=== PATIENT | female | born 1960 | race Caucasian/White ===

== ENCOUNTER 2020-02-04 07:20 | Emergency (ER) | payer BC ==
[2020-02-04 07:39] VITALS: TEMP 98.3
[2020-02-04] MEDS ORDERED: KETOROLAC 15 MG/ML 1 ML VIAL IVP STA (07:52)
[2020-02-04] MEDS ORDERED: DIAZEPAM 5 MG/ML 2 ML INJ IVP STA (07:52)
[2020-02-04] MEDS ORDERED: SODIUM CHLORIDE 0.9% 500 ML 500 ML IV ONE (07:56)
--- NOTE | 2020-02-04 08:00 | ED ---
General Adult HPI - General Chief complaint: Dizziness Stated complaint: Dizzy/neck pain/nausea/high HR Time Seen by Provider: 02/04/20 07:51 Source: patient, RN notes reviewed Mode of arrival: ambulatory Limitations: no limitations - History of Present Illness Initial comments: 59-year-old female presenting for evaluation of neck pain and stiffness, he adache, nausea vomiting. Patient states that over the past several days she's had a squeezing headache at the base of her head and upper neck. She describes this as a vice-like sensation. She reports it has gradually worsened over the past 5 days. This morning the pain was more severe causing nausea and dizziness. Patient is otherwise healthy with no chronic medical conditions. No daily medications. She denies measured fever but states this morning she woke and was feeling warm and sweaty. She denies chest pain. Denies dyspnea. Denies cough. Denies abdominal pain. - Related Data Home Medications Medication Instructions Recorded Confirmed No Known Home Medications 02/04/20 02/04/20 Allergies Allergy/AdvReac Type Severity Reaction Status Date / Time No Known Allergies Allergy Verified 02/04/20 08:53 Review of Systems ROS Statement: Those systems with pertinent positive or pertinent negative responses have been documented in the HPI. ROS Other: All systems not noted in ROS Statement are negative. Past Medical History Past Medical History: No Reported History History of Any Multi-Drug Resistant Organisms: None Reported Past Surgical History: Back Surgery, Hysterectomy Past Psychological History: No Psychological Hx Reported Smoking Status: Current every day smoker Past Alcohol Use History: None Reported Past Drug Use History: None Reported General Exam Limitations: no limitations General appearance: alert, in no apparent distress Head exam: Present: atraumatic, normocephalic Eye exam: Present: normal appearance, PERRL ENT exam: Present: normal exam Neck exam: Present: normal inspection, tenderness (Muscle spasm, cervical region.) Respiratory exam: Present: normal lung sounds bilaterally, respiratory distress Cardiovascular Exam: Present: regular rate, normal rhythm GI/Abdominal exam: Present: soft. Absent: distended, tenderness, guarding Extremities exam: Present: normal inspection, normal capillary refill, pedal edema. Absent: calf tenderness Neurological exam: Present: alert, oriented X3, CN II-XII intact, other (No ataxia normal strength in the upper extremities. 5 out of 5.). Absent: motor sensory deficit Psychiatric exam: Present: normal affect, normal mood Skin exam: Present: warm, dry, intact. Absent: cyanosis, diaphoretic Course Vital Signs 02/04/20 02/04/20 02/04/20 07:36 08:30 09:23 Temperature 98.3 F Pulse Rate 70 65 58 L Respiratory 18 16 18 Rate Blood Pressure 161/85 150/88 126/81 O2 Sat by Pulse 99 99 99 Oximetry - Reevaluation(s) Reevaluation #1: 02/04/20 09:24 Patient feeling much better symptoms resolved. EKG Findings - EKG Comments: EKG Findings:: EKG normal sinus rhythm rate 71, AZ interval 172, QRS duration 80, QTC 425, no ST segment elevation T-wave inversion in the lead 3 Medical Decision Making - Medical Decision Making 59 yo female presenting with an occipital headache, for the past 5 days. This was gradual in onset. Patient felt that she had just slept on it wrong and had a associated neck stiffness as well. Patient is afebrile, well-appearing. She has no ataxia, no focal findings. Initially hypertensive however she normalizes without treatment of hypertension and believe this is secondary to pain. Head CT performed, negative for intracranial hemorrhage or mass effect. Cervical spine negative for fracture subluxation, no acute findings. She has a normal CBC, normal CMP. EKG sinus rhythm without any ST segment elevation, negative troponin. I did reevaluate the patient she is resting comfortably. States her symptoms are significantly improved. - Lab Data Result diagrams: 02/04/20 08:10 02/04/20 08:10 Lab Results 02/04/20 02/04/20 02/04/20 Range/Units 08:10 08:10 08:10 WBC 8.2 (3.8-10.6) k/uL RBC 5.06 (3.80-5.40) m/uL Hgb 15.3 (11.4-16.0) gm/dL Hct 45.9 (34.0-46.0) % MCV 90.8 (80.0-100.0) fL MCH 30.3 (25.0-35.0) pg MCHC 33.4 (31.0-37.0) g/dL RDW 13.4 (11.5-15.5) % Plt Count 237 (150-450) k/uL MPV 6.5 Neutrophils % 74 % Lymphocytes % 20 % Monocytes % 4 % Eosinophils % 1 % Basophils % 0 % Neutrophils # 6.1 (1.3-7.7) k/uL Lymphocytes # 1.6 (1.0-4.8) k/uL Monocytes # 0.3 (0-1.0) k/uL Eosinophils # 0.1 (0-0.7) k/uL Basophils # 0.0 (0-0.2) k/uL PT 9.4 (9.0-12.0) sec INR 0.9 (<1.2) APTT 24.2 (22.0-30.0) sec Sodium (137-145) mmol/L Potassium (3.5-5.1) mmol/L Chloride (98-107) mmol/L Carbon Dioxide (22-30) mmol/L Anion Gap mmol/L BUN (7-17) mg/dL Creatinine (0.52-1.04) mg/dL Est GFR (CKD-EPI)AfAm (>60 ml/min/1.73 sqM) Est GFR (CKD-EPI)NonAf (>60 ml/min/1.73 sqM) Glucose (74-99) mg/dL Calcium (8.4-10.2) mg/dL Magnesium (1.6-2.3) mg/dL Total Bilirubin (0.2-1.3) mg/dL AST (14-36) U/L ALT (4-34) U/L Alkaline Phosphatase (38-126) U/L Troponin I (0.000-0.034) ng/mL Total Protein (6.3-8.2) g/dL Albumin (3.5-5.0) g/dL Urine Color Yellow Urine Appearance Clear (Clear) Urine pH 5.0 (5.0-8.0) Ur Specific [place] 1.010 (1.001-1.035) Urine Protein Negative (Negative) Urine Glucose (UA) Negative (Negative) Urine Ketones Negative (Negative) Urine Blood Negative (Negative) Urine Nitrite Negative (Negative) Urine Bilirubin Negative (Negative) Urine Urobilinogen <2.0 (<2.0) mg/dL Ur Leukocyte Esterase Large H (Negative) Urine WBC 2 (0-5) /hpf Ur Squamous Epith Cells 4 (0-4) /hpf Urine Bacteria Rare H (None) /hpf Urine Mucus Occasional H (None) /hpf 02/04/20 02/04/20 Range/Units 08:10 08:10 WBC (3.8-10.6) k/uL RBC (3.80-5.40) m/uL Hgb (11.4-16.0) gm/dL Hct (34.0-46.0) % MCV (80.0-100.0) fL MCH (25.0-35.0) pg MCHC (31.0-37.0) g/dL RDW (11.5-15.5) % Plt Count (150-450) k/uL MPV Neutrophils % % Lymphocytes % % Monocytes % % Eosinophils % % Basophils % % Neutrophils # (1.3-7.7) k/uL Lymphocytes # (1.0-4.8) k/uL Monocytes # (0-1.0) k/uL Eosinophils # (0-0.7) k/uL Basophils # (0-0.2) k/uL PT (9.0-12.0) sec INR (<1.2) APTT (22.0-30.0) sec Sodium 141 (137-145) mmol/L Potassium 4.0 (3.5-5.1) mmol/L Chloride 110 H (98-107) mmol/L Carbon Dioxide 26 (22-30) mmol/L Anion Gap 5 mmol/L BUN 8 (7-17) mg/dL Creatinine 0.67 (0.52-1.04) mg/dL Est GFR (CKD-EPI)AfAm >90 (>60 ml/min/1.73 sqM) Est GFR (CKD-EPI)NonAf >90 (>60 ml/min/1.73 sqM) Glucose 112 H (74-99) mg/dL Calcium 9.5 (8.4-10.2) mg/dL Magnesium 2.2 (1.6-2.3) mg/dL Total Bilirubin 0.8 (0.2-1.3) mg/dL AST 23 (14-36) U/L ALT 24 (4-34) U/L Alkaline Phosphatase 103 (38-126) U/L Troponin I <0.012 (0.000-0.034) ng/mL Total Protein 7.1 (6.3-8.2) g/dL Albumin 4.3 (3.5-5.0) g/dL Urine Color Urine Appearance (Clear) Urine pH (5.0-8.0) Ur Specific [place] (1.001-1.035) Urine Protein (Negative) Urine Glucose (UA) (Negative) Urine Ketones (Negative) Urine Blood (Negative) Urine Nitrite (Negative) Urine Bilirubin (Negative) Urine Urobilinogen (<2.0) mg/dL Ur Leukocyte Esterase (Negative) Urine WBC (0-5) /hpf Ur Squamous Epith Cells (0-4) /hpf Urine Bacteria (None) /hpf Urine Mucus (None) /hpf Disposition Clinical Impression: Headache Disposition: HOME SELF-CARE Condition: Good Instructions (If sedation given, give patient instructions): Acute Headache (ED) Additional Instructions: Please return to emergency department with any worsening pain, numbness or weakness of the arms or legs, or Any new or worsening symptoms. Is patient prescribed a controlled substance at d/c from ED?: No Referrals: Ratna Bacon MD [Primary Care Provider] - 1-2 days Time of Disposition: 09:27
[2020-02-04 08:21] LABS: Basophils % (A) 0 %; Eosinophils # (A) 0.1 k/uL (0-0.7); Eosinophils % (A) 1 %; HCT 45.9 % (34.0-46.0); HGB 15.3 gm/dL (11.4-16.0); Lymphocytes # (A) 1.6 k/uL (1.0-4.8); Lymphocytes % (A) 20 %; MCH 30.3 pg (25.0-35.0); MCHC 33.4 g/dL (31.0-37.0); MCV 90.8 fL (80.0-100.0); Mean Platelet Volume 6.5; Monocytes # (A) 0.3 k/uL (0-1.0); Monocytes % (A) 4 %; Neutrophils # (A) 6.1 k/uL (1.3-7.7); Neutrophils % (A) 74 %; Platelet Count 237 k/uL (150-450); RBC 5.06 m/uL (3.80-5.40); RDW 13.4 % (11.5-15.5); WBC 8.2 k/uL (3.8-10.6)
[2020-02-04 08:25] LABS: Appearance,Urine Clear (Clear); Bacteria,Urine Rare /hpf; Bilirubin,Urine Negative (Negative); Blood,Urine Negative (Negative); Color,Urine Yellow; Glucose,Urine (UA) Negative (Negative); Ketones,Urine Negative (Negative); Leukocyte Esterase,Urine Large (Negative); Mucus,Urine Occasional /hpf; Nitrite,Urine Negative (Negative); Protein,Urine Negative (Negative); Squamous Epithelial Cell,Urine 4 /hpf (0-4); Urobilinogen,Urine <2.0 mg/dL (<2.0); WBC,Urine 2 /hpf (0-5)
[2020-02-04 08:32] LABS: ALT 24 U/L (4-34); AST 23 U/L (14-36); African American GFR (CKD) >90 (>60 ml/min/1.73 sqM); Albumin 4.3 g/dL (3.5-5.0); Alkaline Phosphatase 103 U/L (38-126); Anion Gap 5 mmol/L; Blood Urea Nitrogen 8 mg/dL (7-17); Calcium 9.5 mg/dL (8.4-10.2); Carbon Dioxide 26 mmol/L (22-30); Chloride 110 mmol/L (98-107); Glucose 112 mg/dL (74-99); Magnesium 2.2 mg/dL (1.6-2.3); Non-African American GFR(CKD) >90 (>60 ml/min/1.73 sqM); Sodium 141 mmol/L (137-145); Total Bilirubin 0.8 mg/dL (0.2-1.3); Total Protein 7.1 g/dL (6.3-8.2)
[2020-02-04 08:34] LABS: INR 0.9 (<1.2); Partial Thromboplastin Time 24.2 sec (22.0-30.0); Prothrombin Time 9.4 sec (9.0-12.0)
--- NOTE | 2020-02-04 08:52 | CT ---
EXAMINATION TYPE: CT brain prashanth dc DATE OF EXAM: 02/04/2020 COMPARISON: None HISTORY: headache, dizziness, neck pain CT DLP: 1379.[address] of the brain was performed. The ventricles, basal cisterns and sulci overlying the cerebral convexities demonstrate mild enlargem ent. There is no evidence for intracranial hemorrhage or sulcal effacement. There is decreased attenuatio n about the periventricular white matter and deep white matter of both cerebral hemispheres, compatib le with chronic small vessel ischemia. No mass effects are seen. If symptoms persist consider MRI. Osseous calvarium is intact. IMPRESSION: 1. Age related atrophic and chronic small vessel ischemic change without acute intracranial process seen at this time. CT Cervical Spine: Unenhanced CT of the cervical spine was performed with bone and soft tissue window settings submitted . Coronal and sagittal reconstruction is obtained. There is normal alignment and prevertebral soft tissues. No evidence for acute cervical fracture . Scattered degenerative disc disease and spondylosis. Biapical scarring. IMPRESSION: 1. No evidence for acute fracture or subluxation of the cervical spine.
[2020-02-04 09:24] VITALS: BP 126/81; PULSE 58; RESP 18
== END 2020-02-04 09:37 | disposition home or self-care (01) ==
LOC: EC 07:20
DX: R51.9 Headache, unspecified (principal); R11.2 Nausea with vomiting, unspecified; M54.2 Cervicalgia; R42 Dizziness and giddiness; R11.0 Nausea; F17.200 Nicotine dependence, unspecified, uncomplicated
CPT/HCPCS: 36415; 93005; 80053; 83735; 84484; 85025; 85610; 85730; 81001; 72125; 70450; 99284; 96374; 96375; 96361; J3360; J1885

== ENCOUNTER → 2020-04-22 | Outpatient (CLI) | payer BC ==
--- NOTE | 2020-04-22 12:38 | US ---
EXAMINATION TYPE: US abdomen complete DATE OF EXAM: 04/22/2020 COMPARISON: NONE CLINICAL HISTORY: 60-year-old female R10.11 Right upper quadrant pain. RUQ pain. Patient states havi ng known gallstones. TECHNIQUE: Multiple sonographic images of the abdomen are obtained. FINDINGS: EXAM MEASUREMENTS: Liver Length: 15.0 cm Gallbladder Wall: 3.8 mm. CBD: 0.5 cm Spleen: 11.8 cm Right Kidney: 9.9 x 5.1 x 4.9 cm Left Kidney: 10.7 x 4.8 x 5.8 cm Pancreas: Shadowing from bowel gas obscures the pancreatic tail. Otherwise, most of the pancreas is visualized and shows no gross abnormality. Liver: Slightly coarsened appearance likely technical. No focal lesion. Gallbladder: Multiple mobile echogenic foci, largest measuring 2.2 cm. No hydropic change. However, there is mild wall thickening measured at 3.8 mm. Evidence for sonographic Levine's sign: neg CBD: wnl Spleen: limited visualization due to overlying bowel gas Kidneys: No hydronephrosis. Upper IVC: wnl Abd Aorta: Mid portion obscured by overlying bowel IMPRESSION: 1. Multiple gallstones measuring up to 2.2 cm. There is no hydropic change, surrounding fluid, or son ographic Levine sign. Given the mild wall thickening, consider chronic cholecystitis. 2. No biliary ductal dilatation.
== END ==
LOC: RADUSWWP 10:48
PROVIDERS: ATTEND Internal Medicine
DX: K80.10 Calculus of gallbladder with chronic cholecystitis without obstruction (principal)
CPT/HCPCS: 76700

== ENCOUNTER 2020-05-07 01:40 | Inpatient (IN) | payer BC ==
[2020-05-07] MEDS ORDERED: ACETAMINOPHEN TAB 325 MG TAB PO STA (01:54)
[2020-05-07] MEDS ORDERED: DEXAMETHASONE SOD PHOSPHATE 10 MG/ML 1 ML VIAL IV STA (01:55)
[2020-05-07] MEDS ORDERED: SODIUM CHLORIDE 0.9% 1,000 ML IV ONE (01:56)
--- NOTE | 2020-05-07 01:59 | ED ---
SOB HPI - General Chief Complaint: Shortness of Breath Stated Complaint: SHAHNAZ,Covid+ Time Seen by Provider: 05/07/20 01:50 Source: patient, EMS Mode of arrival: EMS Limitations: no limitations - History of Present Illness Initial Comments: 60-year-old female patient presents to the emergency department via EMS tonight for evaluation of increased shortness of breath. Patient states she was diagnosed with COVID-19 7 days ago started having symptoms about 10 days ago. States it she has been having fevers and chills. States over the last 3 days her shortness of breath became worse. States she is coughing. Reports chest tightness and pain with inspiration. States she has had a couple episodes of diarrhea today. Denies any nausea or vomiting. States that she has altered taste and hasn't been eating very well. Admits to smoking cigarettes. Denies any diagnosed lung conditions. Denies any other medical problems. States she's been using [id number] medications for symptom relief. Patient denies any recent rash, abdominal pain, numbness, tingling, dizziness, weakness, hematuria, dysuria, urinary urgency, urinary frequency, headache, visual changes, or any other complaints. - Related Data Home Medications Medication Instructions Recorded Confirmed No Known Home Medications 02/04/20 02/04/20 Allergies Allergy/AdvReac Type Severity Reaction Status Date / Time No Known Allergies Allergy Verified 05/07/20 02:36 Review of Systems ROS Statement: Those systems with pertinent positive or pertinent negative responses have been documented in the HPI. ROS Other: All systems not noted in ROS Statement are negative. Past Medical History Past Medical History: No Reported History History of Any Multi-Drug Resistant Organisms: None Reported Past Surgical History: Back Surgery, Hysterectomy Past Psychological History: No Psychological Hx Reported Smoking Status: Current every day smoker Past Alcohol Use History: None Reported Past Drug Use History: None Reported General Exam Limitations: no limitations General appearance: alert, in no apparent distress, other (This is a well- developed, well-nourished adult female patient in respiratory distress. Vital signs upon presentation are temperature 99.2F, pulse 112, respirations 30, bloo d pressure 141/89, pulse ox 84% on 15 L via nonrebreather.) Eye exam: Present: normal appearance, PERRL, EOMI. Absent: scleral icterus, conjunctival injection, periorbital swelling ENT exam: Present: normal exam, normal oropharynx, mucous membranes moist Respiratory exam: Present: normal lung sounds bilaterally, respiratory distress, other (Tachypnea). Absent: wheezes, rales, rhonchi, stridor Cardiovascular Exam: Present: regular rate, normal rhythm, normal heart sounds. Absent: systolic murmur, diastolic murmur, rubs, gallop, clicks GI/Abdominal exam: Present: soft, normal bowel sounds. Absent: distended, tenderness, guarding, rebound, rigid Neurological exam: Present: alert, oriented X3, CN II-XII intact Psychiatric exam: Present: normal affect, normal mood Skin exam: Present: warm, dry, intact, normal color. Absent: rash Course Vital Signs 05/07/20 05/07/20 05/07/20 01:44 01:53 02:37 Temperature 99.2 F Pulse Rate 112 H 102 H Respiratory 22 20 Rate Blood Pressure 141/89 135/79 O2 Sat by Pulse 84 L 88 L 88 L Oximetry Medical Decision Making - Medical Decision Making 60-year-old female patient presents to the emergency department today for evaluation of shortness of breath after being diagnosed with COVID-19. Patient started having symptoms approximately 10 days ago. Physical examination did reveal tachypnea, crackles in the bilateral posterior lung plummer. She was satting in the 60s upon arrival to the ED. She was placed on Non-rebreather at 15L, O2 improved to 85-88%. She was given dexamethasone and monitored, O2 did not improve so she was started on Airvo. Labs were reviewed and showed elevated d-dimer, LDH, CRP. Sodium 129. Chest x-ray revealed bilateral patchy infiltrates area did CT chest is pending. Patient will be admitted. Pulmonology will be consulted. Dr. Rubin is accepting. - Lab Data Result diagrams: 05/07/20 02:08 05/07/20 02:08 Lab Results 05/07/20 05/07/20 05/07/20 Range/Units 02:08 02:08 02:08 WBC 4.6 (3.8-10.6) k/uL RBC 4.66 (3.80-5.40) m/uL Hgb 14.2 (11.4-16.0) gm/dL Hct 39.5 (34.0-46.0) % MCV 84.8 (80.0-100.0) fL MCH 30.4 (25.0-35.0) pg MCHC 35.8 (31.0-37.0) g/dL RDW 12.7 (11.5-15.5) % Plt Count 270 (150-450) k/uL MPV 7.1 Neutrophils % 82 % Lymphocytes % 10 % Monocytes % 6 % Eosinophils % 1 % Basophils % 1 % Neutrophils # 3.8 (1.3-7.7) k/uL Lymphocytes # 0.5 L (1.0-4.8) k/uL Monocytes # 0.3 (0-1.0) k/uL Eosinophils # 0.0 (0-0.7) k/uL Basophils # 0.0 (0-0.2) k/uL PT 9.8 (9.0-12.0) sec INR 0.9 (<1.2) APTT 18.2 L (22.0-30.0) sec D-Dimer 3.79 H (<0.60) mg/L FEU Sodium 129 L (137-145) mmol/L Potassium 3.7 (3.5-5.1) mmol/L Chloride 94 L (98-107) mmol/L Carbon Dioxide 27 (22-30) mmol/L Anion Gap 8 mmol/L BUN 12 (7-17) mg/dL Creatinine 0.50 L (0.52-1.04) mg/dL Est GFR (CKD-EPI)AfAm >90 (>60 ml/min/1.73 sqM) Est GFR (CKD-EPI)NonAf >90 (>60 ml/min/1.73 sqM) Glucose 128 H (74-99) mg/dL Plasma Lactic Acid Bladimir (0.7-2.0) mmol/L Calcium 8.4 (8.4-10.2) mg/dL Magnesium 2.3 (1.6-2.3) mg/dL Total Bilirubin 0.9 (0.2-1.3) mg/dL AST 44 H (14-36) U/L ALT 19 (4-34) U/L Alkaline Phosphatase 86 (38-126) U/L Lactate Dehydrogenase 1942 H (313-618) U/L C-Reactive Protein 78.3 H (<10.0) mg/L Total Protein 5.9 L (6.3-8.2) g/dL Albumin 3.3 L (3.5-5.0) g/dL 05/07/20 Range/Units 02:08 WBC (3.8-10.6) k/uL RBC (3.80-5.40) m/uL Hgb (11.4-16.0) gm/dL Hct (34.0-46.0) % MCV (80.0-100.0) fL MCH (25.0-35.0) pg MCHC (31.0-37.0) g/dL RDW (11.5-15.5) % Plt Count (150-450) k/uL MPV Neutrophils % % Lymphocytes % % Monocytes % % Eosinophils % % Basophils % % Neutrophils # (1.3-7.7) k/uL Lymphocytes # (1.0-4.8) k/uL Monocytes # (0-1.0) k/uL Eosinophils # (0-0.7) k/uL Basophils # (0-0.2) k/uL PT (9.0-12.0) sec INR (<1.2) APTT (22.0-30.0) sec D-Dimer (<0.60) mg/L FEU Sodium (137-145) mmol/L Potassium (3.5-5.1) mmol/L Chloride (98-107) mmol/L Carbon Dioxide (22-30) mmol/L Anion Gap mmol/L BUN (7-17) mg/dL Creatinine (0.52-1.04) mg/dL Est GFR (CKD-EPI)AfAm (>60 ml/min/1.73 sqM) Est GFR (CKD-EPI)NonAf (>60 ml/min/1.73 sqM) Glucose (74-99) mg/dL Plasma Lactic Acid Bladimir 2.0 (0.7-2.0) mmol/L Calcium (8.4-10.2) mg/dL Magnesium (1.6-2.3) mg/dL Total Bilirubin (0.2-1.3) mg/dL AST (14-36) U/L ALT (4-34) U/L Alkaline Phosphatase (38-126) U/L Lactate Dehydrogenase (313-618) U/L C-Reactive Protein (<10.0) mg/L Total Protein (6.3-8.2) g/dL Albumin (3.5-5.0) g/dL - EKG Data -: EKG Interpreted by Me EKG Comments: EKG obtained at shows sinus tachycardia with ventricular rate of 110, MA interval 156, QRS duration 82, QT 336, QTc 454. Shows some ST depression and lead 2, V2, V3 is some elevation noted in aVR. - Radiology Data Radiology results: image reviewed Disposition Clinical Impression: COVID-19, Viral pneumonia, Hypoxia Disposition: ADMITTED IP TO THIS [facility] Condition: Serious Referrals: Ratna Bacon MD [Primary Care Provider] - 1-2 days Decision to Admit Reason: Admit from EC Decision Date: 05/07/20 Decision Time: 03:21
[2020-05-07 02:37] LABS: Basophils % (A) 1 %; Eosinophils % (A) 1 %; HCT 39.5 % (34.0-46.0); HGB 14.2 gm/dL (11.4-16.0); Lymphocytes # (A) 0.5 k/uL (1.0-4.8); Lymphocytes % (A) 10 %; MCH 30.4 pg (25.0-35.0); MCHC 35.8 g/dL (31.0-37.0); MCV 84.8 fL (80.0-100.0); Mean Platelet Volume 7.1; Monocytes # (A) 0.3 k/uL (0-1.0); Monocytes % (A) 6 %; Neutrophils # (A) 3.8 k/uL (1.3-7.7); Neutrophils % (A) 82 %; Platelet Count 270 k/uL (150-450); RBC 4.66 m/uL (3.80-5.40); RDW 12.7 % (11.5-15.5); WBC 4.6 k/uL (3.8-10.6)
[2020-05-07 02:39] LABS: ALT 19 U/L (4-34); AST 44 U/L (14-36); African American GFR (CKD) >90 (>60 ml/min/1.73 sqM); Albumin 3.3 g/dL (3.5-5.0); Alkaline Phosphatase 86 U/L (38-126); Anion Gap 8 mmol/L; Blood Urea Nitrogen 12 mg/dL (7-17); C Reactive Protein 78.3 mg/L (<10.0); Calcium 8.4 mg/dL (8.4-10.2); Carbon Dioxide 27 mmol/L (22-30); Chloride 94 mmol/L (98-107); Glucose 128 mg/dL (74-99); LDH 1942 U/L (313-618); Magnesium 2.3 mg/dL (1.6-2.3); Non-African American GFR(CKD) >90 (>60 ml/min/1.73 sqM); Potassium 3.7 mmol/L (3.5-5.1); Sodium 129 mmol/L (137-145); Total Bilirubin 0.9 mg/dL (0.2-1.3); Total Protein 5.9 g/dL (6.3-8.2)
[2020-05-07 02:49] LABS: INR 0.9 (<1.2); Prothrombin Time 9.8 sec (9.0-12.0)
[2020-05-07 02:52] LABS: Partial Thromboplastin Time 18.2 sec (22.0-30.0)
[2020-05-07] MEDS ORDERED: NALOXONE 0.4 MG/ML 1 ML VIAL IV PRN (03:18)
[2020-05-07] MEDS ORDERED: ONDANSETRON 4 MG/2 ML VIAL IVP PRN (03:18)
--- NOTE | 2020-05-07 03:58 | CT ---
EXAM: CT Angiography Chest With Intravenous Contrast CLINICAL HISTORY: ITS.REASON CT Reason: COVID; Elevated D-dimer TECHNIQUE: Axial computed tomographic angiography images of the chest with intravenous contrast. CTDI is 13.87 mGy and DLP is 419.4 mGy-cm. This CT exam was performed using one or more of the following dose reduction techniques: automated exposure control, adjustment of the mA and/or kV according to patient size, and/or use of iterative reconstruction technique. MIP reconstructed images were created and reviewed. COMPARISON: Chest x-ray from May 07, 2020 FINDINGS: Pulmonary arteries: The pulmonary arterial tree is well opacified with contrast. No pulmonary emboli are identified. Aorta: The thoracic aorta is nondilated. There is no aneurysm or dissection. Lungs: Lungs demonstrate moderate to severe scattered groundglass opacities throughout both lungs with interspaced wedge-shaped areas of consolidation or atelectasis. Consider Covid 19 pneumonia. Pleural space: Unremarkable. No significant effusion. No pneumothorax. Heart: Unremarkable. No cardiomegaly. No significant pericardial effusion. No evidence of RV dysfunction. Mediastinum: 3.7 cm hiatal hernia. Thyroid: Incidental note is made of a 12 mm left thyroid nodule and a 1 cm right thyroid nodule. Bones/joints: Metallic artifact from Argu[place] linda stabilizing prior scoliosis surgery throughout the thoracic spine. No acute fracture. No dislocation. Soft tissues: Unremarkable. Lymph nodes: Unremarkable. No enlarged lymph nodes. Gallbladder and bile ducts: Limited images of the upper abdomen demonstrate partial visualization of a 1.4 cm calcified gallstone within the gallbladder. IMPRESSION: Lungs demonstrate moderate to severe scattered groundglass opacities throughout both lungs with interspaced wedge-shaped areas of consolidation or atelectasis. Consider Covid 19 pneumonia. No evidence of pulmonary embolism or acute aortic abnormality.
--- NOTE | 2020-05-07 07:55 | XR ---
EXAMINATION TYPE: XR chest 1V portable DATE OF EXAM: 05/07/2020 COMPARISON: None INDICATION: Suspected atypical pneumonia TECHNIQUE: Single frontal view of the chest is obtained. FINDINGS: The heart size is normal. The pulmonary vasculature is normal. There is diffuse opacities to the bilateral lung plummer. Findings can be compatible with atypical pne umonia. Follow-up is recommended IMPRESSION: 1. Diffuse bilateral infiltrates which can be compatible with atypical pneumonia
[2020-05-07] MEDS: ASCORBIC ACID 500 MG TAB PO SCH (10:14)
[2020-05-07] MEDS: ZINC SULFATE 220 MG CAP PO SCH (10:14)
[2020-05-07] MEDS: DEXAMETHASONE SOD PHOSPHATE 10 MG/ML 1 ML VIAL IV SCH (10:16)
--- NOTE | 2020-05-07 10:19 | P.CNPUL ---
History of Present Illness Consult date: 05/07/20 Reason for consult: dyspnea, hypoxemia, pneumonia, abnormal CXR/CT Chief complaint: Cough, acute hypoxic respiratory failure, dyspnea COVID 19 History of present illness: 60-year-old white female patient of Dr. Bacon with no significant medical history other than history of uterine and cervical cancer status post total hysterectomy 10 years ago, kyphoscoliosis with history of back surgery, and borderline hypertension for which the patient takes no medications, who presented to the emergency department 05-07-2020 by EMS for evaluation of worsening shortness of breath. Patient states that onset of symptoms was 2 we eks ago and started with runny nose and a sore throat, gradually her symptoms have progressed, and patient started having fevers, worsening shortness of breath and cough. She tested positive for COVID 19 a week ago on 04/29/2020 on an outpatient basis however she did not seek any medical treatment up until now. She reports some decreased oral intake, nausea, but no abdominal pain or diarrhea. Admits to smoking cigarettes, however reports no chronic lung condition. Patient denies receiving any vaccination for COVID 19. CTA chest showed no evidence of pulmonary embolism, but demonstrated moderate to severe scattered groundglass opacities, showed a positive COVID 19 PCR test, d-dimer was elevated at 3.79, and significant elevated inflammatory markers with LDH thousand 942, and CRP of 78.3. Patient is a requiring high flow oxygen per Airvo at 50 L and FiO2 of 75%, her pulse ox is 88-92%, she is having low grade fevers, but hemodynamically stable. Added on Decadron, prophylactic dose of Lovenox, and we were asked to see the patient in consultation. Review of Systems All systems: negative Constitutional: Reports fatigue, Reports malaise, Reports weakness, Denies chills, Denies fever Eyes: denies blurred vision, denies pain Ears, nose, mouth and throat: Denies headache, Denies sore throat Cardiovascular: Denies chest pain, Denies shortness of breath Respiratory: Reports cough, Reports dyspnea Gastrointestinal: Reports loss of appetite, Reports nausea, Denies abdominal pain, Denies diarrhea, Denies vomiting Genitourinary: Denies dysuria, Denies hematuria Musculoskeletal: Denies myalgias Integumentary: Denies pruritus, Denies rash Neurological: Denies numbness, Denies weakness Psychiatric: Denies anxiety, Denies depression Endocrine: Denies fatigue, Denies weight change Past Medical History Past Medical History: No Reported History History of Any Multi-Drug Resistant Organisms: None Reported Past Surgical History: Back Surgery, Hysterectomy Past Psychological History: No Psychological Hx Reported Smoking Status: Current every day smoker Past Alcohol Use History: None Reported Past Drug Use History: None Reported Medications and Allergies Home Medications Medication Instructions Recorded Confirmed Type No Known Home Medications 02/04/20 05/07/20 History Allergies Allergy/AdvReac Type Severity Reaction Status Date / Time No Known Allergies Allergy Verified 05/07/20 06:28 Physical Exam Vitals: Vital Signs Temp Pulse Resp BP Pulse Ox 05/07/20 09:16 96 18 138/80 88 L 05/07/20 07:41 92 L 05/07/20 06:59 98.9 F 88 18 121/80 89 L 05/07/20 04:49 99.3 F 88 20 131/76 92 L 05/07/20 03:52 100.5 F H 92 20 141/82 91 L 05/07/20 03:00 90 L 05/07/20 02:37 102 H 20 135/79 88 L 05/07/20 01:53 88 L 05/07/20 01:44 99.2 F 112 H 22 141/89 84 L Intake and Output 05/06/20 05/07/20 05/07/20 22:59 06:59 14:59 Other: Weight 94.801 kg GENERAL EXAM: Alert, pleasant, 70-year-old white female, currently on high flow oxygen per Airvo at 50 L and FiO2 of 75% with a pulse ox of 88-92% comfortable in no apparent distress. HEAD: Normocephalic/atraumatic. EYES: Normal reaction of pupils, equal size. Conjunctiva pink, sclera white. NOSE: Clear with pink turbinates. THROAT: No erythema or exudates. NECK: No masses, no JVD, no thyroid enlargement, no adenopathy. CHEST: No chest wall deformity. Symmetrical expansion. LUNGS: Equal air entry with diffuse coarse crackles throughout lung plummer CVS: Regular rate and rhythm, normal S1 and S2, no gallops, no murmurs, no rubs ABDOMEN: Soft, nontender. No hepatosplenomegaly, normal bowel sounds, no guarding or rigidity. EXTREMITIES: No clubbing, no edema, no cyanosis, 2+ pulses and upper and lower extremities. MUSCULOSKELETAL: Muscle strength and tone normal. SPINE: No scoliosis or deformity SKIN: No rashes CENTRAL NERVOUS SYSTEM: Alert and oriented -3. No focal deficits, tone is normal in all 4 extremities. PSYCHIATRIC: Alert and oriented -3. Appropriate affect. Intact judgment and insight. Results - Laboratory Findings CBC and BMP: 05/07/20 02:08 05/07/20 02:08 PT/INR, D-dimer PT 9.8 sec (9.0-12.0) 05/07/20 02:08 INR 0.9 (<1.2) 05/07/20 02:08 D-Dimer 3.79 mg/L FEU (<0.60) H 05/07/20 02:08 Abnormal lab findings: Abnormal Labs 05/07/20 05/07/20 05/07/20 02:08 02:08 02:08 Lymphocytes # 0.5 L APTT 18.2 L D-Dimer 3.79 H Sodium 129 L Chloride 94 L Creatinine 0.50 L Glucose 128 H AST 44 H Lactate Dehydrogenase 1942 H C-Reactive Protein 78.3 H Total Protein 5.9 L Albumin 3.3 L Coronavirus (PCR) 05/07/20 03:55 Lymphocytes # APTT D-Dimer Sodium Chloride Creatinine Glucose AST Lactate Dehydrogenase C-Reactive Protein Total Protein Albumin Coronavirus (PCR) Detected A - Diagnostic Findings Chest x-ray: report reviewed, image reviewed CT scan - chest: report reviewed, image reviewed Additional studies: EKG reviewed Assessment and Plan Plan: Assessment: #1. Acute hypoxic respiratory failure related to COVID 19 pneumonia, she tested positive in an outpatient basis on 04/29/2020, and onset of symptoms was 2 weeks prior to presentation. Currently requiring high flow oxygen every at 50 L and FiO2 of 75% per Airvo #2. Recent inflammatory markers, increased d-dimer related to the above #3. Nausea, poor appetite, poor oral intake, cough, fever, shortness of breath related to acute COVID 19 pneumonia #4. Borderline hypertension history takes no medications for #5. Smoker #6. Hx of uterine and cervical cancer status post hysterectomy 10 years ago #7. History of kyphoscoliosis with history of back surgery 30 years ago #8. Hyponatremia likely hypovolemic Plan: Continue Lovenox at 50 mg twice daily, continue Decadron, we'll send level, daily inflammatory markers and d-dimer, follow-up chest x-ray in the morning, patient is requiring high flow oxygen currently at 50 L/m, on presentation she was already in severe hypoxic respiratory failure, we will see if again qualify the patient for Tocilizumab 400 mg IV piggyback 2 doses. IV fluids 0.9 normal saline at 50 ML per hour I performed a history & physical examination of the patient and discussed their management with my nurse practitioner, Gina Marsh. I reviewed the nurse practitioner's note and agree with the documented findings and plan of care. Lung sounds are positive for diffuse crackles The findings and the impression was discussed with the patient. I attest to the documentation by the nurse practitioner. Time with Patient: Greater than 30
[2020-05-07] MEDS ORDERED: TOCILIZUMAB 400 MG in SODIUM CHLORIDE 0.9% 80 ML IV ONE ×2 (11:00→23:00)
[2020-05-07 12:25] LABS: Ferritin 833.9 ng/mL (10.0-291.0)
[2020-05-07] MEDS: CHOLECALCIFEROL 25 MCG (1000 IU) TABLET PO SCH (13:40)
[2020-05-07] MEDS: ENOXAPARIN 60 MG/0.6 ML SYRINGE SQ SCH ×2 (13:40→22:53)
--- NOTE | 2020-05-07 17:50 | P.HPIM ---
History of Present Illness H&P Date: 05/07/20 Chief Complaint: Shortness of breath Patient is a 60-year-old female with a known history of cervical cancer status post hysterectomy, currently everyday smoker presents to ER with the complaints of worsening shortness of breath. Patient says that her symptoms started about 2 weeks ago and was tested for cold positive on 04/29/2020 as an outpatient. Patient has been having fever and chills on and off. She has been using [id number] medications. Patient was not any antibiotics or steroids at home. She came to ER due to worsening shortness of breath and generalized weakness and decreased oral intake and nausea for the past 3 days. No complaints of diarrhea and abdominal pain. Does have chest tightness with deep breathing. Denied any dysuria or hematuria. No headache or dizziness or lightheadedness. On admission patient was tachycardic and hypoxic with pulse ox 84% and requiring her person noncontributory. CTA chest showed demonstrative moderate to severe skater groundglass opacities throughout both lungs with interspace and wedge-shaped areas of consolidation or atelectasis. Consider Coumadin 19 pneumonia. No evidence of pulmonary embolism or acute aortic abnormality. EKG showed sinus tachycardia Chest x-ray showed diffuse bilateral infiltrates which can be compatible with atypical pneumonia. Laboratory data showed WBC 4.6, hemoglobin 14.2 and platelets 270, d-dimer 3.79 Sodium 129 potassium 3.7 chloride 94 BUN 12 and creatinine 0.50 LDH 1942, CRP 78.3, pro-calcitonin 0.2 Code 19 PCR detected. Review of Systems Constitutional: Patient does have fever and chills at home. Generalized weakn ess and malaise. Abdomen: Patient denied nausea vomiting and diarrhea and abdominal pain. Cardiovascular: Patient denies any chest pain or short of breath no palpitations. Chest tightness Respiratory: Cough without sputum production. Patient does have shortness of breath Neurologic: Patient denied any numbness or tingling headache. Musculoskeletal: Patient denies any complaints of joint swelling or deformity. Skin: Negative Psychiatric: Negative Endocrine: No heat or cold intolerance. No recent weight gain. Genitourinary: No dysuria or hematuria. All other 14 point ROS negative except the above Past Medical History Past Medical History: No Reported History History of Any Multi-Drug Resistant Organisms: None Reported Past Surgical History: Back Surgery, Hysterectomy Past Psychological History: No Psychological Hx Reported Smoking Status: Current every day smoker Past Alcohol Use History: None Reported Past Drug Use History: None Reported - Past Family History Father Family Medical History: Diabetes Mellitus, Hypertension, Renal Disease Additional Family Medical History / Comment(s): Father is . Mother Family Medical History: AFIB, Diabetes Mellitus, Hypertension Medications and Allergies Home Medications Medication Instructions Recorded Confirmed Type No Known Home Medications 02/04/20 05/07/20 History Allergies Allergy/AdvReac Type Severity Reaction Status Date / Time No Known Allergies Allergy Verified 05/07/20 06:28 Physical Exam Vitals: Vital Signs Temp Pulse Resp BP Pulse Ox 05/07/20 09:16 96 18 138/80 88 L 05/07/20 07:41 92 L 05/07/20 06:59 98.9 F 88 18 121/80 89 L 05/07/20 04:49 99.3 F 88 20 131/76 92 L 05/07/20 03:52 100.5 F H 92 20 141/82 91 L 05/07/20 03:00 90 L 05/07/20 02:37 102 H 20 135/79 88 L 05/07/20 01:53 88 L 05/07/20 01:44 99.2 F 112 H 22 141/89 84 L Intake and Output 05/06/20 05/07/20 05/07/20 22:59 06:59 14:59 Other: Weight 94.801 kg PHYSICAL EXAMINATION: Patient is lying in the bed comfortably, no acute distress, awake alert and oriented.. HEENT: Normocephalic. Neck is supple. Pupils reactive. Nostrils clear. Oral cavity is moist. Ears reveal no drainage. Neck reveals no JVD, carotid bruits, or thyromegaly. CHEST EXAMINATION: Trachea is central. Symmetrical expansion. Bilateral coarse breath sounds. No wheezing or rhonchi.. CARDIAC: Normal S1, S2 with no gallops. No murmurs ABDOMEN: Soft. Bowel sounds normal. No organomegaly. No abdominal bruits. Extremities: reveal no edema. No clubbing or cyanosis Neurologically awake, alert, oriented x3 with well-coordinated movements. No focal deficits noted Skin: No rash or skin lesions. Psychiatric: Coperative. Nonsuicidal Musculoskeletal: No joint swelling or deformity. Normal range of motion. Results CBC & Chem 7: 05/07/20 02:08 05/07/20 02:08 Labs: Abnormal Lab Results - Last 24 Hours (Table) 05/07/20 05/07/20 05/07/20 Range/Units 02:08 02:08 02:08 Lymphocytes # 0.5 L (1.0-4.8) k/uL APTT 18.2 L (22.0-30.0) sec D-Dimer 3.79 H (<0.60) mg/L FEU Sodium 129 L (137-145) mmol/L Chloride 94 L (98-107) mmol/L Creatinine 0.50 L (0.52-1.04) mg/dL Glucose 128 H (74-99) mg/dL AST 44 H (14-36) U/L Lactate Dehydrogenase 1942 H (313-618) U/L C-Reactive Protein 78.3 H (<10.0) mg/L Total Protein 5.9 L (6.3-8.2) g/dL Albumin 3.3 L (3.5-5.0) g/dL Coronavirus (PCR) (Not Detectd) 05/07/20 Range/Units 03:55 Lymphocytes # (1.0-4.8) k/uL APTT (22.0-30.0) sec D-Dimer (<0.60) mg/L FEU Sodium (137-145) mmol/L Chloride (98-107) mmol/L Creatinine (0.52-1.04) mg/dL Glucose (74-99) mg/dL AST (14-36) U/L Lactate Dehydrogenase (313-618) U/L C-Reactive Protein (<10.0) mg/L Total Protein (6.3-8.2) g/dL Albumin (3.5-5.0) g/dL Coronavirus (PCR) Detected A (Not Detectd) Thrombosis Risk Factor Assmnt - DVT/VTE Prophylaxis DVT/VTE Prophylaxis: Pharmacologic Prophylaxis ordered Assessment and Plan Assessment: Acute hypoxic respiratory failure secondary to Covid 19 pneumonia. Patient tested positive on 04/29/2020. Currently requiring 50 L of FiO2 75% via Airvo Increased inflammatory markers secondary to viral pneumonia Hypovolemic hyponatremia Elevated d-dimer level without evidence of pulmonary embolism on CTA Borderline hypertension currently not on any medications at home. Ongoing nicotine addiction History of uterine and cervical cancer status post hysterectomy 10 years ago Kyphoscoliosis history and back surgery DVT prophylaxis patient is on Lovenox. Plan: Patient was given Tocilizumab 400 mg IV piggyback 2 doses. Patient will be continued on oxygen supplementation and titrate down FiO2. Continue with dexamethasone 6 mg daily and multivitamins, vitamin D and follow up closely. Monitor electrolytes and inflammatory markers. Continue with Lovenox 45 mg twice a day due to elevated d-dimer level. Pulmonary is on board. Further recommendations based on the clinical course. Prognosis is guarded. Smoking cessation has been counseled. Time with Patient: Greater than 30
[2020-05-07] MEDS: FAMOTIDINE 20 MG TAB PO SCH (22:53)
[2020-05-08] MEDS: FAMOTIDINE 20 MG TAB PO SCH ×2 (08:47→21:12)
[2020-05-08] MEDS: ZINC SULFATE 220 MG CAP PO SCH (08:52)
[2020-05-08] MEDS: DEXAMETHASONE SOD PHOSPHATE 10 MG/ML 1 ML VIAL IV SCH (08:52)
[2020-05-08] MEDS: CHOLECALCIFEROL 25 MCG (1000 IU) TABLET PO SCH (08:52)
[2020-05-08] MEDS: ASCORBIC ACID 500 MG TAB PO SCH (08:52)
[2020-05-08] MEDS: ENOXAPARIN 60 MG/0.6 ML SYRINGE SQ SCH ×2 (12:38→21:12)
--- NOTE | 2020-05-08 13:05 | P.PN ---
Subjective Progress Note Date: 05/08/20 60-year-old white female patient of Dr. Bacon with no significant medical histo ry other than history of uterine and cervical cancer status post total hysterectomy 10 years ago, kyphoscoliosis with history of back surgery, and borderline hypertension for which the patient takes no medications, who presented to the emergency department 05-07-2020 by EMS for evaluation of worsening shortness of breath. Patient states that onset of symptoms was 2 weeks ago and started with runny nose and a sore throat, gradually her symptoms have progressed, and patient started having fevers, worsening shortness of breath and cough. She tested positive for COVID 19 a week ago on 04/29/2020 on an outpatient basis however she did not seek any medical treatment up until now. She reports some decreased oral intake, nausea, but no abdominal pain or diarrhea. Admits to smoking cigarettes, however reports no chronic lung condition. Patient denies receiving any vaccination for COVID 19. CTA chest showed no evidence of pulmonary embolism, but demonstrated moderate to severe scattered groundglass opacities, showed a positive COVID 19 PCR test, d-dimer was elevated at 3.79, and significant elevated inflammatory markers with LDH thousand 942, and CRP of 78.3. Patient is a requiring high flow oxygen per Airvo at 50 L and FiO2 of 75%, her pulse ox is 88-92%, she is having low grade f dillon, but hemodynamically stable. Added on Decadron, prophylactic dose of Lovenox, and we were asked to see the patient in consultation. On today's evaluation, the patient is being seen for follow-up regarding her Covid associated pneumonia. The patient presented with significant hypoxemic respiratory failure with bilateral pulmonary infiltrates and consolidations perihilar and extending to the peripheries. The patient remains on high flow oxygen and she is currently on 6 L with an FiO2 of 90%. No new labs from today. Her d-dimer from yesterday was 3.7. LDH level was also elevated at 942 with a CRP of 78.3. She remains on Decadron 6 mg IV every 24 hours. Objective - Vital Signs Vital signs: Vital Signs Temp 97.3 F L 05/08/20 08:00 Pulse 73 05/08/20 12:00 Resp 18 05/08/20 12:00 BP 133/72 05/08/20 12:00 Pulse Ox 89 L 05/08/20 12:00 Intake & Output 05/07/20 05/08/20 05/08/20 18:59 06:59 18:59 Intake Total 340 Balance 340 Weight 94.801 kg 96.2 kg Intake: Intake, IV Titration 100 Amount Tocilizumab 400 mg In 100 Sodium Chloride 0.9% 80 ml @ 100 mls/hr IV ONCE ONE Rx#:[id number] Oral 240 Other: # Voids 3 1 - Exam GENERAL EXAM: Alert, pleasant, 70-year-old white female, currently on high flow oxygen per Airvo at 50 L and FiO2 of 75% with a pulse ox of 88-92% comfortable in no apparent distress. HEAD: Normocephalic/atraumatic. EYES: Normal reaction of pupils, equal size. Conjunctiva pink, sclera white. NOSE: Clear with pink turbinates. THROAT: No erythema or exudates. NECK: No masses, no JVD, no thyroid enlargement, no adenopathy. CHEST: No chest wall deformity. Symmetrical expansion. LUNGS: Equal air entry with diffuse coarse crackles throughout lung plummer CVS: Regular rate and rhythm, normal S1 and S2, no gallops, no murmurs, no rubs ABDOMEN: Soft, nontender. No hepatosplenomegaly, normal bowel sounds, no guarding or rigidity. EXTREMITIES: No clubbing, no edema, no cyanosis, 2+ pulses and upper and lower extremities. MUSCULOSKELETAL: Muscle strength and tone normal. SPINE: No scoliosis or deformity SKIN: No rashes CENTRAL NERVOUS SYSTEM: Alert and oriented -3. No focal deficits, tone is normal in all 4 extremities. PSYCHIATRIC: Alert and oriented -3. Appropriate affect. Intact judgment and insight. - Labs CBC & Chem 7: 05/07/20 02:08 05/07/20 02:08 Labs: Microbiology - Last 24 Hours (Table) 05/07/20 02:33 Blood Culture - Preliminary Blood No Growth after 24 hours 05/07/20 02:33 Blood Culture - Preliminary Blood No Growth after 24 hours Assessment and Plan Plan: #1. Acute hypoxic respiratory failure related to COVID 19 pneumonia, she tested positive in an outpatient basis on 04/29/2020, and onset of symptoms was 2 weeks prior to presentation. Currently requiring high flow oxygen every at 60 L and FiO2 of 90% per Airvo #2. Recent inflammatory markers, increased d-dimer related to the above #3. Nausea, poor appetite, poor oral intake, cough, fever, shortness of breath related to acute COVID 19 pneumonia #4. Borderline hypertension history takes no medications for #5. Smoker #6. Hx of uterine and cervical cancer status post hysterectomy 10 years ago #7. History of kyphoscoliosis with history of back surgery 30 years ago #8. Hyponatremia likely hypovolemic Plan: Continue steroids and I will treat this patient with IV Solu Medrol 60 mg every 6 hours and stop the Decadron for now The patient received also Tocilizumab 400 mg IV piggyback 2 doses. Continue Lovenox 50 mg subcutaneous every 12 hours Repeat chest x-ray in the morning Repeat inflammatory markers Condition is quite guarded and the patient is a high risk of developing respiratory failure requiring intubation mechanical ventilation. We'll continue to follow very closely.
[2020-05-08] MEDS: methylPREDNISolone SOD SUCCI 125 MG/2 ML VIAL IV SCH (17:22)
[2020-05-08 17:38] LABS: Glucose,Whole Blood 128 mg/dL (75-99)
[2020-05-08 20:39] LABS: Glucose,Whole Blood 192 mg/dL (75-99)
[2020-05-08] MEDS: INSULIN ASPART (NovoLOG) 100 UNIT/ML VIAL SQ SCH (21:12)
[2020-05-09] MEDS: methylPREDNISolone SOD SUCCI 125 MG/2 ML VIAL IV SCH ×5 (00:04→23:41)
[2020-05-09 06:27] LABS: Glucose,Whole Blood 151 mg/dL (75-99)
[2020-05-09] MEDS: INSULIN ASPART (NovoLOG) 100 UNIT/ML VIAL SQ SCH ×4 (06:33→21:33)
[2020-05-09 07:44] LABS: Basophils % (A) 0 %; Eosinophils % (A) 0 %; HCT 39.5 % (34.0-46.0); HGB 12.9 gm/dL (11.4-16.0); Lymphocytes # (A) 0.4 k/uL (1.0-4.8); Lymphocytes % (A) 7 %; MCH 28.7 pg (25.0-35.0); MCHC 32.8 g/dL (31.0-37.0); MCV 87.5 fL (80.0-100.0); Mean Platelet Volume 6.6; Monocytes # (A) 0.2 k/uL (0-1.0); Monocytes % (A) 4 %; Neutrophils # (A) 4.7 k/uL (1.3-7.7); Neutrophils % (A) 88 %; Platelet Count 304 k/uL (150-450); RBC 4.51 m/uL (3.80-5.40); RDW 13.6 % (11.5-15.5); WBC 5.3 k/uL (3.8-10.6)
--- NOTE | 2020-05-09 07:49 | XR ---
EXAMINATION TYPE: XR chest 1V portable DATE OF EXAM: 05/09/2020 COMPARISON: 05/07/2020 HISTORY: Shortness of breath TECHNIQUE: Single frontal view of the chest is obtained. FINDINGS Diffuse interstitial opacity with scattered partially consolidative/airspace opacity which has modera tely decreased in the interval. The heart size is normal. There is a stabilization linda thoracic spine. The osseous structures are oth erwise intact. IMPRESSION: Mild reduction in the partially consolidative/airspace in both lungs. A few scattered airspace opacit ies persist and there is moderate diffuse interstitial prominence.
[2020-05-09 07:52] LABS: African American GFR (CKD) >90 (>60 ml/min/1.73 sqM); Anion Gap 3 mmol/L; Blood Urea Nitrogen 14 mg/dL (7-17); C Reactive Protein 24.2 mg/L (<10.0); Calcium 8.8 mg/dL (8.4-10.2); Carbon Dioxide 31 mmol/L (22-30); Chloride 102 mmol/L (98-107); Glucose 145 mg/dL (74-99); LDH 1620 U/L (313-618); Non-African American GFR(CKD) >90 (>60 ml/min/1.73 sqM); Potassium 3.7 mmol/L (3.5-5.1); Sodium 136 mmol/L (137-145)
[2020-05-09] MEDS: ZINC SULFATE 220 MG CAP PO SCH (08:27)
[2020-05-09] MEDS: CHOLECALCIFEROL 25 MCG (1000 IU) TABLET PO SCH (08:27)
[2020-05-09] MEDS: ENOXAPARIN 60 MG/0.6 ML SYRINGE SQ SCH ×2 (08:27→21:32)
[2020-05-09] MEDS: FAMOTIDINE 20 MG TAB PO SCH ×2 (08:27→21:32)
[2020-05-09] MEDS: ASCORBIC ACID 500 MG TAB PO SCH (08:27)
[2020-05-09 11:54] LABS: Glucose,Whole Blood 163 mg/dL (75-99)
--- NOTE | 2020-05-09 13:48 | P.PN ---
Subjective Progress Note Date: 05/09/20 60-year-old white female patient of Dr. Bacon with no significant medical histo ry other than history of uterine and cervical cancer status post total hysterectomy 10 years ago, kyphoscoliosis with history of back surgery, and borderline hypertension for which the patient takes no medications, who presented to the emergency department 05-07-2020 by EMS for evaluation of worsening shortness of breath. Patient states that onset of symptoms was 2 weeks ago and started with runny nose and a sore throat, gradually her symptoms have progressed, and patient started having fevers, worsening shortness of breath and cough. She tested positive for COVID 19 a week ago on 04/29/2020 on an outpatient basis however she did not seek any medical treatment up until now. She reports some decreased oral intake, nausea, but no abdominal pain or diarrhea. Admits to smoking cigarettes, however reports no chronic lung condition. Patient denies receiving any vaccination for COVID 19. CTA chest showed no evidence of pulmonary embolism, but demonstrated moderate to severe scattered groundglass opacities, showed a positive COVID 19 PCR test, d-dimer was elevated at 3.79, and significant elevated inflammatory markers with LDH thousand 942, and CRP of 78.3. Patient is a requiring high flow oxygen per Airvo at 50 L and FiO2 of 75%, her pulse ox is 88-92%, she is having low grade f dillon, but hemodynamically stable. Added on Decadron, prophylactic dose of Lovenox, and we were asked to see the patient in consultation. On today's evaluation, the patient is being seen for follow-up regarding her Covid associated pneumonia. The patient presented with significant hypoxemic respiratory failure with bilateral pulmonary infiltrates and consolidations perihilar and extending to the peripheries. The patient remains on high flow oxygen and she is currently on 6 L with an FiO2 of 90%. No new labs from today. Her d-dimer from yesterday was 3.7. LDH level was also elevated at 942 with a CRP of 78.3. She remains on Solu-Medrol 60 mg IV every 24 hours. On today's evaluation of 05/09/2020 the patient remains on 60 L of oxygen with an FiO2 of 90%. There is essentially the same setting of high flow oxygen that the patient was on since yesterday. No much of an improvement at this point in time. She remains on treatment and she is taking Solu-Medrol 60 mg IV push every 6 hours. Note that the patient has diffuse bilateral pulmonary infiltrates and this was confirmed on a chest x-ray and a computed tomography scan of the chest. Inflammatory markers including the LDH down to 1620 and the CRP is down to 24. Her renal function is stable with a creatinine of 0.4. Her d-dimer is at 19. In terms of anticoagulation, the patient is currently on 45 mg subcu every 12 hours. Her chest x-ray from today is showing stable bilateral pulmonary infiltrates. The is essentially stable and unchanged compared to yesterday. She is still requiring high flow oxygen and her current pulse ox is around 92%. I like her to sleep in different body positions. Prone positioning is obviously advised. Objective - Vital Signs Vital signs: Vital Signs Temp 98.4 F 05/09/20 11:50 Pulse 76 05/09/20 11:50 Resp 20 05/09/20 11:50 BP 139/74 05/09/20 11:50 Pulse Ox 91 L 05/09/20 11:50 Intake & Output 05/08/20 05/09/20 05/09/20 18:59 06:59 18:59 Intake Total 540 700 Output Total 380 Balance 540 -380 700 Weight 96.6 kg Intake: IV 400 0.9% NS at 50mL/hr 400 Oral 540 300 Output: Urine 380 Other: Voiding Method Bedside Commode # Voids 2 - Exam GENERAL EXAM: Alert, pleasant, 70-year-old white female, currently on high flow oxygen per Airvo at 60 L and FiO2 of 90% with a pulse ox of 88-92% comfortable in no apparent distress. HEAD: Normocephalic/atraumatic. EYES: Normal reaction of pupils, equal size. Conjunctiva pink, sclera white. NOSE: Clear with pink turbinates. THROAT: No erythema or exudates. NECK: No masses, no JVD, no thyroid enlargement, no adenopathy. CHEST: No chest wall deformity. Symmetrical expansion. LUNGS: Equal air entry with diffuse coarse crackles throughout lung plummer CVS: Regular rate and rhythm, normal S1 and S2, no gallops, no murmurs, no rubs ABDOMEN: Soft, nontender. No hepatosplenomegaly, normal bowel sounds, no guarding or rigidity. EXTREMITIES: No clubbing, no edema, no cyanosis, 2+ pulses and upper and lower extremities. MUSCULOSKELETAL: Muscle strength and tone normal. SPINE: No scoliosis or deformity SKIN: No rashes CENTRAL NERVOUS SYSTEM: Alert and oriented -3. No focal deficits, tone is normal in all 4 extremities. PSYCHIATRIC: Alert and oriented -3. Appropriate affect. Intact judgment and insight. - Labs CBC & Chem 7: 05/09/20 07:29 05/09/20 07:29 Labs: Abnormal Lab Results - Last 24 Hours (Table) 05/08/20 05/08/20 05/09/20 Range/Units 17:36 20:37 06:25 Lymphocytes # (1.0-4.8) k/uL D-Dimer (<0.60) mg/L FEU Sodium (137-145) mmol/L Carbon Dioxide (22-30) mmol/L Creatinine (0.52-1.04) mg/dL Glucose (74-99) mg/dL POC Glucose (mg/dL) 128 H 192 H 151 H (75-99) mg/dL Lactate Dehydrogenase (313-618) U/L C-Reactive Protein (<10.0) mg/L 05/09/20 05/09/20 05/09/20 Range/Units 07:29 07:29 07:29 Lymphocytes # 0.4 L (1.0-4.8) k/uL D-Dimer 19.19 H (<0.60) mg/L FEU Sodium 136 L (137-145) mmol/L Carbon Dioxide 31 H (22-30) mmol/L Creatinine 0.48 L (0.52-1.04) mg/dL Glucose 145 H (74-99) mg/dL POC Glucose (mg/dL) (75-99) mg/dL Lactate Dehydrogenase 1620 H (313-618) U/L C-Reactive Protein 24.2 H (<10.0) mg/L 05/09/20 Range/Units 11:53 Lymphocytes # (1.0-4.8) k/uL D-Dimer (<0.60) mg/L FEU Sodium (137-145) mmol/L Carbon Dioxide (22-30) mmol/L Creatinine (0.52-1.04) mg/dL Glucose (74-99) mg/dL POC Glucose (mg/dL) 163 H (75-99) mg/dL Lactate Dehydrogenase (313-618) U/L C-Reactive Protein (<10.0) mg/L Microbiology - Last 24 Hours (Table) 05/07/20 02:33 Blood Culture - Preliminary Blood No Growth after 48 hours 05/07/20 02:33 Blood Culture - Preliminary Blood No Growth after 48 hours Assessment and Plan Plan: #1. Acute hypoxic respiratory failure related to COVID 19 pneumonia, she tested positive in an outpatient basis on 04/29/2020, and onset of symptoms was 2 weeks prior to presentation. Currently requiring high flow oxygen every at 60 L and FiO2 of 90% per Airvo #2. Recent inflammatory markers, increased d-dimer related to the above #3. Nausea, poor appetite, poor oral intake, cough, fever, shortness of breath related to acute COVID 19 pneumonia #4. Borderline hypertension history takes no medications for #5. Smoker #6. Hx of uterine and cervical cancer status post hysterectomy 10 years ago #7. History of kyphoscoliosis with history of back surgery 30 years ago #8. Hyponatremia likely hypovolemic, improved her sodium level has normalized. Plan: IV Solu Medrol 60 mg every 6 hours and stop the Decadron for now The patient received also Tocilizumab 400 mg IV piggyback 2 doses. Continue Lovenox 50 mg subcutaneous every 12 hours Repeat chest x-ray was noted and the findings are stable Repeat inflammatory markers, showed a drop in the LDH Prone positioning is recommended. Condition is quite guarded and the patient is a high risk of developing respiratory failure
[2020-05-09 16:32] LABS: Glucose,Whole Blood 187 mg/dL (75-99)
[2020-05-09 20:49] LABS: Glucose,Whole Blood 164 mg/dL (75-99)
--- NOTE | 2020-05-09 22:56 | P.PN ---
Subjective Progress Note Date: 05/09/20 Principal diagnosis: Acute hypoxic respiratory failure secondary to Covid pneumonia Patient is a 60-year-old female with a known history of cervical cancer status post hysterectomy, currently everyday smoker presents to ER with the complaints of worsening shortness of breath. Patient says that her symptoms started about 2 weeks ago and was tested for cold positive on 04/29/2020 as an outpatient. Patient has been having fever and chills on and off. She has been using over- the-counter medications. Patient was not any antibiotics or steroids at home. She came to ER due to worsening shortness of breath and generalized weakness and decreased oral intake and nausea for the past 3 days. No complaints of diarrhea and abdominal pain. Does have chest tightness with deep breathing. Denied any dysuria or hematuria. No headache or dizziness or lightheadedness. On admission patient was tachycardic and hypoxic with pulse ox 84% and requiring her person noncontributory. CTA chest showed demonstrative moderate to severe skater groundglass opacities throughout both lungs with interspace and wedge-shaped areas of consolidation or atelectasis. Consider Coumadin 19 pneumonia. No evidence of pulmonary embolism or acute aortic abnormality. EKG showed sinus tachycardia Chest x-ray showed diffuse bilateral infiltrates which can be compatible with atypical pneumonia. Laboratory data showed WBC 4.6, hemoglobin 14.2 and platelets 270, d-dimer 3.79 Sodium 129 potassium 3.7 chloride 94 BUN 12 and creatinine 0.50 LDH 1942, CRP 78.3, pro-calcitonin 0.2 Code 19 PCR detected. 05/08/2020 Patient is currently awake alert and oriented x3. Still having significant shortness of breath and hypoxia. Currently on high flow oxygen at 6 L with FiO2 of 90%. Patient is being continued on methylprednisolone and Lovenox twice daily. Continued on multivitamins. Pulmonary is on board. Patient has been afebrile. No nausea vomiting or diarrhea. No dysuria or hematuria. No chest pain. 05/09/2020 Patient is currently on high flow oxygen airvo 60 L with 90% FiO2. Appears to be in no distress. Awake alert and oriented. No fever no chills. No nausea vomiting or abdominal pain or diarrhea. Patient will be continued on Solu- Medrol and Lovenox twice daily. Laboratory data showed serum D-dimer level is 19.1 Sodium 136 potassium 3.7 bicarb is 31 BUN 14 and creatinine 0.48 blood sugar is 148 and CRP 24.2 and LDH 1620 Current medications reviewed. Objective - Vital Signs Vital signs: Vital Signs Temp 98.4 F 05/09/20 16:00 Pulse 77 05/09/20 16:00 Resp 18 05/09/20 16:00 BP 120/58 05/09/20 16:00 Pulse Ox 92 L 05/09/20 16:50 Intake & Output 05/08/20 05/09/20 05/09/20 18:59 06:59 18:59 Intake Total 540 700 Output Total 380 Balance 540 -380 700 Weight 96.6 kg Intake: IV 400 0.9% NS at 50mL/hr 400 Oral 540 300 Output: Urine 380 Other: Voiding Method Bedside Commode # Voids 2 - Exam PHYSICAL EXAMINATION: Patient is lying in the bed comfortably, no acute distress, awake alert and oriented.. HEENT: Normocephalic. Neck is supple. Pupils reactive. Nostrils clear. Oral cavity is moist. Ears reveal no drainage. Neck reveals no JVD, carotid bruits, or thyromegaly. CHEST EXAMINATION: Trachea is central. Symmetrical expansion. Bilateral coarse breath sounds. No wheezing or rhonchi.. CARDIAC: Normal S1, S2 with no gallops. No murmurs ABDOMEN: Soft. Bowel sounds normal. No organomegaly. No abdominal bruits. Extremities: reveal no edema. No clubbing or cyanosis Neurologically awake, alert, oriented x3 with well-coordinated movements. No focal deficits noted Skin: No rash or skin lesions. Psychiatric: Coperative. Nonsuicidal Musculoskeletal: No joint swelling or deformity. Normal range of motion. - Labs CBC & Chem 7: 05/09/20 07:29 05/09/20 07:29 Labs: Abnormal Lab Results - Last 24 Hours (Table) 05/08/20 05/09/20 05/09/20 Range/Units 20:37 06:25 07:29 Lymphocytes # (1.0-4.8) k/uL D-Dimer 19.19 H (<0.60) mg/L FEU Sodium (137-145) mmol/L Carbon Dioxide (22-30) mmol/L Creatinine (0.52-1.04) mg/dL Glucose (74-99) mg/dL POC Glucose (mg/dL) 192 H 151 H (75-99) mg/dL Lactate Dehydrogenase (313-618) U/L C-Reactive Protein (<10.0) mg/L 05/09/20 05/09/20 05/09/20 Range/Units 07:29 07:29 11:53 Lymphocytes # 0.4 L (1.0-4.8) k/uL D-Dimer (<0.60) mg/L FEU Sodium 136 L (137-145) mmol/L Carbon Dioxide 31 H (22-30) mmol/L Creatinine 0.48 L (0.52-1.04) mg/dL Glucose 145 H (74-99) mg/dL POC Glucose (mg/dL) 163 H (75-99) mg/dL Lactate Dehydrogenase 1620 H (313-618) U/L C-Reactive Protein 24.2 H (<10.0) mg/L 05/09/20 Range/Units 16:31 Lymphocytes # (1.0-4.8) k/uL D-Dimer (<0.60) mg/L FEU Sodium (137-145) mmol/L Carbon Dioxide (22-30) mmol/L Creatinine (0.52-1.04) mg/dL Glucose (74-99) mg/dL POC Glucose (mg/dL) 187 H (75-99) mg/dL Lactate Dehydrogenase (313-618) U/L C-Reactive Protein (<10.0) mg/L Microbiology - Last 24 Hours (Table) 05/07/20 02:33 Blood Culture - Preliminary Blood No Growth after 48 hours 05/07/20 02:33 Blood Culture - Preliminary Blood No Growth after 48 hours Assessment and Plan Assessment: Acute hypoxic respiratory failure secondary to Covid 19 pneumonia. Patient tested positive on 04/29/2020. Currently requiring 60 L of FiO2 75% via Airvo Increased inflammatory markers secondary to viral pneumonia Hypovolemic hyponatremia Elevated d-dimer level without evidence of pulmonary embolism on CTA Borderline hypertension currently not on any medications at home. Ongoing nicotine addiction History of uterine and cervical cancer status post hysterectomy 10 years ago Kyphoscoliosis history and back surgery DVT prophylaxis patient is on Lovenox. Plan: Patient was given Tocilizumab 400 mg IV piggyback 2 doses. Patient will be continued on oxygen supplementation and titrate down FiO2. Continue with dexamethasone 6 mg daily and multivitamins, vitamin D and follow up closely. Monitor electrolytes and inflammatory markers. Continue with Lovenox 45 mg twice a day due to elevated d-dimer level. Pulmonary is on board. Further recommendations based on the clinical course. Prognosis is guarded. Smoking cessation has been counseled. Time with Patient: Greater than 30
--- NOTE | 2020-05-09 22:56 | P.PN ---
Subjective Progress Note Date: 05/08/20 Principal diagnosis: Acute hypoxic respiratory failure secondary to Covid pneumonia Patient is a 60-year-old female with a known history of cervical cancer status post hysterectomy, currently everyday smoker presents to ER with the complaints of worsening shortness of breath. Patient says that her symptoms started about 2 weeks ago and was tested for cold positive on 04/29/2020 as an outpatient. Patient has been having fever and chills on and off. She has been using over- the-counter medications. Patient was not any antibiotics or steroids at home. She came to ER due to worsening shortness of breath and generalized weakness and decreased oral intake and nausea for the past 3 days. No complaints of diarrhea and abdominal pain. Does have chest tightness with deep breathing. Denied any dysuria or hematuria. No headache or dizziness or lightheadedness. On admission patient was tachycardic and hypoxic with pulse ox 84% and requiring her person noncontributory. CTA chest showed demonstrative moderate to severe skater groundglass opacities throughout both lungs with interspace and wedge-shaped areas of consolidation or atelectasis. Consider Coumadin 19 pneumonia. No evidence of pulmonary embolism or acute aortic abnormality. EKG showed sinus tachycardia Chest x-ray showed diffuse bilateral infiltrates which can be compatible with atypical pneumonia. Laboratory data showed WBC 4.6, hemoglobin 14.2 and platelets 270, d-dimer 3.79 Sodium 129 potassium 3.7 chloride 94 BUN 12 and creatinine 0.50 LDH 1942, CRP 78.3, pro-calcitonin 0.2 Code 19 PCR detected. 05/08/2020 Patient is currently awake alert and oriented x3. Still having significant shortness of breath and hypoxia. Currently on high flow oxygen at 60 L with FiO2 of 90%. Patient is being continued on methylprednisolone and Lovenox twice daily. Continued on multivitamins. Pulmonary is on board. Patient has been afebrile. No nausea vomiting or diarrhea. No dysuria or hematuria. No chest pain. Current medications reviewed. Objective - Vital Signs Vital signs: Vital Signs Temp 97.3 F L 05/08/20 08:00 Pulse 82 05/08/20 16:00 Resp 24 05/08/20 16:00 BP 150/74 05/08/20 16:00 Pulse Ox 92 L 05/08/20 16:00 Intake & Output 05/08/20 05/08/2021 06:59 18:59 06:59 Intake Total 340 540 Balance 340 540 Weight 96.2 kg Intake: Intake, IV Titration 100 Amount Tocilizumab 400 mg In 100 Sodium Chloride 0.9% 80 ml @ 100 mls/hr IV ONCE ONE Rx#:[id number] Oral 240 540 Other: # Voids 3 2 - Exam PHYSICAL EXAMINATION: Patient is lying in the bed comfortably, no acute distress, awake alert and oriented.. HEENT: Normocephalic. Neck is supple. Pupils reactive. Nostrils clear. Oral cavity is moist. Ears reveal no drainage. Neck reveals no JVD, carotid bruits, or thyromegaly. CHEST EXAMINATION: Trachea is central. Symmetrical expansion. Bilateral coarse breath sounds. No wheezing or rhonchi.. CARDIAC: Normal S1, S2 with no gallops. No murmurs ABDOMEN: Soft. Bowel sounds normal. No organomegaly. No abdominal bruits. Extremities: reveal no edema. No clubbing or cyanosis Neurologically awake, alert, oriented x3 with well-coordinated movements. No focal deficits noted Skin: No rash or skin lesions. Psychiatric: Coperative. Nonsuicidal Musculoskeletal: No joint swelling or deformity. Normal range of motion. - Labs CBC & Chem 7: 05/09/20 07:29 05/09/20 07:29 Labs: Abnormal Lab Results - Last 24 Hours (Table) 05/08/20 05/08/20 Range/Units 17:36 20:37 POC Glucose (mg/dL) 128 H 192 H (75-99) mg/dL Microbiology - Last 24 Hours (Table) 05/07/20 02:33 Blood Culture - Preliminary Blood No Growth after 24 hours 05/07/20 02:33 Blood Culture - Preliminary Blood No Growth after 24 hours Assessment and Plan Assessment: Acute hypoxic respiratory failure secondary to Covid 19 pneumonia. Patient test ed positive on 04/29/2020. Currently requiring 60 L of FiO2 75% via Airvo Increased inflammatory markers secondary to viral pneumonia Hypovolemic hyponatremia Elevated d-dimer level without evidence of pulmonary embolism on CTA Borderline hypertension currently not on any medications at home. Ongoing nicotine addiction History of uterine and cervical cancer status post hysterectomy 10 years ago Kyphoscoliosis history and back surgery DVT prophylaxis patient is on Lovenox. Plan: Patient was given Tocilizumab 400 mg IV piggyback 2 doses. Patient will be continued on oxygen supplementation and titrate down FiO2. Continue with dexamethasone 6 mg daily and multivitamins, vitamin D and follow up closely. Monitor electrolytes and inflammatory markers. Continue with Lovenox 45 mg twice a day due to elevated d-dimer level. Pulmonary is on board. Further recommendations based on the clinical course. Prognosis is guarded. Smoking cessation has been counseled. Time with Patient: Greater than 30
[2020-05-10 06:17] LABS: Glucose,Whole Blood 164 mg/dL (75-99)
[2020-05-10] MEDS: methylPREDNISolone SOD SUCCI 125 MG/2 ML VIAL IV SCH ×4 (06:37→23:34)
[2020-05-10] MEDS: INSULIN ASPART (NovoLOG) 100 UNIT/ML VIAL SQ SCH ×4 (06:37→21:52)
[2020-05-10] MEDS: FAMOTIDINE 20 MG TAB PO SCH ×2 (08:04→21:52)
[2020-05-10] MEDS: ENOXAPARIN 60 MG/0.6 ML SYRINGE SQ SCH ×2 (08:04→21:52)
[2020-05-10] MEDS: ZINC SULFATE 220 MG CAP PO SCH (08:04)
[2020-05-10] MEDS: ASCORBIC ACID 500 MG TAB PO SCH (08:04)
[2020-05-10] MEDS: CHOLECALCIFEROL 25 MCG (1000 IU) TABLET PO SCH (08:04)
[2020-05-10 09:21] LABS: Potassium 4.1 mmol/L (3.5-5.1)
[2020-05-10 09:24] LABS: African American GFR (CKD) >90 (>60 ml/min/1.73 sqM); Anion Gap 1 mmol/L; Blood Urea Nitrogen 17 mg/dL (7-17); C Reactive Protein 9.6 mg/L (<10.0); Calcium 8.4 mg/dL (8.4-10.2); Carbon Dioxide 30 mmol/L (22-30); Chloride 107 mmol/L (98-107); Glucose 133 mg/dL (74-99); LDH 1711 U/L (313-618); Non-African American GFR(CKD) >90 (>60 ml/min/1.73 sqM); Sodium 138 mmol/L (137-145)
--- NOTE | 2020-05-10 11:01 | P.PN ---
Subjective Progress Note Date: 05/10/20 60-year-old white female patient of Dr. Bacon with no significant medical histo ry other than history of uterine and cervical cancer status post total hysterectomy 10 years ago, kyphoscoliosis with history of back surgery, and borderline hypertension for which the patient takes no medications, who presented to the emergency department 05-07-2020 by EMS for evaluation of worsening shortness of breath. Patient states that onset of symptoms was 2 weeks ago and started with runny nose and a sore throat, gradually her symptoms have progressed, and patient started having fevers, worsening shortness of breath and cough. She tested positive for COVID 19 a week ago on 04/29/2020 on an outpatient basis however she did not seek any medical treatment up until now. She reports some decreased oral intake, nausea, but no abdominal pain or diarrhea. Admits to smoking cigarettes, however reports no chronic lung condition. Patient denies receiving any vaccination for COVID 19. CTA chest showed no evidence of pulmonary embolism, but demonstrated moderate to severe scattered groundglass opacities, showed a positive COVID 19 PCR test, d-dimer was elevated at 3.79, and significant elevated inflammatory markers with LDH thousand 942, and CRP of 78.3. Patient is a requiring high flow oxygen per Airvo at 50 L and FiO2 of 75%, her pulse ox is 88-92%, she is having low grade f dillon, but hemodynamically stable. Added on Decadron, prophylactic dose of Lovenox, and we were asked to see the patient in consultation. On today's evaluation, the patient is being seen for follow-up regarding her Covid associated pneumonia. The patient presented with significant hypoxemic respiratory failure with bilateral pulmonary infiltrates and consolidations perihilar and extending to the peripheries. The patient remains on high flow oxygen and she is currently on 6 L with an FiO2 of 90%. No new labs from today. Her d-dimer from yesterday was 3.7. LDH level was also elevated at 942 with a CRP of 78.3. She remains on Solu-Medrol 60 mg IV every 24 hours. On today's evaluation of 05/09/2020 the patient remains on 60 L of oxygen with an FiO2 of 90%. There is essentially the same setting of high flow oxygen that the patient was on since yesterday. No much of an improvement at this point in time. She remains on treatment and she is taking Solu-Medrol 60 mg IV push every 6 hours. Note that the patient has diffuse bilateral pulmonary infiltrates and this was confirmed on a chest x-ray and a computed tomography scan of the chest. Inflammatory markers including the LDH down to 1620 and the CRP is down to 24. Her renal function is stable with a creatinine of 0.4. Her d-dimer is at 19. In terms of anticoagulation, the patient is currently on 45 mg subcu every 12 hours. Her chest x-ray from today is showing stable bilateral pulmonary infiltrates. The is essentially stable and unchanged compared to yesterday. She is still requiring high flow oxygen and her current pulse ox is around 92%. I like her to sleep in different body positions. Prone positioning is obviously advised. On 05/10/2020, the patient is being seen in follow-up regarding her COVID 19 re lated pneumonia. The patient is still on high flow oxygen and the patient is on 60 L with an FiO2 of 90%. She is having difficulties with her breathing. She would desaturate very easily with minimal amount of activity. Her inflammatory markers remain quite elevated including the LDH of 1711 and her CRP is down to 9.6. Her d-dimer today is still elevated at 15.1 although it's slightly downtrending. In terms of therapy, the patient remains on IV Solu Medrol 60 mg every 6 hours. The patient is also on Lovenox 45 mg subcutaneous every 12 hours. The patient is on high flexion 90 L and her FiO2 was slightly weaned down to 85%. Note that the patient desaturated this morning and she was down in the 70s. We had to prone or and with prone positioning, her oxidation is improved and her current pulse ox up to the 90-91%. No chest x-ray from today. Inflammatory markers were noted. She is tolerating some diet and she is not fully meeting her caloric requirements Objective - Vital Signs Vital signs: Vital Signs Temp 97.7 F 05/10/20 08:00 Pulse 73 05/10/20 08:00 Resp 20 05/10/20 08:10 BP 134/66 05/10/20 08:00 Pulse Ox 90 L 05/10/20 09:46 Intake & Output 05/09/20 05/10/20 05/10/20 18:59 06:59 18:59 Intake Total 940 Balance 940 Weight 94 kg Intake: IV 400 0.9% NS at 50mL/hr 400 Oral 540 Other: Voiding Method Bedside Commode Bedside Commode # Voids 1 - Exam GENERAL EXAM: Alert, pleasant, 70-year-old white female, currently on high flow oxygen per Airvo at 60 L and FiO2 of 90% with a pulse ox of 88-92% comfortable in no apparent distress. HEAD: Normocephalic/atraumatic. EYES: Normal reaction of pupils, equal size. Conjunctiva pink, sclera white. NOSE: Clear with pink turbinates. THROAT: No erythema or exudates. NECK: No masses, no JVD, no thyroid enlargement, no adenopathy. CHEST: No chest wall deformity. Symmetrical expansion. LUNGS: Equal air entry with diffuse coarse crackles throughout lung plummer CVS: Regular rate and rhythm, normal S1 and S2, no gallops, no murmurs, no rubs ABDOMEN: Soft, nontender. No hepatosplenomegaly, normal bowel sounds, no guarding or rigidity. EXTREMITIES: No clubbing, no edema, no cyanosis, 2+ pulses and upper and lower extremities. MUSCULOSKELETAL: Muscle strength and tone normal. SPINE: No scoliosis or deformity SKIN: No rashes CENTRAL NERVOUS SYSTEM: Alert and oriented -3. No focal deficits, tone is normal in all 4 extremities. PSYCHIATRIC: Alert and oriented -3. Appropriate affect. Intact judgment and insight. - Labs CBC & Chem 7: 05/09/20 07:29 05/10/20 08:52 Labs: Abnormal Lab Results - Last 24 Hours (Table) 05/09/20 05/09/20 05/09/20 Range/Units 11:53 16:31 20:47 D-Dimer (<0.60) mg/L FEU Creatinine (0.52-1.04) mg/dL Glucose (74-99) mg/dL POC Glucose (mg/dL) 163 H 187 H 164 H (75-99) mg/dL Lactate Dehydrogenase (313-618) U/L 05/10/20 05/10/20 05/10/20 Range/Units 06:16 08:52 08:52 D-Dimer 15.18 H (<0.60) mg/L FEU Creatinine 0.49 L (0.52-1.04) mg/dL Glucose 133 H (74-99) mg/dL POC Glucose (mg/dL) 164 H (75-99) mg/dL Lactate Dehydrogenase 1711 H (313-618) U/L Microbiology - Last 24 Hours (Table) 05/07/20 02:33 Blood Culture - Preliminary Blood No Growth after 72 hours 05/07/20 02:33 Blood Culture - Preliminary Blood No Growth after 72 hours Assessment and Plan Plan: #1. Acute hypoxic respiratory failure related to COVID 19 pneumonia, she tested positive in an outpatient basis on 04/29/2020, and onset of symptoms was 2 weeks prior to presentation. Currently requiring high flow oxygen every at 60 L and FiO2 of 85% per Airvo the condition essentially unchanged since yesterday. No significant improvement. Oxygen flow is still high at 60 L with an FiO2 of 85%. #2. Recent inflammatory markers, increased d-dimer related to the above #3. Nausea, poor appetite, poor oral intake, cough, fever, shortness of breath related to acute COVID 19 pneumonia #4. Borderline hypertension history takes no medications for #5. Smoker #6. Hx of uterine and cervical cancer status post hysterectomy 10 years ago #7. History of kyphoscoliosis with history of back surgery 30 years ago #8. Hyponatremia likely hypovolemic, improved her sodium level has normalized. Plan: IV Solu Medrol 60 mg every 6 hours The patient received also Tocilizumab 400 mg IV piggyback 2 doses. Continue Lovenox 50 mg subcutaneous every 12 hours Repeat chest x-ray was noted and the findings are stable Repeat inflammatory markers, showed a drop in the LDH Prone positioning is recommended. Continue with prone was a certified detention deputy improve oxygenation. The patient does much better while prolonged period was transferred to the intensive care unit if there is any worsening. Repeat chest x-ray in a.m. Condition is quite guarded and the patient is a high risk of developing respiratory failure
[2020-05-10 11:32] LABS: Glucose,Whole Blood 148 mg/dL (75-99)
[2020-05-10 16:31] LABS: Glucose,Whole Blood 159 mg/dL (75-99)
[2020-05-10 20:15] LABS: Glucose,Whole Blood 197 mg/dL (75-99)
--- NOTE | 2020-05-11 00:53 | P.PN ---
Subjective Progress Note Date: 05/10/20 Principal diagnosis: Acute hypoxic respiratory failure secondary to Covid pneumonia Patient is a 60-year-old female with a known history of cervical cancer status post hysterectomy, currently everyday smoker presents to ER with the complaints of worsening shortness of breath. Patient says that her symptoms started about 2 weeks ago and was tested for cold positive on 04/29/2020 as an outpatient. Patient has been having fever and chills on and off. She has been using over- the-counter medications. Patient was not any antibiotics or steroids at home. She came to ER due to worsening shortness of breath and generalized weakness and decreased oral intake and nausea for the past 3 days. No complaints of diarrhea and abdominal pain. Does have chest tightness with deep breathing. Denied any dysuria or hematuria. No headache or dizziness or lightheadedness. On admission patient was tachycardic and hypoxic with pulse ox 84% and requiring her person noncontributory. CTA chest showed demonstrative moderate to severe skater groundglass opacities throughout both lungs with interspace and wedge-shaped areas of consolidation or atelectasis. Consider Coumadin 19 pneumonia. No evidence of pulmonary embolism or acute aortic abnormality. EKG showed sinus tachycardia Chest x-ray showed diffuse bilateral infiltrates which can be compatible with atypical pneumonia. Laboratory data showed WBC 4.6, hemoglobin 14.2 and platelets 270, d-dimer 3.79 Sodium 129 potassium 3.7 chloride 94 BUN 12 and creatinine 0.50 LDH 1942, CRP 78.3, pro-calcitonin 0.2 Code 19 PCR detected. 05/08/2020 Patient is currently awake alert and oriented x3. Still having significant shortness of breath and hypoxia. Currently on high flow oxygen at 6 L with FiO2 of 90%. Patient is being continued on methylprednisolone and Lovenox twice daily. Continued on multivitamins. Pulmonary is on board. Patient has been afebrile. No nausea vomiting or diarrhea. No dysuria or hematuria. No chest pain. 05/09/2020 Patient is currently on high flow oxygen airvo 60 L with 90% FiO2. Appears to be in no distress. Awake alert and oriented. No fever no chills. No nausea vomiting or abdominal pain or diarrhea. Patient will be continued on Solu- Medrol and Lovenox twice daily. Laboratory data showed serum D-dimer level is 19.1 Sodium 136 potassium 3.7 bicarb is 31 BUN 14 and creatinine 0.48 blood sugar is 148 and CRP 24.2 and LDH 1620 05/10/2020 Patient is lying in the bed awake and alert. Still requiring high flow oxygen at 60 L FiO2 90%. She having exertional dyspnea and chest tightness. Patient is being continued on IV Solu-Medrol, Lovenox twice daily and multivitamins. Laboratory work showed D-dimer 15.1, LDH 171 on and CRP 9.6 patient has been afebrile. Current medications reviewed. Objective - Vital Signs Vital signs: Vital Signs Temp 98.4 F 05/10/20 11:10 Pulse 52 L 05/10/20 11:10 Resp 18 05/10/20 11:10 BP 136/66 05/10/20 11:10 Pulse Ox 90 L 05/10/20 12:14 Intake & Output 05/09/20 05/10/20 05/10/20 18:59 06:59 18:59 Intake Total 940 200 Balance 940 200 Weight 94 kg Intake: IV 400 0.9% NS at 50mL/hr 400 Oral 540 200 Other: Voiding Method Bedside Commode Bedside Commode # Voids 1 - Exam PHYSICAL EXAMINATION: Patient is lying in the bed comfortably, no acute distress, awake alert and oriented.. HEENT: Normocephalic. Neck is supple. Pupils reactive. Nostrils clear. Oral cavity is moist. Ears reveal no drainage. Neck reveals no JVD, carotid bruits, or thyromegaly. CHEST EXAMINATION: Trachea is central. Symmetrical expansion. Bilateral coarse breath sounds. No wheezing or rhonchi.. CARDIAC: Normal S1, S2 with no gallops. No murmurs ABDOMEN: Soft. Bowel sounds normal. No organomegaly. No abdominal bruits. Extremities: reveal no edema. No clubbing or cyanosis Neurologically awake, alert, oriented x3 with well-coordinated movements. No focal deficits noted Skin: No rash or skin lesions. Psychiatric: Coperative. Nonsuicidal Musculoskeletal: No joint swelling or deformity. Normal range of motion. - Labs CBC & Chem 7: 05/09/20 07:29 05/10/20 08:52 Labs: Abnormal Lab Results - Last 24 Hours (Table) 05/09/20 05/09/20 05/10/20 Range/Units 16:31 20:47 06:16 D-Dimer (<0.60) mg/L FEU Creatinine (0.52-1.04) mg/dL Glucose (74-99) mg/dL POC Glucose (mg/dL) 187 H 164 H 164 H (75-99) mg/dL Lactate Dehydrogenase (313-618) U/L 05/10/20 05/10/20 05/10/20 Range/Units 08:52 08:52 11:30 D-Dimer 15.18 H (<0.60) mg/L FEU Creatinine 0.49 L (0.52-1.04) mg/dL Glucose 133 H (74-99) mg/dL POC Glucose (mg/dL) 148 H (75-99) mg/dL Lactate Dehydrogenase 1711 H (313-618) U/L Microbiology - Last 24 Hours (Table) 05/07/20 02:33 Blood Culture - Preliminary Blood No Growth after 72 hours 05/07/20 02:33 Blood Culture - Preliminary Blood No Growth after 72 hours Assessment and Plan Assessment: Acute hypoxic respiratory failure secondary to Covid 19 pneumonia. Patient tested positive on 04/29/2020. Currently requiring 60 L of FiO2 85% via Airvo Increased inflammatory markers secondary to viral pneumonia Hypovolemic hyponatremia Elevated d-dimer level without evidence of pulmonary embolism on CTA Borderline hypertension currently not on any medications at home. Ongoing nicotine addiction History of uterine and cervical cancer status post hysterectomy 10 years ago Kyphoscoliosis history and back surgery DVT prophylaxis patient is on Lovenox. Plan: Patient was given Tocilizumab 400 mg IV piggyback 2 doses. Patient will be continued on oxygen supplementation and titrate down FiO2. Continue with dexamethasone 6 mg daily and multivitamins, vitamin D and follow up closely. Monitor electrolytes and inflammatory markers. Continue with Lovenox 45 mg twice a day due to elevated d-dimer level. Pulmonary is on board. Further recommendations based on the clinical course. Prognosis is guarded. Smoking cessation has been counseled. Time with Patient: Greater than 30
[2020-05-11] MEDS: methylPREDNISolone SOD SUCCI 125 MG/2 ML VIAL IV SCH ×3 (05:28→17:26)
[2020-05-11 06:18] LABS: Glucose,Whole Blood 137 mg/dL (75-99)
[2020-05-11] MEDS: INSULIN ASPART (NovoLOG) 100 UNIT/ML VIAL SQ SCH ×4 (06:43→20:29)
[2020-05-11 07:40] LABS: Basophils % (A) 0 %; Eosinophils % (A) 1 %; HCT 39.5 % (34.0-46.0); HGB 13.3 gm/dL (11.4-16.0); Lymphocytes # (A) 0.3 k/uL (1.0-4.8); Lymphocytes % (A) 5 %; MCH 29.2 pg (25.0-35.0); MCHC 33.8 g/dL (31.0-37.0); MCV 86.6 fL (80.0-100.0); Mean Platelet Volume 6.8; Monocytes # (A) 0.2 k/uL (0-1.0); Monocytes % (A) 3 %; Neutrophils % (A) 91 %; Platelet Count 222 k/uL (150-450); RBC 4.56 m/uL (3.80-5.40); RDW 13.5 % (11.5-15.5); WBC 6.6 k/uL (3.8-10.6)
[2020-05-11 07:52] LABS: African American GFR (CKD) >90 (>60 ml/min/1.73 sqM); Anion Gap 3 mmol/L; Blood Urea Nitrogen 18 mg/dL (7-17); C Reactive Protein <5.0 mg/L (<10.0); Calcium 8.6 mg/dL (8.4-10.2); Carbon Dioxide 28 mmol/L (22-30); Chloride 108 mmol/L (98-107); Glucose 146 mg/dL (74-99); LDH 2017 U/L (313-618); Non-African American GFR(CKD) >90 (>60 ml/min/1.73 sqM); Potassium 4.1 mmol/L (3.5-5.1); Sodium 139 mmol/L (137-145)
--- NOTE | 2020-05-11 08:25 | XR ---
EXAMINATION TYPE: XR chest 1V portable DATE OF EXAM: 05/11/2020 HISTORY: Shortness of breath. COMPARISON: 05/09/2020 TECHNIQUE: Single view of the chest is submitted. FINDINGS: Demonstrated are scattered senescent parenchymal change. Scattered airspace infiltrates persist throughout the upper and lower lung zones. The findings are co mpatible with Covid 19 pneumonia. Mild progression suggested. The heart is stable. Hilar and mediastinal structures are within normal limits. Degenerative changes are seen of the dorsal spine. IMPRESSION: 1. Scattered airspace infiltrates persist throughout the upper and lower lung zones. The findings ar e compatible with Covid 19 pneumonia. Mild progression suggested.
[2020-05-11] MEDS: ENOXAPARIN 60 MG/0.6 ML SYRINGE SQ SCH ×2 (09:50→20:29)
[2020-05-11] MEDS: FAMOTIDINE 20 MG TAB PO SCH ×2 (09:50→20:29)
[2020-05-11] MEDS: ASCORBIC ACID 500 MG TAB PO SCH (09:51)
[2020-05-11] MEDS: CHOLECALCIFEROL 25 MCG (1000 IU) TABLET PO SCH (09:51)
[2020-05-11] MEDS: ZINC SULFATE 220 MG CAP PO SCH (09:51)
[2020-05-11 12:18] LABS: Glucose,Whole Blood 152 mg/dL (75-99)
--- NOTE | 2020-05-11 13:51 | P.PN ---
Subjective Progress Note Date: 05/11/20 Acute hypoxic respiratory failure secondary to Covid pneumonia Patient is a 60-year-old female with a known history of cervical cancer status post hysterectomy, currently everyday smoker presents to ER with the complaints of worsening shortness of breath. Patient says that her symptoms started about 2 weeks ago and was tested for cold positive on 04/29/2020 as an outpatient. Patient has been having fever and chills on and off. She has been using [id number] medications. Patient was not any antibiotics or steroids at home. She came to ER due to worsening shortness of breath and generalized weakness and decreased oral intake and nausea for the past 3 days. No complaints of diarrhea and abdominal pain. Does have chest tightness with deep breathing. Denied any dysuria or hematuria. No headache or dizziness or lightheadedness. On admission patient was tachycardic and hypoxic with pulse ox 84% and requiring her person noncontributory. CTA chest showed demonstrative moderate to severe skater groundglass opacities throughout both lungs with interspace and wedge-shaped areas of consolidation or atelectasis. Consider Coumadin 19 pneumonia. No evidence of pulmonary embolism or acute aortic abnormality. EKG showed sinus tachycardia Chest x-ray showed diffuse bilateral infiltrates which can be compatible with atypical pneumonia. Laboratory data showed WBC 4.6, hemoglobin 14.2 and platelets 270, d-dimer 3.79 Sodium 129 potassium 3.7 chloride 94 BUN 12 and creatinine 0.50 LDH 1942, CRP 78.3, pro-calcitonin 0.2 Covid 19 PCR detected. 05/08/2020 Patient is currently awake alert and oriented x3. Still having significant shortness of breath and hypoxia. Currently on high flow oxygen at 6 L with FiO2 of 90%. Patient is being continued on methylprednisolone and Lovenox twice d aily. Continued on multivitamins. Pulmonary is on board. Patient has been afebrile. No nausea vomiting or diarrhea. No dysuria or hematuria. No chest pain. 05/09/2020 Patient is currently on high flow oxygen airvo 60 L with 90% FiO2. Appears to be in no distress. Awake alert and oriented. No fever no chills. No nausea vomiting or abdominal pain or diarrhea. Patient will be continued on Solu- Medrol and Lovenox twice daily. Laboratory data showed serum D-dimer level is 19.1 Sodium 136 potassium 3.7 bicarb is 31 BUN 14 and creatinine 0.48 blood sugar is 148 and CRP 24.2 and LDH 1620 05/10/2020 Patient is lying in the bed awake and alert. Still requiring high flow oxygen at 60 L FiO2 90%. She having exertional dyspnea and chest tightness. Patient is being continued on IV Solu-Medrol, Lovenox twice daily and multivitamins. Laboratory work showed D-dimer 15.1, LDH 171 on and CRP 9.6 patient has been afebrile. 05/11/2020 Patient is seen and evaluated in follow-up this morning currently remains on high flow Airvo and continues to be extremely dyspneic with minimal exertion. Respiratory currently weaning very slowly as tolerated. Chest x-ray today shows scattered airspace infiltrates persist to the upper and lower lung zones with mild progression suggested. Pulmonary following closely. Patient is maintained on Lovenox, dexamethasone, vitamin and zinc supplements and will continue at this time. D-dimer continues to be elevated and is currently on Lovenox subcu twice daily. Review of systems: Constitutional: No reports of fatigue, fever, or chills Cardiovascular: No reports of chest pain or palpitations Respiratory: Reports shortness of breath and cough, severe dyspnea with minimal exertion GI: No reports of nausea, vomiting, or diarrhea : No reports of dysuria or retention Neurovascular: Reports generalized weakness All medications have been reviewed Active Medications Acetaminophen (Acetaminophen Tab 325 Mg Tab) 650 mg PO Q6HR PRN PRN Reason: Mild Pain or Fever > 100.5 Ascorbic Acid (Ascorbic Acid 500 Mg Tab) 500 mg PO DAILY [facility] Last Admin: 05/11/20 09:51 Dose: 500 mg Documented by: Cholecalciferol (Cholecalciferol 25 Mcg (1000 Iu) Tablet) 25 mcg PO DAILY [facility] Last Admin: 05/11/20 09:51 Dose: 25 mcg Documented by: Enoxaparin Sodium (Enoxaparin 60 Mg/0.6 Ml Syringe) 45 mg SQ BID [facility] Last Admin: 05/11/20 09:50 Dose: 45 mg Documented by: Famotidine (Famotidine 20 Mg Tab) 20 mg PO BID [facility] Last Admin: 05/11/20 09:50 Dose: 20 mg Documented by: Insulin Aspart (Insulin Aspart (Novolog) 100 Unit/Ml Vial) 0 unit SQ [facility]; Protocol Last Admin: 05/11/20 06:43 Dose: 1 unit Documented by: Methylprednisolone Sodium Succinate (Methylprednisolone Sod Succi 125 Mg/2 Ml Vial) 60 mg IV Q6HR [facility] Last Admin: 05/11/20 05:28 Dose: 60 mg Documented by: Naloxone HCl (Naloxone 0.4 Mg/Ml 1 Ml Vial) 0.2 mg IV Q2M PRN PRN Reason: Opioid Reversal Ondansetron HCl (Ondansetron 4 Mg/2 Ml Vial) 4 mg IVP Q8HR PRN PRN Reason: Nausea And Vomiting Zinc Sulfate (Zinc Sulfate 220 Mg Cap) 220 mg PO DAILY [facility] Last Admin: 05/11/20 09:51 Dose: 220 mg Documented by: Objective - Vital Signs Vital signs: Vital Signs Temp 98.2 F 05/11/20 04:00 Pulse 77 05/11/20 08:00 Resp 19 05/11/20 08:00 BP 133/67 05/11/20 08:00 Pulse Ox 92 L 05/11/20 08:00 Intake & Output 05/10/20 05/11/20 05/11/20 18:59 06:59 18:59 Intake Total 840 Balance 840 Weight 95 kg Intake: IV 400 0.9% NS at 50mL/hr 400 Oral 440 Other: Voiding Method Bedside Commode Bedside Commode Bedside Commode # Voids 1 - Exam Patient is lying in the bed comfortably, awake alert and oriented.. Temp is 98.2F, pulse is 74, respirations are 19, blood pressure is 133/67, oxygen saturation is 92% on Airvo with a flow rate of 60 and FiO2 of 85% currently working on weaning as tolerated HEENT: Normocephalic. Neck is supple. Pupils reactive. Nostrils clear. Oral cavity is moist. Ears reveal no drainage. Neck reveals no JVD, carotid bruits, or thyromegaly. CHEST EXAMINATION: Diminished breath sounds bilaterally with bilateral coarse rhonchi noted CARDIAC: S1, S2 are muffled ABDOMEN: Soft. Bowel sounds normal. No organomegaly. No abdominal bruits. Extremities: reveal no edema. No clubbing or cyanosis Neurologically awake, alert, oriented x3 with well-coordinated movements. No focal deficits noted Skin: No rash or skin lesions. Psychiatric: Cooperative. Non-suicidal Musculoskeletal: No joint swelling or deformity. Normal range of motion. - Labs CBC & Chem 7: 03/29/21 07:19 05/11/20 07:19 Labs: Abnormal Lab Results - Last 24 Hours (Table) 05/10/20 05/10/20 05/11/20 Range/Units 16:30 20:13 06:15 Lymphocytes # (1.0-4.8) k/uL D-Dimer (<0.60) mg/L FEU Chloride (98-107) mmol/L BUN (7-17) mg/dL Creatinine (0.52-1.04) mg/dL Glucose (74-99) mg/dL POC Glucose (mg/dL) 159 H 197 H 137 H (75-99) mg/dL Lactate Dehydrogenase (313-618) U/L 05/11/20 05/11/20 05/11/20 Range/Units 06:58 07:19 07:19 Lymphocytes # 0.3 L (1.0-4.8) k/uL D-Dimer 16.55 H (<0.60) mg/L FEU Chloride 108 H (98-107) mmol/L BUN 18 H (7-17) mg/dL Creatinine 0.50 L (0.52-1.04) mg/dL Glucose 146 H (74-99) mg/dL POC Glucose (mg/dL) (75-99) mg/dL Lactate Dehydrogenase 2017 H (313-618) U/L Microbiology - Last 24 Hours (Table) 05/07/20 02:33 Blood Culture - Preliminary Blood No Growth after 96 hours 05/07/20 02:33 Blood Culture - Preliminary Blood No Growth after 96 hours Assessment and Plan Assessment: Acute hypoxic respiratory failure secondary to Covid 19 pneumonia. Patient tested positive on 04/29/2020. Increased inflammatory markers secondary to viral pneumonia Hypovolemic hyponatremia Elevated d-dimer level without evidence of pulmonary embolism on CTA Borderline hypertension currently not on any medications at home. Ongoing nicotine dependence History of uterine and cervical cancer status post hysterectomy 10 years ago Kyphoscoliosis history and back surgery DVT prophylaxis patient is on Lovenox. Recommendations and discussion: Recommend continue with current medications and current management. Patient is maintained on Airvo and currently attempting weaning as tolerated. Patient continues to be extremely dyspneic with minimal exertion and per nursing staff desats quickly into the low 70s and 80s. Is status post 2 doses of Tocilizumab. Patient is maintained on dexamethasone along with vitamin and zinc supplements and will continue at this time. Patient is also continued on Lovenox twice daily and will continue. Pulmonary following closely. Lactate dehydrogenase elevated and CRP is within normal limits. D-dimer continues to be elevated and is currently 16.55. Prognosis remains guarded.
[2020-05-11 17:11] LABS: Glucose,Whole Blood 177 mg/dL (75-99)
--- NOTE | 2020-05-11 17:40 | P.PN ---
Subjective Progress Note Date: 05/11/20 Principal diagnosis: Acute hypoxic respiratory failure 60-year-old white female patient of Dr. Bacon with no significant medical history other than history of uterine and cervical cancer status post total hysterectomy 10 years ago, kyphoscoliosis with history of back surgery, and borderline hypertension for which the patient takes no medications, who presented to the emergency department 05-07-2020 by EMS for evaluation of worsening shortness of breath. Patient states that onset of symptoms was 2 weeks ago and started with runny nose and a sore throat, gradually her symptoms have progressed, and patient started having fevers, worsening shortness of breath and cough. She tested positive for COVID 19 a week ago on 04/29/2020 on an outpatient basis however she did not seek any medical treatment up until now. She reports some decreased oral intake, nausea, but no abdominal pain or diarrhea. Admits to smoking cigarettes, however reports no chronic lung condition. Patient denies receiving any vaccination for COVID 19. CTA chest showed no evidence of pulmonary embolism, but demonstrated moderate to severe scattered groundglass opacities, showed a positive COVID 19 PCR test, d-dimer was elevated at 3.79, and significant elevated inflammatory markers with LDH thousand 942, and CRP of 78.3. Patient is a requiring high flow oxygen per Airvo at 50 L and FiO2 of 75%, her pulse ox is 88-92%, she is having low grade fevers, but hemodynamically stable. Added on Decadron, prophylactic dose of Lovenox, and we were asked to see the patient in consultation. On today's evaluation, the patient is being seen for follow-up regarding her Covid associated pneumonia. The patient presented with significant hypoxemic respiratory failure with bilateral pulmonary infiltrates and consolidations perihilar and extending to the peripheries. The patient remains on high flow oxygen and she is currently on 6 L with an FiO2 of 90%. No new labs from today. Her d-dimer from yesterday was 3.7. LDH level was also elevated at 942 with a CRP of 78.3. She remains on Solu-Medrol 60 mg IV every 24 hours. On today's evaluation of 05/09/2020 the patient remains on 60 L of oxygen with an FiO2 of 90%. There is essentially the same setting of high flow oxygen that the patient was on since yesterday. No much of an improvement at this point in time. She remains on treatment and she is taking Solu-Medrol 60 mg IV push every 6 hours. Note that the patient has diffuse bilateral pulmonary infiltrates and this was confirmed on a chest x-ray and a computed tomography sc an of the chest. Inflammatory markers including the LDH down to 1620 and the CRP is down to 24. Her renal function is stable with a creatinine of 0.4. Her d- dimer is at 19. In terms of anticoagulation, the patient is currently on 45 mg subcu every 12 hours. Her chest x-ray from today is showing stable bilateral pulmonary infiltrates. The is essentially stable and unchanged compared to yesterday. She is still requiring high flow oxygen and her current pulse ox is around 92%. I like her to sleep in different body positions. Prone positioning is obviously advised. On 05/10/2020, the patient is being seen in follow-up regarding her COVID 19 related pneumonia. The patient is still on high flow oxygen and the patient is on 60 L with an FiO2 of 90%. She is having difficulties with her breathing. She would desaturate very easily with minimal amount of activity. Her inflammatory markers remain quite elevated including the LDH of 1711 and her CRP is down to 9.6. Her d-dimer today is still elevated at 15.1 although it's slightly downtrending. In terms of therapy, the patient remains on IV Solu Medrol 60 mg every 6 hours. The patient is also on Lovenox 45 mg subcutaneous every 12 hours. The patient is on high flexion 90 L and her FiO2 was slightly weaned down to 85%. Note that the patient desaturated this morning and she was down in the 70s. We had to prone or and with prone positioning, her oxidation is improved and her current pulse ox up to the 90-91%. No chest x-ray from today. Inflammatory markers were noted. She is tolerating some diet and she is not fully meeting her caloric requirements Patient was reevaluated today on 05/11/2020, we are seeing the patient for her acute presentation of covid 19 pneumonia.patient remains on high FiO2, she is on 60 L flow v and 70% FiO2 viaia airvo, surprisingly the patient seems to be in no distress, and she seems to be comfortable. She tells me that she is feeling better today compared to how she felt upon admission.CBC today is relatively normal electrolytes are normal renal profile is normal LDH is 2017. C-reactive protein is less than 5.chest x-ray continues to show bilateral airspace infiltrates throughout both lungs compatible with Covid 19 pneumonia. Objective - Vital Signs Vital signs: Vital Signs Temp 98.2 F 05/11/20 04:00 Pulse 77 05/11/20 14:00 Resp 19 05/11/20 14:00 BP 131/59 05/11/20 12:00 Pulse Ox 93 L 05/11/20 12:00 Intake & Output 05/10/20 05/11/20 05/11/20 18:59 06:59 18:59 Intake Total 840 480 Balance 840 480 Weight 95 kg Intake: IV 400 0.9% NS at 50mL/hr 400 Oral 440 480 Other: Voiding Method Bedside Commode Bedside Commode Bedside Commode # Voids 1 2 # Bowel Movements 1 - Exam Patient is lying in the bed comfortably, no acute distress, awake alert and oriented.. on high flow oxygen she is on 70% FiO2 and 60 L flow. O2 saturations 92%. HEENT: Normocephalic. Neck is supple. Pupils reactive. Nostrils clear. Oral cavity is moist. Ears reveal no drainage. Neck reveals no JVD, carotid bruits, or thyromegaly. CHEST EXAMINATION: Trachea is central. Symmetrical expansion.bibasilar crackles noted. CARDIAC: Normal S1, S2 with no gallops. No murmurs ABDOMEN: Soft. Bowel sounds normal. No organomegaly. No abdominal bruits. Extremities: reveal no edema. No clubbing or cyanosis Neurologically awake, alert, oriented x3 with well-coordinated movements. No focal deficits noted Skin: No rash or skin lesions. Psychiatric: Coperative. Nonsuicidal Musculoskeletal: No joint swelling or deformity. Normal range of motion. - Labs CBC & Chem 7: 05/11/20 07:19 05/11/20 07:19 Labs: Abnormal Lab Results - Last 24 Hours (Table) 05/10/20 05/11/20 05/11/20 Range/Units 20:13 06:15 06:58 Lymphocytes # (1.0-4.8) k/uL D-Dimer 16.55 H (<0.60) mg/L FEU Chloride (98-107) mmol/L BUN (7-17) mg/dL Creatinine (0.52-1.04) mg/dL Glucose (74-99) mg/dL POC Glucose (mg/dL) 197 H 137 H (75-99) mg/dL Lactate Dehydrogenase (313-618) U/L 05/11/20 05/11/20 05/11/20 Range/Units 07:19 07:19 12:15 Lymphocytes # 0.3 L (1.0-4.8) k/uL D-Dimer (<0.60) mg/L FEU Chloride 108 H (98-107) mmol/L BUN 18 H (7-17) mg/dL Creatinine 0.50 L (0.52-1.04) mg/dL Glucose 146 H (74-99) mg/dL POC Glucose (mg/dL) 152 H (75-99) mg/dL Lactate Dehydrogenase 2017 H (313-618) U/L 05/11/20 Range/Units 17:08 Lymphocytes # (1.0-4.8) k/uL D-Dimer (<0.60) mg/L FEU Chloride (98-107) mmol/L BUN (7-17) mg/dL Creatinine (0.52-1.04) mg/dL Glucose (74-99) mg/dL POC Glucose (mg/dL) 177 H (75-99) mg/dL Lactate Dehydrogenase (313-618) U/L Microbiology - Last 24 Hours (Table) 05/07/20 02:33 Blood Culture - Preliminary Blood No Growth after 96 hours 05/07/20 02:33 Blood Culture - Preliminary Blood No Growth after 96 hours Assessment and Plan Assessment: Acute hypoxic respiratory failure secondary to Covid 19 pneumonia. requiring high FiO2 and high flow Increased inflammatory markers secondary to above. Hypovolemic hyponatremia benign essential hypertension. Elevated d-dimer level without evidence of pulmonary embolism on CTA Borderline hypertension currently not on any medications at home. Ongoing nicotine addiction History of uterine and cervical cancer status post hysterectomy 10 years ago recommendation: continue Solu-Medrol. Continue present supportive care measures Continue high FiO2 and titrate accordingly. Continue Lovenox 50 mg subcu every 12 hours consider proning position received actemra 2 doses we'll continue to follow. Prognosis remains extremely guarded. Time with Patient: Less than 30
[2020-05-11 20:19] LABS: Glucose,Whole Blood 163 mg/dL (75-99)
[2020-05-12] MEDS: methylPREDNISolone SOD SUCCI 125 MG/2 ML VIAL IV SCH ×4 (00:01→17:52)
[2020-05-12 06:21] LABS: Glucose,Whole Blood 141 mg/dL (75-99)
[2020-05-12] MEDS: INSULIN ASPART (NovoLOG) 100 UNIT/ML VIAL SQ SCH ×4 (06:36→20:51)
[2020-05-12 08:03] LABS: Basophils % (A) 0 %; Eosinophils % (A) 0 %; HCT 38.2 % (34.0-46.0); HGB 13.3 gm/dL (11.4-16.0); Lymphocytes # (A) 0.3 k/uL (1.0-4.8); Lymphocytes % (A) 4 %; MCH 30.1 pg (25.0-35.0); MCHC 34.8 g/dL (31.0-37.0); MCV 86.5 fL (80.0-100.0); Mean Platelet Volume 7.2; Monocytes # (A) 0.3 k/uL (0-1.0); Monocytes % (A) 4 %; Neutrophils # (A) 6.7 k/uL (1.3-7.7); Neutrophils % (A) 91 %; Platelet Count 193 k/uL (150-450); RBC 4.42 m/uL (3.80-5.40); RDW 13.2 % (11.5-15.5); WBC 7.4 k/uL (3.8-10.6)
[2020-05-12 08:13] LABS: African American GFR (CKD) >90 (>60 ml/min/1.73 sqM); Anion Gap 2 mmol/L; Blood Urea Nitrogen 19 mg/dL (7-17); Calcium 8.5 mg/dL (8.4-10.2); Carbon Dioxide 29 mmol/L (22-30); Chloride 109 mmol/L (98-107); Glucose 138 mg/dL (74-99); LDH 1955 U/L (313-618); Non-African American GFR(CKD) >90 (>60 ml/min/1.73 sqM); Potassium 4.6 mmol/L (3.5-5.1); Sodium 140 mmol/L (137-145)
[2020-05-12] MEDS: FAMOTIDINE 20 MG TAB PO SCH ×2 (08:43→20:51)
[2020-05-12] MEDS: ASCORBIC ACID 500 MG TAB PO SCH (08:43)
[2020-05-12] MEDS: CHOLECALCIFEROL 25 MCG (1000 IU) TABLET PO SCH (08:43)
[2020-05-12] MEDS: ZINC SULFATE 220 MG CAP PO SCH (08:43)
[2020-05-12] MEDS: ENOXAPARIN 60 MG/0.6 ML SYRINGE SQ SCH ×2 (08:43→20:51)
[2020-05-12 12:14] LABS: Glucose,Whole Blood 118 mg/dL (75-99)
--- NOTE | 2020-05-12 16:21 | PN ---
PROGRESS NOTE DATE OF SERVICE: 05/12/2020 This 60-year-old woman who was admitted with acute hypoxic respiratory failure secondary to bilateral COVID pneumonia remains on high-flow oxygen. Most recent chest x-ray was reviewed. The patient is on multiple medications. The D-dimer is still elevated to 15.09. The patient did have a CT angio which was showing ground-glass appearance and no evidence of any pulmonary embolism at that time. The patient is currently on Lovenox 45 mg subcutaneously b.i.d. Past medical history reviewed. REVIEW OF SYSTEMS: CARDIOVASCULAR SYSTEM: No angina, palpitations. RESPIRATORY SYSTEM: As mentioned earlier. GI: As mentioned earlier. : No dysuria or retention. NERVOUS SYSTEM: No numbness, weakness. CURRENT MEDICATIONS: Reviewed. They include Tylenol, vitamin C, vitamin D3, Lovenox, Pepcid, Solu-Medrol. Doses are reviewed. PHYSICAL EXAMINATION: Patient is alert, oriented x3. Pulse is 61, blood pressure 130/73, respiration 20, temperature normal, pulse ox 91% on 85% AIRVO. HEENT: Conjunctivae normal. NECK: No jugular venous distention. CARDIOVASCULAR SYSTEM: S1, S2 muffled. RESPIRATORY SYSTEM: Breath sounds diminished at the bases. Bilateral scattered rhonchi and crackles. ABDOMEN: Soft, non-tender. NERVOUS SYSTEM: No focal deficit. LABS: CBC within normal limits. D-dimer is noted. LDH is 1955. ASSESSMENT: 1. Acute COVID-19 infection with acute bilateral COVID-19 pneumonia with acute hypoxic respiratory failure, on high-flow oxygen. 2. Increased inflammatory markers secondary to viral pneumonia. 3. Elevated D-dimer without any evidence of pulmonary embolism. 4. Hypovolemic hyponatremia. 5. Borderline hypertension. 6. Ongoing nicotine dependence. 7. History of uterine cervical cancer. 8. Kyphoscoliosis. 9. Deep vein thrombosis prophylaxis. RECOMMENDATIONS AND DISCUSSION: I recommend to continue current medications, continue with the monitoring, symptomatic treatment. I would also recommend ultrasound of the legs. Continue the rest of the medications. Supplement vitamins. Guarded prognosis because of multiple complex medical issues. Further recommendations to follow. Continue the steroids. Monitor blood sugars closely. Closely follow with pulmonary physicians. Home medications were also noted. MMODL / IJN: [id number] /
[2020-05-12 16:46] LABS: Glucose,Whole Blood 172 mg/dL (75-99)
--- NOTE | 2020-05-12 18:57 | P.PN ---
Subjective Progress Note Date: 05/12/20 Principal diagnosis: Acute hypoxic respiratory failure 60-year-old white female patient of Dr. Bacon with no significant medical history other than history of uterine and cervical cancer status post total hysterectomy 10 years ago, kyphoscoliosis with history of back surgery, and borderline hypertension for which the patient takes no medications, who presented to the emergency department 05-07-2020 by EMS for evaluation of worsening shortness of breath. Patient states that onset of symptoms was 2 weeks ago and started with runny nose and a sore throat, gradually her symptoms have progressed, and patient started having fevers, worsening shortness of breath and cough. She tested positive for COVID 19 a week ago on 04/29/2020 on an outpatient basis however she did not seek any medical treatment up until now. She reports some decreased oral intake, nausea, but no abdominal pain or diarrhea. Admits to smoking cigarettes, however reports no chronic lung condition. Patient denies receiving any vaccination for COVID 19. CTA chest showed no evidence of pulmonary embolism, but demonstrated moderate to severe scattered groundglass opacities, showed a positive COVID 19 PCR test, d-dimer was elevated at 3.79, and significant elevated inflammatory markers with LDH thousand 942, and CRP of 78.3. Patient is a requiring high flow oxygen per Airvo at 50 L and FiO2 of 75%, her pulse ox is 88-92%, she is having low grade fevers, but hemodynamically stable. Added on Decadron, prophylactic dose of Lovenox, and we were asked to see the patient in consultation. On today's evaluation, the patient is being seen for follow-up regarding her Covid associated pneumonia. The patient presented with significant hypoxemic respiratory failure with bilateral pulmonary infiltrates and consolidations perihilar and extending to the peripheries. The patient remains on high flow oxygen and she is currently on 6 L with an FiO2 of 90%. No new labs from today. Her d-dimer from yesterday was 3.7. LDH level was also elevated at 942 with a CRP of 78.3. She remains on Solu-Medrol 60 mg IV every 24 hours. On today's evaluation of 05/09/2020 the patient remains on 60 L of oxygen with an FiO2 of 90%. There is essentially the same setting of high flow oxygen that the patient was on since yesterday. No much of an improvement at this point in time. She remains on treatment and she is taking Solu-Medrol 60 mg IV push every 6 hours. Note that the patient has diffuse bilateral pulmonary infiltrates and this was confirmed on a chest x-ray and a computed tomography sc an of the chest. Inflammatory markers including the LDH down to 1620 and the CRP is down to 24. Her renal function is stable with a creatinine of 0.4. Her d- dimer is at 19. In terms of anticoagulation, the patient is currently on 45 mg subcu every 12 hours. Her chest x-ray from today is showing stable bilateral pulmonary infiltrates. The is essentially stable and unchanged compared to yesterday. She is still requiring high flow oxygen and her current pulse ox is around 92%. I like her to sleep in different body positions. Prone positioning is obviously advised. On 05/10/2020, the patient is being seen in follow-up regarding her COVID 19 related pneumonia. The patient is still on high flow oxygen and the patient is on 60 L with an FiO2 of 90%. She is having difficulties with her breathing. She would desaturate very easily with minimal amount of activity. Her inflammatory markers remain quite elevated including the LDH of 1711 and her CRP is down to 9.6. Her d-dimer today is still elevated at 15.1 although it's slightly downtrending. In terms of therapy, the patient remains on IV Solu Medrol 60 mg every 6 hours. The patient is also on Lovenox 45 mg subcutaneous every 12 hours. The patient is on high flexion 90 L and her FiO2 was slightly weaned down to 85%. Note that the patient desaturated this morning and she was down in the 70s. We had to prone or and with prone positioning, her oxidation is improved and her current pulse ox up to the 90-91%. No chest x-ray from today. Inflammatory markers were noted. She is tolerating some diet and she is not fully meeting her caloric requirements Patient was reevaluated today on 05/11/2020, we are seeing the patient for her acute presentation of covid 19 pneumonia.patient remains on high FiO2, she is on 60 L flow v and 70% FiO2 viaia airvo, surprisingly the patient seems to be in no distress, and she seems to be comfortable. She tells me that she is feeling better today compared to how she felt upon admission.CBC today is relatively normal electrolytes are normal renal profile is normal LDH is 2017. C-reactive protein is less than 5.chest x-ray continues to show bilateral airspace infiltrates throughout both lungs compatible with Covid 19 pneumonia. Patient was reevaluated today on 05/12/2020, remains on high flow oxygen with high FiO2 of 70%, and 60 L/m flow. Patient seems to be very comfortable, she tells me that she is feeling better compared to how she felt on admission. WBC count is 7.4 hemoglobin is 13.3 electrolytes are normal. Basic metabolic profile is normal LDH is trending down and bit to 1955 and C-reactive protein is 5. Objective - Vital Signs Vital signs: Vital Signs Temp 98.2 F 05/12/20 12:00 Pulse 78 05/12/20 16:00 Resp 22 05/12/20 16:00 BP 132/86 05/12/20 16:00 Pulse Ox 90 L 05/12/20 16:41 Intake & Output 05/11/20 05/12/20 05/12/20 18:59 06:59 18:59 Intake Total 480 778 400 Balance 480 778 400 Weight 95.5 kg Intake: IV 400 0.9% NS at 50mL/hr 400 Oral 480 778 Other: Voiding Method Bedside Commode Bedside Commode # Voids 2 1 1 # Bowel Movements 1 - Exam Patient is lying in the bed comfortably, no acute distress, awake alert and oriented.. on high flow oxygen she is on 70% FiO2 and 60 L flow. HEENT: Normocephalic. Neck is supple. Pupils reactive. Nostrils clear. Oral cavity is moist. Ears reveal no drainage. Neck reveals no JVD, carotid bruits, or thyromegaly. CHEST EXAMINATION: Fine crackles at the bases, symmetrical chest expansion. CARDIAC: Normal S1, S2 with no gallops. No murmurs ABDOMEN: Soft. Bowel sounds normal. No organomegaly. No abdominal bruits. Extremities: reveal no edema. No clubbing or cyanosis Neurologically awake, alert, oriented x3 with well-coordinated movements. No focal deficits noted Skin: No rash or skin lesions. Psychiatric: Normal mood, affect, normal mental status examination. Musculoskeletal: No joint swelling or deformity. Normal range of motion. - Labs CBC & Chem 7: 05/12/20 07:19 05/12/20 07:19 Labs: Abnormal Lab Results - Last 24 Hours (Table) 05/11/20 05/12/20 05/12/20 Range/Units 20:17 06:20 07:19 Lymphocytes # 0.3 L (1.0-4.8) k/uL D-Dimer (<0.60) mg/L FEU Chloride (98-107) mmol/L BUN (7-17) mg/dL Glucose (74-99) mg/dL POC Glucose (mg/dL) 163 H 141 H (75-99) mg/dL Lactate Dehydrogenase (313-618) U/L 05/12/20 05/12/20 05/12/20 Range/Units 07:19 07:19 12:12 Lymphocytes # (1.0-4.8) k/uL D-Dimer 15.09 H (<0.60) mg/L FEU Chloride 109 H (98-107) mmol/L BUN 19 H (7-17) mg/dL Glucose 138 H (74-99) mg/dL POC Glucose (mg/dL) 118 H (75-99) mg/dL Lactate Dehydrogenase 1955 H (313-618) U/L 05/12/20 Range/Units 16:44 Lymphocytes # (1.0-4.8) k/uL D-Dimer (<0.60) mg/L FEU Chloride (98-107) mmol/L BUN (7-17) mg/dL Glucose (74-99) mg/dL POC Glucose (mg/dL) 172 H (75-99) mg/dL Lactate Dehydrogenase (313-618) U/L Microbiology - Last 24 Hours (Table) 05/07/20 02:33 Blood Culture - Preliminary Blood No Growth after 120 hours 05/07/20 02:33 Blood Culture - Preliminary Blood No Growth after 120 hours Assessment and Plan Assessment: Acute hypoxic respiratory failure secondary to Covid 19 pneumonia. requiring high FiO2 and high flow Increased inflammatory markers secondary to above. Hypovolemic hyponatremia benign essential hypertension. Elevated d-dimer level without evidence of pulmonary embolism on CTA Borderline hypertension currently not on any medications at home. Ongoing nicotine addiction History of uterine and cervical cancer status post hysterectomy 10 years ago recommendation: continue Solu-Medrol. Continue present supportive care measures Continue high FiO2 and titrate accordingly. Continue Lovenox 50 mg subcu every 12 hours received actemra 2 doses we'll continue to follow. Prognosis remains extremely guarded. Time with Patient: Less than 30
[2020-05-12 20:21] LABS: Glucose,Whole Blood 147 mg/dL (75-99)
[2020-05-13 06:11] LABS: Glucose,Whole Blood 145 mg/dL (75-99)
[2020-05-13] MEDS: methylPREDNISolone SOD SUCCI 125 MG/2 ML VIAL IV SCH ×5 (06:39→22:57)
[2020-05-13] MEDS: INSULIN ASPART (NovoLOG) 100 UNIT/ML VIAL SQ SCH ×4 (06:40→20:19)
[2020-05-13] MEDS: CHOLECALCIFEROL 25 MCG (1000 IU) TABLET PO SCH (08:39)
[2020-05-13] MEDS: PANTOPRAZOLE 40 MG/10 ML VIAL IVP SCH (08:39)
[2020-05-13] MEDS: FAMOTIDINE 20 MG TAB PO SCH ×2 (08:39→20:19)
[2020-05-13] MEDS: MULTIVITAMINS, THERA 1 EACH TAB PO SCH (08:40)
[2020-05-13] MEDS: ASCORBIC ACID 500 MG TAB PO SCH (08:40)
[2020-05-13] MEDS: ZINC SULFATE 220 MG CAP PO SCH (08:40)
[2020-05-13] MEDS: THIAMINE 100 MG TAB PO SCH (08:40)
[2020-05-13] MEDS: ENOXAPARIN 60 MG/0.6 ML SYRINGE SQ SCH ×2 (08:40→22:42)
[2020-05-13] MEDS: FOLIC ACID 1 MG TAB PO SCH (08:40)
[2020-05-13 12:11] LABS: Glucose,Whole Blood 192 mg/dL (75-99)
--- NOTE | 2020-05-13 15:32 | P.PN ---
Subjective Progress Note Date: 05/13/20 This is a 60-year-old female who was recently admitted with acute hypoxic respiratory failure secondary to bilateral Covid 19 pneumonia and is being closely monitored. She continues to be on high flow oxygen with continued attempts at weaning. Patient states she is feeling slightly better with improved aeration today. D-dimer continues to be elevated although slowly trending down. Patient is maintained on vitamin and zinc supplements along with Lovenox twice daily and IV steroids and will continue. Pulmonary following closely. Will repeat a.m. labs and continue to monitor closely. Review of systems: Constitutional: No reports of fatigue, fever, or chills Cardiovascular: No reports of chest pain or palpitations Respiratory: Reports shortness of breath and cough, severe dyspnea with minimal exertion GI: No reports of nausea, vomiting, or diarrhea : No reports of dysuria or retention Neurovascular: Reports generalized weakness All medications have been reviewed Active Medications Acetaminophen (Acetaminophen Tab 325 Mg Tab) 650 mg PO Q6HR PRN PRN Reason: Mild Pain or Fever > 100.5 Hydrocodone Bitart/Acetaminophen (Hydrocodone/Apap 5-325mg 1 Each Tab) 1 each PO Q6HR PRN PRN Reason: Pain Ascorbic Acid (Ascorbic Acid 500 Mg Tab) 500 mg PO DAILY [facility] Last Admin: 05/13/20 08:40 Dose: 500 mg Documented by: Cholecalciferol (Cholecalciferol 25 Mcg (1000 Iu) Tablet) 25 mcg PO DAILY [facility] Last Admin: 05/13/20 08:39 Dose: 25 mcg Documented by: Enoxaparin Sodium (Enoxaparin 60 Mg/0.6 Ml Syringe) 45 mg SQ BID [facility] Last Admin: 05/13/20 08:40 Dose: 45 mg Documented by: Famotidine (Famotidine 20 Mg Tab) 20 mg PO BID [facility] Last Admin: 05/13/20 08:39 Dose: 20 mg Documented by: Folic Acid (Folic Acid 1 Mg Tab) 1 mg PO DAILY@1200 [facility] Last Admin: 05/13/20 08:40 Dose: 1 mg Documented by: Insulin Aspart (Insulin Aspart (Novolog) 100 Unit/Ml Vial) 0 unit SQ [facility]; Protocol Last Admin: 05/13/20 12:34 Dose: 2 unit Documented by: Methylprednisolone Sodium Succinate (Methylprednisolone Sod Succi 125 Mg/2 Ml Vial) 60 mg IV Q6HR [facility] Last Admin: 05/13/20 12:24 Dose: 60 mg Documented by: Multivitamins (Multivitamins, Thera 1 Each Tab) 1 each PO DAILY@1200 [facility] Last Admin: 05/13/20 08:40 Dose: 1 each Documented by: Naloxone HCl (Naloxone 0.4 Mg/Ml 1 Ml Vial) 0.2 mg IV Q2M PRN PRN Reason: Opioid Reversal Ondansetron HCl (Ondansetron 4 Mg/2 Ml Vial) 4 mg IVP Q8HR PRN PRN Reason: Nausea And Vomiting Pantoprazole Sodium (Pantoprazole 40 Mg/10 Ml Vial) 40 mg IVP DAILY [facility] Last Admin: 05/13/20 08:39 Dose: 40 mg Documented by: Thiamine HCl (Thiamine 100 Mg Tab) 100 mg PO DAILY@1200 [facility] Last Admin: 05/13/20 08:40 Dose: 100 mg Documented by: Zinc Sulfate (Zinc Sulfate 220 Mg Cap) 220 mg PO DAILY [facility] Last Admin: 05/13/20 08:40 Dose: 220 mg Documented by: Objective - Vital Signs Vital signs: Vital Signs Temp 98.6 F 05/13/20 08:00 Pulse 64 05/13/20 08:00 Resp 20 05/13/20 08:00 BP 136/86 05/13/20 08:00 Pulse Ox 89 L 05/13/20 08:00 Intake & Output 05/12/20 05/13/20 05/13/20 18:59 06:59 18:59 Intake Total 400 Output Total 300 Balance 400 -300 Weight 96.2 kg 96.2 kg Intake: IV 400 0.9% NS at 50mL/hr 400 Output: Urine 300 Other: Voiding Method Bedpan # Voids 1 2 - Exam Patient is sitting up in bed, awake alert and oriented and 3.. Temp is 98.6F, pulse is 64, respirations are 20, blood pressure is 136/86, oxygen saturation is 89% on Airvo with a flow rate of 60 and FiO2 of 70% currently working on weaning as tolerated HEENT: Normocephalic. Neck is supple. Pupils reactive. Nostrils clear. Oral cavity is moist. Ears reveal no drainage. Neck reveals no JVD, carotid bruits, or thyromegaly. CHEST EXAMINATION: Diminished breath sounds bilaterally with bilateral coarse rhonchi noted CARDIAC: S1, S2 are muffled ABDOMEN: Soft. Bowel sounds normal. No organomegaly. No abdominal bruits. Extremities: reveal no edema. No clubbing or cyanosis Neurologically awake, alert, oriented x3 with well-coordinated movements. No focal deficits noted Skin: No rash or skin lesions. Psychiatric: Cooperative. Non-suicidal Musculoskeletal: No joint swelling or deformity. Normal range of motion. - Labs CBC & Chem 7: 05/12/20 07:19 05/12/20 07:19 Labs: Abnormal Lab Results - Last 24 Hours (Table) 05/12/20 05/12/20 05/13/20 Range/Units 16:44 20:20 06:10 POC Glucose (mg/dL) 172 H 147 H 145 H (75-99) mg/dL 05/13/20 Range/Units 12:10 POC Glucose (mg/dL) 192 H (75-99) mg/dL Microbiology - Last 24 Hours (Table) 05/07/20 02:33 Blood Culture - Final Blood No Growth after 144 hours 05/07/20 02:33 Blood Culture - Final Blood No Growth after 144 hours Assessment and Plan Assessment: Acute Covid 19 infection with acute bilateral Covid 19 pneumonia with acute hypoxic respiratory failure on high flow oxygen Increased inflammatory markers secondary to viral pneumonia Hypovolemic hyponatremia Elevated d-dimer level without evidence of pulmonary embolism on CTA Borderline hypertension Ongoing nicotine dependence History of uterine and cervical cancer status post hysterectomy 10 years ago Kyphoscoliosis history and back surgery DVT prophylaxis patient is on Lovenox. full code Recommendations and discussion: Recommend to continue with current medications and current management. Patient is maintained on Airvo and currently attempting weaning as tolerated. Patient continues to be extremely dyspneic with minimal exertion and per nursing staff desats quickly into the low 70s and 80s. Patient Is status post 2 doses of Tocilizumab. Patient is maintained on dexamethasone along with vitamin and zinc supplements and will continue at this time. Patient is also continued on Lovenox twice daily and will continue. Pulmonary following closely. Will repeat a.m. labs. Prognosis remains guarded.
[2020-05-13 16:59] LABS: Glucose,Whole Blood 155 mg/dL (75-99)
--- NOTE | 2020-05-13 19:31 | P.PN ---
Subjective Progress Note Date: 05/13/20 Principal diagnosis: Acute hypoxic respiratory failure 60-year-old white female patient of Dr. Bacon with no significant medical history other than history of uterine and cervical cancer status post total hysterectomy 10 years ago, kyphoscoliosis with history of back surgery, and borderline hypertension for which the patient takes no medications, who presented to the emergency department 05-07-2020 by EMS for evaluation of worsening shortness of breath. Patient states that onset of symptoms was 2 weeks ago and started with runny nose and a sore throat, gradually her symptoms have progressed, and patient started having fevers, worsening shortness of breath and cough. She tested positive for COVID 19 a week ago on 04/29/2020 on an outpatient basis however she did not seek any medical treatment up until now. She reports some decreased oral intake, nausea, but no abdominal pain or diarrhea. Admits to smoking cigarettes, however reports no chronic lung condition. Patient denies receiving any vaccination for COVID 19. CTA chest showed no evidence of pulmonary embolism, but demonstrated moderate to severe scattered groundglass opacities, showed a positive COVID 19 PCR test, d-dimer was elevated at 3.79, and significant elevated inflammatory markers with LDH thousand 942, and CRP of 78.3. Patient is a requiring high flow oxygen per Airvo at 50 L and FiO2 of 75%, her pulse ox is 88-92%, she is having low grade fevers, but hemodynamically stable. Added on Decadron, prophylactic dose of Lovenox, and we were asked to see the patient in consultation. On today's evaluation, the patient is being seen for follow-up regarding her Covid associated pneumonia. The patient presented with significant hypoxemic respiratory failure with bilateral pulmonary infiltrates and consolidations perihilar and extending to the peripheries. The patient remains on high flow oxygen and she is currently on 6 L with an FiO2 of 90%. No new labs from today. Her d-dimer from yesterday was 3.7. LDH level was also elevated at 942 with a CRP of 78.3. She remains on Solu-Medrol 60 mg IV every 24 hours. On today's evaluation of 05/09/2020 the patient remains on 60 L of oxygen with an FiO2 of 90%. There is essentially the same setting of high flow oxygen that the patient was on since yesterday. No much of an improvement at this point in time. She remains on treatment and she is taking Solu-Medrol 60 mg IV push every 6 hours. Note that the patient has diffuse bilateral pulmonary infiltrates and this was confirmed on a chest x-ray and a computed tomography sc an of the chest. Inflammatory markers including the LDH down to 1620 and the CRP is down to 24. Her renal function is stable with a creatinine of 0.4. Her d- dimer is at 19. In terms of anticoagulation, the patient is currently on 45 mg subcu every 12 hours. Her chest x-ray from today is showing stable bilateral pulmonary infiltrates. The is essentially stable and unchanged compared to yesterday. She is still requiring high flow oxygen and her current pulse ox is around 92%. I like her to sleep in different body positions. Prone positioning is obviously advised. On 05/10/2020, the patient is being seen in follow-up regarding her COVID 19 related pneumonia. The patient is still on high flow oxygen and the patient is on 60 L with an FiO2 of 90%. She is having difficulties with her breathing. She would desaturate very easily with minimal amount of activity. Her inflammatory markers remain quite elevated including the LDH of 1711 and her CRP is down to 9.6. Her d-dimer today is still elevated at 15.1 although it's slightly downtrending. In terms of therapy, the patient remains on IV Solu Medrol 60 mg every 6 hours. The patient is also on Lovenox 45 mg subcutaneous every 12 hours. The patient is on high flexion 90 L and her FiO2 was slightly weaned down to 85%. Note that the patient desaturated this morning and she was down in the 70s. We had to prone or and with prone positioning, her oxidation is improved and her current pulse ox up to the 90-91%. No chest x-ray from today. Inflammatory markers were noted. She is tolerating some diet and she is not fully meeting her caloric requirements Patient was reevaluated today on 05/11/2020, we are seeing the patient for her acute presentation of covid 19 pneumonia.patient remains on high FiO2, she is on 60 L flow v and 70% FiO2 viaia airvo, surprisingly the patient seems to be in no distress, and she seems to be comfortable. She tells me that she is feeling better today compared to how she felt upon admission.CBC today is relatively normal electrolytes are normal renal profile is normal LDH is 2017. C-reactive protein is less than 5.chest x-ray continues to show bilateral airspace infiltrates throughout both lungs compatible with Covid 19 pneumonia. Patient was reevaluated today on 05/12/2020, remains on high flow oxygen with high FiO2 of 70%, and 60 L/m flow. Patient seems to be very comfortable, she tells me that she is feeling better compared to how she felt on admission. WBC count is 7.4 hemoglobin is 13.3 electrolytes are normal. Basic metabolic profile is normal LDH is trending down and bit to 1955 and C-reactive protein is 5. Reevaluated today on 05/13/2020, patient remains on high flow oxygen, she is on 85% FiO2 and 60 L/m flow with O2 saturation of 90% at best. Surprisingly the patient continues to do well, she is very comfortable, in no distress. WBC count is 7.4 hemoglobin is normal electrolytes are normal renal profile is normal inflammatory markers are trending down however her last LDH was 1954 remains relatively high. Objective - Vital Signs Vital signs: Vital Signs Temp 98.6 F 05/13/20 08:00 Pulse 68 05/13/20 16:00 Resp 22 05/13/20 16:00 BP 150/68 05/13/20 16:00 Pulse Ox 90 L 05/13/20 16:00 Intake & Output 05/13/20 05/13/20 05/14/20 06:59 18:59 06:59 Output Total 300 Balance -300 Weight 96.2 kg 96.2 kg Output: Urine 300 Other: Voiding Method Bedpan # Voids 2 2 # Bowel Movements 1 - Exam Patient is lying in the bed comfortably, no acute distress, awake alert and oriented.. on high flow oxygen she is on 85% FiO2 and 60 L flow. HEENT: Normocephalic. Neck is supple. Pupils reactive. Nostrils clear. Oral cavity is moist. Ears reveal no drainage. Neck reveals no JVD, carotid bruits, or thyromegaly. CHEST EXAMINATION: Fine crackles at the bases, symmetrical chest expansion. CARDIAC: Normal S1, S2 with no gallops. No murmurs ABDOMEN: Soft. Bowel sounds normal. No organomegaly. No abdominal bruits. Extremities: reveal no edema. No clubbing or cyanosis Neurologically awake, alert, oriented x3 with well-coordinated movements. No focal deficits noted Skin: No rash or skin lesions. Psychiatric: Normal mood, affect, normal mental status examination. Musculoskeletal: No joint swelling or deformity. Normal range of motion. - Labs CBC & Chem 7: 05/12/20 07:19 05/12/20 07:19 Labs: Abnormal Lab Results - Last 24 Hours (Table) 05/12/20 05/13/20 05/13/20 Range/Units 20:20 06:10 12:10 POC Glucose (mg/dL) 147 H 145 H 192 H (75-99) mg/dL 05/13/20 Range/Units 16:57 POC Glucose (mg/dL) 155 H (75-99) mg/dL Microbiology - Last 24 Hours (Table) 05/07/20 02:33 Blood Culture - Final Blood No Growth after 144 hours 05/07/20 02:33 Blood Culture - Final Blood No Growth after 144 hours Assessment and Plan Assessment: Acute hypoxic respiratory failure secondary to Covid 19 pneumonia. requiring high FiO2 and high flow Increased inflammatory markers secondary to above. Hypovolemic hyponatremia benign essential hypertension. Elevated d-dimer level without evidence of pulmonary embolism on CTA Borderline hypertension currently not on any medications at home. Ongoing nicotine addiction History of uterine and cervical cancer status post hysterectomy 10 years ago recommendation: continue Solu-Medrol. Continue present supportive care measures Continue high FiO2 and titrate accordingly. Continue Lovenox 50 mg subcu every 12 hours received actemra 2 doses we'll continue to follow. Prognosis remains extremely guarded. Time with Patient: Less than 30
[2020-05-13 20:16] LABS: Glucose,Whole Blood 255 mg/dL (75-99)
[2020-05-14] MEDS: INSULIN ASPART (NovoLOG) 100 UNIT/ML VIAL SQ SCH ×4 (06:10→20:35)
[2020-05-14 06:11] LABS: Glucose,Whole Blood 103 mg/dL (75-99)
[2020-05-14] MEDS: methylPREDNISolone SOD SUCCI 125 MG/2 ML VIAL IV SCH ×4 (06:20→22:37)
--- NOTE | 2020-05-14 08:08 | XR ---
EXAMINATION TYPE: XR chest 1V portable DATE OF EXAM: 05/14/2020 HISTORY: Shortness of breath. COMPARISON: 05/02/2020 TECHNIQUE: Single view of the chest is submitted. FINDINGS: Demonstrated are scattered senescent parenchymal change. Patchy infiltrates persist throughout both lung plummer. The heart is stable. Hilar and mediastinal structures are within normal limits. Degenerative changes are seen of the dorsal spine. IMPRESSION: 1. Patchy infiltrates persist throughout both lung plummer.
[2020-05-14] MEDS: FAMOTIDINE 20 MG TAB PO SCH ×2 (10:56→20:34)
[2020-05-14] MEDS: CHOLECALCIFEROL 25 MCG (1000 IU) TABLET PO SCH (10:56)
[2020-05-14] MEDS: ZINC SULFATE 220 MG CAP PO SCH (10:56)
[2020-05-14] MEDS: THIAMINE 100 MG TAB PO SCH ×2 (10:56→10:57)
[2020-05-14] MEDS: FOLIC ACID 1 MG TAB PO SCH (10:56)
[2020-05-14] MEDS: ENOXAPARIN 60 MG/0.6 ML SYRINGE SQ SCH ×2 (10:57→20:35)
[2020-05-14] MEDS: ASCORBIC ACID 500 MG TAB PO SCH (10:57)
[2020-05-14] MEDS: MULTIVITAMINS, THERA 1 EACH TAB PO SCH (10:58)
[2020-05-14] MEDS: PANTOPRAZOLE 40 MG/10 ML VIAL IVP SCH (11:02)
[2020-05-14 11:41] LABS: Basophils % (A) 0 %; Eosinophils % (A) 0 %; HCT 42.9 % (34.0-46.0); HGB 14.7 gm/dL (11.4-16.0); Lymphocytes # (A) 0.7 k/uL (1.0-4.8); Lymphocytes % (A) 7 %; MCH 29.9 pg (25.0-35.0); MCHC 34.2 g/dL (31.0-37.0); MCV 87.4 fL (80.0-100.0); Mean Platelet Volume 7.9; Monocytes # (A) 0.4 k/uL (0-1.0); Monocytes % (A) 4 %; Neutrophils # (A) 9.5 k/uL (1.3-7.7); Neutrophils % (A) 88 %; Platelet Count 101 k/uL (150-450); RBC 4.91 m/uL (3.80-5.40); RDW 13.5 % (11.5-15.5); WBC 10.8 k/uL (3.8-10.6)
[2020-05-14 11:56] LABS: African American GFR (CKD) >90 (>60 ml/min/1.73 sqM); Anion Gap 5 mmol/L; Blood Urea Nitrogen 19 mg/dL (7-17); Calcium 8.7 mg/dL (8.4-10.2); Carbon Dioxide 27 mmol/L (22-30); Chloride 106 mmol/L (98-107); Glucose 81 mg/dL (74-99); Non-African American GFR(CKD) >90 (>60 ml/min/1.73 sqM); Sodium 138 mmol/L (137-145)
[2020-05-14 12:04] LABS: Glucose,Whole Blood 104 mg/dL (75-99)
[2020-05-14 13:05] LABS: LDH 2102 U/L (313-618)
--- NOTE | 2020-05-14 16:23 | P.PN ---
Subjective Progress Note Date: 05/14/20 This is a 60-year-old female who was recently admitted with acute hypoxic respiratory failure secondary to bilateral Covid 19 pneumonia and is being closely monitored. She continues to be on high flow oxygen with continued attempts at weaning. Patient states she is feeling slightly better with improved aeration today. D-dimer continues to be elevated although slowly trending down. Patient is maintained on vitamin and zinc supplements along with Lovenox twice daily and IV steroids and will continue. Pulmonary following closely. Will repeat a.m. labs and continue to monitor closely. 05/14/2020 Patient is seen and evaluated in follow-up this morning continues to be maintained on Airvo with a flow rate of 60 and an FiO2 of 90% and feels a little more dyspneic and short of breath today. D-dimer is 30.84 today, white blood count is 10.8, hemoglobin is stable at 14.7, sodium is 138, potassium is 4.0, creatinine is 0.55. Lactate dehydrogenase also elevated at 2102. Repeat chest x-ray today is continued patchy infiltrates persistent through both lung plummer. Pulmonary is following closely. A is maintained on Lovenox twice daily along with vitamin C and E supplements IV steroids and zinc and will continue. Review of systems: Constitutional: Reports fatigue, no reports of fever, or chills Cardiovascular: No reports of chest pain or palpitations Respiratory: Reports shortness of breath and cough, severe dyspnea with minimal exertion GI: No reports of nausea, vomiting, or diarrhea : No reports of dysuria or retention Neurovascular: Reports generalized weakness All medications have been reviewed Active Medications Acetaminophen (Acetaminophen Tab 325 Mg Tab) 650 mg PO Q6HR PRN PRN Reason: Mild Pain or Fever > 100.5 Hydrocodone Bitart/Acetaminophen (Hydrocodone/Apap 5-325mg 1 Each Tab) 1 each PO Q6HR PRN PRN Reason: Pain Ascorbic Acid (Ascorbic Acid 500 Mg Tab) 500 mg PO DAILY [facility] Last Admin: 05/14/20 10:57 Dose: 500 mg Documented by: Cholecalciferol (Cholecalciferol 25 Mcg (1000 Iu) Tablet) 25 mcg PO DAILY [facility] Last Admin: 05/14/20 10:56 Dose: 25 mcg Documented by: Enoxaparin Sodium (Enoxaparin 60 Mg/0.6 Ml Syringe) 45 mg SQ BID [facility] Last Admin: 05/14/20 10:57 Dose: 45 mg Documented by: Famotidine (Famotidine 20 Mg Tab) 20 mg PO BID [facility] Last Admin: 05/14/20 10:56 Dose: 20 mg Documented by: Folic Acid (Folic Acid 1 Mg Tab) 1 mg PO DAILY@1200 [facility] Last Admin: 05/14/20 10:56 Dose: 1 mg Documented by: Insulin Aspart (Insulin Aspart (Novolog) 100 Unit/Ml Vial) 0 unit SQ [facility]; Protocol Last Admin: 05/14/20 15:10 Dose: Not Given Documented by: Methylprednisolone Sodium Succinate (Methylprednisolone Sod Succi 125 Mg/2 Ml Vial) 60 mg IV Q6HR [facility] Last Admin: 05/14/20 10:57 Dose: 60 mg Documented by: Multivitamins (Multivitamins, Thera 1 Each Tab) 1 each PO DAILY@1200 [facility] Last Admin: 05/14/20 10:58 Dose: 1 each Documented by: Naloxone HCl (Naloxone 0.4 Mg/Ml 1 Ml Vial) 0.2 mg IV Q2M PRN PRN Reason: Opioid Reversal Ondansetron HCl (Ondansetron 4 Mg/2 Ml Vial) 4 mg IVP Q8HR PRN PRN Reason: Nausea And Vomiting Pantoprazole Sodium (Pantoprazole 40 Mg/10 Ml Vial) 40 mg IVP DAILY [facility] Last Admin: 05/14/20 11:02 Dose: 40 mg Documented by: Thiamine HCl (Thiamine 100 Mg Tab) 100 mg PO DAILY@1200 [facility] Last Admin: 05/14/20 10:57 Dose: 100 mg Documented by: Zinc Sulfate (Zinc Sulfate 220 Mg Cap) 220 mg PO DAILY [facility] Last Admin: 05/14/20 10:56 Dose: 220 mg Documented by: Objective - Vital Signs Vital signs: Vital Signs Temp 98.4 F 05/14/20 03:16 Pulse 66 05/14/20 03:16 Resp 21 05/14/20 03:16 BP 148/90 05/14/20 03:16 Pulse Ox 82 L 05/14/20 07:04 Intake & Output 05/13/20 05/14/20 05/14/20 18:59 06:59 18:59 Output Total 600 Balance -600 Weight 96.2 kg 94 kg Output: Urine 600 Other: Voiding Method Bedpan # Voids 2 # Bowel Movements 1 - Exam Patient is sitting up in bed, awake alert and oriented and 3.. Temp is 98.4F, pulse is 78, respirations are 28, blood pressure is 155/85, oxygen saturation is 86% on Airvo with a flow rate of 60 and FiO2 of 90% currently working on weaning as tolerated HEENT: Normocephalic. Neck is supple. Pupils reactive. Nostrils clear. Oral cavity is moist. Ears reveal no drainage. Neck reveals no JVD, carotid bruits, or thyromegaly. CHEST EXAMINATION: Diminished breath sounds bilaterally with bilateral coarse rhonchi noted CARDIAC: S1, S2 are muffled ABDOMEN: Soft. Bowel sounds normal. No organomegaly. No abdominal bruits. Extremities: reveal no edema. No clubbing or cyanosis Neurologically awake, alert, oriented x3 with well-coordinated movements. No focal deficits noted Skin: No rash or skin lesions. Psychiatric: Cooperative. Non-suicidal Musculoskeletal: No joint swelling or deformity. Normal range of motion. - Labs CBC & Chem 7: 05/14/20 09:37 05/14/20 09:37 Labs: Abnormal Lab Results - Last 24 Hours (Table) 05/13/20 05/13/20 05/13/20 Range/Units 12:10 16:57 20:14 POC Glucose (mg/dL) 192 H 155 H 255 H (75-99) mg/dL 05/14/20 Range/Units 06:10 POC Glucose (mg/dL) 103 H (75-99) mg/dL Assessment and Plan Assessment: Acute Covid 19 infection with acute bilateral Covid 19 pneumonia with acute hypoxic respiratory failure on high flow oxygen Increased inflammatory markers secondary to viral pneumonia Hypovolemic hyponatremia Elevated d-dimer level without evidence of pulmonary embolism on CTA Borderline hypertension Ongoing nicotine dependence History of uterine and cervical cancer status post hysterectomy 10 years ago Kyphoscoliosis history and back surgery DVT prophylaxis patient is on Lovenox. full code Recommendations and discussion: Recommend to continue with current medications and current management. Patient is maintained on Airvo and currently attempting weaning as tolerated. Patient continues to be extremely dyspneic with minimal exertion and per nursing staff desats quickly into the low 70s and 80s. Patient appears to be more dyspneic today and fatigued. Patient Is status post 2 doses of Tocilizumab. Patient is maintained on iv Solu-Medrol along with vitamin and zinc supplements and will continue at this time. Patient is also continued on Lovenox twice daily and will continue. Pulmonary following closely. Will repeat a.m. labs. Prognosis remains guarded.
[2020-05-14] MEDS ORDERED: RX INFO: IV CONTRAST WAS GIVEN 1 EACH MISC MISCELLANE PRN (16:53)
--- NOTE | 2020-05-14 16:53 | P.PN ---
Subjective Progress Note Date: 05/14/20 Principal diagnosis: Acute hypoxic respiratory failure 60-year-old white female patient of Dr. Bacon with no significant medical history other than history of uterine and cervical cancer status post total hysterectomy 10 years ago, kyphoscoliosis with history of back surgery, and borderline hypertension for which the patient takes no medications, who presented to the emergency department 05-07-2020 by EMS for evaluation of worsening shortness of breath. Patient states that onset of symptoms was 2 weeks ago and started with runny nose and a sore throat, gradually her symptoms have progressed, and patient started having fevers, worsening shortness of breath and cough. She tested positive for COVID 19 a week ago on 04/29/2020 on an outpatient basis however she did not seek any medical treatment up until now. She reports some decreased oral intake, nausea, but no abdominal pain or diarrhea. Admits to smoking cigarettes, however reports no chronic lung condition. Patient denies receiving any vaccination for COVID 19. CTA chest showed no evidence of pulmonary embolism, but demonstrated moderate to severe scattered groundglass opacities, showed a positive COVID 19 PCR test, d-dimer was elevated at 3.79, and significant elevated inflammatory markers with LDH thousand 942, and CRP of 78.3. Patient is a requiring high flow oxygen per Airvo at 50 L and FiO2 of 75%, her pulse ox is 88-92%, she is having low grade fevers, but hemodynamically stable. Added on Decadron, prophylactic dose of Lovenox, and we were asked to see the patient in consultation. On today's evaluation, the patient is being seen for follow-up regarding her Covid associated pneumonia. The patient presented with significant hypoxemic respiratory failure with bilateral pulmonary infiltrates and consolidations perihilar and extending to the peripheries. The patient remains on high flow oxygen and she is currently on 6 L with an FiO2 of 90%. No new labs from today. Her d-dimer from yesterday was 3.7. LDH level was also elevated at 942 with a CRP of 78.3. She remains on Solu-Medrol 60 mg IV every 24 hours. On today's evaluation of 05/09/2020 the patient remains on 60 L of oxygen with an FiO2 of 90%. There is essentially the same setting of high flow oxygen that the patient was on since yesterday. No much of an improvement at this point in time. She remains on treatment and she is taking Solu-Medrol 60 mg IV push every 6 hours. Note that the patient has diffuse bilateral pulmonary infiltrates and this was confirmed on a chest x-ray and a computed tomography sc an of the chest. Inflammatory markers including the LDH down to 1620 and the CRP is down to 24. Her renal function is stable with a creatinine of 0.4. Her d- dimer is at 19. In terms of anticoagulation, the patient is currently on 45 mg subcu every 12 hours. Her chest x-ray from today is showing stable bilateral pulmonary infiltrates. The is essentially stable and unchanged compared to yesterday. She is still requiring high flow oxygen and her current pulse ox is around 92%. I like her to sleep in different body positions. Prone positioning is obviously advised. On 05/10/2020, the patient is being seen in follow-up regarding her COVID 19 related pneumonia. The patient is still on high flow oxygen and the patient is on 60 L with an FiO2 of 90%. She is having difficulties with her breathing. She would desaturate very easily with minimal amount of activity. Her inflammatory markers remain quite elevated including the LDH of 1711 and her CRP is down to 9.6. Her d-dimer today is still elevated at 15.1 although it's slightly downtrending. In terms of therapy, the patient remains on IV Solu Medrol 60 mg every 6 hours. The patient is also on Lovenox 45 mg subcutaneous every 12 hours. The patient is on high flexion 90 L and her FiO2 was slightly weaned down to 85%. Note that the patient desaturated this morning and she was down in the 70s. We had to prone or and with prone positioning, her oxidation is improved and her current pulse ox up to the 90-91%. No chest x-ray from today. Inflammatory markers were noted. She is tolerating some diet and she is not fully meeting her caloric requirements Patient was reevaluated today on 05/11/2020, we are seeing the patient for her acute presentation of covid 19 pneumonia.patient remains on high FiO2, she is on 60 L flow v and 70% FiO2 viaia airvo, surprisingly the patient seems to be in no distress, and she seems to be comfortable. She tells me that she is feeling better today compared to how she felt upon admission.CBC today is relatively normal electrolytes are normal renal profile is normal LDH is 2017. C-reactive protein is less than 5.chest x-ray continues to show bilateral airspace infiltrates throughout both lungs compatible with Covid 19 pneumonia. Patient was reevaluated today on 05/12/2020, remains on high flow oxygen with high FiO2 of 70%, and 60 L/m flow. Patient seems to be very comfortable, she tells me that she is feeling better compared to how she felt on admission. WBC count is 7.4 hemoglobin is 13.3 electrolytes are normal. Basic metabolic profile is normal LDH is trending down and bit to 1955 and C-reactive protein is 5. Reevaluated today on 05/13/2020, patient remains on high flow oxygen, she is on 85% FiO2 and 60 L/m flow with O2 saturation of 90% at best. Surprisingly the patient continues to do well, she is very comfortable, in no distress. WBC count is 7.4 hemoglobin is normal electrolytes are normal renal profile is normal inflammatory markers are trending down however her last LDH was 1954 remains relatively high. Patient was reevaluated today on 05/14/2020, remains on high flow oxygen she is presently on 90% FiO2 and 60 L high flow. Recommended probing the patient, and she is trying to go into prone position, patient remains extremely marginal at best. ABC is relatively normal lites are normal renal profile is normal d-dimer is elevated at 30.84. This is the highest d-dimer I have seen since her admission. Patient is maintained on Lovenox at 45 mg subcu twice a day. I would likely recommend a CT angiogram of this patient as she may be a great set up for acute pulmonary embolism considering her elevated d-dimer and considering her Covid 19 infection and seems to be very slow to respond. Objective - Vital Signs Vital signs: Vital Signs Temp 98.4 F 05/14/20 03:16 Pulse 78 05/14/20 14:00 Resp 28 H 05/14/20 14:00 BP 155/85 05/14/20 08:00 Pulse Ox 80 L 05/14/20 12:13 Intake & Output 05/13/20 05/14/20 05/14/20 18:59 06:59 18:59 Intake Total 118 Output Total 600 625 Balance -600 -507 Weight 96.2 kg 94 kg Intake: Oral 118 Output: Urine 600 625 Other: Voiding Method Bedpan # Voids 2 # Bowel Movements 1 - Exam Patient is lying in the bed comfortably, no acute distress, awake alert and oriented.. Remains on high flow oxygen. HEENT: Normocephalic. Neck is supple. Pupils reactive. Nostrils clear. Oral cavity is moist. Ears reveal no drainage. Neck reveals no JVD, carotid bruits, or thyromegaly. CHEST EXAMINATION: Fine crackles at the bases, symmetrical chest expansion. CARDIAC: Normal S1, S2 with no gallops. No murmurs ABDOMEN: Soft. Bowel sounds normal. No organomegaly. No abdominal bruits. Extremities: reveal no edema. No clubbing or cyanosis Neurologically awake, alert, oriented x3 with well-coordinated movements. No focal deficits noted Skin: No rash or skin lesions. Psychiatric: Normal mood, affect, normal mental status examination. Musculoskeletal: No joint swelling or deformity. Normal range of motion. - Labs CBC & Chem 7: 05/14/20 09:37 05/14/20 09:37 Labs: Abnormal Lab Results - Last 24 Hours (Table) 05/13/20 05/13/20 05/14/20 Range/Units 16:57 20:14 06:10 WBC (3.8-10.6) k/uL Plt Count (150-450) k/uL Neutrophils # (1.3-7.7) k/uL Lymphocytes # (1.0-4.8) k/uL D-Dimer (<0.60) mg/L FEU BUN (7-17) mg/dL POC Glucose (mg/dL) 155 H 255 H 103 H (75-99) mg/dL Lactate Dehydrogenase (313-618) U/L 05/14/20 05/14/20 05/14/20 Range/Units 09:37 09:37 09:37 WBC 10.8 H (3.8-10.6) k/uL Plt Count 101 L (150-450) k/uL Neutrophils # 9.5 H (1.3-7.7) k/uL Lymphocytes # 0.7 L (1.0-4.8) k/uL D-Dimer 30.84 H (<0.60) mg/L FEU BUN 19 H (7-17) mg/dL POC Glucose (mg/dL) (75-99) mg/dL Lactate Dehydrogenase 2102 H (313-618) U/L 05/14/20 Range/Units 11:51 WBC (3.8-10.6) k/uL Plt Count (150-450) k/uL Neutrophils # (1.3-7.7) k/uL Lymphocytes # (1.0-4.8) k/uL D-Dimer (<0.60) mg/L FEU BUN (7-17) mg/dL POC Glucose (mg/dL) 104 H (75-99) mg/dL Lactate Dehydrogenase (313-618) U/L Assessment and Plan Assessment: Acute hypoxic respiratory failure secondary to Covid 19 pneumonia. requiring high FiO2 and high flow Increased inflammatory markers secondary to above. Hypovolemic hyponatremia benign essential hypertension. Elevated d-dimer level without evidence of pulmonary embolism on CTA Borderline hypertension currently not on any medications at home. Ongoing nicotine addiction History of uterine and cervical cancer status post hysterectomy 10 years ago recommendation: continue Solu-Medrol. Continue present supportive care measures Continue high FiO2 and titrate accordingly. Continue Lovenox 45mg subcu every 12 hours received actemra 2 doses We will arrange for CT angiogram of the chest today. We will continue to follow. Prognosis is fairly guarded at this point. Time with Patient: Less than 30
[2020-05-14 17:12] LABS: Glucose,Whole Blood 71 mg/dL (75-99)
[2020-05-14 20:50] LABS: Glucose,Whole Blood 85 mg/dL (75-99)
--- NOTE | 2020-05-14 20:55 | US ---
EXAMINATION TYPE: US venous doppler duplex LE DATE OF EXAM: 05/14/2020 8:24 PM COMPARISON: NONE CLINICAL HISTORY: possible DVT. R/O DVT. Swelling. SIDE PERFORMED: Bilateral TECHNIQUE: The lower extremity deep venous system is examined utilizing real time linear array sonog marlin with graded compression, doppler sonography and color-flow sonography. VESSELS IMAGED: Common Femoral Vein Deep Femoral Vein Greater Saphenous Vein * Femoral Vein Popliteal Vein Small Saphenous Vein * Proximal Calf Veins (* superficial vessels) Right Leg: There appear to be internal echoes within a duplicate popliteal vein and within prox calf vein. These vessel segments do not appear to compress or show color flow. Left Leg: There appear to be internal echoes within the calf veins in the lower calf. It was diffic ult to show color flow in the prox calf veins which did compress. I then scanned lower by the ankle and these vessels did not appear to compress or show color flow. IMPRESSION: Findings consistent with bilateral lower extremity DVT.
[2020-05-14] MEDS ORDERED: HEPARIN SODIUM 1,000 UN/ML (10ML VL) IV PRN (21:11)
[2020-05-14] MEDS: HEPARIN SOD,PORK IN 0.45% NACL 25,000 UNIT in 0.45% NACL 1 250ML.BAG IV SCH (21:27)
[2020-05-14 21:52] LABS: Basophils % (A) 0 %; Eosinophils # (A) 0.1 k/uL (0-0.7); Eosinophils % (A) 1 %; HCT 42.9 % (34.0-46.0); HGB 14.5 gm/dL (11.4-16.0); Lymphocytes # (A) 0.7 k/uL (1.0-4.8); Lymphocytes % (A) 6 %; MCH 29.4 pg (25.0-35.0); MCHC 33.8 g/dL (31.0-37.0); Mean Platelet Volume 7.6; Monocytes # (A) 0.4 k/uL (0-1.0); Monocytes % (A) 3 %; Neutrophils # (A) 9.9 k/uL (1.3-7.7); Neutrophils % (A) 89 %; RBC 4.94 m/uL (3.80-5.40); RDW 13.9 % (11.5-15.5); WBC 11.1 k/uL (3.8-10.6)
[2020-05-14 21:55] LABS: Platelet Count 85 k/uL (150-450)
[2020-05-14 22:05] LABS: INR 1.2 (<1.2); Partial Thromboplastin Time 22.2 sec (22.0-30.0); Prothrombin Time 12.8 sec (9.0-12.0)
[2020-05-15 04:19] LABS: Basophils % (A) 0 %; Eosinophils # (A) 0.1 k/uL (0-0.7); Eosinophils % (A) 1 %; HCT 43.4 % (34.0-46.0); HGB 14.7 gm/dL (11.4-16.0); Lymphocytes # (A) 0.3 k/uL (1.0-4.8); Lymphocytes % (A) 2 %; MCH 29.1 pg (25.0-35.0); MCHC 33.8 g/dL (31.0-37.0); MCV 86.2 fL (80.0-100.0); Mean Platelet Volume 7.1; Monocytes # (A) 0.1 k/uL (0-1.0); Monocytes % (A) 1 %; Neutrophils # (A) 12.6 k/uL (1.3-7.7); Neutrophils % (A) 96 %; RBC 5.03 m/uL (3.80-5.40); RDW 13.8 % (11.5-15.5); WBC 13.2 k/uL (3.8-10.6)
[2020-05-15 04:21] LABS: Platelet Count 89 k/uL (150-450)
[2020-05-15] MEDS: methylPREDNISolone SOD SUCCI 125 MG/2 ML VIAL IV SCH ×4 (05:45→23:33)
[2020-05-15] MEDS: INSULIN ASPART (NovoLOG) 100 UNIT/ML VIAL SQ SCH ×4 (06:32→20:48)
[2020-05-15 06:34] LABS: Glucose,Whole Blood 147 mg/dL (75-99)
[2020-05-15] MEDS: PANTOPRAZOLE 40 MG/10 ML VIAL IVP SCH (08:47)
[2020-05-15] MEDS: MULTIVITAMINS, THERA 1 EACH TAB PO SCH (08:48)
[2020-05-15] MEDS: FOLIC ACID 1 MG TAB PO SCH (08:48)
[2020-05-15] MEDS: ZINC SULFATE 220 MG CAP PO SCH (08:48)
[2020-05-15] MEDS: ASCORBIC ACID 500 MG TAB PO SCH (08:48)
[2020-05-15] MEDS: THIAMINE 100 MG TAB PO SCH (08:48)
[2020-05-15] MEDS: FAMOTIDINE 20 MG TAB PO SCH ×2 (08:48→20:47)
[2020-05-15] MEDS: CHOLECALCIFEROL 25 MCG (1000 IU) TABLET PO SCH (08:48)
[2020-05-15] MEDS: SODIUM CHLORIDE 0.9% 1,000 ML IV SCH (09:32)
[2020-05-15 09:41] LABS: African American GFR (CKD) >90 (>60 ml/min/1.73 sqM); Anion Gap 2 mmol/L; Blood Urea Nitrogen 15 mg/dL (7-17); Carbon Dioxide 27 mmol/L (22-30); Chloride 105 mmol/L (98-107); Glucose 161 mg/dL (74-99); Non-African American GFR(CKD) >90 (>60 ml/min/1.73 sqM); Potassium 4.4 mmol/L (3.5-5.1); Sodium 134 mmol/L (137-145)
[2020-05-15 12:27] LABS: Glucose,Whole Blood 138 mg/dL (75-99)
[2020-05-15] MEDS: HEPARIN SOD,PORK IN 0.45% NACL 25,000 UNIT in 0.45% NACL 1 250ML.BAG IV SCH (13:05)
--- NOTE | 2020-05-15 14:30 | P.PN ---
Subjective Progress Note Date: 05/15/20 This is a 60-year-old female who was recently admitted with acute hypoxic respiratory failure secondary to bilateral Covid 19 pneumonia and is being closely monitored. She continues to be on high flow oxygen with continued attempts at weaning. Patient states she is feeling slightly better with improved aeration today. D-dimer continues to be elevated although slowly trending down. Patient is maintained on vitamin and zinc supplements along with Lovenox twice daily and IV steroids and will continue. Pulmonary following closely. Will repeat a.m. labs and continue to monitor closely. 05/14/2020 Patient is seen and evaluated in follow-up this morning continues to be maintained on Airvo with a flow rate of 60 and an FiO2 of 90% and feels a little more dyspneic and short of breath today. D-dimer is 30.84 today, white blood count is 10.8, hemoglobin is stable at 14.7, sodium is 138, potassium is 4.0, creatinine is 0.55. Lactate dehydrogenase also elevated at 2102. Repeat chest x-ray today is continued patchy infiltrates persistent through both lung plummer. Pulmonary is following closely. A is maintained on Lovenox twice daily along with vitamin C and E supplements IV steroids and zinc and will continue. 05/15/2020 Patient is seen this morning in follow-up and continues to be closely monitored. Patient is extremely dyspneic with minimal exertion, uncomfortable, and fatigued. Patient remains on high flow Airvo with a flow rate of 60 and an FiO2 of 92% and is 94% although saturations dropped into the low 80s with minimal movement. Patient is currently resting sitting up on her right side and oxygen saturations have gone up into the 90s. Patient is afebrile. Patient was placed on heparin drip as patient underwent venous Doppler study showing bilateral DVTs and lower extremities. White blood count is 13.2 today, hemoglobin is 14.7, sodium is 134, potassium is 4.4, creatinine is 0.49. Pulmonary is following closely as well and will continue to monitor closely. Prognosis is guarded. Review of systems: Constitutional: Reports fatigue, no reports of fever, or chills Cardiovascular: No reports of chest pain or palpitations Respiratory: Reports shortness of breath and cough, severe dyspnea with minimal exertion GI: No reports of nausea, vomiting, or diarrhea : No reports of dysuria or retention Neurovascular: Reports generalized weakness All medications have been reviewed Active Medications Acetaminophen (Acetaminophen Tab 325 Mg Tab) 650 mg PO Q6HR PRN PRN Reason: Mild Pain or Fever > 100.5 Hydrocodone Bitart/Acetaminophen (Hydrocodone/Apap 5-325mg 1 Each Tab) 1 each PO Q6HR PRN PRN Reason: Pain Ascorbic Acid (Ascorbic Acid 500 Mg Tab) 500 mg PO DAILY [facility] Last Admin: 05/15/20 08:48 Dose: 500 mg Documented by: Cholecalciferol (Cholecalciferol 25 Mcg (1000 Iu) Tablet) 25 mcg PO DAILY [facility] Last Admin: 05/15/20 08:48 Dose: 25 mcg Documented by: Famotidine (Famotidine 20 Mg Tab) 20 mg PO BID [facility] Last Admin: 05/15/20 08:48 Dose: 20 mg Documented by: Folic Acid (Folic Acid 1 Mg Tab) 1 mg PO DAILY@1200 [facility] Last Admin: 05/15/20 08:48 Dose: 1 mg Documented by: Heparin Sodium (Porcine) (Heparin Sodium 1,000 Un/Ml (10ml Vl)) 0 unit IV PER PROTOCOL PRN; Protocol PRN Reason: Low PTT Heparin Sodium/Sodium Chloride (25,000 unit/ Sodium Chloride) 250 mls @ 16.92 mls/hr IV .[id number] [facility]; Protocol Last Admin: 05/15/20 13:05 Dose: 13.87 units/kg/hr, 13.038 mls/hr Documented by: Sodium Chloride (Saline 0.9%) 1,000 mls @ 50 mls/hr IV .Q20H [facility] Last Admin: 05/15/20 09:32 Dose: Not Given Documented by: Insulin Aspart (Insulin Aspart (Novolog) 100 Unit/Ml Vial) 0 unit SQ [facility]; Protocol Last Admin: 05/15/20 12:59 Dose: Not Given Documented by: Methylprednisolone Sodium Succinate (Methylprednisolone Sod Succi 125 Mg/2 Ml Vial) 60 mg IV Q6HR [facility] Last Admin: 05/15/20 13:05 Dose: 60 mg Documented by: Miscellaneous Information (Rx Info: Iv Contrast Was Given 1 Each Misc) 1 each M ISCELLANE DAILY PRN PRN Reason: Per Protocol Stop: 05/16/20 16:53 Multivitamins (Multivitamins, Thera 1 Each Tab) 1 each PO DAILY@1200 [facility] Last Admin: 05/15/20 08:48 Dose: 1 each Documented by: Naloxone HCl (Naloxone 0.4 Mg/Ml 1 Ml Vial) 0.2 mg IV Q2M PRN PRN Reason: Opioid Reversal Ondansetron HCl (Ondansetron 4 Mg/2 Ml Vial) 4 mg IVP Q8HR PRN PRN Reason: Nausea And Vomiting Pantoprazole Sodium (Pantoprazole 40 Mg/10 Ml Vial) 40 mg IVP DAILY [facility] Last Admin: 05/15/20 08:47 Dose: 40 mg Documented by: Thiamine HCl (Thiamine 100 Mg Tab) 100 mg PO DAILY@1200 [facility] Last Admin: 05/15/20 08:48 Dose: 100 mg Documented by: Zinc Sulfate (Zinc Sulfate 220 Mg Cap) 220 mg PO DAILY [facility] Last Admin: 05/15/20 08:48 Dose: 220 mg Documented by: Objective - Vital Signs Vital signs: Vital Signs Temp 97.9 F 05/15/20 03:39 Pulse 58 L 05/15/20 03:39 Resp 28 H 05/15/20 03:39 BP 150/78 05/15/20 03:39 Pulse Ox 87 L 05/15/20 07:29 Intake & Output 05/14/20 05/15/20 05/15/20 18:59 06:59 18:59 Intake Total 118 140.154 Output Total 1025 1300 Balance -907 -1159.846 Weight 92 kg Intake: Intake, IV Titration 140.154 Amount Heparin Sod,Pork in 0.45% 140.154 NaCl 25,000 unit In 0.45 % NaCl 1 250ml.bag @ 18 UNITS/KG/HR 16.92 mls/hr IV .[id number] [facility] Rx#: [id number] Oral 118 Output: Urine 1025 1300 Other: Voiding Method Indwelling Catheter # Voids 2 # Bowel Movements 1 - Exam Patient is sitting up in bed, awake alert and oriented and 3.. Temp is 98.4F, pulse is 60, respirations are 24, blood pressure is 116/65, oxygen saturation is 94% on Airvo with a flow rate of 60 and FiO2 of 90% HEENT: Normocephalic. Neck is supple. Pupils reactive. Nostrils clear. Oral cavity is moist. Ears reveal no drainage. Neck reveals no JVD, carotid bruits, or thyromegaly. CHEST EXAMINATION: Diminished breath sounds bilaterally with bilateral coarse rhonchi noted CARDIAC: S1, S2 are muffled ABDOMEN: Soft. Bowel sounds normal. No organomegaly. No abdominal bruits. Extremities: reveal no edema. No clubbing or cyanosis Neurologically asleep although arousable, alert, oriented x3 with well- coordinated movements. No focal deficits noted Skin: No rash or skin lesions. Psychiatric: Cooperative. Non-suicidal Musculoskeletal: No joint swelling or deformity. Normal range of motion. Diffusely weak - Labs CBC & Chem 7: 05/15/20 03:45 05/15/20 06:42 Labs: Abnormal Lab Results - Last 24 Hours (Table) 05/14/20 05/14/20 05/14/20 Range/Units 09:37 09:37 09:37 WBC 10.8 H (3.8-10.6) k/uL Plt Count 101 L (150-450) k/uL Neutrophils # 9.5 H (1.3-7.7) k/uL Lymphocytes # 0.7 L (1.0-4.8) k/uL PT (9.0-12.0) sec INR (<1.2) APTT (22.0-30.0) sec D-Dimer 30.84 H (<0.60) mg/L FEU BUN 19 H (7-17) mg/dL POC Glucose (mg/dL) (75-99) mg/dL Lactate Dehydrogenase 2102 H (313-618) U/L 05/14/20 05/14/20 05/14/20 Range/Units 11:51 17:00 21:30 WBC 11.1 H (3.8-10.6) k/uL Plt Count 85 L (150-450) k/uL Neutrophils # 9.9 H (1.3-7.7) k/uL Lymphocytes # 0.7 L (1.0-4.8) k/uL PT (9.0-12.0) sec INR (<1.2) APTT (22.0-30.0) sec D-Dimer (<0.60) mg/L FEU BUN (7-17) mg/dL POC Glucose (mg/dL) 104 H 71 L (75-99) mg/dL Lactate Dehydrogenase (313-618) U/L 05/14/20 05/15/20 05/15/20 Range/Units 21:30 03:45 03:45 WBC 13.2 H (3.8-10.6) k/uL Plt Count 89 L (150-450) k/uL Neutrophils # 12.6 H (1.3-7.7) k/uL Lymphocytes # 0.3 L (1.0-4.8) k/uL PT 12.8 H (9.0-12.0) sec INR 1.2 H (<1.2) APTT 68.9 H (22.0-30.0) sec D-Dimer (<0.60) mg/L FEU BUN (7-17) mg/dL POC Glucose (mg/dL) (75-99) mg/dL Lactate Dehydrogenase (313-618) U/L 05/15/20 Range/Units 06:29 WBC (3.8-10.6) k/uL Plt Count (150-450) k/uL Neutrophils # (1.3-7.7) k/uL Lymphocytes # (1.0-4.8) k/uL PT (9.0-12.0) sec INR (<1.2) APTT (22.0-30.0) sec D-Dimer (<0.60) mg/L FEU BUN (7-17) mg/dL POC Glucose (mg/dL) 147 H (75-99) mg/dL Lactate Dehydrogenase (313-618) U/L Assessment and Plan Assessment: Acute Covid 19 infection with acute bilateral Covid 19 pneumonia with acute h ypoxic respiratory failure on high flow oxygen Bilateral lower extremity DVT Increased inflammatory markers secondary to viral pneumonia Hypovolemic hyponatremia Elevated d-dimer level without evidence of pulmonary embolism on CTA Borderline hypertension Ongoing nicotine dependence History of uterine and cervical cancer status post hysterectomy 10 years ago Kyphoscoliosis history and back surgery DVT prophylaxis full code Recommendations and discussion: Recommend to continue with current medications and current management. Patient has been placed on a heparin drip as she underwent venous Doppler showing bilateral lower extremity DVT. Attempting to perform a CAT scan although patient's respiratory status may not allow for it at this time. Patient is maintained on Airvo with no attempts at weaning his patient is severely dyspneic. Patient continues to be extremely dyspneic with minimal exertion and per nursing staff desats quickly into the low 70s and 80s. Patient is much more dyspneic today and fatigued. Patient Is status post 2 doses of Tocilizumab. Patient is maintained on iv Solu-Medrol along with vitamin and zinc supplements and will continue at this time. Pulmonary following closely. Will repeat a.m. labs. Due to multiple complex medical issues, Prognosis remains guarded.
[2020-05-15 16:58] LABS: Glucose,Whole Blood 139 mg/dL (75-99)
--- NOTE | 2020-05-15 17:48 | P.PN ---
Subjective Progress Note Date: 05/15/20 Principal diagnosis: Acute hypoxic respiratory failure 60-year-old white female patient of Dr. Bacon with no significant medical history other than history of uterine and cervical cancer status post total hysterectomy 10 years ago, kyphoscoliosis with history of back surgery, and borderline hypertension for which the patient takes no medications, who presented to the emergency department 05-07-2020 by EMS for evaluation of worsening shortness of breath. Patient states that onset of symptoms was 2 weeks ago and started with runny nose and a sore throat, gradually her symptoms have progressed, and patient started having fevers, worsening shortness of breath and cough. She tested positive for COVID 19 a week ago on 04/29/2020 on an outpatient basis however she did not seek any medical treatment up until now. She reports some decreased oral intake, nausea, but no abdominal pain or diarrhea. Admits to smoking cigarettes, however reports no chronic lung condition. Patient denies receiving any vaccination for COVID 19. CTA chest showed no evidence of pulmonary embolism, but demonstrated moderate to severe scattered groundglass opacities, showed a positive COVID 19 PCR test, d-dimer was elevated at 3.79, and significant elevated inflammatory markers with LDH thousand 942, and CRP of 78.3. Patient is a requiring high flow oxygen per Airvo at 50 L and FiO2 of 75%, her pulse ox is 88-92%, she is having low grade fevers, but hemodynamically stable. Added on Decadron, prophylactic dose of Lovenox, and we were asked to see the patient in consultation. On today's evaluation, the patient is being seen for follow-up regarding her Covid associated pneumonia. The patient presented with significant hypoxemic respiratory failure with bilateral pulmonary infiltrates and consolidations perihilar and extending to the peripheries. The patient remains on high flow oxygen and she is currently on 6 L with an FiO2 of 90%. No new labs from today. Her d-dimer from yesterday was 3.7. LDH level was also elevated at 942 with a CRP of 78.3. She remains on Solu-Medrol 60 mg IV every 24 hours. On today's evaluation of 05/09/2020 the patient remains on 60 L of oxygen with an FiO2 of 90%. There is essentially the same setting of high flow oxygen that the patient was on since yesterday. No much of an improvement at this point in time. She remains on treatment and she is taking Solu-Medrol 60 mg IV push every 6 hours. Note that the patient has diffuse bilateral pulmonary infiltrates and this was confirmed on a chest x-ray and a computed tomography sc an of the chest. Inflammatory markers including the LDH down to 1620 and the CRP is down to 24. Her renal function is stable with a creatinine of 0.4. Her d- dimer is at 19. In terms of anticoagulation, the patient is currently on 45 mg subcu every 12 hours. Her chest x-ray from today is showing stable bilateral pulmonary infiltrates. The is essentially stable and unchanged compared to yesterday. She is still requiring high flow oxygen and her current pulse ox is around 92%. I like her to sleep in different body positions. Prone positioning is obviously advised. On 05/10/2020, the patient is being seen in follow-up regarding her COVID 19 related pneumonia. The patient is still on high flow oxygen and the patient is on 60 L with an FiO2 of 90%. She is having difficulties with her breathing. She would desaturate very easily with minimal amount of activity. Her inflammatory markers remain quite elevated including the LDH of 1711 and her CRP is down to 9.6. Her d-dimer today is still elevated at 15.1 although it's slightly downtrending. In terms of therapy, the patient remains on IV Solu Medrol 60 mg every 6 hours. The patient is also on Lovenox 45 mg subcutaneous every 12 hours. The patient is on high flexion 90 L and her FiO2 was slightly weaned down to 85%. Note that the patient desaturated this morning and she was down in the 70s. We had to prone or and with prone positioning, her oxidation is improved and her current pulse ox up to the 90-91%. No chest x-ray from today. Inflammatory markers were noted. She is tolerating some diet and she is not fully meeting her caloric requirements Patient was reevaluated today on 05/11/2020, we are seeing the patient for her acute presentation of covid 19 pneumonia.patient remains on high FiO2, she is on 60 L flow v and 70% FiO2 viaia airvo, surprisingly the patient seems to be in no distress, and she seems to be comfortable. She tells me that she is feeling better today compared to how she felt upon admission.CBC today is relatively normal electrolytes are normal renal profile is normal LDH is 2017. C-reactive protein is less than 5.chest x-ray continues to show bilateral airspace infiltrates throughout both lungs compatible with Covid 19 pneumonia. Patient was reevaluated today on 05/12/2020, remains on high flow oxygen with high FiO2 of 70%, and 60 L/m flow. Patient seems to be very comfortable, she tells me that she is feeling better compared to how she felt on admission. WBC count is 7.4 hemoglobin is 13.3 electrolytes are normal. Basic metabolic profile is normal LDH is trending down and bit to 1955 and C-reactive protein is 5. Reevaluated today on 05/13/2020, patient remains on high flow oxygen, she is on 85% FiO2 and 60 L/m flow with O2 saturation of 90% at best. Surprisingly the patient continues to do well, she is very comfortable, in no distress. WBC count is 7.4 hemoglobin is normal electrolytes are normal renal profile is normal inflammatory markers are trending down however her last LDH was 1954 remains relatively high. Patient was reevaluated today on 05/14/2020, remains on high flow oxygen she is presently on 90% FiO2 and 60 L high flow. Recommended probing the patient, and she is trying to go into prone position, patient remains extremely marginal at best. ABC is relatively normal lites are normal renal profile is normal d-dimer is elevated at 30.84. This is the highest d-dimer I have seen since her admission. Patient is maintained on Lovenox at 45 mg subcu twice a day. I would likely recommend a CT angiogram of this patient as she may be a great set up for acute pulmonary embolism considering her elevated d-dimer and considering her Covid 19 infection and seems to be very slow to respond. Reevaluated today on 05/15/2020, patient is feeling much better today. Breathing a lot easier. And her saturations are improving. Yesterday when I saw the patient and I was concerned about her elevated d-dimer, she could not go down for a CT angiogram of the chest, hence I recommended bilateral venous Doppler, and a Doppler was positive for bilateral deep vein thrombosis. Hence I recommended that the patient goes on heparin and discontinued her subcu Lovenox. I am certain that the patient had acute pulmonary embolism along with DVT based on her symptoms yesterday although she does have underlying Covid 19 pneumonia. Today the patient is resting more comfortably, she is on Airvo, with flow rate of 60 and FiO2 of 90%, her O2 saturation is in the low 90s. Less shortness of breath according to the patient, and she clearly tells me that today is much better today for her than yesterday. CBC is relatively normal hemoglobin is 14.7. Platelets are a bit low hence I will discontinue heparin tomorrow and start the patient on Xarelto. Her PTT is 74.5. Electrodes lites are normal renal profile is normal. Down the line and may even consider a CT angiogram of the chest to document thromboembolic disease/pulmonary embolism. Objective - Vital Signs Vital signs: Vital Signs Temp 98.4 F 05/15/20 08:00 Pulse 79 05/15/20 16:00 Resp 20 05/15/20 16:00 BP 146/77 05/15/20 16:00 Pulse Ox 90 L 05/15/20 16:00 Intake & Output 05/14/20 05/15/20 05/15/20 18:59 06:59 18:59 Intake Total 118 140.154 547.910 Output Total 1025 1300 1600 Balance -907 -1159.846 -1052.090 Weight 92 kg Intake: Intake, IV Titration 140.154 107.910 Amount Heparin Sod,Pork in 0.45% 140.154 107.910 NaCl 25,000 unit In 0.45 % NaCl 1 250ml.bag @ 18 UNITS/KG/HR 16.92 mls/hr IV .[id number] [facility] Rx#: [id number] Oral 118 440 Output: Urine 1025 1300 1600 Other: Voiding Method Indwelling Catheter Indwelling Catheter # Voids 2 # Bowel Movements 1 - Exam Patient is lying in the bed comfortably, no acute distress, awake alert and oriented.. Remains on high flow oxygen. HEENT: Normocephalic. Neck is supple. Pupils reactive. Nostrils clear. Oral cavity is moist. Ears reveal no drainage. Neck reveals no JVD, carotid bruits, or thyromegaly. CHEST EXAMINATION: Fine crackles at the bases, symmetrical chest expansion. CARDIAC: Normal S1, S2 with no gallops. No murmurs ABDOMEN: Soft. Bowel sounds normal. No organomegaly. No abdominal bruits. Extremities: reveal no edema. No clubbing or cyanosis Neurologically awake, alert, oriented x3 with well-coordinated movements. No focal deficits noted Skin: No rash or skin lesions. Psychiatric: Normal mood, affect, normal mental status examination. Musculoskeletal: No joint swelling or deformity. Normal range of motion. - Labs CBC & Chem 7: 05/15/20 03:45 05/15/20 06:42 Labs: Abnormal Lab Results - Last 24 Hours (Table) 05/14/20 05/14/20 05/15/20 Range/Units 21:30 21:30 03:45 WBC 11.1 H 13.2 H (3.8-10.6) k/uL Plt Count 85 L 89 L (150-450) k/uL Neutrophils # 9.9 H 12.6 H (1.3-7.7) k/uL Lymphocytes # 0.7 L 0.3 L (1.0-4.8) k/uL PT 12.8 H (9.0-12.0) sec INR 1.2 H (<1.2) APTT (22.0-30.0) sec Sodium (137-145) mmol/L Creatinine (0.52-1.04) mg/dL Glucose (74-99) mg/dL POC Glucose (mg/dL) (75-99) mg/dL Calcium (8.4-10.2) mg/dL 05/15/20 05/15/20 05/15/20 Range/Units 03:45 06:29 06:42 WBC (3.8-10.6) k/uL Plt Count (150-450) k/uL Neutrophils # (1.3-7.7) k/uL Lymphocytes # (1.0-4.8) k/uL PT (9.0-12.0) sec INR (<1.2) APTT 68.9 H (22.0-30.0) sec Sodium 134 L (137-145) mmol/L Creatinine 0.49 L (0.52-1.04) mg/dL Glucose 161 H (74-99) mg/dL POC Glucose (mg/dL) 147 H (75-99) mg/dL Calcium 8.0 L (8.4-10.2) mg/dL 05/15/20 05/15/20 05/15/20 Range/Units 11:10 12:25 16:55 WBC (3.8-10.6) k/uL Plt Count (150-450) k/uL Neutrophils # (1.3-7.7) k/uL Lymphocytes # (1.0-4.8) k/uL PT (9.0-12.0) sec INR (<1.2) APTT 74.5 H (22.0-30.0) sec Sodium (137-145) mmol/L Creatinine (0.52-1.04) mg/dL Glucose (74-99) mg/dL POC Glucose (mg/dL) 138 H 139 H (75-99) mg/dL Calcium (8.4-10.2) mg/dL Assessment and Plan Assessment: Acute hypoxic respiratory failure secondary to Covid 19 pneumonia. requiring high FiO2 and high flow Increased inflammatory markers secondary to above. Hypovolemic hyponatremia benign essential hypertension. Bilateral deep vein thromboses and strongly suspect that the patient has acute pulmonary embolism. Borderline hypertension currently not on any medications at home. Ongoing nicotine addiction History of uterine and cervical cancer status post hysterectomy 10 years ago recommendation: Continue heparin for now and transition to Xarelto tomorrow. continue Solu-Medrol. Continue present supportive care measures Continue high FiO2 and titrate accordingly. received actemra 2 doses We will arrange for CT angiogram if the patient does not demonstrate significant improvement. Time with Patient: Less than 30
[2020-05-15 20:20] LABS: Glucose,Whole Blood 171 mg/dL (75-99)
[2020-05-16] MEDS: HEPARIN SOD,PORK IN 0.45% NACL 25,000 UNIT in 0.45% NACL 1 250ML.BAG IV SCH (04:52)
[2020-05-16 06:10] LABS: Glucose,Whole Blood 175 mg/dL (75-99)
[2020-05-16] MEDS: RIVAROXABAN 15 MG TAB PO SCH ×2 (06:32→17:48)
[2020-05-16] MEDS: methylPREDNISolone SOD SUCCI 125 MG/2 ML VIAL IV SCH ×4 (06:32→22:50)
[2020-05-16] MEDS: SODIUM CHLORIDE 0.9% 1,000 ML IV SCH ×2 (06:33→22:50)
[2020-05-16] MEDS: INSULIN ASPART (NovoLOG) 100 UNIT/ML VIAL SQ SCH ×4 (06:33→20:35)
[2020-05-16] MEDS: FOLIC ACID 1 MG TAB PO SCH (10:03)
[2020-05-16] MEDS: FAMOTIDINE 20 MG TAB PO SCH ×2 (10:03→20:34)
[2020-05-16] MEDS: THIAMINE 100 MG TAB PO SCH (10:03)
[2020-05-16] MEDS: CHOLECALCIFEROL 25 MCG (1000 IU) TABLET PO SCH (10:03)
[2020-05-16] MEDS: ASCORBIC ACID 500 MG TAB PO SCH (10:03)
[2020-05-16] MEDS: PANTOPRAZOLE 40 MG/10 ML VIAL IVP SCH (10:03)
[2020-05-16] MEDS: MULTIVITAMINS, THERA 1 EACH TAB PO SCH (10:03)
[2020-05-16] MEDS: ZINC SULFATE 220 MG CAP PO SCH (10:03)
[2020-05-16 12:04] LABS: Glucose,Whole Blood 218 mg/dL (75-99)
--- NOTE | 2020-05-16 15:50 | PN ---
PROGRESS NOTE DATE OF SERVICE: 05/16/2020 INTERVAL HISTORY: This is a 60-year-old woman who was admitted with acute COVID-19 pneumonia with hypoxia, is being closely monitored at this time. The patient also had elevated D- dimer and venous Doppler was done yesterday which showed bilateral lower extremity DVT. D-dimer was elevated to 30.84. The patient was started on Xarelto at this time. PAST MEDICAL HISTORY: Reviewed. REVIEW OF SYSTEMS: CARDIOVASCULAR: No angina or palpitations. RESPIRATORY: As mentioned earlier. GI: As mentioned earlier. : No dysuria. NERVOUS SYSTEM: No numbness or weakness. CURRENT MEDICATIONS: Reviewed and include Tylenol, Charmco, vitamin C, vitamin D3, Pepcid, folic acid, NovoLog, Solu-Medrol. PHYSICAL EXAM: GENERAL: Patient is alert and oriented times three. VITAL SIGNS: Pulse 91, blood pressure 142/77, respirations 20, temperature 98.4, pulse ox 98% on high flow nasal cannula. HEENT: Conjunctivae normal. NECK: No jugular venous distention. No carotid bruits. No lymph node enlargement. RESPIRATORY: Breath sounds diminished at the bases. Bilateral scattered rhonchi and crackles. HEART: S1 and S2, muffled. ABDOMEN: Soft, no tenderness. No masses palpable. EXTREMITIES: No edema, no swelling. NERVOUS: No focal deficits. LABS: WBC 16.2, D-dimer is 30.8. ASSESSMENT: 1. Acute COVID-19 infection with acute bilateral COVID-19 pneumonia with acute hypoxic respiratory failure. 2. Bilateral lower extremity DVT with a high D-dimer, on Xarelto. 3. Increased inflammatory markers of COVID-19. 4. Hypovolemic hyponatremia. 5. Elevated D-dimer without any evidence of pulmonary embolism on the CTA. 6. Borderline hypertension. 7. Ongoing nicotine dependence. 8. History of uterine and cervical cancer status post hysterectomy 10 years ago. 9. Kyphoscoliosis history with back surgery. 10.History of DVT prophylaxis. 11.FULL CODE. RECOMMENDATIONS AND DISCUSSION: Recommend to continue current medication, continue symptomatic treatment. Otherwise, guarded prognosis. Further recommendations to follow. Continue with anticoagulation. MMODL / IJN: [id number] /
--- NOTE | 2020-05-16 16:29 | P.PN ---
Subjective Progress Note Date: 05/16/20 Principal diagnosis: Acute hypoxic respiratory failure 60-year-old white female patient of Dr. Bacon with no significant medical history other than history of uterine and cervical cancer status post total hysterectomy 10 years ago, kyphoscoliosis with history of back surgery, and borderline hypertension for which the patient takes no medications, who presented to the emergency department 05-07-2020 by EMS for evaluation of worsening shortness of breath. Patient states that onset of symptoms was 2 weeks ago and started with runny nose and a sore throat, gradually her symptoms have progressed, and patient started having fevers, worsening shortness of breath and cough. She tested positive for COVID 19 a week ago on 04/29/2020 on an outpatient basis however she did not seek any medical treatment up until now. She reports some decreased oral intake, nausea, but no abdominal pain or diarrhea. Admits to smoking cigarettes, however reports no chronic lung condition. Patient denies receiving any vaccination for COVID 19. CTA chest showed no evidence of pulmonary embolism, but demonstrated moderate to severe scattered groundglass opacities, showed a positive COVID 19 PCR test, d-dimer was elevated at 3.79, and significant elevated inflammatory markers with LDH thousand 942, and CRP of 78.3. Patient is a requiring high flow oxygen per Airvo at 50 L and FiO2 of 75%, her pulse ox is 88-92%, she is having low grade fevers, but hemodynamically stable. Added on Decadron, prophylactic dose of Lovenox, and we were asked to see the patient in consultation. On today's evaluation, the patient is being seen for follow-up regarding her Covid associated pneumonia. The patient presented with significant hypoxemic respiratory failure with bilateral pulmonary infiltrates and consolidations perihilar and extending to the peripheries. The patient remains on high flow oxygen and she is currently on 6 L with an FiO2 of 90%. No new labs from today. Her d-dimer from yesterday was 3.7. LDH level was also elevated at 942 with a CRP of 78.3. She remains on Solu-Medrol 60 mg IV every 24 hours. On today's evaluation of 05/09/2020 the patient remains on 60 L of oxygen with an FiO2 of 90%. There is essentially the same setting of high flow oxygen that the patient was on since yesterday. No much of an improvement at this point in time. She remains on treatment and she is taking Solu-Medrol 60 mg IV push every 6 hours. Note that the patient has diffuse bilateral pulmonary infiltrates and this was confirmed on a chest x-ray and a computed tomography sc an of the chest. Inflammatory markers including the LDH down to 1620 and the CRP is down to 24. Her renal function is stable with a creatinine of 0.4. Her d- dimer is at 19. In terms of anticoagulation, the patient is currently on 45 mg subcu every 12 hours. Her chest x-ray from today is showing stable bilateral pulmonary infiltrates. The is essentially stable and unchanged compared to yesterday. She is still requiring high flow oxygen and her current pulse ox is around 92%. I like her to sleep in different body positions. Prone positioning is obviously advised. On 05/10/2020, the patient is being seen in follow-up regarding her COVID 19 related pneumonia. The patient is still on high flow oxygen and the patient is on 60 L with an FiO2 of 90%. She is having difficulties with her breathing. She would desaturate very easily with minimal amount of activity. Her inflammatory markers remain quite elevated including the LDH of 1711 and her CRP is down to 9.6. Her d-dimer today is still elevated at 15.1 although it's slightly downtrending. In terms of therapy, the patient remains on IV Solu Medrol 60 mg every 6 hours. The patient is also on Lovenox 45 mg subcutaneous every 12 hours. The patient is on high flexion 90 L and her FiO2 was slightly weaned down to 85%. Note that the patient desaturated this morning and she was down in the 70s. We had to prone or and with prone positioning, her oxidation is improved and her current pulse ox up to the 90-91%. No chest x-ray from today. Inflammatory markers were noted. She is tolerating some diet and she is not fully meeting her caloric requirements Patient was reevaluated today on 05/11/2020, we are seeing the patient for her acute presentation of covid 19 pneumonia.patient remains on high FiO2, she is on 60 L flow v and 70% FiO2 viaia airvo, surprisingly the patient seems to be in no distress, and she seems to be comfortable. She tells me that she is feeling better today compared to how she felt upon admission.CBC today is relatively normal electrolytes are normal renal profile is normal LDH is 2017. C-reactive protein is less than 5.chest x-ray continues to show bilateral airspace infiltrates throughout both lungs compatible with Covid 19 pneumonia. Patient was reevaluated today on 05/12/2020, remains on high flow oxygen with high FiO2 of 70%, and 60 L/m flow. Patient seems to be very comfortable, she tells me that she is feeling better compared to how she felt on admission. WBC count is 7.4 hemoglobin is 13.3 electrolytes are normal. Basic metabolic profile is normal LDH is trending down and bit to 1955 and C-reactive protein is 5. Reevaluated today on 05/13/2020, patient remains on high flow oxygen, she is on 85% FiO2 and 60 L/m flow with O2 saturation of 90% at best. Surprisingly the patient continues to do well, she is very comfortable, in no distress. WBC count is 7.4 hemoglobin is normal electrolytes are normal renal profile is normal inflammatory markers are trending down however her last LDH was 1954 remains relatively high. Patient was reevaluated today on 05/14/2020, remains on high flow oxygen she is presently on 90% FiO2 and 60 L high flow. Recommended probing the patient, and she is trying to go into prone position, patient remains extremely marginal at best. ABC is relatively normal lites are normal renal profile is normal d-dimer is elevated at 30.84. This is the highest d-dimer I have seen since her admission. Patient is maintained on Lovenox at 45 mg subcu twice a day. I would likely recommend a CT angiogram of this patient as she may be a great set up for acute pulmonary embolism considering her elevated d-dimer and considering her Covid 19 infection and seems to be very slow to respond. Reevaluated today on 05/15/2020, patient is feeling much better today. Breathing a lot easier. And her saturations are improving. Yesterday when I saw the patient and I was concerned about her elevated d-dimer, she could not go down for a CT angiogram of the chest, hence I recommended bilateral venous Doppler, and a Doppler was positive for bilateral deep vein thrombosis. Hence I recommended that the patient goes on heparin and discontinued her subcu Lovenox. I am certain that the patient had acute pulmonary embolism along with DVT based on her symptoms yesterday although she does have underlying Covid 19 pneumonia. Today the patient is resting more comfortably, she is on Airvo, with flow rate of 60 and FiO2 of 90%, her O2 saturation is in the low 90s. Less shortness of breath according to the patient, and she clearly tells me that today is much better today for her than yesterday. CBC is relatively normal hemoglobin is 14.7. Platelets are a bit low hence I will discontinue heparin tomorrow and start the patient on Xarelto. Her PTT is 74.5. Electrolites are normal renal profile is normal. Down the line and may even consider a CT angiogram of the chest to document thromboembolic disease/pulmonary embolism. Reevaluated today on 05/16/2020, patient remains about the same. Still requiring significantly high FiO2. Patient is on a nonrebreather mask and airvo, O2 saturation is 88-90% she is on 90% FiO2 and 60 L high flow. Plus a nonrebreather mask. Surprisingly the patient tells me that she is doing okay not as symptomatic as expected considering that her O2 saturation is marginal. Yesterday, the patient was transitioned to Xarelto and she is taking the Xarelto as directed. CBC today is relatively normal hemoglobin is 14.7 platelet are 89,000. Electrolytes are normal renal profile is normal Objective - Vital Signs Vital signs: Vital Signs Temp 98.4 F 05/16/20 08:00 Pulse 73 05/16/20 12:00 Resp 22 05/16/20 12:00 BP 171/87 05/16/20 12:00 Pulse Ox 88 L 05/16/20 12:00 Intake & Output 05/15/20 05/16/20 05/16/20 18:59 06:59 18:59 Intake Total 547.910 240 480 Output Total 2500 1000 Balance -1952.090 -760 480 Weight 89.5 kg Intake: Intake, IV Titration 107.910 Amount Heparin Sod,Pork in 0.45% 107.910 NaCl 25,000 unit In 0.45 % NaCl 1 250ml.bag @ 18 UNITS/KG/HR 16.92 mls/hr IV .[id number] [facility] Rx#: [id number] Oral 440 240 480 Output: Urine 2500 1000 Other: Voiding Method Indwelling Catheter Indwelling Catheter Indwelling Catheter # Voids 1 - Exam Patient is lying in the bed comfortably, no acute distress, awake alert and oriented.. Remains on nonrebreather mask and airvo with marginal O2 saturation. HEENT: Normocephalic. Neck is supple. Pupils reactive. Nostrils clear. Oral cavity is moist. Ears reveal no drainage. Neck reveals no JVD, carotid bruits, or thyromegaly. CHEST EXAMINATION: Fine crackles at the bases, symmetrical chest expansion. CARDIAC: Normal S1, S2 with no gallops. No murmurs ABDOMEN: Soft. Bowel sounds normal. No organomegaly. No abdominal bruits. Extremities: reveal no edema. No clubbing or cyanosis Neurologically awake, alert, oriented x3 with well-coordinated movements. No focal deficits noted Skin: No rash or skin lesions. Psychiatric: Normal mood, affect, normal mental status examination. Musculoskeletal: No joint swelling or deformity. Normal range of motion. - Labs CBC & Chem 7: 05/15/20 03:45 05/15/20 06:42 Labs: Abnormal Lab Results - Last 24 Hours (Table) 05/15/20 05/15/20 05/15/20 Range/Units 16:55 18:22 20:18 APTT 56.7 H (22.0-30.0) sec POC Glucose (mg/dL) 139 H 171 H (75-99) mg/dL 05/16/20 05/16/20 Range/Units 06:10 12:02 APTT (22.0-30.0) sec POC Glucose (mg/dL) 175 H 218 H (75-99) mg/dL Assessment and Plan Assessment: Acute hypoxic respiratory failure secondary to Covid 19 pneumonia. requiring high FiO2 and high flow Hypovolemic hyponatremia, resolved. benign essential hypertension. Bilateral deep vein thromboses and strongly suspect that the patient has acute pulmonary embolism. Borderline hypertension currently not on any medications at home. Ongoing nicotine addiction History of uterine and cervical cancer status post hysterectomy 10 years ago recommendation: Continue xaelto continue Solu-Medrol. Continue present supportive care measures Continue high FiO2 and titrate accordingly. received actemra 2 doses We'll continue to follow, prognosis remains guarded Time with Patient: Less than 30
[2020-05-16 17:14] LABS: Glucose,Whole Blood 121 mg/dL (75-99)
[2020-05-16 20:13] LABS: Glucose,Whole Blood 154 mg/dL (75-99)
[2020-05-17 05:58] LABS: Glucose,Whole Blood 156 mg/dL (75-99)
[2020-05-17] MEDS: INSULIN ASPART (NovoLOG) 100 UNIT/ML VIAL SQ SCH ×4 (06:38→21:44)
[2020-05-17] MEDS: methylPREDNISolone SOD SUCCI 125 MG/2 ML VIAL IV SCH ×3 (06:38→17:39)
[2020-05-17] MEDS: RIVAROXABAN 15 MG TAB PO SCH ×2 (06:39→17:39)
[2020-05-17] MEDS: CHOLECALCIFEROL 25 MCG (1000 IU) TABLET PO SCH (08:55)
[2020-05-17] MEDS: PANTOPRAZOLE 40 MG/10 ML VIAL IVP SCH (08:55)
[2020-05-17] MEDS: ASCORBIC ACID 500 MG TAB PO SCH (08:55)
[2020-05-17] MEDS: FAMOTIDINE 20 MG TAB PO SCH ×2 (08:55→21:44)
[2020-05-17] MEDS: ZINC SULFATE 220 MG CAP PO SCH (08:56)
[2020-05-17 12:31] LABS: Glucose,Whole Blood 133 mg/dL (75-99)
[2020-05-17] MEDS: FOLIC ACID 1 MG TAB PO SCH (12:39)
[2020-05-17] MEDS: MULTIVITAMINS, THERA 1 EACH TAB PO SCH (12:41)
--- NOTE | 2020-05-17 14:35 | XR ---
EXAMINATION TYPE: XR chest 1V portable DATE OF EXAM: 05/17/2020 COMPARISON: NONE HISTORY: Pneumonia. Short of breath. TECHNIQUE: Single view FINDINGS: There is pulmonary interstitial and airspace edema. Heart size is top normal. There is spin al rods stabilizing the thoracic dextroscoliosis. There are chest leads. There is no definite pleural effusion. IMPRESSION: There is pulmonary edema that is the same or slightly improved compared to last exam.
--- NOTE | 2020-05-17 16:54 | P.PN ---
Subjective Progress Note Date: 05/17/20 Principal diagnosis: Acute hypoxic respiratory failure secondary to acute cocaine 19 pneumonia/pneumonitis 60-year-old white female patient of Dr. Bacon with no significant medical history other than history of uterine and cervical cancer status post total hysterectomy 10 years ago, kyphoscoliosis with history of back surgery, and borderline hypertension for which the patient takes no medications, who presented to the emergency department 05-07-2020 by EMS for evaluation of worsening shortness of breath. Patient states that onset of symptoms was 2 weeks ago and started with runny nose and a sore throat, gradually her symptoms have progressed, and patient started having fevers, worsening shortness of breath and cough. She tested positive for COVID 19 a week ago on 04/29/2020 on an outpatient basis however she did not seek any medical treatment up until now. She reports some decreased oral intake, nausea, but no abdominal pain or diarrhea. Admits to smoking cigarettes, however reports no chronic lung condition. Patient denies receiving any vaccination for COVID 19. CTA chest showed no evidence of pulmonary embolism, but demonstrated moderate to severe scattered groundglass opacities, showed a positive COVID 19 PCR test, d-dimer was elevated at 3.79, and significant elevated inflammatory markers with LDH thousand 942, and CRP of 78.3. Patient is a requiring high flow oxygen per Airvo at 50 L and FiO2 of 75%, her pulse ox is 88-92%, she is having low grade fevers, but hemodynamically stable. Added on Decadron, prophylactic dose of Lovenox, and we were asked to see the patient in consultation. On today's evaluation, the patient is being seen for follow-up regarding her Covid associated pneumonia. The patient presented with significant hypoxemic respiratory failure with bilateral pulmonary infiltrates and consolidations perihilar and extending to the peripheries. The patient remains on high flow oxygen and she is currently on 6 L with an FiO2 of 90%. No new labs from today. Her d-dimer from yesterday was 3.7. LDH level was also elevated at 942 with a CRP of 78.3. She remains on Solu-Medrol 60 mg IV every 24 hours. On today's evaluation of 05/09/2020 the patient remains on 60 L of oxygen with an FiO2 of 90%. There is essentially the same setting of high flow oxygen that the patient was on since yesterday. No much of an improvement at this point in time. She remains on treatment and she is taking Solu-Medrol 60 mg IV push every 6 hours. Note that the patient has diffuse bilateral pulmonary infiltrates and this was confirmed on a chest x-ray and a computed tomography scan of the chest. Inflammatory markers including the LDH down to 1620 and the CRP is down to 24. Her renal function is stable with a creatinine of 0.4. Her d-dimer is at 19. In terms of anticoagulation, the patient is currently on 45 mg subcu every 12 hours. Her chest x-ray from today is showing stable bilateral pulmonary infiltrates. The is essentially stable and unchanged compared to yesterday. She is still requiring high flow oxygen and her current pulse ox is around 92%. I like her to sleep in different body positions. Prone positioning is obviously advised. On 05/10/2020, the patient is being seen in follow-up regarding her COVID 19 related pneumonia. The patient is still on high flow oxygen and the patient is on 60 L with an FiO2 of 90%. She is having difficulties with her breathing. She would desaturate very easily with minimal amount of activity. Her inflammatory markers remain quite elevated including the LDH of 1711 and her CRP is down to 9.6. Her d-dimer today is still elevated at 15.1 although it's slightly downtrending. In terms of therapy, the patient remains on IV Solu Medrol 60 mg every 6 hours. The patient is also on Lovenox 45 mg subcutaneous every 12 hours. The patient is on high flexion 90 L and her FiO2 was slightly weaned down to 85%. Note that the patient desaturated this morning and she was down in the 70s. We had to prone or and with prone positioning, her oxidation is improved and her current pulse ox up to the 90-91%. No chest x-ray from today. Inflammatory markers were noted. She is tolerating some diet and she is not fully meeting her caloric requirements Patient was reevaluated today on 05/11/2020, we are seeing the patient for her acute presentation of covid 19 pneumonia.patient remains on high FiO2, she is on 60 L flow v and 70% FiO2 viaia airvo, surprisingly the patient seems to be in no distress, and she seems to be comfortable. She tells me that she is feeling better today compared to how she felt upon admission.CBC today is relatively normal electrolytes are normal renal profile is normal LDH is 2017. C-reactive protein is less than 5.chest x-ray continues to show bilateral airspace infiltrates throughout both lungs compatible with Covid 19 pneumonia. Patient was reevaluated today on 05/12/2020, remains on high flow oxygen with high FiO2 of 70%, and 60 L/m flow. Patient seems to be very comfortable, she tells me that she is feeling better compared to how she felt on admission. WBC count is 7.4 hemoglobin is 13.3 electrolytes are normal. Basic metabolic profile is normal LDH is trending down and bit to 1955 and C-reactive protein is 5. Reevaluated today on 05/13/2020, patient remains on high flow oxygen, she is on 85% FiO2 and 60 L/m flow with O2 saturation of 90% at best. Surprisingly the patient continues to do well, she is very comfortable, in no distress. WBC count is 7.4 hemoglobin is normal electrolytes are normal renal profile is normal inflammatory markers are trending down however her last LDH was 1954 remains relatively high. Patient was reevaluated today on 05/14/2020, remains on high flow oxygen she is presently on 90% FiO2 and 60 L high flow. Recommended probing the patient, and she is trying to go into prone position, patient remains extremely marginal at best. ABC is relatively normal lites are normal renal profile is normal d-dimer is elevated at 30.84. This is the highest d-dimer I have seen since her a dmission. Patient is maintained on Lovenox at 45 mg subcu twice a day. I would likely recommend a CT angiogram of this patient as she may be a great set up for acute pulmonary embolism considering her elevated d-dimer and considering her Covid 19 infection and seems to be very slow to respond. Reevaluated today on 05/15/2020, patient is feeling much better today. Breathing a lot easier. And her saturations are improving. Yesterday when I saw the patient and I was concerned about her elevated d-dimer, she could not go down for a CT angiogram of the chest, hence I recommended bilateral venous Doppler, and a Doppler was positive for bilateral deep vein thrombosis. Hence I recommended that the patient goes on heparin and discontinued her subcu Lovenox. I am certain that the patient had acute pulmonary embolism along with DVT based on her symptoms yesterday although she does have underlying Covid 19 pneumonia. Today the patient is resting more comfortably, she is on Airvo, with flow rate of 60 and FiO2 of 90%, her O2 saturation is in the low 90s. Less shortness of breath according to the patient, and she clearly tells me that today is much better today for her than yesterday. CBC is relatively normal hemoglobin is 14.7. Platelets are a bit low hence I will discontinue heparin tomorrow and start the patient on Xarelto. Her PTT is 74.5. Electrolites are normal renal profile is normal. Down the line and may even consider a CT angiogram of the chest to document thromboembolic disease/pulmonary embolism. Reevaluated today on 05/16/2020, patient remains about the same. Still requiring significantly high FiO2. Patient is on a nonrebreather mask and airvo, O2 saturation is 88-90% she is on 90% FiO2 and 60 L high flow. Plus a nonrebreather mask. Surprisingly the patient tells me that she is doing okay not as symptomatic as expected considering that her O2 saturation is marginal. Yesterday, the patient was transitioned to Xarelto and she is taking the Xarelto as directed. CBC today is relatively normal hemoglobin is 14.7 platelet are 89,000. Electrolytes are normal renal profile is normal The patient is seen today 04/16/2020 in follow-up on the regular selective care unit. She is doing better today compared to yesterday. Less cough and congestion. Still requiring careful high flow oxygen at 60 L and 90% FiO2 to maintain O2 saturations in the low 90s. She is feeling a bit stronger. Chest x-ray continues to show interstitial airspace disease and mild edema slightly improved compared to previous. Blood glucose 133. She remains on IV Solu-Medrol, vitamin supplements. Anticoagulated with Xarelto. Objective - Vital Signs Vital signs: Vital Signs Temp 98.6 F 05/17/20 12:00 Pulse 68 05/17/20 14:00 Resp 20 05/17/20 14:00 BP 147/86 05/17/20 12:00 Pulse Ox 93 L 05/17/20 12:00 Intake & Output 05/16/20 05/17/20 05/17/20 18:59 06:59 18:59 Intake Total 480 240 400 Output Total 1600 1300 Balance 480 -1360 -900 Weight 91 kg Intake: IV 400 0.9% NS at 50mL/hr 400 Oral 480 240 Output: Urine 1600 1300 Other: Voiding Method Indwelling Catheter Indwelling Catheter Indwelling Catheter # Voids 0 - Exam GENERAL EXAM: Alert, very pleasant 60-year-old female patient, on AirVo high flow oxygen at 60 L and 90% FiO2, comfortable in no apparent distress. HEAD: Normocephalic. EYES: Normal reaction of pupils, equal size. NOSE: Clear with pink turbinates. THROAT: No erythema or exudates. NECK: No masses, no JVD. CHEST: No chest wall deformity. LUNGS: Equal air entry with crackles in the bilateral posterior bases CVS: S1 and S2 normal with no audible murmur, regular rhythm. ABDOMEN: No hepatosplenomegaly, normal bowel sounds, no guarding or rigidity. SPINE: No scoliosis or deformity SKIN: No rashes CENTRAL NERVOUS SYSTEM: No focal deficits, tone is normal in all 4 extremities. EXTREMITIES: There is no peripheral edema. No clubbing, no cyanosis. Peripheral pulses are intact. - Labs CBC & Chem 7: 05/15/20 03:45 05/15/20 06:42 Labs: Abnormal Lab Results - Last 24 Hours (Table) 05/16/20 05/16/20 05/17/20 Range/Units 16:59 20:12 05:57 POC Glucose (mg/dL) 121 H 154 H 156 H (75-99) mg/dL 05/17/20 Range/Units 12:04 POC Glucose (mg/dL) 133 H (75-99) mg/dL Assessment and Plan Assessment: 1 Acute hypoxic respiratory failure secondary to Covid 19 pneumonia. requiring high FiO2 and high flow. Received Tocilizumab. 2 Hypovolemic hyponatremia, resolved. 3 Benign essential hypertension. 4 Bilateral deep vein thromboses and strongly suspect that the patient has acute pulmonary embolism. 5 Borderline hypertension currently not on any medications at home. 6 Ongoing nicotine addiction 7 History of uterine and cervical cancer status post hysterectomy 10 years ago Plan: The patient was seen and evaluated by Dr. Reed Chest x-ray reviewed She has been slow to progress and remains on high flow oxygen Improving today compared to yesterday however Continue with the current treatment plan Anticoagulated with Xarelto Titrate down the FiO2 as tolerated We will continue to follow I, the cosigning physician, performed a history & physical examination of the patient. Lungs sounds with crackles in the bilateral posterior bases. Maintaining O2 saturations in the 90s on 60 L and 90% FiO2 per AirVo high flow oxygen. I discussed the assessment and plan of care with my nurse practitioner, Rose Burks. I attest to the above note as dictated by her.
--- NOTE | 2020-05-17 16:58 | PN ---
PROGRESS NOTE DATE OF SERVICE: 05/17/2020 INTERVAL HISTORY: This is a 60-year-old woman who was admitted with acute COVID-19 pneumonia, interstitial pneumonia and acute respiratory failure. The patient had shortness of breath. The patient is still on AIRVO. Multiple consultants are following the patient closely at this time. The most recent chest x-ray which was reviewed personally by me showed bilateral pneumonia, interstitial pneumonia, highly suggestive of COVID-19 pneumonia. PAST MEDICAL HISTORY: Reviewed. REVIEW OF SYSTEMS: CARDIOVASCULAR: No angina or palpitations. RESPIRATORY: As mentioned earlier. GI: As mentioned earlier. : No dysuria. NERVOUS SYSTEM: No numbness or weakness. CURRENT MEDICATIONS: Reviewed and include Tylenol, [place], vitamin D3, Pepcid, NovoLog, Solu-Medrol, Narcan, vitamin D3, Xarelto. PHYSICAL EXAM: GENERAL: Patient is alert and oriented times three. VITAL SIGNS: Pulse 68, blood pressure 140/82, respirations 20, temperature 98.6, pulse ox 93% on 60% high flow. HEENT: Conjunctivae normal. NECK: No jugular venous distention. RESPIRATORY: Breath sounds diminished at the bases. A few scattered rhonchi and crackles. HEART: S1 and S2, muffled. ABDOMEN: Soft, no tenderness. No masses palpable. EXTREMITIES: No edema, no swelling. NERVOUS: No focal deficits. LABS: WBC 13.2, platelets 89 and sodium is 134. ASSESSMENT: 1. Acute COVID-19 infection with acute COVID-19 bilateral interstitial pneumonia with acute hypoxic respiratory failure. 2. Bilateral lower extremity deep venous thrombosis high D-dimer, on Xarelto. 3. Increased inflammatory markers of COVID-19. 4. Hypovolemic hyponatremia. 5. Elevated D-dimer without any evidence of acute pulmonary embolism in the CTA. 6. Borderline hypertension. 7. Ongoing nicotine dependence. 8. History of uterine and cervical cancer status post hysterectomy 10 years ago. 9. Kyphoscoliosis history with back surgery. 10.FULL CODE. RECOMMENDATIONS AND DISCUSSION: Recommend to continue current medication, continue symptomatic treatment. Otherwise at this time continue with Xarelto. Continue with rest of medications. Ensure oxygenation. Prognosis guarded because of multiple complex medical issues. Further recommendations to follow. MMODL / IJN: [id number] /
[2020-05-17 17:39] LABS: Glucose,Whole Blood 193 mg/dL (75-99)
[2020-05-17 20:30] LABS: Glucose,Whole Blood 260 mg/dL (75-99)
[2020-05-17] MEDS: SODIUM CHLORIDE 0.9% 1,000 ML IV SCH (21:44)
[2020-05-18] MEDS: methylPREDNISolone SOD SUCCI 125 MG/2 ML VIAL IV SCH ×4 (00:11→17:25)
[2020-05-18 05:53] LABS: Glucose,Whole Blood 169 mg/dL (75-99)
[2020-05-18] MEDS: INSULIN ASPART (NovoLOG) 100 UNIT/ML VIAL SQ SCH ×4 (06:25→21:39)
[2020-05-18] MEDS: RIVAROXABAN 15 MG TAB PO SCH ×2 (06:44→17:25)
[2020-05-18] MEDS: PANTOPRAZOLE 40 MG/10 ML VIAL IVP SCH (08:38)
[2020-05-18] MEDS: ZINC SULFATE 220 MG CAP PO SCH (08:38)
[2020-05-18] MEDS: ASCORBIC ACID 500 MG TAB PO SCH (08:39)
[2020-05-18] MEDS: FAMOTIDINE 20 MG TAB PO SCH ×2 (08:39→21:39)
[2020-05-18] MEDS: CHOLECALCIFEROL 25 MCG (1000 IU) TABLET PO SCH (08:39)
[2020-05-18 09:46] LABS: African American GFR (CKD) >90 (>60 ml/min/1.73 sqM); Anion Gap 1 mmol/L; Blood Urea Nitrogen 20 mg/dL (7-17); Calcium 8.9 mg/dL (8.4-10.2); Carbon Dioxide 32 mmol/L (22-30); Chloride 102 mmol/L (98-107); Glucose 234 mg/dL (74-99); LDH 1855 U/L (313-618); Non-African American GFR(CKD) >90 (>60 ml/min/1.73 sqM); Potassium 4.5 mmol/L (3.5-5.1); Sodium 135 mmol/L (137-145)
[2020-05-18 09:47] LABS: Basophils % (A) 0 %; Eosinophils # (A) 0.1 k/uL (0-0.7); Eosinophils % (A) 0 %; HCT 41.6 % (34.0-46.0); HGB 13.9 gm/dL (11.4-16.0); Lymphocytes # (A) 0.2 k/uL (1.0-4.8); Lymphocytes % (A) 2 %; MCH 29.8 pg (25.0-35.0); MCHC 33.4 g/dL (31.0-37.0); MCV 89.3 fL (80.0-100.0); Mean Platelet Volume 7.9; Monocytes # (A) 0.5 k/uL (0-1.0); Monocytes % (A) 4 %; Neutrophils # (A) 11.7 k/uL (1.3-7.7); Neutrophils % (A) 94 %; RBC 4.67 m/uL (3.80-5.40); RDW 13.8 % (11.5-15.5); WBC 12.5 k/uL (3.8-10.6)
[2020-05-18 10:00] LABS: Platelet Count 80 k/uL (150-450)
[2020-05-18] MEDS: FOLIC ACID 1 MG TAB PO SCH (12:17)
[2020-05-18] MEDS: THIAMINE 100 MG TAB PO SCH (12:17)
[2020-05-18] MEDS: MULTIVITAMINS, THERA 1 EACH TAB PO SCH (12:17)
[2020-05-18 12:26] LABS: Glucose,Whole Blood 188 mg/dL (75-99)
--- NOTE | 2020-05-18 16:08 | P.PN ---
Subjective Progress Note Date: 05/18/20 This is a 60-year-old female who was recently admitted with acute Covid 19 pneumonia with interstitial pneumonia and acute respiratory failure and is being closely monitored. She continues to have shortness of breath and is maintained on Airvo and slowly titrating as tolerated. Multiple consultations following and patient is maintained on Xarelto. Patient to continue on IV steroids along with vitamin and zinc supplements. Review of systems: Constitutional: Reports occasional fatigue, fever, or chills Cardiovascular: No reports of chest pain or palpitations Respiratory: reports continued shortness of breath GI: No reports of nausea, vomiting, or diarrhea : No reports of dysuria or retention Neurovascular: No reports of weakness or numbness All medications have been reviewed Active Medications Acetaminophen (Acetaminophen Tab 325 Mg Tab) 650 mg PO Q6HR PRN PRN Reason: Mild Pain or Fever > 100.5 Hydrocodone Bitart/Acetaminophen (Hydrocodone/Apap 5-325mg 1 Each Tab) 1 each PO Q6HR PRN PRN Reason: Pain Ascorbic Acid (Ascorbic Acid 500 Mg Tab) 500 mg PO DAILY [facility] Last Admin: 05/18/20 08:39 Dose: 500 mg Documented by: Cholecalciferol (Cholecalciferol 25 Mcg (1000 Iu) Tablet) 25 mcg PO DAILY [facility] Last Admin: 05/18/20 08:39 Dose: 25 mcg Documented by: Famotidine (Famotidine 20 Mg Tab) 20 mg PO BID [facility] Last Admin: 05/18/20 08:39 Dose: 20 mg Documented by: Folic Acid (Folic Acid 1 Mg Tab) 1 mg PO DAILY@1200 [facility] Last Admin: 05/18/20 12:17 Dose: 1 mg Documented by: Sodium Chloride (Saline 0.9%) 1,000 mls @ 50 mls/hr IV .Q20H [facility] Last Admin: 05/17/20 21:44 Dose: 50 mls/hr Documented by: Insulin Aspart (Insulin Aspart (Novolog) 100 Unit/Ml Vial) 0 unit SQ [facility]; Protocol Last Admin: 05/18/20 12:17 Dose: 3 unit Documented by: Methylprednisolone Sodium Succinate (Methylprednisolone Sod Succi 125 Mg/2 Ml Vial) 60 mg IV Q6HR [facility] Last Admin: 05/18/20 12:17 Dose: 60 mg Documented by: Multivitamins (Multivitamins, Thera 1 Each Tab) 1 each PO DAILY@1200 [facility] Last Admin: 05/18/20 12:17 Dose: 1 each Documented by: Naloxone HCl (Naloxone 0.4 Mg/Ml 1 Ml Vial) 0.2 mg IV Q2M PRN PRN Reason: Opioid Reversal Ondansetron HCl (Ondansetron 4 Mg/2 Ml Vial) 4 mg IVP Q8HR PRN PRN Reason: Nausea And Vomiting Pantoprazole Sodium (Pantoprazole 40 Mg/10 Ml Vial) 40 mg IVP DAILY [facility] Last Admin: 05/18/20 08:38 Dose: 40 mg Documented by: Rivaroxaban (Rivaroxaban 15 Mg Tab) 15 mg PO BID-W/MEALS [facility] Last Admin: 05/18/20 06:44 Dose: 15 mg Documented by: Thiamine HCl (Thiamine 100 Mg Tab) 100 mg PO DAILY@1200 [facility] Last Admin: 05/18/20 12:17 Dose: 100 mg Documented by: Zinc Sulfate (Zinc Sulfate 220 Mg Cap) 220 mg PO DAILY [facility] Last Admin: 05/18/20 08:38 Dose: 220 mg Documented by: Objective - Vital Signs Vital signs: Vital Signs Temp 98.5 F 05/18/20 04:00 Pulse 75 05/18/20 04:00 Resp 18 05/18/20 04:00 BP 132/64 05/18/20 04:00 Pulse Ox 94 L 05/18/20 04:00 Intake & Output 05/17/20 05/18/20 05/18/20 18:59 06:59 18:59 Intake Total 640 Output Total 1950 800 Balance -1310 -800 Weight 92 kg Intake: IV 400 0.9% NS at 50mL/hr 400 Oral 240 Output: Urine 1950 800 Other: Voiding Method Indwelling Catheter Indwelling Catheter - Exam Patient is sitting up in bed, awake alert and oriented and 3.. Temp is 98.4F, pulse is 82, respirations are 18, blood pressure is 136/72, oxygen saturation is 87% on Airvo with a flow rate of 60 and FiO2 of 80% HEENT: Normocephalic. Neck is supple. Pupils reactive. Nostrils clear. Oral cavity is moist. Ears reveal no drainage. Neck reveals no JVD, carotid bruits, or thyromegaly. CHEST EXAMINATION: Diminished breath sounds bilaterally with bilateral coarse rhonchi noted CARDIAC: S1, S2 are muffled ABDOMEN: Soft. Bowel sounds normal. No organomegaly. No abdominal bruits. Extremities: reveal no edema. No clubbing or cyanosis Neurologically awake, alert, oriented x3 with well-coordinated movements. No focal deficits noted Skin: No rash or skin lesions. Psychiatric: Cooperative. Non-suicidal Musculoskeletal: No joint swelling or deformity. Normal range of motion. Diffusely weak - Labs CBC & Chem 7: 05/18/20 09:16 05/18/20 09:16 Labs: Abnormal Lab Results - Last 24 Hours (Table) 05/17/20 05/17/20 05/17/20 Range/Units 12:04 17:28 20:29 POC Glucose (mg/dL) 133 H 193 H 260 H (75-99) mg/dL 05/18/20 Range/Units 05:51 POC Glucose (mg/dL) 169 H (75-99) mg/dL Assessment and Plan Assessment: Acute Covid 19 infection with acute bilateral Covid 19 interstitial pneumonia with acute hypoxic respiratory failure on high flow oxygen Bilateral lower extremity DVT, high d-dimer, on Xarelto Increased inflammatory markers secondary to viral pneumonia Hypovolemic hyponatremia Elevated d-dimer level without evidence of pulmonary embolism on CTA Borderline hypertension Ongoing nicotine dependence History of uterine and cervical cancer status post hysterectomy 10 years ago Kyphoscoliosis history and back surgery DVT prophylaxis full code Recommendations and discussion: Recommend to continue with current medications and current management. Patient continues on Xarelto. Patient is maintained on Airvo with attempts at weaning as tolerated. Patient continues to be extremely dyspneic with minimal exertion. Patient Is status post 2 doses of Tocilizumab. Patient is maintained on iv Solu-Medrol along with vitamin and zinc supplements and will continue at this time. Pulmonary following closely. D-dimer is down to 8.39 today. Inflammatory markers slowly trending down as well. Will repeat a.m. labs. Due to multiple complex medical issues, Prognosis remains guarded.
[2020-05-18 17:17] LABS: Glucose,Whole Blood 212 mg/dL (75-99)
[2020-05-18] MEDS: SODIUM CHLORIDE 0.9% 1,000 ML IV SCH (17:29)
--- NOTE | 2020-05-18 19:06 | P.PN ---
Subjective Progress Note Date: 05/18/20 Principal diagnosis: COVID 19 pneumonia. Patient was reevaluated today on 05/14/2020, remains on high flow oxygen she is presently on 90% FiO2 and 60 L high flow. Recommended probing the patient, and she is trying to go into prone position, patient remains extremely marginal at b est. ABC is relatively normal lites are normal renal profile is normal d-dimer is elevated at 30.84. This is the highest d-dimer I have seen since her admission. Patient is maintained on Lovenox at 45 mg subcu twice a day. I would likely recommend a CT angiogram of this patient as she may be a great set up for acute pulmonary embolism considering her elevated d-dimer and considering her Covid 19 infection and seems to be very slow to respond. Reevaluated today on 05/15/2020, patient is feeling much better today. Breathing a lot easier. And her saturations are improving. Yesterday when I saw the patient and I was concerned about her elevated d-dimer, she could not go down for a CT angiogram of the chest, hence I recommended bilateral venous Doppler, and a Doppler was positive for bilateral deep vein thrombosis. Hence I recommended that the patient goes on heparin and discontinued her subcu Lovenox. I am certain that the patient had acute pulmonary embolism along with DVT based on her symptoms yesterday although she does have underlying Covid 19 pneumonia. Today the patient is resting more comfortably, she is on Airvo, with flow rate of 60 and FiO2 of 90%, her O2 saturation is in the low 90s. Less shortness of breath according to the patient, and she clearly tells me that today is much better today for her than yesterday. CBC is relatively normal hemoglobin is 14.7. Platelets are a bit low hence I will discontinue heparin tomorrow and start the patient on Xarelto. Her PTT is 74.5. Electrolites are normal renal profile is normal. Down the line and may even consider a CT angiogram of the chest to document thromboembolic disease/pulmonary embolism. Reevaluated today on 05/16/2020, patient remains about the same. Still requiring significantly high FiO2. Patient is on a nonrebreather mask and airvo, O2 saturation is 88-90% she is on 90% FiO2 and 60 L high flow. Plus a nonrebreather mask. Surprisingly the patient tells me that she is doing okay not as symptomatic as expected considering that her O2 saturation is marginal. Yesterday, the patient was transitioned to Xarelto and she is taking the Xarelto as directed. CBC today is relatively normal hemoglobin is 14.7 platelet are 89,000. Electrolytes are normal renal profile is normal The patient is seen today 04/16/2020 in follow-up on the regular selective care unit. She is doing better today compared to yesterday. Less cough and congestion. Still requiring careful high flow oxygen at 60 L and 90% FiO2 to maintain O2 saturations in the low 90s. She is feeling a bit stronger. Chest x-ray continues to show interstitial airspace disease and mild edema slightly improved compared to previous. Blood glucose 133. She remains on IV Solu- Medrol, vitamin supplements. Anticoagulated with Xarelto. Progress note dated 05/18/2020. This is a 60-year-old female admitted with a diagnosis of acute hypoxemic respiratory failure secondary to COVID 19 pneumonia. The patient did receive TOCI. In addition, the patient has benign essential hypertension, deep venous thrombosis and possible pulmonary embolism, hypertension, chronic nicotine addiction, uterine and cervical cancer, status post hysterectomy, and hypovolemic hyponatremia. Currently, the patient is on AIRVO, at 60 L/m with an FiO2 of 80%. White count 12.5, hemoglobin 13.9, hematocrit 41.6, platelet count 80,000. Id. at 8.39. Sodium 135, potassium 4.5, chlorides 102, CO2 32, anion gap is 1, BUN is 20, creatinine 0.56. LDH is 1855. Chest x-ray shows diffuse interstitial and airspace disease. Objective - Vital Signs Vital signs: Vital Signs Temp 97.6 F 05/18/20 16:00 Pulse 80 05/18/20 16:00 Resp 16 05/18/20 16:00 BP 128/68 05/18/20 16:00 Pulse Ox 92 L 05/18/20 16:00 Intake & Output 05/17/20 05/18/20 05/18/20 18:59 06:59 18:59 Intake Total 640 2286 Output Total 9040 754 2291 Balance -1310 -800 1186 Weight 92 kg Intake: IV 400 400 0.9% NS at 50mL/hr 400 400 Intake, IV Titration 400 Amount Sodium Chloride 0.9% 1, 400 000 ml @ 50 mls/hr IV . Q20H [facility] Rx#:[id number] Oral 240 1486 Output: Urine 1716 136 8734 Other: Voiding Method Indwelling Catheter Indwelling Catheter Indwelling Catheter - Exam Mild dyspnea, oriented, currently on AIRVO. Saturations 92%. HEENT examination is grossly unremarkable. Neck supple. Full range of motion. No adenopathy thyromegaly or neck vein distention. Cardiovascular examination reveals regular rhythm rate. S1-S2 normal. No S3 or S4. No discernible murmur noted. Heart rate 80 bpm. Lungs reveal bilateral rhonchi and crackles. Breath sounds equal bilaterally. No wheezes. Breath sounds are diminished throughout. Abdomen soft bowel sounds are heard. No masses or tenderness. Extremities are intact. No cyanosis clubbing or edema. Skin is without rash or lesion. Neurologic examination is brief but nonfocal. - Labs CBC & Chem 7: 05/18/20 09:16 05/18/20 09:16 Labs: Abnormal Lab Results - Last 24 Hours (Table) 05/17/20 05/18/20 05/18/20 Range/Units 20:29 05:51 09:16 WBC 12.5 H (3.8-10.6) k/uL Plt Count 80 L (150-450) k/uL Neutrophils # 11.7 H (1.3-7.7) k/uL Lymphocytes # 0.2 L (1.0-4.8) k/uL D-Dimer (<0.60) mg/L FEU Sodium (137-145) mmol/L Carbon Dioxide (22-30) mmol/L BUN (7-17) mg/dL Glucose (74-99) mg/dL POC Glucose (mg/dL) 260 H 169 H (75-99) mg/dL Lactate Dehydrogenase (313-618) U/L 05/18/20 05/18/20 05/18/20 Range/Units 09:16 09:16 12:14 WBC (3.8-10.6) k/uL Plt Count (150-450) k/uL Neutrophils # (1.3-7.7) k/uL Lymphocytes # (1.0-4.8) k/uL D-Dimer 8.39 H (<0.60) mg/L FEU Sodium 135 L (137-145) mmol/L Carbon Dioxide 32 H (22-30) mmol/L BUN 20 H (7-17) mg/dL Glucose 234 H (74-99) mg/dL POC Glucose (mg/dL) 188 H (75-99) mg/dL Lactate Dehydrogenase 1855 H (313-618) U/L 05/18/20 Range/Units 17:16 WBC (3.8-10.6) k/uL Plt Count (150-450) k/uL Neutrophils # (1.3-7.7) k/uL Lymphocytes # (1.0-4.8) k/uL D-Dimer (<0.60) mg/L FEU Sodium (137-145) mmol/L Carbon Dioxide (22-30) mmol/L BUN (7-17) mg/dL Glucose (74-99) mg/dL POC Glucose (mg/dL) 212 H (75-99) mg/dL Lactate Dehydrogenase (313-618) U/L Assessment and Plan Assessment: Acute hypoxemic respiratory failure, secondary to COVID 19 pneumonitis. Hypovolemic hyponatremia, resolved. Benign essential hypertension. Bilateral deep venous thrombosis, and possible acute pulmonary embolism. Borderline hypertension. Ongoing nicotine addiction. History of uterine and cervical cancer, status post hysterectomy. Plan: Plan dated 05/18/2020. The patient remains on AIRVO. Chest x-ray has been reviewed. The patient has been slow to progress. She's on appropriate medications. She will receiving a factor Xa inhibitor for her DVT/possible PE. We will continue to follow and make recommendations were appropriate. Overall prognosis remains guarded. Labs, x-rays, and medications are all reviewed today. Time with Patient: Less than 30
[2020-05-18 20:26] LABS: Glucose,Whole Blood 185 mg/dL (75-99)
[2020-05-19] MEDS: methylPREDNISolone SOD SUCCI 125 MG/2 ML VIAL IV SCH ×4 (01:13→17:40)
[2020-05-19 06:23] LABS: Glucose,Whole Blood 137 mg/dL (75-99)
[2020-05-19] MEDS: INSULIN ASPART (NovoLOG) 100 UNIT/ML VIAL SQ SCH ×4 (06:53→21:04)
[2020-05-19] MEDS: RIVAROXABAN 15 MG TAB PO SCH ×2 (06:53→17:40)
[2020-05-19] MEDS: PANTOPRAZOLE 40 MG/10 ML VIAL IVP SCH (09:07)
[2020-05-19] MEDS: ZINC SULFATE 220 MG CAP PO SCH (09:08)
[2020-05-19] MEDS: ASCORBIC ACID 500 MG TAB PO SCH (09:08)
[2020-05-19] MEDS: CHOLECALCIFEROL 25 MCG (1000 IU) TABLET PO SCH (09:09)
[2020-05-19] MEDS: FAMOTIDINE 20 MG TAB PO SCH ×2 (09:09→21:04)
[2020-05-19 11:51] LABS: Glucose,Whole Blood 146 mg/dL (75-99)
[2020-05-19] MEDS: THIAMINE 100 MG TAB PO SCH (11:56)
[2020-05-19] MEDS: MULTIVITAMINS, THERA 1 EACH TAB PO SCH (11:56)
[2020-05-19] MEDS: FOLIC ACID 1 MG TAB PO SCH (11:56)
--- NOTE | 2020-05-19 15:39 | P.PN ---
Subjective Progress Note Date: 05/19/20 This is a 60-year-old female who was recently admitted with acute Covid 19 pneumonia with interstitial pneumonia and acute respiratory failure and is being closely monitored. She continues to have shortness of breath and is maintained on Airvo and slowly titrating as tolerated. Multiple consultations following and patient is maintained on Xarelto. Patient to continue on IV steroids along with vitamin and zinc supplements. 05/19/2020 Patient is seen and evaluated in follow-up today continues to be short short of breath with minimal exertion although states she feels she is breathing somewhat better. Patient continues to be maintained on Airvo high flow with a flow rate of 60 and an FiO2 of 80% and weaning as tolerated. Patient is maintaining mid 80s to low 90s. Review of systems: Constitutional: Reports occasional fatigue although feels less fatigued today, fever, or chills Cardiovascular: No reports of chest pain or palpitations Respiratory: reports continued shortness of breath although feels is slightly improved today GI: No reports of nausea, vomiting, or diarrhea : No reports of dysuria or retention Neurovascular: No reports of weakness or numbness All medications have been reviewed Active Medications Acetaminophen (Acetaminophen Tab 325 Mg Tab) 650 mg PO Q6HR PRN PRN Reason: Mild Pain or Fever > 100.5 Hydrocodone Bitart/Acetaminophen (Hydrocodone/Apap 5-325mg 1 Each Tab) 1 each PO Q6HR PRN PRN Reason: Pain Ascorbic Acid (Ascorbic Acid 500 Mg Tab) 500 mg PO DAILY [facility] Last Admin: 05/19/20 09:08 Dose: 500 mg Documented by: Cholecalciferol (Cholecalciferol 25 Mcg (1000 Iu) Tablet) 25 mcg PO DAILY [facility] Last Admin: 05/19/20 09:09 Dose: 25 mcg Documented by: Famotidine (Famotidine 20 Mg Tab) 20 mg PO BID [facility] Last Admin: 05/19/20 09:09 Dose: 20 mg Documented by: Folic Acid (Folic Acid 1 Mg Tab) 1 mg PO DAILY@1200 [facility] Last Admin: 05/19/20 11:56 Dose: 1 mg Documented by: Sodium Chloride (Saline 0.9%) 1,000 mls @ 50 mls/hr IV .Q20H [facility] Last Admin: 05/18/20 17:29 Dose: 50 mls/hr Documented by: Insulin Aspart (Insulin Aspart (Novolog) 100 Unit/Ml Vial) 0 unit SQ [facility]; Protocol Last Admin: 05/19/20 11:56 Dose: 2 unit Documented by: Methylprednisolone Sodium Succinate (Methylprednisolone Sod Succi 125 Mg/2 Ml Vial) 60 mg IV Q6HR [facility] Last Admin: 05/19/20 11:56 Dose: 60 mg Documented by: Multivitamins (Multivitamins, Thera 1 Each Tab) 1 each PO DAILY@1200 [facility] Last Admin: 05/19/20 11:56 Dose: 1 each Documented by: Naloxone HCl (Naloxone 0.4 Mg/Ml 1 Ml Vial) 0.2 mg IV Q2M PRN PRN Reason: Opioid Reversal Ondansetron HCl (Ondansetron 4 Mg/2 Ml Vial) 4 mg IVP Q8HR PRN PRN Reason: Nausea And Vomiting Pantoprazole Sodium (Pantoprazole 40 Mg/10 Ml Vial) 40 mg IVP DAILY [facility] Last Admin: 05/19/20 09:07 Dose: 40 mg Documented by: Rivaroxaban (Rivaroxaban 15 Mg Tab) 15 mg PO BID-W/MEALS [facility] Last Admin: 05/19/20 06:53 Dose: 15 mg Documented by: Thiamine HCl (Thiamine 100 Mg Tab) 100 mg PO DAILY@1200 [facility] Last Admin: 05/19/20 11:56 Dose: 100 mg Documented by: Zinc Sulfate (Zinc Sulfate 220 Mg Cap) 220 mg PO DAILY [facility] Last Admin: 05/19/20 09:08 Dose: 220 mg Documented by: Objective - Vital Signs Vital signs: Vital Signs Temp 98.0 F 05/19/20 04:00 Pulse 58 L 05/19/20 04:00 Resp 17 05/19/20 04:00 BP 142/80 05/19/20 04:00 Pulse Ox 85 L 05/19/20 07:37 Intake & Output 05/18/20 05/19/20 05/19/20 18:59 06:59 18:59 Intake Total 2286 240 118 Output Total 1100 2400 Balance 1186 -2160 118 Weight 92 kg Intake: IV 400 0.9% NS at 50mL/hr 400 Intake, IV Titration 400 Amount Sodium Chloride 0.9% 1, 400 000 ml @ 50 mls/hr IV . Q20H [facility] Rx#:[id number] Oral 1486 240 118 Output: Urine 1100 2400 Other: Voiding Method Indwelling Catheter Indwelling Catheter # Voids 1 - Exam Patient is sitting up in bed, awake alert and oriented and 3.. Temp is 98.0F, pulse is 58, respirations are 17, blood pressure is 142/80, oxygen saturation is 85-93% on Airvo with a flow rate of 60 and FiO2 of 80% HEENT: Normocephalic. Neck is supple. Pupils reactive. Nostrils clear. Oral cavity is moist. Ears reveal no drainage. Neck reveals no JVD, carotid bruits, or thyromegaly. CHEST EXAMINATION: Diminished breath sounds bilaterally with bilateral coarse rhonchi noted CARDIAC: S1, S2 are muffled ABDOMEN: Soft. Bowel sounds normal. No organomegaly. No abdominal bruits. Extremities: reveal no edema. No clubbing or cyanosis Neurologically awake, alert, oriented x3 with well-coordinated movements. No focal deficits noted Skin: No rash or skin lesions. Psychiatric: Cooperative. Non-suicidal Musculoskeletal: No joint swelling or deformity. Normal range of motion. Diffusely weak - Labs CBC & Chem 7: 05/18/20 09:16 05/18/20 09:16 Labs: Abnormal Lab Results - Last 24 Hours (Table) 05/18/20 05/18/20 05/19/20 Range/Units 17:16 20:26 06:22 POC Glucose (mg/dL) 212 H 185 H 137 H (75-99) mg/dL 05/19/20 Range/Units 11:50 POC Glucose (mg/dL) 146 H (75-99) mg/dL Assessment and Plan Assessment: Acute Covid 19 infection with acute bilateral Covid 19 interstitial pneumonia with acute hypoxic respiratory failure on high flow oxygen Bilateral lower extremity DVT, high d-dimer, on Xarelto Increased inflammatory markers secondary to viral pneumonia Hypovolemic hyponatremia Elevated d-dimer level without evidence of pulmonary embolism on CTA Borderline hypertension Ongoing nicotine dependence History of uterine and cervical cancer status post hysterectomy 10 years ago Kyphoscoliosis history and back surgery DVT prophylaxis full code Recommendations and discussion: Recommend to continue with current medications and current management. Patient continues on Xarelto. Patient is maintained on Airvo with attempts at weaning as tolerated. Patient continues to be extremely dyspneic with minimal exertion will feel slightly improved today. Patient is less lethargic but does continue to work to breathe with minimal movement. Patient Is status post 2 doses of Tocilizumab. Patient is maintained on iv Solu-Medrol along with vitamin and zinc supplements and will continue at this time. Pulmonary following closely. Will repeat a.m. labs. Due to multiple complex medical issues, Prognosis remains guarded.
[2020-05-19] MEDS: SODIUM CHLORIDE 0.9% 1,000 ML IV SCH (16:41)
[2020-05-19 16:42] LABS: Glucose,Whole Blood 198 mg/dL (75-99)
--- NOTE | 2020-05-19 18:23 | P.PN ---
Subjective Progress Note Date: 05/19/20 Principal diagnosis: COVID 19 Patient was reevaluated today on 05/14/2020, remains on high flow oxygen she is presently on 90% FiO2 and 60 L high flow. Recommended probing the patient, and she is trying to go into prone position, patient remains extremely marginal at best. ABC is relatively normal lites are normal renal profile is normal d-dimer is elevated at 30.84. This is the highest d-dimer I have seen since her admission. Patient is maintained on Lovenox at 45 mg subcu twice a day. I would likely recommend a CT angiogram of this patient as she may be a great set up for acute pulmonary embolism considering her elevated d-dimer and considering her Covid 19 infection and seems to be very slow to respond. Reevaluated today on 05/15/2020, patient is feeling much better today. Breathing a lot easier. And her saturations are improving. Yesterday when I saw the leisa warren and I was concerned about her elevated d-dimer, she could not go down for a CT angiogram of the chest, hence I recommended bilateral venous Doppler, and a Doppler was positive for bilateral deep vein thrombosis. Hence I recommended that the patient goes on heparin and discontinued her subcu Lovenox. I am certain that the patient had acute pulmonary embolism along with DVT based on her symptoms yesterday although she does have underlying Covid 19 pneumonia. Today the patient is resting more comfortably, she is on Airvo, with flow rate of 60 and FiO2 of 90%, her O2 saturation is in the low 90s. Less shortness of breath according to the patient, and she clearly tells me that today is much better today for her than yesterday. CBC is relatively normal hemoglobin is 14.7. Platelets are a bit low hence I will discontinue heparin tomorrow and start the patient on Xarelto. Her PTT is 74.5. Electrolites are normal renal profile is normal. Down the line and may even consider a CT angiogram of the chest to document thromboembolic disease/pulmonary embolism. Reevaluated today on 05/16/2020, patient remains about the same. Still requiring significantly high FiO2. Patient is on a nonrebreather mask and airvo, O2 saturation is 88-90% she is on 90% FiO2 and 60 L high flow. Plus a nonrebreather mask. Surprisingly the patient tells me that she is doing okay not as symptomatic as expected considering that her O2 saturation is marginal. Yesterday, the patient was transitioned to Xarelto and she is taking the Xarelto as directed. CBC today is relatively normal hemoglobin is 14.7 platelet are 89,000. Electrolytes are normal renal profile is normal The patient is seen today 04/16/2020 in follow-up on the regular selective care unit. She is doing better today compared to yesterday. Less cough and congestion. Still requiring careful high flow oxygen at 60 L and 90% FiO2 to maintain O2 saturations in the low 90s. She is feeling a bit stronger. Chest x-ray continues to show interstitial airspace disease and mild edema slightly improved compared to previous. Blood glucose 133. She remains on IV Solu- Medrol, vitamin supplements. Anticoagulated with Xarelto. Progress note dated 05/18/2020. This is a 60-year-old female admitted with a diagnosis of acute hypoxemic respiratory failure secondary to COVID 19 pneumonia. The patient did receive TOCI. In addition, the patient has benign essential hypertension, deep venous thrombosis and possible pulmonary embolism, hypertension, chronic nicotine addiction, uterine and cervical cancer, status post hysterectomy, and hypovolemic hyponatremia. Currently, the patient is on AIRVO, at 60 L/m with an FiO2 of 80%. White count 12.5, hemoglobin 13.9, hematocrit 41.6, platelet count 80,000. Id. at 8.39. Sodium 135, potassium 4.5, chlorides 102, CO2 32, anion gap is 1, BUN is 20, creatinine 0.56. LDH is 1855. Chest x-ray shows diffuse interstitial and airspace disease. On 05 19 2020 patient seen in follow-up on selective care unit. Remains on Airvo, 60 L and FiO2 of 80%, her pulse ox is 85-93%. She is awake and alert, she states she is breathing somewhat better, still requiring high flow oxygen, and she easily desaturates with minimal exertion, still reports fatigue, but no fever or chills. No chest discomfort. This is stable, no fever or chills, no new chest x-ray, patient is status post Tocilizumab, and she continues on high- dose IV Solu-Medrol 60 mg every 6 hours, remains on oral Xarelto. No nausea vomiting diarrhea. Yesterday's labs revealed improving d-dimer and inflammatory markers. Objective - Vital Signs Vital signs: Vital Signs Temp 98.0 F 05/19/20 04:00 Pulse 58 L 05/19/20 04:00 Resp 17 05/19/20 04:00 BP 142/80 05/19/20 04:00 Pulse Ox 85 L 05/19/20 07:37 Intake & Output 05/18/20 05/19/20 05/19/20 18:59 06:59 18:59 Intake Total 2286 240 236 Output Total 1100 2400 Balance 1186 -2160 236 Weight 92 kg Intake: IV 400 0.9% NS at 50mL/hr 400 Intake, IV Titration 400 Amount Sodium Chloride 0.9% 1, 400 000 ml @ 50 mls/hr IV . Q20H [facility] Rx#:[id number] Oral 1486 240 236 Output: Urine 1100 2400 Other: Voiding Method Indwelling Catheter Indwelling Catheter # Voids 1 - Exam GENERAL EXAM: Alert, very pleasant 60-year-old white female, on Airvo, 60 L and FiO2 of 80%, with pulse ox of 85-93% comfortable in no apparent distress. HEAD: Normocephalic/atraumatic. EYES: Normal reaction of pupils, equal size. Conjunctiva pink, sclera white. NOSE: Clear with pink turbinates. THROAT: No erythema or exudates. NECK: No masses, no JVD, no thyroid enlargement, no adenopathy. CHEST: No chest wall deformity. Symmetrical expansion. LUNGS: Equal air entry with no crackles, wheeze, rhonchi or dullness. CVS: Regular rate and rhythm, normal S1 and S2, no gallops, no murmurs, no rubs ABDOMEN: Soft, nontender. No hepatosplenomegaly, normal bowel sounds, no guar ding or rigidity. EXTREMITIES: No clubbing, no edema, no cyanosis, 2+ pulses and upper and lower extremities. MUSCULOSKELETAL: Muscle strength and tone normal. SPINE: No scoliosis or deformity SKIN: No rashes CENTRAL NERVOUS SYSTEM: Alert and oriented -3. No focal deficits, tone is normal in all 4 extremities. PSYCHIATRIC: Alert and oriented -3. Appropriate affect. Intact judgment and insight. - Labs CBC & Chem 7: 05/18/20 09:16 05/18/20 09:16 Labs: Abnormal Lab Results - Last 24 Hours (Table) 05/18/20 05/19/20 05/19/20 Range/Units 20:26 06:22 11:50 POC Glucose (mg/dL) 185 H 137 H 146 H (75-99) mg/dL 05/19/20 Range/Units 16:37 POC Glucose (mg/dL) 198 H (75-99) mg/dL Assessment and Plan Plan: Assessment: #1. Acute hypoxic respiratory failure related to COVID 19 pneumonia, she tested positive in an outpatient basis on 04/29/2020, and onset of symptoms was 2 weeks prior to presentation. Currently requiring high flow oxygen per Airvo at 60 L and FiO2 of 80% per Airvo #2. Increased inflammatory markers, increased d-dimer related to the above #3. Nausea, poor appetite, poor oral intake, cough, fever, shortness of breath related to acute COVID 19 pneumonia #4. Borderline hypertension history takes no medications for #5. Smoker #6. Hx of uterine and cervical cancer status post hysterectomy 10 years ago #7. History of kyphoscoliosis with history of back surgery 30 years ago #8. Hyponatremia likely hypovolemic Plan: Continue current medical treatment, continue IV Solu-Medrol, continue Xarelto, inflammatory markers are improving, d-dimer is improving, wean FiO2, increase activity as tolerated, continue supportive treatment, will continue to follow, follow-up chest x-ray in the morning. I performed a history & physical examination of the patient and discussed their management with my nurse practitioner, Gina Marsh. I reviewed the nurse practitioner's note and agree with the documented findings and plan of care. Lung sounds are positive for diffuse crackles The findings and the impression was discussed with the patient. I attest to the documentation by the nurse practitioner. Time with Patient: Less than 30
[2020-05-19 20:47] LABS: Glucose,Whole Blood 239 mg/dL (75-99)
[2020-05-20] MEDS: methylPREDNISolone SOD SUCCI 125 MG/2 ML VIAL IV SCH ×4 (01:08→17:26)
[2020-05-20 06:19] LABS: Glucose,Whole Blood 159 mg/dL (75-99)
[2020-05-20] MEDS: RIVAROXABAN 15 MG TAB PO SCH (06:32)
[2020-05-20] MEDS: INSULIN ASPART (NovoLOG) 100 UNIT/ML VIAL SQ SCH ×4 (06:32→22:28)
--- NOTE | 2020-05-20 08:25 | XR ---
EXAMINATION TYPE: XR chest 1V portable DATE OF EXAM: 05/20/2020 COMPARISON: 05/17/2020 INDICATION: Covid TECHNIQUE: Single frontal view of the chest is obtained. FINDINGS: The heart size is normal. The pulmonary vasculature is normal. Patchy infiltrates are present bilaterally. Findings can be compatible with atypical pneumonia. Fixat ion linda is through the thoracic spine IMPRESSION: 1. Stable patchy infiltrates can be compatible with atypical pneumonia
[2020-05-20] MEDS: ASCORBIC ACID 500 MG TAB PO SCH (09:41)
[2020-05-20] MEDS: SODIUM CHLORIDE 0.9% 1,000 ML IV SCH (09:42)
[2020-05-20] MEDS: ZINC SULFATE 220 MG CAP PO SCH (09:42)
[2020-05-20] MEDS: PANTOPRAZOLE 40 MG/10 ML VIAL IVP SCH ×2 (09:42→09:47)
[2020-05-20] MEDS: CHOLECALCIFEROL 25 MCG (1000 IU) TABLET PO SCH (09:42)
[2020-05-20] MEDS: FAMOTIDINE 20 MG TAB PO SCH ×2 (09:42→22:28)
[2020-05-20 12:04] LABS: C Reactive Protein 5.9 mg/L (<10.0)
[2020-05-20 12:17] LABS: Glucose,Whole Blood 194 mg/dL (75-99)
[2020-05-20] MEDS: THIAMINE 100 MG TAB PO SCH (12:25)
[2020-05-20] MEDS: MULTIVITAMINS, THERA 1 EACH TAB PO SCH (12:25)
[2020-05-20] MEDS: FOLIC ACID 1 MG TAB PO SCH (12:25)
--- NOTE | 2020-05-20 14:41 | P.PN ---
Subjective Progress Note Date: 05/20/20 This is a 60-year-old female who was recently admitted with acute Covid 19 pneumonia with interstitial pneumonia and acute respiratory failure and is being closely monitored. She continues to have shortness of breath and is maintained on Airvo and slowly titrating as tolerated. Multiple consultations following and patient is maintained on Xarelto. Patient to continue on IV steroids along with vitamin and zinc supplements. 05/19/2020 Patient is seen and evaluated in follow-up today continues to be short short of breath with minimal exertion although states she feels she is breathing somewhat better. Patient continues to be maintained on Airvo high flow with a flow rate of 60 and an FiO2 of 80% and weaning as tolerated. Patient is maintaining mid 80s to low 90s. 05/20/2020 Patient is seen this morning in follow-up continues to have dyspnea with exertion and is maintained on high flow Airvo with a flow rate of 60 and an FiO2 of 80% maintaining 90-92% oxygenation. Patient states that she continues to be weak and dyspneic although states that she is able to recover faster when exerted. Patient has not been able to get out of the bed much but does sit at the bedside and uses a commode at the bedside as well. Patient is afebrile. Patient is maintained on Xarelto and will continue. Patient denies any lower extremity swelling or discomfort. Chest x-ray today shows stable patchy i nfiltrates present bilaterally. Review of systems: Constitutional: Reports occasional fatigue although feels less fatigued today, fever, or chills Cardiovascular: No reports of chest pain or palpitations Respiratory: reports continued shortness of breath although feels is slightly improved today GI: No reports of nausea, vomiting, or diarrhea : No reports of dysuria or retention Neurovascular: Reports generalized weakness All medications have been reviewed Active Medications Acetaminophen (Acetaminophen Tab 325 Mg Tab) 650 mg PO Q6HR PRN PRN Reason: Mild Pain or Fever > 100.5 Hydrocodone Bitart/Acetaminophen (Hydrocodone/Apap 5-325mg 1 Each Tab) 1 each PO Q6HR PRN PRN Reason: Pain Ascorbic Acid (Ascorbic Acid 500 Mg Tab) 500 mg PO DAILY [facility] Last Admin: 05/20/20 09:41 Dose: 500 mg Documented by: Cholecalciferol (Cholecalciferol 25 Mcg (1000 Iu) Tablet) 25 mcg PO DAILY [facility] Last Admin: 05/20/20 09:42 Dose: 25 mcg Documented by: Famotidine (Famotidine 20 Mg Tab) 20 mg PO BID [facility] Last Admin: 05/20/20 09:42 Dose: 20 mg Documented by: Folic Acid (Folic Acid 1 Mg Tab) 1 mg PO DAILY@1200 [facility] Last Admin: 05/20/20 12:25 Dose: 1 mg Documented by: Sodium Chloride (Saline 0.9%) 1,000 mls @ 50 mls/hr IV .Q20H [facility] Last Admin: 05/20/20 09:42 Dose: 50 mls/hr Documented by: Insulin Aspart (Insulin Aspart (Novolog) 100 Unit/Ml Vial) 0 unit SQ ACHS [facility]; Protocol Last Admin: 05/20/20 12:26 Dose: 5 unit Documented by: Methylprednisolone Sodium Succinate (Methylprednisolone Sod Succi 125 Mg/2 Ml Vial) 60 mg IV Q6HR [facility] Last Admin: 05/20/20 12:25 Dose: 60 mg Documented by: Multivitamins (Multivitamins, Thera 1 Each Tab) 1 each PO DAILY@1200 [facility] Last Admin: 05/20/20 12:25 Dose: 1 each Documented by: Naloxone HCl (Naloxone 0.4 Mg/Ml 1 Ml Vial) 0.2 mg IV Q2M PRN PRN Reason: Opioid Reversal Ondansetron HCl (Ondansetron 4 Mg/2 Ml Vial) 4 mg IVP Q8HR PRN PRN Reason: Nausea And Vomiting Pantoprazole Sodium (Pantoprazole 40 Mg/10 Ml Vial) 40 mg IVP DAILY [facility] Last Admin: 05/20/20 09:47 Dose: Not Given Documented by: Rivaroxaban (Rivaroxaban 15 Mg Tab) 15 mg PO BID-W/MEALS [facility] Last Admin: 05/20/20 06:32 Dose: 15 mg Documented by: Thiamine HCl (Thiamine 100 Mg Tab) 100 mg PO DAILY@1200 [facility] Last Admin: 05/20/20 12:25 Dose: 100 mg Documented by: Zinc Sulfate (Zinc Sulfate 220 Mg Cap) 220 mg PO DAILY [facility] Last Admin: 05/20/20 09:42 Dose: 220 mg Documented by: Objective - Vital Signs Vital signs: Vital Signs Temp 98.0 F 05/20/20 04:00 Pulse 58 L 05/20/20 04:00 Resp 17 05/20/20 04:00 BP 146/78 05/20/20 04:00 Pulse Ox 91 L 05/20/20 04:19 Intake & Output 05/19/20 05/20/20 05/20/20 18:59 06:59 18:59 Intake Total 1676 20 240 Output Total 3000 Balance 1676 -2980 240 Weight 90 kg Intake: IV 20 Invasive Line 3 20 Intake, IV Titration 400 Amount Sodium Chloride 0.9% 1, 400 000 ml @ 50 mls/hr IV . Q20H [facility] Rx#:[id number] Oral 1276 240 Output: Urine 3000 Uretheral ([place]) 800 Other: Voiding Method Indwelling Catheter Indwelling Catheter # Voids 1 # Bowel Movements 1 1 - Exam Patient is sitting up in bed, awake alert and oriented and 3.. Temp is 98.1F, pulse is 93, respirations are 18, blood pressure is 140/75, oxygen saturation is 90-92% on Airvo with a flow rate of 60 and FiO2 of 80% HEENT: Normocephalic. Neck is supple. Pupils reactive. Nostrils clear. Oral cavity is moist. Ears reveal no drainage. Neck reveals no JVD, carotid bruits, or thyromegaly. CHEST EXAMINATION: Diminished breath sounds bilaterally with bilateral coarse rhonchi noted CARDIAC: S1, S2 are muffled ABDOMEN: Soft. Bowel sounds normal. No organomegaly. No abdominal bruits. Extremities: reveal no edema. No clubbing or cyanosis Neurologically awake, alert, oriented x3 with well-coordinated movements. No focal deficits noted Skin: No rash or skin lesions. Psychiatric: Cooperative. Non-suicidal Musculoskeletal: No joint swelling or deformity. Normal range of motion. Diffusely weak - Labs CBC & Chem 7: 05/18/20 09:16 05/18/20 09:16 Labs: Abnormal Lab Results - Last 24 Hours (Table) 05/19/20 05/19/20 05/19/20 Range/Units 11:50 16:37 20:46 POC Glucose (mg/dL) 146 H 198 H 239 H (75-99) mg/dL 05/20/20 Range/Units 06:18 POC Glucose (mg/dL) 159 H (75-99) mg/dL Assessment and Plan Assessment: Acute Covid 19 infection with acute bilateral Covid 19 interstitial pneumonia with acute hypoxic respiratory failure on high flow oxygen Bilateral lower extremity DVT, high d-dimer, on Xarelto Increased inflammatory markers secondary to viral pneumonia Hypovolemic hyponatremia Elevated d-dimer level without evidence of pulmonary embolism on CTA Borderline hypertension Ongoing nicotine dependence History of uterine and cervical cancer status post hysterectomy 10 years ago Kyphoscoliosis history and back surgery DVT prophylaxis full code Recommendations and discussion: Recommend to continue with current medications and current management. Patient continues on Xarelto. Patient is maintained on Airvo with attempts at weaning as tolerated. Patient continues to be extremely dyspneic with minimal exertion and feels her breathing is slightly improved and recovers more rapidly after moving around in the bed and getting up to use the commode. Patient Is status post 2 doses of Tocilizumab. Patient is maintained on iv Solu-Medrol along with vitamin and zinc supplements and will continue at this time. Chest x-ray today shows stable patchy infiltrates present bilaterally. D-dimer today is 6.46. LDH is 1966 and CRP is 5.9. Repeat venous Doppler bilateral lower extremities ordered and pending. Pulmonary following closely. Will repeat a.m. labs. Due to multiple complex medical issues, Prognosis remains guarded.
--- NOTE | 2020-05-20 16:57 | US ---
EXAMINATION TYPE: US venous doppler duplex LE BI DATE OF EXAM: 05/20/2020 3:31 PM COMPARISON: NONE CLINICAL HISTORY: concern for dvt. SIDE PERFORMED: Bilateral TECHNIQUE: The lower extremity deep venous system is examined utilizing real time linear array sonog marlin with graded compression, doppler sonography and color-flow sonography. VESSELS IMAGED: Common Femoral Vein Deep Femoral Vein Greater Saphenous Vein * Femoral Vein Popliteal Vein Small Saphenous Vein * Proximal Calf Veins (* superficial vessels) Right Leg: Right duplicate popliteal vein, proximal calf and peroneal veins appear positive for DVT. Left Leg: Positive for DVT from distal popliteal veins through calf veins. IMPRESSION: 1. Left lower extremity deep venous thrombosis within the popliteal vein extending into the proximal calf veins. 2. Catheter veins appear positive for deep venous thrombosis on the right. A Red level critical message alert has been initiated for Mikhail Dunn MD via the [employer] on 05/20/2020 4:54 PM. This message alert has been sent to Mikhail Dunn MD via the preferences provided by the clinician for the receipt of Radiology Critical Findings. Message ID [id number].
[2020-05-20] MEDS ORDERED: HEPARIN SODIUM 1,000 UN/ML (10ML VL) IV ONE (17:06)
[2020-05-20] MEDS ORDERED: HEPARIN SODIUM 1,000 UN/ML (10ML VL) IV PRN (17:06)
--- NOTE | 2020-05-20 17:13 | P.PN ---
Subjective Progress Note Date: 05/20/20 Principal diagnosis: Acute hypoxic respiratory failure secondary to acute cocaine 19 pneumonia/pneumonitis 60-year-old white female patient of Dr. Bacon with no significant medical history other than history of uterine and cervical cancer status post total hysterectomy 10 years ago, kyphoscoliosis with history of back surgery, and borderline hypertension for which the patient takes no medications, who presented to the emergency department 05-07-2020 by EMS for evaluation of worsening shortness of breath. Patient states that onset of symptoms was 2 weeks ago and started with runny nose and a sore throat, gradually her symptoms have progressed, and patient started having fevers, worsening shortness of breath and cough. She tested positive for COVID 19 a week ago on 04/29/2020 on an outpatient basis however she did not seek any medical treatment up until now. She reports some decreased oral intake, nausea, but no abdominal pain or diarrhea. Admits to smoking cigarettes, however reports no chronic lung condition. Patient denies receiving any vaccination for COVID 19. CTA chest showed no evidence of pulmonary embolism, but demonstrated moderate to severe scattered groundglass opacities, showed a positive COVID 19 PCR test, d-dimer was elevated at 3.79, and significant elevated inflammatory markers with LDH thousand 942, and CRP of 78.3. Patient is a requiring high flow oxygen per Airvo at 50 L and FiO2 of 75%, her pulse ox is 88-92%, she is having low grade fevers, but hemodynamically stable. Added on Decadron, prophylactic dose of Lovenox, and we were asked to see the patient in consultation. On today's evaluation, the patient is being seen for follow-up regarding her Covid associated pneumonia. The patient presented with significant hypoxemic respiratory failure with bilateral pulmonary infiltrates and consolidations perihilar and extending to the peripheries. The patient remains on high flow oxygen and she is currently on 6 L with an FiO2 of 90%. No new labs from today. Her d-dimer from yesterday was 3.7. LDH level was also elevated at 942 with a CRP of 78.3. She remains on Solu-Medrol 60 mg IV every 24 hours. On today's evaluation of 05/09/2020 the patient remains on 60 L of oxygen with an FiO2 of 90%. There is essentially the same setting of high flow oxygen that the patient was on since yesterday. No much of an improvement at this point in time. She remains on treatment and she is taking Solu-Medrol 60 mg IV push every 6 hours. Note that the patient has diffuse bilateral pulmonary infiltrates and this was confirmed on a chest x-ray and a computed tomography scan of the chest. Inflammatory markers including the LDH down to 1620 and the CRP is down to 24. Her renal function is stable with a creatinine of 0.4. Her d-dimer is at 19. In terms of anticoagulation, the patient is currently on 45 mg subcu every 12 hours. Her chest x-ray from today is showing stable bilateral pulmonary infiltrates. The is essentially stable and unchanged compared to yesterday. She is still requiring high flow oxygen and her current pulse ox is around 92%. I like her to sleep in different body positions. Prone positioning is obviously advised. On 05/10/2020, the patient is being seen in follow-up regarding her COVID 19 related pneumonia. The patient is still on high flow oxygen and the patient is on 60 L with an FiO2 of 90%. She is having difficulties with her breathing. She would desaturate very easily with minimal amount of activity. Her inflammatory markers remain quite elevated including the LDH of 1711 and her CRP is down to 9.6. Her d-dimer today is still elevated at 15.1 although it's slightly downtrending. In terms of therapy, the patient remains on IV Solu Medrol 60 mg every 6 hours. The patient is also on Lovenox 45 mg subcutaneous every 12 hours. The patient is on high flexion 90 L and her FiO2 was slightly weaned down to 85%. Note that the patient desaturated this morning and she was down in the 70s. We had to prone or and with prone positioning, her oxidation is improved and her current pulse ox up to the 90-91%. No chest x-ray from today. Inflammatory markers were noted. She is tolerating some diet and she is not fully meeting her caloric requirements Patient was reevaluated today on 05/11/2020, we are seeing the patient for her acute presentation of covid 19 pneumonia.patient remains on high FiO2, she is on 60 L flow v and 70% FiO2 viaia airvo, surprisingly the patient seems to be in no distress, and she seems to be comfortable. She tells me that she is feeling better today compared to how she felt upon admission.CBC today is relatively normal electrolytes are normal renal profile is normal LDH is 2017. C-reactive protein is less than 5.chest x-ray continues to show bilateral airspace infiltrates throughout both lungs compatible with Covid 19 pneumonia. Patient was reevaluated today on 05/12/2020, remains on high flow oxygen with high FiO2 of 70%, and 60 L/m flow. Patient seems to be very comfortable, she tells me that she is feeling better compared to how she felt on admission. WBC count is 7.4 hemoglobin is 13.3 electrolytes are normal. Basic metabolic profile is normal LDH is trending down and bit to 1955 and C-reactive protein is 5. Reevaluated today on 05/13/2020, patient remains on high flow oxygen, she is on 85% FiO2 and 60 L/m flow with O2 saturation of 90% at best. Surprisingly the patient continues to do well, she is very comfortable, in no distress. WBC count is 7.4 hemoglobin is normal electrolytes are normal renal profile is normal inflammatory markers are trending down however her last LDH was 1954 remains relatively high. Patient was reevaluated today on 05/14/2020, remains on high flow oxygen she is presently on 90% FiO2 and 60 L high flow. Recommended probing the patient, and she is trying to go into prone position, patient remains extremely marginal at best. ABC is relatively normal lites are normal renal profile is normal d-dimer is elevated at 30.84. This is the highest d-dimer I have seen since her a dmission. Patient is maintained on Lovenox at 45 mg subcu twice a day. I would likely recommend a CT angiogram of this patient as she may be a great set up for acute pulmonary embolism considering her elevated d-dimer and considering her Covid 19 infection and seems to be very slow to respond. Reevaluated today on 05/15/2020, patient is feeling much better today. Breathing a lot easier. And her saturations are improving. Yesterday when I saw the patient and I was concerned about her elevated d-dimer, she could not go down for a CT angiogram of the chest, hence I recommended bilateral venous Doppler, and a Doppler was positive for bilateral deep vein thrombosis. Hence I recommended that the patient goes on heparin and discontinued her subcu Lovenox. I am certain that the patient had acute pulmonary embolism along with DVT based on her symptoms yesterday although she does have underlying Covid 19 pneumonia. Today the patient is resting more comfortably, she is on Airvo, with flow rate of 60 and FiO2 of 90%, her O2 saturation is in the low 90s. Less shortness of breath according to the patient, and she clearly tells me that today is much better today for her than yesterday. CBC is relatively normal hemoglobin is 14.7. Platelets are a bit low hence I will discontinue heparin tomorrow and start the patient on Xarelto. Her PTT is 74.5. Electrolites are normal renal profile is normal. Down the line and may even consider a CT angiogram of the chest to document thromboembolic disease/pulmonary embolism. Reevaluated today on 05/16/2020, patient remains about the same. Still requiring significantly high FiO2. Patient is on a nonrebreather mask and airvo, O2 saturation is 88-90% she is on 90% FiO2 and 60 L high flow. Plus a nonrebreather mask. Surprisingly the patient tells me that she is doing okay not as symptomatic as expected considering that her O2 saturation is marginal. Yesterday, the patient was transitioned to Xarelto and she is taking the Xarelto as directed. CBC today is relatively normal hemoglobin is 14.7 platelet are 89,000. Electrolytes are normal renal profile is normal The patient is seen today 04/16/2020 in follow-up on the regular selective care unit. She is doing better today compared to yesterday. Less cough and congestion. Still requiring careful high flow oxygen at 60 L and 90% FiO2 to maintain O2 saturations in the low 90s. She is feeling a bit stronger. Chest x-ray continues to show interstitial airspace disease and mild edema slightly improved compared to previous. Blood glucose 133. She remains on IV Solu-Medrol, vitamin supplements. Anticoagulated with Xarelto. Progress note dated 05/18/2020. This is a 60-year-old female admitted with a diagnosis of acute hypoxemic respiratory failure secondary to COVID 19 pneumonia. The patient did receive TOCI. In addition, the patient has benign essential hypertension, deep venous thrombosis and possible pulmonary embolism, hypertension, chronic nicotine addiction, uterine and cervical cancer, status post hysterectomy, and hypovolemic hyponatremia. Currently, the patient is on AIRVO, at 60 L/m with an FiO2 of 80%. White count 12.5, hemoglobin 13.9, hematocrit 41.6, platelet count 80,000. Id. at 8.39. Sodium 135, potassium 4.5, chlorides 102, CO2 32, anion gap is 1, BUN is 20, creatinine 0.56. LDH is 1855. Chest x-ray shows diffuse interstitial and airspace disease. On 05 19 2020 patient seen in follow-up on selective care unit. Remains on Airvo, 60 L and FiO2 of 80%, her pulse ox is 85-93%. She is awake and alert, she states she is breathing somewhat better, still requiring high flow oxygen, and she easily desaturates with minimal exertion, still reports fatigue, but no fever or chills. No chest discomfort. This is stable, no fever or chills, no new chest x-ray, patient is status post Tocilizumab, and she continues on high- dose IV Solu-Medrol 60 mg every 6 hours, remains on oral Xarelto. No nausea vomiting diarrhea. Yesterday's labs revealed improving d-dimer and inflammatory markers. The patient is seen today 05/20/2020 in follow-up on the selective care unit. She is currently resting fairly comfortably in bed. Awake and alert in no acute distress. She had been up in the chair today for quite some time. She is still requiring AirVo high flow oxygen at 60 L and 80% FiO2 to maintain O2 saturations 90-92%. 0.9 normal saline at 50 MLS per hour. She is anticoagulated with Xarelto. Chest x-ray continues to show bilateral infiltrates. D-dimer 6.46. LDH 1966. C-reactive protein 5.9. She remains on IV Solu-Medrol, Xarelto, vitamin supplements. Objective - Vital Signs Vital signs: Vital Signs Temp 98.3 F 05/20/20 16:00 Pulse 69 05/20/20 16:00 Resp 20 05/20/20 16:00 BP 132/74 05/20/20 16:00 Pulse Ox 95 05/20/20 16:00 Intake & Output 05/19/20 05/20/20 05/20/20 18:59 06:59 18:59 Intake Total 1676 20 660 Output Total 3000 1600 Balance 1676 -2980 -940 Weight 90 kg Intake: IV 20 420 0.9% NS at 50mL/hr 400 Invasive Line 3 20 20 Intake, IV Titration 400 Amount Sodium Chloride 0.9% 1, 400 000 ml @ 50 mls/hr IV . Q20H [facility] Rx#:[id number] Oral 1276 240 Output: Urine 3000 1600 Uretheral ([place]) 800 1600 Other: Voiding Method Indwelling Catheter Indwelling Catheter Indwelling Catheter # Voids 1 # Bowel Movements 1 1 - Exam GENERAL EXAM: Alert, very pleasant 60-year-old female patient, on AirVo high flow oxygen at 60 L and 80% FiO2, comfortable in no apparent distress. HEAD: Normocephalic. EYES: Normal reaction of pupils, equal size. NOSE: Clear with pink turbinates. THROAT: No erythema or exudates. NECK: No masses, no JVD. CHEST: No chest wall deformity. LUNGS: Equal air entry with crackles in the bilateral posterior bases CVS: S1 and S2 normal with no audible murmur, regular rhythm. ABDOMEN: No hepatosplenomegaly, normal bowel sounds, no guarding or rigidity. SPINE: No scoliosis or deformity SKIN: No rashes CENTRAL NERVOUS SYSTEM: No focal deficits, tone is normal in all 4 extremities. EXTREMITIES: There is no peripheral edema. No clubbing, no cyanosis. Peripheral pulses are intact. - Labs CBC & Chem 7: 05/18/20 09:16 05/18/20 09:16 Labs: Abnormal Lab Results - Last 24 Hours (Table) 05/19/20 05/20/20 05/20/20 Range/Units 20:46 06:18 11:05 D-Dimer 6.46 H (<0.60) mg/L FEU POC Glucose (mg/dL) 239 H 159 H (75-99) mg/dL Lactate Dehydrogenase (313-618) U/L 05/20/20 05/20/20 Range/Units 11:05 12:11 D-Dimer (<0.60) mg/L FEU POC Glucose (mg/dL) 194 H (75-99) mg/dL Lactate Dehydrogenase 1966 H (313-618) U/L Assessment and Plan Assessment: 1 Acute hypoxic respiratory failure secondary to Covid 19 pneumonia. requiring high FiO2 and high flow. Received Tocilizumab. 2 Hypovolemic hyponatremia, resolved. 3 Benign essential hypertension. 4 Bilateral deep vein thromboses and strongly suspect that the patient has acute pulmonary embolism. 5 Borderline hypertension currently not on any medications at home. 6 Ongoing nicotine addiction 7 History of uterine and cervical cancer status post hysterectomy 10 years ago Plan: The patient was seen and evaluated by Dr. Ivy She has been slow to progress and remains on high flow oxygen Continue with the current treatment plan Anticoagulated with Xarelto Titrate down the FiO2 as tolerated We will continue to follow I, the cosigning physician, performed a history & physical examination of the patient. Lungs sounds with crackles in the bilateral posterior bases. Maintaining O2 saturations in the 90s on 60 L and 80% FiO2 per AirVo high flow oxygen. I discussed the assessment and plan of care with my nurse practitioner, Rose Burks. I attest to the above note as dictated by her.
[2020-05-20 17:15] LABS: Glucose,Whole Blood 134 mg/dL (75-99)
[2020-05-20] MEDS: HEPARIN SOD,PORK IN 0.45% NACL 25,000 UNIT in 0.45% NACL 1 250ML.BAG IV SCH (17:27)
[2020-05-20 17:53] LABS: Basophils % (A) 0 %; Eosinophils # (A) 0.3 k/uL (0-0.7); Eosinophils % (A) 2 %; HCT 41.4 % (34.0-46.0); HGB 14.4 gm/dL (11.4-16.0); Lymphocytes # (A) 0.1 k/uL (1.0-4.8); Lymphocytes % (A) 1 %; MCH 30.8 pg (25.0-35.0); MCHC 34.9 g/dL (31.0-37.0); MCV 88.3 fL (80.0-100.0); Mean Platelet Volume 7.6; Monocytes # (A) 0.5 k/uL (0-1.0); Monocytes % (A) 4 %; Neutrophils % (A) 92 %; RBC 4.69 m/uL (3.80-5.40); WBC 11.9 k/uL (3.8-10.6)
[2020-05-20 17:55] LABS: Platelet Count 82 k/uL (150-450)
[2020-05-20 18:18] LABS: INR 1.2 (<1.2); Prothrombin Time 12.4 sec (9.0-12.0)
[2020-05-20 20:49] LABS: Glucose,Whole Blood 311 mg/dL (75-99)
[2020-05-21] MEDS: methylPREDNISolone SOD SUCCI 125 MG/2 ML VIAL IV SCH ×5 (00:26→23:11)
[2020-05-21 06:01] LABS: Glucose,Whole Blood 132 mg/dL (75-99)
[2020-05-21] MEDS: SODIUM CHLORIDE 0.9% 1,000 ML IV SCH ×2 (06:42→23:11)
[2020-05-21 07:08] LABS: African American GFR (CKD) >90 (>60 ml/min/1.73 sqM); Anion Gap 1 mmol/L; Blood Urea Nitrogen 16 mg/dL (7-17); Calcium 8.8 mg/dL (8.4-10.2); Carbon Dioxide 31 mmol/L (22-30); Chloride 102 mmol/L (98-107); Glucose 134 mg/dL (74-99); Non-African American GFR(CKD) >90 (>60 ml/min/1.73 sqM); Potassium 4.1 mmol/L (3.5-5.1); Sodium 134 mmol/L (137-145)
[2020-05-21] MEDS: INSULIN ASPART (NovoLOG) 100 UNIT/ML VIAL SQ SCH ×4 (07:09→21:08)
[2020-05-21] MEDS: ZINC SULFATE 220 MG CAP PO SCH (09:30)
[2020-05-21] MEDS: FAMOTIDINE 20 MG TAB PO SCH ×2 (09:30→21:08)
[2020-05-21] MEDS: RIVAROXABAN 15 MG TAB PO SCH ×2 (09:30→17:54)
[2020-05-21] MEDS: PANTOPRAZOLE 40 MG/10 ML VIAL IVP SCH (09:30)
[2020-05-21] MEDS: CHOLECALCIFEROL 25 MCG (1000 IU) TABLET PO SCH (09:30)
[2020-05-21] MEDS: ASCORBIC ACID 500 MG TAB PO SCH (09:30)
[2020-05-21] MEDS: HEPARIN SOD,PORK IN 0.45% NACL 25,000 UNIT in 0.45% NACL 1 250ML.BAG IV SCH (11:39)
[2020-05-21 12:00] LABS: Glucose,Whole Blood 198 mg/dL (75-99)
[2020-05-21] MEDS: THIAMINE 100 MG TAB PO SCH (12:41)
[2020-05-21] MEDS: FOLIC ACID 1 MG TAB PO SCH (12:41)
[2020-05-21] MEDS: MULTIVITAMINS, THERA 1 EACH TAB PO SCH (12:41)
--- NOTE | 2020-05-21 12:49 | P.PN ---
Subjective This is a pleasant 60 years old female with no significant past medical history presents with respiratory signs and symptoms secondary to bilateral Covid pneumonia and acute hypoxic respiratory failure found to have bilateral DVT and pulmonary embolism was also suspected, with pulmonary team on the case. He still feeling short of breath with some coughing, patient does not want into to see if actually she wants to bring stuff up. She denies abdominal pain, no abdominal pain or diarrhea. Patient still on some Medrol 60 mg and her heparin drip is as wished to Xarelto today also she is on normal sling at 50 mL per hour, continue with vitamin C, vitamin D and zinc. Patient is status post tocilizumab. Review of systems CONSTITUTIONAL: No fever, no malaise, no fatigue. HEENT: No recent visual problems or hearing problems. Denied any sore throat. CARDIOVASCULAR: No orthopnea, PND, no palpitations, no syncope. PULMONARY: No shortness of breath, no cough, no hemoptysis. GASTROINTESTINAL: No diarrhea, no nausea, no vomiting, no abdominal pain. Normoactive bowel sounds. NEUROLOGICAL: No headaches, no weakness, no numbness. Active Medications Generic Name Dose Route Start Last Admin Trade Name Freq PRN Reason Stop Dose Admin Acetaminophen 650 mg 05/07/20 03:18 Acetaminophen Tab 325 Mg Tab PO Q6HR PRN Mild Pain or Fever > 100.5 Hydrocodone Bitart/Acetaminophen 1 each 05/12/20 14:51 Hydrocodone/Apap 5-325mg 1 Each Tab PO Q6HR PRN Pain Ascorbic Acid 500 mg 05/07/20 09:00 05/21/20 09:30 Ascorbic Acid 500 Mg Tab PO 500 mg DAILY MICAH Administration Cholecalciferol 25 mcg 05/07/20 10:00 05/21/20 09:30 Cholecalciferol 25 Mcg (1000 Iu) Tablet PO 25 mcg DAILY MICAH Administration Famotidine 20 mg 05/07/20 21:00 05/21/20 09:30 Famotidine 20 Mg Tab PO 20 mg BID MICAH Administration Folic Acid 1 mg 05/13/20 12:00 05/21/20 12:41 Folic Acid 1 Mg Tab PO 1 mg DAILY@1200 MICAH Administration Sodium Chloride 1,000 mls @ 50 mls/hr 05/15/20 09:30 05/21/20 06:42 Saline 0.9% IV Not Given .Q20H [facility] Insulin Aspart 0 unit 03/26/21 21:00 05/21/20 12:42 Insulin Aspart (Novolog) 100 Unit/Ml Vial SQ 2 unit ACHS [facility] Administration Protocol Methylprednisolone Sodium Succinate 60 mg 05/08/20 18:00 05/21/20 12:41 Methylprednisolone Sod Succi 125 Mg/2 Ml Vial IV 60 mg Q6HR [facility] Administration Multivitamins 1 each 05/13/20 12:00 05/21/20 12:41 Multivitamins, Thera 1 Each Tab PO 1 each DAILY@1200 [facility] Administration Naloxone HCl 0.2 mg 05/07/20 03:18 Naloxone 0.4 Mg/Ml 1 Ml Vial IV Q2M PRN Opioid Reversal Ondansetron HCl 4 mg 05/07/20 03:18 Ondansetron 4 Mg/2 Ml Vial IVP Q8HR PRN Nausea And Vomiting Pantoprazole Sodium 40 mg 05/22/20 07:30 Pantoprazole 40 Mg Tablet PO AC-BRKFST [facility] Rivaroxaban 15 mg 05/21/20 09:00 05/21/20 09:30 Rivaroxaban 15 Mg Tab PO 15 mg BID-W/MEALS [facility] Administration Thiamine HCl 100 mg 05/13/20 12:00 05/21/20 12:41 Thiamine 100 Mg Tab PO 100 mg DAILY@1200 [facility] Administration Zinc Sulfate 220 mg 05/07/20 09:00 05/21/20 09:30 Zinc Sulfate 220 Mg Cap PO 220 mg DAILY [facility] Administration Objective - Vital Signs Vital signs: Vital Signs Temp 97.7 F 05/21/20 08:00 Pulse 88 05/21/20 08:00 Resp 20 05/21/20 04:00 BP 124/65 05/21/20 08:00 Pulse Ox 89 L 05/21/20 11:21 Intake & Output 05/20/20 05/21/20 05/21/20 18:59 06:59 18:59 Intake Total 660 120.43 125 Output Total 2925 2500 Balance -2265 -2379.57 125 Weight 90.5 kg Intake: IV 420 10 0.9% NS at 50mL/hr 400 Invasive Line 3 20 10 Intake, IV Titration 110.43 Amount Heparin Sod,Pork in 0.45% 110.43 NaCl 25,000 unit In 0.45 % NaCl 1 250ml.bag @ 18 UNITS/KG/HR 16.2 mls/hr IV .[id number] [facility] Rx#: [id number] Oral 240 125 Output: Urine 2925 2500 Uretheral ([place]) 1600 Other: Voiding Method Indwelling Catheter Indwelling Catheter Indwelling Catheter # Bowel Movements 1 - Exam GENERAL: The patient is alert and oriented x3, not in any acute distress. Well developed, well nourished. HEENT: Pupils are round and equally reacting to light. EOMI. No scleral icterus. No conjunctival pallor. Normocephalic, atraumatic. No pharyngeal erythema. No thyromegaly. CARDIOVASCULAR: S1 and S2 present. No murmurs, rubs, or gallops. -PULMONARY: Chest is clear to auscultation, no wheezing . Bilateral crepitation ABDOMEN: Soft, nontender, nondistended, normoactive bowel sounds. No palpable organomegaly. MUSCULOSKELETAL: No joint swelling or deformity. EXTREMITIES: No cyanosis, clubbing, or pedal edema. NEUROLOGICAL: Gross neurological examination did not reveal any focal deficits. SKIN: No rashes. no petechiae. - Labs CBC & Chem 7: 05/20/20 17:35 05/21/20 05:54 Labs: Abnormal Lab Results - Last 24 Hours (Table) 05/20/20 05/20/20 05/20/20 Range/Units 17:10 17:35 17:35 WBC 11.9 H (3.8-10.6) k/uL Plt Count 82 L (150-450) k/uL Neutrophils # 11.0 H (1.3-7.7) k/uL Lymphocytes # 0.1 L (1.0-4.8) k/uL PT 12.4 H (9.0-12.0) sec INR 1.2 H (<1.2) APTT 20.0 L (22.0-30.0) sec Sodium (137-145) mmol/L Carbon Dioxide (22-30) mmol/L Creatinine (0.52-1.04) mg/dL Glucose (74-99) mg/dL POC Glucose (mg/dL) 134 H (75-99) mg/dL 05/20/20 05/20/20 05/21/20 Range/Units 20:48 22:58 05:54 WBC (3.8-10.6) k/uL Plt Count (150-450) k/uL Neutrophils # (1.3-7.7) k/uL Lymphocytes # (1.0-4.8) k/uL PT (9.0-12.0) sec INR (<1.2) APTT 190.0 H* (22.0-30.0) sec Sodium 134 L (137-145) mmol/L Carbon Dioxide 31 H (22-30) mmol/L Creatinine 0.42 L (0.52-1.04) mg/dL Glucose 134 H (74-99) mg/dL POC Glucose (mg/dL) 311 H (75-99) mg/dL 05/21/20 05/21/20 05/21/20 Range/Units 05:54 05:55 11:54 WBC (3.8-10.6) k/uL Plt Count (150-450) k/uL Neutrophils # (1.3-7.7) k/uL Lymphocytes # (1.0-4.8) k/uL PT (9.0-12.0) sec INR (<1.2) APTT 63.1 H (22.0-30.0) sec Sodium (137-145) mmol/L Carbon Dioxide (22-30) mmol/L Creatinine (0.52-1.04) mg/dL Glucose (74-99) mg/dL POC Glucose (mg/dL) 132 H 198 H (75-99) mg/dL Assessment and Plan Assessment: Bilateral: Pneumonia Bilateral DVT and possible pulmonary embolism Acute hypoxic respiratory failure secondary to above Increased inflammatory markers Plan: This is a pleasant 60 years old female presents with cough with pneumonia and DVT. Continue with anticoagulation with horizontal to, continue with steroids and gentle hydration. Continue with vitamin C, vitamin D and zinc. Pulmonary team R following the case closely. Monitor her inflammatory markers Labs and medication were reviewed.. Continue same treatment. Continue with symptomatic treatment. Resume home medication. Monitor lytes and vitals. DVT and GI prophylaxis. Further recommendationsas per clinical course of the patient DVT prophylaxis: Xarelto GI Prophylaxis: Ppi PT/OT: Pending Prognosis is guarded
--- NOTE | 2020-05-21 13:03 | P.PN ---
Subjective Progress Note Date: 05/21/20 Principal diagnosis: Acute hypoxic respiratory failure secondary to acute cocaine 19 pneumonia/pneumonitis 60-year-old white female patient of Dr. Bacon with no significant medical history other than history of uterine and cervical cancer status post total hysterectomy 10 years ago, kyphoscoliosis with history of back surgery, and borderline hypertension for which the patient takes no medications, who presented to the emergency department 05-07-2020 by EMS for evaluation of worsening shortness of breath. Patient states that onset of symptoms was 2 weeks ago and started with runny nose and a sore throat, gradually her symptoms have progressed, and patient started having fevers, worsening shortness of breath and cough. She tested positive for COVID 19 a week ago on 04/29/2020 on an outpatient basis however she did not seek any medical treatment up until now. She reports some decreased oral intake, nausea, but no abdominal pain or diarrhea. Admits to smoking cigarettes, however reports no chronic lung condition. Patient denies receiving any vaccination for COVID 19. CTA chest showed no evidence of pulmonary embolism, but demonstrated moderate to severe scattered groundglass opacities, showed a positive COVID 19 PCR test, d-dimer was elevated at 3.79, and significant elevated inflammatory markers with LDH thousand 942, and CRP of 78.3. Patient is a requiring high flow oxygen per Airvo at 50 L and FiO2 of 75%, her pulse ox is 88-92%, she is having low grade fevers, but hemodynamically stable. Added on Decadron, prophylactic dose of Lovenox, and we were asked to see the patient in consultation. On today's evaluation, the patient is being seen for follow-up regarding her Covid associated pneumonia. The patient presented with significant hypoxemic respiratory failure with bilateral pulmonary infiltrates and consolidations perihilar and extending to the peripheries. The patient remains on high flow oxygen and she is currently on 6 L with an FiO2 of 90%. No new labs from today. Her d-dimer from yesterday was 3.7. LDH level was also elevated at 942 with a CRP of 78.3. She remains on Solu-Medrol 60 mg IV every 24 hours. On today's evaluation of 05/09/2020 the patient remains on 60 L of oxygen with an FiO2 of 90%. There is essentially the same setting of high flow oxygen that the patient was on since yesterday. No much of an improvement at this point in time. She remains on treatment and she is taking Solu-Medrol 60 mg IV push every 6 hours. Note that the patient has diffuse bilateral pulmonary infiltrates and this was confirmed on a chest x-ray and a computed tomography scan of the chest. Inflammatory markers including the LDH down to 1620 and the CRP is down to 24. Her renal function is stable with a creatinine of 0.4. Her d-dimer is at 19. In terms of anticoagulation, the patient is currently on 45 mg subcu every 12 hours. Her chest x-ray from today is showing stable bilateral pulmonary infiltrates. The is essentially stable and unchanged compared to yesterday. She is still requiring high flow oxygen and her current pulse ox is around 92%. I like her to sleep in different body positions. Prone positioning is obviously advised. On 05/10/2020, the patient is being seen in follow-up regarding her COVID 19 related pneumonia. The patient is still on high flow oxygen and the patient is on 60 L with an FiO2 of 90%. She is having difficulties with her breathing. She would desaturate very easily with minimal amount of activity. Her inflammatory markers remain quite elevated including the LDH of 1711 and her CRP is down to 9.6. Her d-dimer today is still elevated at 15.1 although it's slightly downtrending. In terms of therapy, the patient remains on IV Solu Medrol 60 mg every 6 hours. The patient is also on Lovenox 45 mg subcutaneous every 12 hours. The patient is on high flexion 90 L and her FiO2 was slightly weaned down to 85%. Note that the patient desaturated this morning and she was down in the 70s. We had to prone or and with prone positioning, her oxidation is improved and her current pulse ox up to the 90-91%. No chest x-ray from today. Inflammatory markers were noted. She is tolerating some diet and she is not fully meeting her caloric requirements Patient was reevaluated today on 05/11/2020, we are seeing the patient for her acute presentation of covid 19 pneumonia.patient remains on high FiO2, she is on 60 L flow v and 70% FiO2 viaia airvo, surprisingly the patient seems to be in no distress, and she seems to be comfortable. She tells me that she is feeling better today compared to how she felt upon admission.CBC today is relatively normal electrolytes are normal renal profile is normal LDH is 2017. C-reactive protein is less than 5.chest x-ray continues to show bilateral airspace infiltrates throughout both lungs compatible with Covid 19 pneumonia. Patient was reevaluated today on 05/12/2020, remains on high flow oxygen with high FiO2 of 70%, and 60 L/m flow. Patient seems to be very comfortable, she tells me that she is feeling better compared to how she felt on admission. WBC count is 7.4 hemoglobin is 13.3 electrolytes are normal. Basic metabolic profile is normal LDH is trending down and bit to 1955 and C-reactive protein is 5. Reevaluated today on 05/13/2020, patient remains on high flow oxygen, she is on 85% FiO2 and 60 L/m flow with O2 saturation of 90% at best. Surprisingly the patient continues to do well, she is very comfortable, in no distress. WBC count is 7.4 hemoglobin is normal electrolytes are normal renal profile is normal inflammatory markers are trending down however her last LDH was 1954 remains relatively high. Patient was reevaluated today on 05/14/2020, remains on high flow oxygen she is presently on 90% FiO2 and 60 L high flow. Recommended probing the patient, and she is trying to go into prone position, patient remains extremely marginal at best. ABC is relatively normal lites are normal renal profile is normal d-dimer is elevated at 30.84. This is the highest d-dimer I have seen since her a dmission. Patient is maintained on Lovenox at 45 mg subcu twice a day. I would likely recommend a CT angiogram of this patient as she may be a great set up for acute pulmonary embolism considering her elevated d-dimer and considering her Covid 19 infection and seems to be very slow to respond. Reevaluated today on 05/15/2020, patient is feeling much better today. Breathing a lot easier. And her saturations are improving. Yesterday when I saw the patient and I was concerned about her elevated d-dimer, she could not go down for a CT angiogram of the chest, hence I recommended bilateral venous Doppler, and a Doppler was positive for bilateral deep vein thrombosis. Hence I recommended that the patient goes on heparin and discontinued her subcu Lovenox. I am certain that the patient had acute pulmonary embolism along with DVT based on her symptoms yesterday although she does have underlying Covid 19 pneumonia. Today the patient is resting more comfortably, she is on Airvo, with flow rate of 60 and FiO2 of 90%, her O2 saturation is in the low 90s. Less shortness of breath according to the patient, and she clearly tells me that today is much better today for her than yesterday. CBC is relatively normal hemoglobin is 14.7. Platelets are a bit low hence I will discontinue heparin tomorrow and start the patient on Xarelto. Her PTT is 74.5. Electrolites are normal renal profile is normal. Down the line and may even consider a CT angiogram of the chest to document thromboembolic disease/pulmonary embolism. Reevaluated today on 05/16/2020, patient remains about the same. Still requiring significantly high FiO2. Patient is on a nonrebreather mask and airvo, O2 saturation is 88-90% she is on 90% FiO2 and 60 L high flow. Plus a nonrebreather mask. Surprisingly the patient tells me that she is doing okay not as symptomatic as expected considering that her O2 saturation is marginal. Yesterday, the patient was transitioned to Xarelto and she is taking the Xarelto as directed. CBC today is relatively normal hemoglobin is 14.7 platelet are 89,000. Electrolytes are normal renal profile is normal The patient is seen today 04/16/2020 in follow-up on the regular selective care unit. She is doing better today compared to yesterday. Less cough and congestion. Still requiring careful high flow oxygen at 60 L and 90% FiO2 to maintain O2 saturations in the low 90s. She is feeling a bit stronger. Chest x-ray continues to show interstitial airspace disease and mild edema slightly improved compared to previous. Blood glucose 133. She remains on IV Solu-Medrol, vitamin supplements. Anticoagulated with Xarelto. Progress note dated 05/18/2020. This is a 60-year-old female admitted with a diagnosis of acute hypoxemic respiratory failure secondary to COVID 19 pneumonia. The patient did receive TOCI. In addition, the patient has benign essential hypertension, deep venous thrombosis and possible pulmonary embolism, hypertension, chronic nicotine addiction, uterine and cervical cancer, status post hysterectomy, and hypovolemic hyponatremia. Currently, the patient is on AIRVO, at 60 L/m with an FiO2 of 80%. White count 12.5, hemoglobin 13.9, hematocrit 41.6, platelet count 80,000. Id. at 8.39. Sodium 135, potassium 4.5, chlorides 102, CO2 32, anion gap is 1, BUN is 20, creatinine 0.56. LDH is 1855. Chest x-ray shows diffuse interstitial and airspace disease. On 05 19 2020 patient seen in follow-up on selective care unit. Remains on Airvo, 60 L and FiO2 of 80%, her pulse ox is 85-93%. She is awake and alert, she states she is breathing somewhat better, still requiring high flow oxygen, and she easily desaturates with minimal exertion, still reports fatigue, but no fever or chills. No chest discomfort. This is stable, no fever or chills, no new chest x-ray, patient is status post Tocilizumab, and she continues on high- dose IV Solu-Medrol 60 mg every 6 hours, remains on oral Xarelto. No nausea vomiting diarrhea. Yesterday's labs revealed improving d-dimer and inflammatory markers. The patient is seen today 05/20/2020 in follow-up on the selective care unit. She is currently resting fairly comfortably in bed. Awake and alert in no acute distress. She had been up in the chair today for quite some time. She is still requiring AirVo high flow oxygen at 60 L and 80% FiO2 to maintain O2 saturations 90-92%. 0.9 normal saline at 50 MLS per hour. She is anticoagulated with Xarelto. Chest x-ray continues to show bilateral infiltrates. D-dimer 6.46. LDH 1966. C-reactive protein 5.9. She remains on IV Solu-Medrol, Xarelto, vitamin supplements. The patient is seen today 05/21/2020 selective care unit. She is currently sitting up in a chair at the bedside. Awake and alert in no acute distress. She is feeling a bit better today compared to yesterday. Still desaturates and gets quite short of breath with minimal exertion. She was found to have bilateral lower extremity DVTs. She is now on Xarelto. She is continued on AirVo high flow oxygen at 60 L/m and 70% FiO2 to maintain O2 saturations in the high 80s low 90s. Sodium 134. Potassium 4.1. Creatinine 0.42. She remains on IV Solu-Medrol, vitamin supplements. Objective - Vital Signs Vital signs: Vital Signs Temp 97.7 F 05/21/20 08:00 Pulse 88 05/21/20 08:00 Resp 20 05/21/20 04:00 BP 124/65 05/21/20 08:00 Pulse Ox 89 L 05/21/20 11:21 Intake & Output 05/20/20 05/21/20 05/21/20 18:59 06:59 18:59 Intake Total 660 120.43 125 Output Total 2925 2500 Balance -2265 -2379.57 125 Weight 90.5 kg Intake: IV 420 10 0.9% NS at 50mL/hr 400 Invasive Line 3 20 10 Intake, IV Titration 110.43 Amount Heparin Sod,Pork in 0.45% 110.43 NaCl 25,000 unit In 0.45 % NaCl 1 250ml.bag @ 18 UNITS/KG/HR 16.2 mls/hr IV .[id number] [facility] Rx#: [id number] Oral 240 125 Output: Urine 2925 2500 Uretheral ([place]) 1600 Other: Voiding Method Indwelling Catheter Indwelling Catheter Indwelling Catheter # Bowel Movements 1 - Exam GENERAL EXAM: Alert, very pleasant 60-year-old female patient, on AirVo high flow oxygen at 60 L and 70% FiO2, comfortable in no apparent distress. HEAD: Normocephalic. EYES: Normal reaction of pupils, equal size. NOSE: Clear with pink turbinates. THROAT: No erythema or exudates. NECK: No masses, no JVD. CHEST: No chest wall deformity. LUNGS: Equal air entry with crackles in the bilateral posterior bases CVS: S1 and S2 normal with no audible murmur, regular rhythm. ABDOMEN: No hepatosplenomegaly, normal bowel sounds, no guarding or rigidity. SPINE: No scoliosis or deformity SKIN: No rashes CENTRAL NERVOUS SYSTEM: No focal deficits, tone is normal in all 4 extremities. EXTREMITIES: There is no peripheral edema. No clubbing, no cyanosis. Peripheral pulses are intact. - Labs CBC & Chem 7: 05/20/20 17:35 05/21/20 05:54 Labs: Abnormal Lab Results - Last 24 Hours (Table) 05/20/20 05/20/20 05/20/20 Range/Units 17:10 17:35 17:35 WBC 11.9 H (3.8-10.6) k/uL Plt Count 82 L (150-450) k/uL Neutrophils # 11.0 H (1.3-7.7) k/uL Lymphocytes # 0.1 L (1.0-4.8) k/uL PT 12.4 H (9.0-12.0) sec INR 1.2 H (<1.2) APTT 20.0 L (22.0-30.0) sec Sodium (137-145) mmol/L Carbon Dioxide (22-30) mmol/L Creatinine (0.52-1.04) mg/dL Glucose (74-99) mg/dL POC Glucose (mg/dL) 134 H (75-99) mg/dL 05/20/20 05/20/20 05/21/20 Range/Units 20:48 22:58 05:54 WBC (3.8-10.6) k/uL Plt Count (150-450) k/uL Neutrophils # (1.3-7.7) k/uL Lymphocytes # (1.0-4.8) k/uL PT (9.0-12.0) sec INR (<1.2) APTT 190.0 H* (22.0-30.0) sec Sodium 134 L (137-145) mmol/L Carbon Dioxide 31 H (22-30) mmol/L Creatinine 0.42 L (0.52-1.04) mg/dL Glucose 134 H (74-99) mg/dL POC Glucose (mg/dL) 311 H (75-99) mg/dL 05/21/20 05/21/20 05/21/20 Range/Units 05:54 05:55 11:54 WBC (3.8-10.6) k/uL Plt Count (150-450) k/uL Neutrophils # (1.3-7.7) k/uL Lymphocytes # (1.0-4.8) k/uL PT (9.0-12.0) sec INR (<1.2) APTT 63.1 H (22.0-30.0) sec Sodium (137-145) mmol/L Carbon Dioxide (22-30) mmol/L Creatinine (0.52-1.04) mg/dL Glucose (74-99) mg/dL POC Glucose (mg/dL) 132 H 198 H (75-99) mg/dL Assessment and Plan Assessment: 1 Acute hypoxic respiratory failure secondary to Covid 19 pneumonia. requiring AirVo 60 L/m and 70% FiO2. Received Tocilizumab. 2 Bilateral lower extremity DVTs, transitioned from heparin drip to Xarelto 3 Benign essential hypertension. 4 Bilateral deep vein thromboses and strongly suspect that the patient has acute pulmonary embolism. 5 Borderline hypertension currently not on any medications at home. 6 Ongoing nicotine addiction 7 History of uterine and cervical cancer status post hysterectomy 10 years ago Plan: The patient was seen and evaluated by Dr. Ivy Continue with the current treatment plan Anticoagulated with Xarelto Increase her activity as tolerated Titrate down the FiO2 as tolerated We will continue to follow I, the cosigning physician, performed a history & physical examination of the patient. Lungs sounds with crackles in the bilateral posterior bases. Maintain ing O2 saturations in the 90s on 60 L and 70% FiO2 per AirVo high flow oxygen. I discussed the assessment and plan of care with my nurse practitioner, Rose Burks. I attest to the above note as dictated by her.
[2020-05-21 17:02] LABS: Glucose,Whole Blood 208 mg/dL (75-99)
[2020-05-21 21:05] LABS: Glucose,Whole Blood 189 mg/dL (75-99)
[2020-05-22] MEDS: methylPREDNISolone SOD SUCCI 125 MG/2 ML VIAL IV SCH ×3 (06:43→17:17)
[2020-05-22] MEDS: PANTOPRAZOLE 40 MG TABLET PO SCH (06:44)
[2020-05-22] MEDS: INSULIN ASPART (NovoLOG) 100 UNIT/ML VIAL SQ SCH ×4 (06:44→20:18)
[2020-05-22] MEDS: RIVAROXABAN 15 MG TAB PO SCH ×2 (06:44→17:17)
[2020-05-22 06:56] LABS: Glucose,Whole Blood 169 mg/dL (75-99)
[2020-05-22 06:58] LABS: Basophils % (A) 0 %; Eosinophils # (A) 0.2 k/uL (0-0.7); Eosinophils % (A) 3 %; HCT 39.8 % (34.0-46.0); HGB 13.9 gm/dL (11.4-16.0); Lymphocytes # (A) 0.2 k/uL (1.0-4.8); Lymphocytes % (A) 2 %; MCHC 34.9 g/dL (31.0-37.0); MCV 88.8 fL (80.0-100.0); Mean Platelet Volume 7.3; Monocytes # (A) 0.5 k/uL (0-1.0); Monocytes % (A) 5 %; Neutrophils # (A) 8.1 k/uL (1.3-7.7); Neutrophils % (A) 89 %; Platelet Count 109 k/uL (150-450); RBC 4.48 m/uL (3.80-5.40); WBC 9.1 k/uL (3.8-10.6)
[2020-05-22] MEDS: FAMOTIDINE 20 MG TAB PO SCH ×2 (08:54→20:18)
[2020-05-22] MEDS: CHOLECALCIFEROL 25 MCG (1000 IU) TABLET PO SCH (08:54)
[2020-05-22] MEDS: ZINC SULFATE 220 MG CAP PO SCH (08:54)
[2020-05-22] MEDS: ASCORBIC ACID 500 MG TAB PO SCH (08:54)
[2020-05-22 11:00] LABS: African American GFR (CKD) >90 (>60 ml/min/1.73 sqM); Anion Gap 4 mmol/L; Blood Urea Nitrogen 18 mg/dL (7-17); C Reactive Protein 7.2 mg/L (<10.0); Calcium 8.5 mg/dL (8.4-10.2); Carbon Dioxide 28 mmol/L (22-30); Chloride 101 mmol/L (98-107); Glucose 166 mg/dL (74-99); Non-African American GFR(CKD) >90 (>60 ml/min/1.73 sqM); Sodium 133 mmol/L (137-145)
[2020-05-22 11:12] LABS: LDH 2243 U/L (313-618)
[2020-05-22 11:37] LABS: Glucose,Whole Blood 170 mg/dL (75-99)
[2020-05-22] MEDS: FOLIC ACID 1 MG TAB PO SCH (12:09)
[2020-05-22] MEDS: MULTIVITAMINS, THERA 1 EACH TAB PO SCH (12:09)
[2020-05-22] MEDS: THIAMINE 100 MG TAB PO SCH (12:09)
--- NOTE | 2020-05-22 16:45 | P.PN ---
Subjective Progress Note Date: 05/22/20 Principal diagnosis: Acute hypoxic respiratory failure secondary to acute cocaine 19 pneumonia/pneumonitis 60-year-old white female patient of Dr. Bacon with no significant medical history other than history of uterine and cervical cancer status post total hysterectomy 10 years ago, kyphoscoliosis with history of back surgery, and borderline hypertension for which the patient takes no medications, who presented to the emergency department 05-07-2020 by EMS for evaluation of worsening shortness of breath. Patient states that onset of symptoms was 2 weeks ago and started with runny nose and a sore throat, gradually her symptoms have progressed, and patient started having fevers, worsening shortness of breath and cough. She tested positive for COVID 19 a week ago on 04/29/2020 on an outpatient basis however she did not seek any medical treatment up until now. She reports some decreased oral intake, nausea, but no abdominal pain or diarrhea. Admits to smoking cigarettes, however reports no chronic lung condition. Patient denies receiving any vaccination for COVID 19. CTA chest showed no evidence of pulmonary embolism, but demonstrated moderate to severe scattered groundglass opacities, showed a positive COVID 19 PCR test, d-dimer was elevated at 3.79, and significant elevated inflammatory markers with LDH thousand 942, and CRP of 78.3. Patient is a requiring high flow oxygen per Airvo at 50 L and FiO2 of 75%, her pulse ox is 88-92%, she is having low grade fevers, but hemodynamically stable. Added on Decadron, prophylactic dose of Lovenox, and we were asked to see the patient in consultation. On today's evaluation, the patient is being seen for follow-up regarding her Covid associated pneumonia. The patient presented with significant hypoxemic respiratory failure with bilateral pulmonary infiltrates and consolidations perihilar and extending to the peripheries. The patient remains on high flow oxygen and she is currently on 6 L with an FiO2 of 90%. No new labs from today. Her d-dimer from yesterday was 3.7. LDH level was also elevated at 942 with a CRP of 78.3. She remains on Solu-Medrol 60 mg IV every 24 hours. On today's evaluation of 05/09/2020 the patient remains on 60 L of oxygen with an FiO2 of 90%. There is essentially the same setting of high flow oxygen that the patient was on since yesterday. No much of an improvement at this point in time. She remains on treatment and she is taking Solu-Medrol 60 mg IV push every 6 hours. Note that the patient has diffuse bilateral pulmonary infiltrates and this was confirmed on a chest x-ray and a computed tomography scan of the chest. Inflammatory markers including the LDH down to 1620 and the CRP is down to 24. Her renal function is stable with a creatinine of 0.4. Her d-dimer is at 19. In terms of anticoagulation, the patient is currently on 45 mg subcu every 12 hours. Her chest x-ray from today is showing stable bilateral pulmonary infiltrates. The is essentially stable and unchanged compared to yesterday. She is still requiring high flow oxygen and her current pulse ox is around 92%. I like her to sleep in different body positions. Prone positioning is obviously advised. On 05/10/2020, the patient is being seen in follow-up regarding her COVID 19 related pneumonia. The patient is still on high flow oxygen and the patient is on 60 L with an FiO2 of 90%. She is having difficulties with her breathing. She would desaturate very easily with minimal amount of activity. Her inflammatory markers remain quite elevated including the LDH of 1711 and her CRP is down to 9.6. Her d-dimer today is still elevated at 15.1 although it's slightly downtrending. In terms of therapy, the patient remains on IV Solu Medrol 60 mg every 6 hours. The patient is also on Lovenox 45 mg subcutaneous every 12 hours. The patient is on high flexion 90 L and her FiO2 was slightly weaned down to 85%. Note that the patient desaturated this morning and she was down in the 70s. We had to prone or and with prone positioning, her oxidation is improved and her current pulse ox up to the 90-91%. No chest x-ray from today. Inflammatory markers were noted. She is tolerating some diet and she is not fully meeting her caloric requirements Patient was reevaluated today on 05/11/2020, we are seeing the patient for her acute presentation of covid 19 pneumonia.patient remains on high FiO2, she is on 60 L flow v and 70% FiO2 viaia airvo, surprisingly the patient seems to be in no distress, and she seems to be comfortable. She tells me that she is feeling better today compared to how she felt upon admission.CBC today is relatively normal electrolytes are normal renal profile is normal LDH is 2017. C-reactive protein is less than 5.chest x-ray continues to show bilateral airspace infiltrates throughout both lungs compatible with Covid 19 pneumonia. Patient was reevaluated today on 05/12/2020, remains on high flow oxygen with high FiO2 of 70%, and 60 L/m flow. Patient seems to be very comfortable, she tells me that she is feeling better compared to how she felt on admission. WBC count is 7.4 hemoglobin is 13.3 electrolytes are normal. Basic metabolic profile is normal LDH is trending down and bit to 1955 and C-reactive protein is 5. Reevaluated today on 05/13/2020, patient remains on high flow oxygen, she is on 85% FiO2 and 60 L/m flow with O2 saturation of 90% at best. Surprisingly the patient continues to do well, she is very comfortable, in no distress. WBC count is 7.4 hemoglobin is normal electrolytes are normal renal profile is normal inflammatory markers are trending down however her last LDH was 1954 remains relatively high. Patient was reevaluated today on 05/14/2020, remains on high flow oxygen she is presently on 90% FiO2 and 60 L high flow. Recommended probing the patient, and she is trying to go into prone position, patient remains extremely marginal at best. ABC is relatively normal lites are normal renal profile is normal d-dimer is elevated at 30.84. This is the highest d-dimer I have seen since her a dmission. Patient is maintained on Lovenox at 45 mg subcu twice a day. I would likely recommend a CT angiogram of this patient as she may be a great set up for acute pulmonary embolism considering her elevated d-dimer and considering her Covid 19 infection and seems to be very slow to respond. Reevaluated today on 05/15/2020, patient is feeling much better today. Breathing a lot easier. And her saturations are improving. Yesterday when I saw the patient and I was concerned about her elevated d-dimer, she could not go down for a CT angiogram of the chest, hence I recommended bilateral venous Doppler, and a Doppler was positive for bilateral deep vein thrombosis. Hence I recommended that the patient goes on heparin and discontinued her subcu Lovenox. I am certain that the patient had acute pulmonary embolism along with DVT based on her symptoms yesterday although she does have underlying Covid 19 pneumonia. Today the patient is resting more comfortably, she is on Airvo, with flow rate of 60 and FiO2 of 90%, her O2 saturation is in the low 90s. Less shortness of breath according to the patient, and she clearly tells me that today is much better today for her than yesterday. CBC is relatively normal hemoglobin is 14.7. Platelets are a bit low hence I will discontinue heparin tomorrow and start the patient on Xarelto. Her PTT is 74.5. Electrolites are normal renal profile is normal. Down the line and may even consider a CT angiogram of the chest to document thromboembolic disease/pulmonary embolism. Reevaluated today on 05/16/2020, patient remains about the same. Still requiring significantly high FiO2. Patient is on a nonrebreather mask and airvo, O2 saturation is 88-90% she is on 90% FiO2 and 60 L high flow. Plus a nonrebreather mask. Surprisingly the patient tells me that she is doing okay not as symptomatic as expected considering that her O2 saturation is marginal. Yesterday, the patient was transitioned to Xarelto and she is taking the Xarelto as directed. CBC today is relatively normal hemoglobin is 14.7 platelet are 89,000. Electrolytes are normal renal profile is normal The patient is seen today 04/16/2020 in follow-up on the regular selective care unit. She is doing better today compared to yesterday. Less cough and congestion. Still requiring careful high flow oxygen at 60 L and 90% FiO2 to maintain O2 saturations in the low 90s. She is feeling a bit stronger. Chest x-ray continues to show interstitial airspace disease and mild edema slightly improved compared to previous. Blood glucose 133. She remains on IV Solu-Medrol, vitamin supplements. Anticoagulated with Xarelto. Progress note dated 05/18/2020. This is a 60-year-old female admitted with a diagnosis of acute hypoxemic respiratory failure secondary to COVID 19 pneumonia. The patient did receive TOCI. In addition, the patient has benign essential hypertension, deep venous thrombosis and possible pulmonary embolism, hypertension, chronic nicotine addiction, uterine and cervical cancer, status post hysterectomy, and hypovolemic hyponatremia. Currently, the patient is on AIRVO, at 60 L/m with an FiO2 of 80%. White count 12.5, hemoglobin 13.9, hematocrit 41.6, platelet count 80,000. Id. at 8.39. Sodium 135, potassium 4.5, chlorides 102, CO2 32, anion gap is 1, BUN is 20, creatinine 0.56. LDH is 1855. Chest x-ray shows diffuse interstitial and airspace disease. On 05 19 2020 patient seen in follow-up on selective care unit. Remains on Airvo, 60 L and FiO2 of 80%, her pulse ox is 85-93%. She is awake and alert, she states she is breathing somewhat better, still requiring high flow oxygen, and she easily desaturates with minimal exertion, still reports fatigue, but no fever or chills. No chest discomfort. This is stable, no fever or chills, no new chest x-ray, patient is status post Tocilizumab, and she continues on high- dose IV Solu-Medrol 60 mg every 6 hours, remains on oral Xarelto. No nausea vomiting diarrhea. Yesterday's labs revealed improving d-dimer and inflammatory markers. The patient is seen today 05/20/2020 in follow-up on the selective care unit. She is currently resting fairly comfortably in bed. Awake and alert in no acute distress. She had been up in the chair today for quite some time. She is still requiring AirVo high flow oxygen at 60 L and 80% FiO2 to maintain O2 saturations 90-92%. 0.9 normal saline at 50 MLS per hour. She is anticoagulated with Xarelto. Chest x-ray continues to show bilateral infiltrates. D-dimer 6.46. LDH 1966. C-reactive protein 5.9. She remains on IV Solu-Medrol, Xarelto, vitamin supplements. The patient is seen today 05/21/2020 selective care unit. She is currently sitting up in a chair at the bedside. Awake and alert in no acute distress. She is feeling a bit better today compared to yesterday. Still desaturates and gets quite short of breath with minimal exertion. She was found to have bilateral lower extremity DVTs. She is now on Xarelto. She is continued on AirVo high flow oxygen at 60 L/m and 70% FiO2 to maintain O2 saturations in the high 80s low 90s. Sodium 134. Potassium 4.1. Creatinine 0.42. She remains on IV Solu-Medrol, vitamin supplements. The patient is seen today 05/22/2020 follow-up on the selective care unit. She is currently sitting up in a chair at the bedside. Awake and alert in no acute distress. She is currently on airflow high flow oxygen at 60 L/m and down to 65% FiO2. 0.9 normal saline at 60 ML's per hour. She is feeling better today for the first time in quite some time she states. Feels like she is turning the corner. Feeling stronger. Less dyspnea on minimal exertion. White count 9.1. Hemoglobin 13.9. Sodium 133. Potassium 5.0. Creatinine 0.28. LDH 2243. C- reactive protein 7.2. Remains on vitamin supplements, IV site Medrol, Xarelto. Objective - Vital Signs Vital signs: Vital Signs Temp 98.0 F 05/22/20 16:00 Pulse 72 05/22/20 16:00 Resp 20 05/22/20 16:00 BP 138/81 05/22/20 16:00 Pulse Ox 92 L 05/22/20 16:00 Intake & Output 05/21/20 05/22/20 05/22/20 18:59 06:59 18:59 Intake Total 787 480 Output Total 2200 400 Balance 787 -2200 80 Weight 90.5 kg Intake: Intake, IV Titration 200 Amount Sodium Chloride 0.9% 1, 200 000 ml @ 50 mls/hr IV . Q20H [facility] Rx#:[id number] Oral 587 480 Output: Urine 2200 400 Other: Voiding Method Indwelling Catheter Indwelling Catheter Bedside Commode - Exam GENERAL EXAM: Alert, very pleasant 60-year-old female patient, on AirVo high flow oxygen at 60 L and 65% FiO2, comfortable in no apparent distress. HEAD: Normocephalic. EYES: Normal reaction of pupils, equal size. NOSE: Clear with pink turbinates. THROAT: No erythema or exudates. NECK: No masses, no JVD. CHEST: No chest wall deformity. LUNGS: Equal air entry with crackles in the bilateral posterior bases CVS: S1 and S2 normal with no audible murmur, regular rhythm. ABDOMEN: No hepatosplenomegaly, normal bowel sounds, no guarding or rigidity. SPINE: No scoliosis or deformity SKIN: No rashes CENTRAL NERVOUS SYSTEM: No focal deficits, tone is normal in all 4 extremities. EXTREMITIES: There is no peripheral edema. No clubbing, no cyanosis. Peripheral pulses are intact. - Labs CBC & Chem 7: 05/22/20 06:33 05/22/20 06:33 Labs: Abnormal Lab Results - Last 24 Hours (Table) 05/21/20 05/21/20 05/22/20 Range/Units 16:56 21:03 06:33 Plt Count 109 L (150-450) k/uL Neutrophils # 8.1 H (1.3-7.7) k/uL Lymphocytes # 0.2 L (1.0-4.8) k/uL Sodium (137-145) mmol/L BUN (7-17) mg/dL Creatinine (0.52-1.04) mg/dL Glucose (74-99) mg/dL POC Glucose (mg/dL) 208 H 189 H (75-99) mg/dL Lactate Dehydrogenase (313-618) U/L 05/22/20 05/22/20 05/22/20 Range/Units 06:33 06:36 11:36 Plt Count (150-450) k/uL Neutrophils # (1.3-7.7) k/uL Lymphocytes # (1.0-4.8) k/uL Sodium 133 L (137-145) mmol/L BUN 18 H (7-17) mg/dL Creatinine 0.28 L (0.52-1.04) mg/dL Glucose 166 H (74-99) mg/dL POC Glucose (mg/dL) 169 H 170 H (75-99) mg/dL Lactate Dehydrogenase 2243 H (313-618) U/L Assessment and Plan Assessment: 1 Acute hypoxic respiratory failure secondary to Covid 19 pneumonia. requiring AirVo 60 L/m and 65% FiO2. Received Tocilizumab. 2 Bilateral lower extremity DVTs, transitioned from heparin drip to Xarelto 3 Benign essential hypertension. 4 Bilateral deep vein thromboses and strongly suspect that the patient has acute pulmonary embolism. 5 Borderline hypertension currently not on any medications at home. 6 Ongoing nicotine addiction 7 History of uterine and cervical cancer status post hysterectomy 10 years ago Plan: The patient was seen and evaluated by Dr. Ivy Anticoagulated with Xarelto Increase her activity as tolerated Titrate down the FiO2 as tolerated Continue IV Solu-Medrol, vitamin supplements. We will continue to follow I, the cosigning physician, performed a history & physical examination of the patient. Lungs sounds with crackles in the bilateral posterior bases. Maintaining O2 saturations in the 90s on 60 L and 65% FiO2 per AirVo high flow oxygen. I discussed the assessment and plan of care with my nurse practitioner, Rose Burks. I attest to the above note as dictated by her.
[2020-05-22 16:50] LABS: Glucose,Whole Blood 219 mg/dL (75-99)
[2020-05-22 20:32] LABS: Glucose,Whole Blood 261 mg/dL (75-99)
--- NOTE | 2020-05-22 20:43 | P.PN ---
Subjective This is a pleasant 60 years old female with no significant past medical history presents with respiratory signs and symptoms secondary to bilateral Covid pneumonia and acute hypoxic respiratory failure found to have bilateral DVT and pulmonary embolism was also suspected, with pulmonary team on the case. He still feeling short of breath with some coughing, patient does not want into to see if actually she wants to bring stuff up. She denies abdominal pain, no abdominal pain or diarrhea. Patient still on some Medrol 60 mg and her heparin drip is as wished to Xarelto today also she is on normal sling at 50 mL per hour, continue with vitamin C, vitamin D and zinc. Patient is status post tocilizumab. 05/22/2020 Patient still on high flow and are dose of oxygen although she feels better than yesterday she is still complaining from dyspnea, and her actually her oxygen requirement increases slightly from 60 up to 65 L/m today. Other than that she is hemodynamically stable and afebrile. WBC came back to normal from 11 down to 9, LDH increased to slightly higher level at 2243 while C-reactive protein increased to 7.2 but is still within normal limits. Patient remains on Solu-Medrol 60 mg, Xarelto 15 mg twice daily which was a started yesterday. She remains on multiple vitamin cocktail for Covid and gentle hydration with normal saline at 50 mL per hour Review of systems CONSTITUTIONAL: No fever, no malaise, no fatigue. HEENT: No recent visual problems or hearing problems. Denied any sore throat. CARDIOVASCULAR: No orthopnea, PND, no palpitations, no syncope. PULMONARY: No shortness of breath, no cough, no hemoptysis. GASTROINTESTINAL: No diarrhea, no nausea, no vomiting, no abdominal pain. Normoactive bowel sounds. NEUROLOGICAL: No headaches, no weakness, no numbness. Active Medications Generic Name Dose Route Start Last Admin Trade Name Freq PRN Reason Stop Dose Admin Acetaminophen 650 mg 05/07/20 03:18 Acetaminophen Tab 325 Mg Tab PO Q6HR PRN Mild Pain or Fever > 100.5 Hydrocodone Bitart/Acetaminophen 1 each 05/12/20 14:51 Hydrocodone/Apap 5-325mg 1 Each Tab PO Q6HR PRN Pain Ascorbic Acid 500 mg 05/07/20 09:00 05/22/20 08:54 Ascorbic Acid 500 Mg Tab PO 500 mg DAILY MICAH Administration Cholecalciferol 25 mcg 05/07/20 10:00 05/22/20 08:54 Cholecalciferol 25 Mcg (1000 Iu) Tablet PO 25 mcg DAILY MICAH Administration Famotidine 20 mg 05/07/20 21:00 05/22/20 20:18 Famotidine 20 Mg Tab PO 20 mg BID MICAH Administration Folic Acid 1 mg 05/13/20 12:00 05/22/20 12:09 Folic Acid 1 Mg Tab PO 1 mg DAILY@1200 MICAH Administration Sodium Chloride 1,000 mls @ 50 mls/hr 05/15/20 09:30 05/21/20 23:11 Saline 0.9% IV 50 mls/hr .Q20H MICAH Administration Insulin Aspart 0 unit 05/08/20 21:00 05/22/20 20:18 Insulin Aspart (Novolog) 100 Unit/Ml Vial SQ 4 unit ACHS [facility] Administration Protocol Methylprednisolone Sodium Succinate 60 mg 05/08/20 18:00 05/22/20 17:17 Methylprednisolone Sod Succi 125 Mg/2 Ml Vial IV 60 mg Q6HR MICAH Administration Multivitamins 1 each 05/13/20 12:00 05/22/20 12:09 Multivitamins, Thera 1 Each Tab PO 1 each DAILY@1200 MICAH Administration Naloxone HCl 0.2 mg 05/07/20 03:18 Naloxone 0.4 Mg/Ml 1 Ml Vial IV Q2M PRN Opioid Reversal Ondansetron HCl 4 mg 05/07/20 03:18 Ondansetron 4 Mg/2 Ml Vial IVP Q8HR PRN Nausea And Vomiting Pantoprazole Sodium 40 mg 05/22/20 07:30 05/22/20 06:44 Pantoprazole 40 Mg Tablet PO 40 mg [id number] MICAH Administration Rivaroxaban 15 mg 05/21/20 09:00 05/22/20 17:17 Rivaroxaban 15 Mg Tab PO 15 mg BID-W/MEALS MICAH Administration Thiamine HCl 100 mg 05/13/20 12:00 05/22/20 12:09 Thiamine 100 Mg Tab PO 100 mg DAILY@1200 MICAH Administration Zinc Sulfate 220 mg 05/07/20 09:00 05/22/20 08:54 Zinc Sulfate 220 Mg Cap PO 220 mg DAILY MICAH Administration Objective - Vital Signs Vital signs: Vital Signs Temp 98.0 F 05/22/20 12:00 Pulse 76 05/22/20 13:37 Resp 22 05/22/20 13:37 BP 142/76 05/22/20 12:00 Pulse Ox 94 L 05/22/20 12:00 Intake & Output 05/21/20 05/22/20 05/22/20 18:59 06:59 18:59 Intake Total 787 480 Output Total 2200 400 Balance 787 -2200 80 Weight 90.5 kg Intake: Intake, IV Titration 200 Amount Sodium Chloride 0.9% 1, 200 000 ml @ 50 mls/hr IV . Q20H [facility] Rx#:[id number] Oral 587 480 Output: Urine 2200 400 Other: Voiding Method Indwelling Catheter Indwelling Catheter Bedside Commode - Exam GENERAL: The patient is alert and oriented x3, not in any acute distress. Well developed, well nourished. HEENT: Pupils are round and equally reacting to light. EOMI. No scleral icterus. No conjunctival pallor. Normocephalic, atraumatic. No pharyngeal erythema. No thyromegaly. CARDIOVASCULAR: S1 and S2 present. No murmurs, rubs, or gallops. -PULMONARY: Chest is clear to auscultation, no wheezing . Bilateral crepitation ABDOMEN: Soft, nontender, nondistended, normoactive bowel sounds. No palpable organomegaly. MUSCULOSKELETAL: No joint swelling or deformity. EXTREMITIES: No cyanosis, clubbing, or pedal edema. NEUROLOGICAL: Gross neurological examination did not reveal any focal deficits. SKIN: No rashes. no petechiae. - Labs CBC & Chem 7: 05/22/20 06:33 05/22/20 06:33 Labs: Abnormal Lab Results - Last 24 Hours (Table) 05/21/20 05/21/20 05/22/20 Range/Units 16:56 21:03 06:33 Plt Count 109 L (150-450) k/uL Neutrophils # 8.1 H (1.3-7.7) k/uL Lymphocytes # 0.2 L (1.0-4.8) k/uL Sodium (137-145) mmol/L BUN (7-17) mg/dL Creatinine (0.52-1.04) mg/dL Glucose (74-99) mg/dL POC Glucose (mg/dL) 208 H 189 H (75-99) mg/dL Lactate Dehydrogenase (313-618) U/L 05/22/20 05/22/20 05/22/20 Range/Units 06:33 06:36 11:36 Plt Count (150-450) k/uL Neutrophils # (1.3-7.7) k/uL Lymphocytes # (1.0-4.8) k/uL Sodium 133 L (137-145) mmol/L BUN 18 H (7-17) mg/dL Creatinine 0.28 L (0.52-1.04) mg/dL Glucose 166 H (74-99) mg/dL POC Glucose (mg/dL) 169 H 170 H (75-99) mg/dL Lactate Dehydrogenase 2243 H (313-618) U/L Assessment and Plan Assessment: Bilateral: Pneumonia Bilateral DVT and possible pulmonary embolism Acute hypoxic respiratory failure secondary to above Increased inflammatory markers Plan: This is a pleasant 60 years old female presents with cough with pneumonia and DVT. Continue with anticoagulation with xarelto, continue with steroids and gentle hydration. Continue with vitamin C, vitamin D and zinc. Pulmonary team R following the case closely. Monitor her inflammatory markers Labs and medication were reviewed.. Continue same treatment. Continue with symptomatic treatment. Resume home medication. Monitor lytes and vitals. DVT and GI prophylaxis. Further recommendationsas per clinical course of the patient DVT prophylaxis: Xarelto GI Prophylaxis: Ppi PT/OT: Pending Prognosis is guarded
[2020-05-23] MEDS: methylPREDNISolone SOD SUCCI 125 MG/2 ML VIAL IV SCH ×5 (00:07→23:50)
[2020-05-23 06:14] LABS: Glucose,Whole Blood 127 mg/dL (75-99)
[2020-05-23] MEDS: PANTOPRAZOLE 40 MG TABLET PO SCH (06:22)
[2020-05-23] MEDS: RIVAROXABAN 15 MG TAB PO SCH ×2 (06:22→18:14)
[2020-05-23] MEDS: INSULIN ASPART (NovoLOG) 100 UNIT/ML VIAL SQ SCH ×4 (06:23→20:05)
[2020-05-23] MEDS: SODIUM CHLORIDE 0.9% 1,000 ML IV SCH (07:08)
[2020-05-23] MEDS: ASCORBIC ACID 500 MG TAB PO SCH (09:19)
[2020-05-23] MEDS: CHOLECALCIFEROL 25 MCG (1000 IU) TABLET PO SCH (09:19)
[2020-05-23] MEDS: FAMOTIDINE 20 MG TAB PO SCH ×2 (09:19→20:01)
[2020-05-23] MEDS: ZINC SULFATE 220 MG CAP PO SCH (09:19)
[2020-05-23] MEDS: HYDROcodone/APAP 5-325MG 1 EACH TAB PO PRN ×2 (10:45→20:02)
[2020-05-23 11:56] LABS: Glucose,Whole Blood 147 mg/dL (75-99)
[2020-05-23] MEDS: FOLIC ACID 1 MG TAB PO SCH (13:16)
[2020-05-23] MEDS: THIAMINE 100 MG TAB PO SCH (13:16)
[2020-05-23] MEDS: MULTIVITAMINS, THERA 1 EACH TAB PO SCH (13:16)
--- NOTE | 2020-05-23 14:37 | P.PN ---
Subjective This is a pleasant 60 years old female with no significant past medical history presents with respiratory signs and symptoms secondary to bilateral Covid pneumonia and acute hypoxic respiratory failure found to have bilateral DVT and pulmonary embolism was also suspected, with pulmonary team on the case. He still feeling short of breath with some coughing, patient does not want into to see if actually she wants to bring stuff up. She denies abdominal pain, no abdominal pain or diarrhea. Patient still on some Medrol 60 mg and her heparin drip is as wished to Xarelto today also she is on normal sling at 50 mL per hour, continue with vitamin C, vitamin D and zinc. Patient is status post tocilizumab. 05/22/2020 Patient still on high flow and are dose of oxygen although she feels better than yesterday she is still complaining from dyspnea, and her actually her oxygen requirement increases slightly from 60 up to 65 L/m today. Other than that she is hemodynamically stable and afebrile. WBC came back to normal from 11 down to 9, LDH increased to slightly higher level at 2243 while C-reactive protein increased to 7.2 but is still within normal limits. Patient remains on Solu-Medrol 60 mg, Xarelto 15 mg twice daily which was a started yesterday. She remains on multiple vitamin cocktail for Covid and gentle hydration with normal saline at 50 mL per hour 05/23/2020 Patient is with some tachypnea, she still have coughing but she does not want any medicine for that as she wants to bring stuff up. No pain. She still needs 65 L of oxygen via nasal cannula. No change in her medication, she remains on Solu-Medrol 60 mg, Xarelto, multiple vitamins and bronchodilator Review of systems CONSTITUTIONAL: No fever, no malaise, no fatigue. HEENT: No recent visual problems or hearing problems. Denied any sore throat. CARDIOVASCULAR: No orthopnea, PND, no palpitations, no syncope. PULMONARY: No shortness of breath, no cough, no hemoptysis. GASTROINTESTINAL: No diarrhea, no nausea, no vomiting, no abdominal pain. Normoactive bowel sounds. NEUROLOGICAL: No headaches, no weakness, no numbness. Active Medications Generic Name Dose Route Start Last Admin Trade Name Freq PRN Reason Stop Dose Admin Acetaminophen 650 mg 05/07/20 03:18 Acetaminophen Tab 325 Mg Tab PO Q6HR PRN Mild Pain or Fever > 100.5 Hydrocodone Bitart/Acetaminophen 1 each 05/12/20 14:51 05/23/20 10:45 Hydrocodone/Apap 5-325mg 1 Each Tab PO 1 each Q6HR PRN Administration Pain Ascorbic Acid 500 mg 05/07/20 09:00 05/23/20 09:19 Ascorbic Acid 500 Mg Tab PO 500 mg DAILY MICAH Administration Cholecalciferol 25 mcg 05/07/20 10:00 05/23/20 09:19 Cholecalciferol 25 Mcg (1000 Iu) Tablet PO 25 mcg DAILY MICAH Administration Famotidine 20 mg 05/07/20 21:00 05/23/20 09:19 Famotidine 20 Mg Tab PO 20 mg BID MICAH Administration Folic Acid 1 mg 05/13/20 12:00 05/23/20 13:16 Folic Acid 1 Mg Tab PO 1 mg DAILY@1200 MICAH Administration Insulin Aspart 0 unit 05/08/20 21:00 05/23/20 13:16 Insulin Aspart (Novolog) 100 Unit/Ml Vial SQ 1 unit ACHS MICAH Administration Protocol Methylprednisolone Sodium Succinate 60 mg 05/08/20 18:00 05/23/20 13:18 Methylprednisolone Sod Succi 125 Mg/2 Ml Vial IV 60 mg Q6HR MICAH Administration Multivitamins 1 each 05/13/20 12:00 05/23/20 13:16 Multivitamins, Thera 1 Each Tab PO 1 each DAILY@1200 MICAH Administration Naloxone HCl 0.2 mg 05/07/20 03:18 Naloxone 0.4 Mg/Ml 1 Ml Vial IV Q2M PRN Opioid Reversal Ondansetron HCl 4 mg 05/07/20 03:18 Ondansetron 4 Mg/2 Ml Vial IVP Q8HR PRN Nausea And Vomiting Pantoprazole Sodium 40 mg 05/22/20 07:30 05/23/20 06:22 Pantoprazole 40 Mg Tablet PO 40 mg [id number] MICAH Administration Rivaroxaban 15 mg 05/21/20 09:00 05/23/20 06:22 Rivaroxaban 15 Mg Tab PO 15 mg BID-W/MEALS MICAH Administration Thiamine HCl 100 mg 05/13/20 12:00 05/23/20 13:16 Thiamine 100 Mg Tab PO 100 mg DAILY@1200 [facility] Administration Zinc Sulfate 220 mg 05/07/20 09:00 05/23/20 09:19 Zinc Sulfate 220 Mg Cap PO 220 mg DAILY MICAH Administration Objective - Vital Signs Vital signs: Vital Signs Temp 98.0 F 05/23/20 08:00 Pulse 90 05/23/20 08:00 Resp 18 05/23/20 04:00 BP 104/62 05/23/20 08:00 Pulse Ox 91 L 05/23/20 13:54 Intake & Output 05/22/20 05/23/20 05/23/20 18:59 06:59 18:59 Intake Total 720 1250 240 Output Total 2150 1150 Balance -1430 100 240 Weight 88 kg Intake: Intake, IV Titration 600 Amount Sodium Chloride 0.9% 1, 600 000 ml @ 50 mls/hr IV . Q20H MICAH Rx#:[id number] Oral 720 650 240 Output: Urine 2150 1150 Other: Voiding Method Bedside Commode Bedside Commode Bedside Commode # Voids 1 # Bowel Movements 1 - Exam GENERAL: The patient is alert and oriented x3, not in any acute distress. Well developed, well nourished. HEENT: Pupils are round and equally reacting to light. EOMI. No scleral icterus. No conjunctival pallor. Normocephalic, atraumatic. No pharyngeal erythema. No thyromegaly. CARDIOVASCULAR: S1 and S2 present. No murmurs, rubs, or gallops. -PULMONARY: Chest is clear to auscultation, no wheezing . Bilateral crepitation ABDOMEN: Soft, nontender, nondistended, normoactive bowel sounds. No palpable organomegaly. MUSCULOSKELETAL: No joint swelling or deformity. EXTREMITIES: No cyanosis, clubbing, or pedal edema. NEUROLOGICAL: Gross neurological examination did not reveal any focal deficits. SKIN: No rashes. no petechiae. - Labs CBC & Chem 7: 05/22/20 06:33 05/22/20 06:33 Labs: Abnormal Lab Results - Last 24 Hours (Table) 05/22/20 05/22/20 05/23/20 Range/Units 16:47 20:12 06:13 POC Glucose (mg/dL) 219 H 261 H 127 H (75-99) mg/dL 05/23/20 Range/Units 11:50 POC Glucose (mg/dL) 147 H (75-99) mg/dL Assessment and Plan Assessment: Bilateral: Pneumonia Bilateral DVT and possible pulmonary embolism Acute hypoxic respiratory failure secondary to above Increased inflammatory markers Plan: This is a pleasant 60 years old female presents with cough with pneumonia and DVT. Continue with anticoagulation with xarelto, continue with steroids and gentle hydration. Continue with vitamin C, vitamin D and zinc. Pulmonary team R following the case closely. Monitor her inflammatory markers Labs and medication were reviewed.. Continue same treatment. Continue with symptomatic treatment. Resume home medication. Monitor lytes and vitals. DVT and GI prophylaxis. Further recommendationsas per clinical course of the patient DVT prophylaxis: Xarelto GI Prophylaxis: Ppi PT/OT: Pending Prognosis is guarded
--- NOTE | 2020-05-23 15:44 | P.PN ---
Subjective Progress Note Date: 05/23/20 Principal diagnosis: Acute hypoxic respiratory failure secondary to acute cocaine 19 pneumonia/pneumonitis 60-year-old white female patient of Dr. Bacon with no significant medical history other than history of uterine and cervical cancer status post total hysterectomy 10 years ago, kyphoscoliosis with history of back surgery, and borderline hypertension for which the patient takes no medications, who presented to the emergency department 05-07-2020 by EMS for evaluation of worsening shortness of breath. Patient states that onset of symptoms was 2 weeks ago and started with runny nose and a sore throat, gradually her symptoms have progressed, and patient started having fevers, worsening shortness of breath and cough. She tested positive for COVID 19 a week ago on 04/29/2020 on an outpatient basis however she did not seek any medical treatment up until now. She reports some decreased oral intake, nausea, but no abdominal pain or diarrhea. Admits to smoking cigarettes, however reports no chronic lung condition. Patient denies receiving any vaccination for COVID 19. CTA chest showed no evidence of pulmonary embolism, but demonstrated moderate to severe scattered groundglass opacities, showed a positive COVID 19 PCR test, d-dimer was elevated at 3.79, and significant elevated inflammatory markers with LDH thousand 942, and CRP of 78.3. Patient is a requiring high flow oxygen per Airvo at 50 L and FiO2 of 75%, her pulse ox is 88-92%, she is having low grade fevers, but hemodynamically stable. Added on Decadron, prophylactic dose of Lovenox, and we were asked to see the patient in consultation. On today's evaluation, the patient is being seen for follow-up regarding her Covid associated pneumonia. The patient presented with significant hypoxemic respiratory failure with bilateral pulmonary infiltrates and consolidations perihilar and extending to the peripheries. The patient remains on high flow oxygen and she is currently on 6 L with an FiO2 of 90%. No new labs from today. Her d-dimer from yesterday was 3.7. LDH level was also elevated at 942 with a CRP of 78.3. She remains on Solu-Medrol 60 mg IV every 24 hours. On today's evaluation of 05/09/2020 the patient remains on 60 L of oxygen with an FiO2 of 90%. There is essentially the same setting of high flow oxygen that the patient was on since yesterday. No much of an improvement at this point in time. She remains on treatment and she is taking Solu-Medrol 60 mg IV push every 6 hours. Note that the patient has diffuse bilateral pulmonary infiltrates and this was confirmed on a chest x-ray and a computed tomography scan of the chest. Inflammatory markers including the LDH down to 1620 and the CRP is down to 24. Her renal function is stable with a creatinine of 0.4. Her d-dimer is at 19. In terms of anticoagulation, the patient is currently on 45 mg subcu every 12 hours. Her chest x-ray from today is showing stable bilateral pulmonary infiltrates. The is essentially stable and unchanged compared to yesterday. She is still requiring high flow oxygen and her current pulse ox is around 92%. I like her to sleep in different body positions. Prone positioning is obviously advised. On 05/10/2020, the patient is being seen in follow-up regarding her COVID 19 related pneumonia. The patient is still on high flow oxygen and the patient is on 60 L with an FiO2 of 90%. She is having difficulties with her breathing. She would desaturate very easily with minimal amount of activity. Her inflammatory markers remain quite elevated including the LDH of 1711 and her CRP is down to 9.6. Her d-dimer today is still elevated at 15.1 although it's slightly downtrending. In terms of therapy, the patient remains on IV Solu Medrol 60 mg every 6 hours. The patient is also on Lovenox 45 mg subcutaneous every 12 hours. The patient is on high flexion 90 L and her FiO2 was slightly weaned down to 85%. Note that the patient desaturated this morning and she was down in the 70s. We had to prone or and with prone positioning, her oxidation is improved and her current pulse ox up to the 90-91%. No chest x-ray from today. Inflammatory markers were noted. She is tolerating some diet and she is not fully meeting her caloric requirements Patient was reevaluated today on 05/11/2020, we are seeing the patient for her acute presentation of covid 19 pneumonia.patient remains on high FiO2, she is on 60 L flow v and 70% FiO2 viaia airvo, surprisingly the patient seems to be in no distress, and she seems to be comfortable. She tells me that she is feeling better today compared to how she felt upon admission.CBC today is relatively normal electrolytes are normal renal profile is normal LDH is 2017. C-reactive protein is less than 5.chest x-ray continues to show bilateral airspace infiltrates throughout both lungs compatible with Covid 19 pneumonia. Patient was reevaluated today on 05/12/2020, remains on high flow oxygen with high FiO2 of 70%, and 60 L/m flow. Patient seems to be very comfortable, she tells me that she is feeling better compared to how she felt on admission. WBC count is 7.4 hemoglobin is 13.3 electrolytes are normal. Basic metabolic profile is normal LDH is trending down and bit to 1955 and C-reactive protein is 5. Reevaluated today on 05/13/2020, patient remains on high flow oxygen, she is on 85% FiO2 and 60 L/m flow with O2 saturation of 90% at best. Surprisingly the patient continues to do well, she is very comfortable, in no distress. WBC count is 7.4 hemoglobin is normal electrolytes are normal renal profile is normal inflammatory markers are trending down however her last LDH was 1954 remains relatively high. Patient was reevaluated today on 05/14/2020, remains on high flow oxygen she is presently on 90% FiO2 and 60 L high flow. Recommended probing the patient, and she is trying to go into prone position, patient remains extremely marginal at best. ABC is relatively normal lites are normal renal profile is normal d-dimer is elevated at 30.84. This is the highest d-dimer I have seen since her a dmission. Patient is maintained on Lovenox at 45 mg subcu twice a day. I would likely recommend a CT angiogram of this patient as she may be a great set up for acute pulmonary embolism considering her elevated d-dimer and considering her Covid 19 infection and seems to be very slow to respond. Reevaluated today on 05/15/2020, patient is feeling much better today. Breathing a lot easier. And her saturations are improving. Yesterday when I saw the patient and I was concerned about her elevated d-dimer, she could not go down for a CT angiogram of the chest, hence I recommended bilateral venous Doppler, and a Doppler was positive for bilateral deep vein thrombosis. Hence I recommended that the patient goes on heparin and discontinued her subcu Lovenox. I am certain that the patient had acute pulmonary embolism along with DVT based on her symptoms yesterday although she does have underlying Covid 19 pneumonia. Today the patient is resting more comfortably, she is on Airvo, with flow rate of 60 and FiO2 of 90%, her O2 saturation is in the low 90s. Less shortness of breath according to the patient, and she clearly tells me that today is much better today for her than yesterday. CBC is relatively normal hemoglobin is 14.7. Platelets are a bit low hence I will discontinue heparin tomorrow and start the patient on Xarelto. Her PTT is 74.5. Electrolites are normal renal profile is normal. Down the line and may even consider a CT angiogram of the chest to document thromboembolic disease/pulmonary embolism. Reevaluated today on 05/16/2020, patient remains about the same. Still requiring significantly high FiO2. Patient is on a nonrebreather mask and airvo, O2 saturation is 88-90% she is on 90% FiO2 and 60 L high flow. Plus a nonrebreather mask. Surprisingly the patient tells me that she is doing okay not as symptomatic as expected considering that her O2 saturation is marginal. Yesterday, the patient was transitioned to Xarelto and she is taking the Xarelto as directed. CBC today is relatively normal hemoglobin is 14.7 platelet are 89,000. Electrolytes are normal renal profile is normal The patient is seen today 04/16/2020 in follow-up on the regular selective care unit. She is doing better today compared to yesterday. Less cough and congestion. Still requiring careful high flow oxygen at 60 L and 90% FiO2 to maintain O2 saturations in the low 90s. She is feeling a bit stronger. Chest x-ray continues to show interstitial airspace disease and mild edema slightly improved compared to previous. Blood glucose 133. She remains on IV Solu-Medrol, vitamin supplements. Anticoagulated with Xarelto. Progress note dated 05/18/2020. This is a 60-year-old female admitted with a diagnosis of acute hypoxemic respiratory failure secondary to COVID 19 pneumonia. The patient did receive TOCI. In addition, the patient has benign essential hypertension, deep venous thrombosis and possible pulmonary embolism, hypertension, chronic nicotine addiction, uterine and cervical cancer, status post hysterectomy, and hypovolemic hyponatremia. Currently, the patient is on AIRVO, at 60 L/m with an FiO2 of 80%. White count 12.5, hemoglobin 13.9, hematocrit 41.6, platelet count 80,000. Id. at 8.39. Sodium 135, potassium 4.5, chlorides 102, CO2 32, anion gap is 1, BUN is 20, creatinine 0.56. LDH is 1855. Chest x-ray shows diffuse interstitial and airspace disease. On 05 19 2020 patient seen in follow-up on selective care unit. Remains on Airvo, 60 L and FiO2 of 80%, her pulse ox is 85-93%. She is awake and alert, she states she is breathing somewhat better, still requiring high flow oxygen, and she easily desaturates with minimal exertion, still reports fatigue, but no fever or chills. No chest discomfort. This is stable, no fever or chills, no new chest x-ray, patient is status post Tocilizumab, and she continues on high- dose IV Solu-Medrol 60 mg every 6 hours, remains on oral Xarelto. No nausea vomiting diarrhea. Yesterday's labs revealed improving d-dimer and inflammatory markers. The patient is seen today 05/20/2020 in follow-up on the selective care unit. She is currently resting fairly comfortably in bed. Awake and alert in no acute distress. She had been up in the chair today for quite some time. She is still requiring AirVo high flow oxygen at 60 L and 80% FiO2 to maintain O2 saturations 90-92%. 0.9 normal saline at 50 MLS per hour. She is anticoagulated with Xarelto. Chest x-ray continues to show bilateral infiltrates. D-dimer 6.46. LDH 1966. C-reactive protein 5.9. She remains on IV Solu-Medrol, Xarelto, vitamin supplements. The patient is seen today 05/21/2020 selective care unit. She is currently sitting up in a chair at the bedside. Awake and alert in no acute distress. She is feeling a bit better today compared to yesterday. Still desaturates and gets quite short of breath with minimal exertion. She was found to have bilateral lower extremity DVTs. She is now on Xarelto. She is continued on AirVo high flow oxygen at 60 L/m and 70% FiO2 to maintain O2 saturations in the high 80s low 90s. Sodium 134. Potassium 4.1. Creatinine 0.42. She remains on IV Solu-Medrol, vitamin supplements. The patient is seen today 05/22/2020 follow-up on the selective care unit. She is currently sitting up in a chair at the bedside. Awake and alert in no acute distress. She is currently on airflow high flow oxygen at 60 L/m and down to 65% FiO2. 0.9 normal saline at 60 ML's per hour. She is feeling better today for the first time in quite some time she states. Feels like she is turning the corner. Feeling stronger. Less dyspnea on minimal exertion. White count 9.1. Hemoglobin 13.9. Sodium 133. Potassium 5.0. Creatinine 0.28. LDH 2243. C- reactive protein 7.2. Remains on vitamin supplements, IV site Medrol, Xarelto. The patient is seen today 05/23/2020 follow-up on the selective care unit. She is currently sitting up in a chair at the bedside. Awake and alert in no acute distress. She is currently on AirVo high flow oxygen at 60 L and 63% FiO2. 0.9 normal saline at 20 ML's per hour. She is complaining of some right-sided chest discomfort. Continues with a loose nonproductive cough. Chest x-ray reveals improving bilateral patchy opacities. Blood cultures reveal no growth. Remains on vitamin supplements, IV site Medrol, Xarelto. Objective - Vital Signs Vital signs: Vital Signs Temp 98.0 F 05/23/20 08:00 Pulse 90 05/23/20 08:00 Resp 18 05/23/20 04:00 BP 104/62 05/23/20 08:00 Pulse Ox 91 L 05/23/20 13:54 Intake & Output 05/22/20 05/23/20 05/23/20 18:59 06:59 18:59 Intake Total 720 1250 780 Output Total 2150 1150 400 Balance -1430 100 380 Weight 88 kg Intake: Intake, IV Titration 600 Amount Sodium Chloride 0.9% 1, 600 000 ml @ 50 mls/hr IV . Q20H [facility] Rx#:[id number] Oral 720 650 780 Output: Urine 2150 1150 400 Other: Voiding Method Bedside Commode Bedside Commode Bedside Commode # Voids 1 # Bowel Movements 1 - Exam GENERAL EXAM: Alert, very pleasant 60-year-old female patient, on AirVo high flow oxygen at 60 L and 63% FiO2, comfortable in no apparent distress. HEAD: Normocephalic. EYES: Normal reaction of pupils, equal size. NOSE: Clear with pink turbinates. THROAT: No erythema or exudates. NECK: No masses, no JVD. CHEST: No chest wall deformity. LUNGS: Equal air entry with crackles in the bilateral posterior bases CVS: S1 and S2 normal with no audible murmur, regular rhythm. ABDOMEN: No hepatosplenomegaly, normal bowel sounds, no guarding or rigidity. SPINE: No scoliosis or deformity SKIN: No rashes CENTRAL NERVOUS SYSTEM: No focal deficits, tone is normal in all 4 extremities. EXTREMITIES: There is no peripheral edema. No clubbing, no cyanosis. Peripheral pulses are intact. - Labs CBC & Chem 7: 05/22/20 06:33 05/22/20 06:33 Labs: Abnormal Lab Results - Last 24 Hours (Table) 05/22/20 05/22/20 05/23/20 Range/Units 16:47 20:12 06:13 POC Glucose (mg/dL) 219 H 261 H 127 H (75-99) mg/dL 05/23/20 Range/Units 11:50 POC Glucose (mg/dL) 147 H (75-99) mg/dL Assessment and Plan Assessment: 1 Acute hypoxic respiratory failure secondary to Covid 19 pneumonia. requiring AirVo 60 L/m and 63% FiO2. Received Tocilizumab. 2 Bilateral lower extremity DVTs, transitioned from heparin drip to Xarelto 3 Benign essential hypertension. 4 Bilateral deep vein thromboses and strongly suspect that the patient has acute pulmonary embolism. 5 Borderline hypertension currently not on any medications at home. 6 Ongoing nicotine addiction 7 History of uterine and cervical cancer status post hysterectomy 10 years ago Plan: The patient was seen and evaluated by Dr. Ivy Chest x-ray reviewed Continue IV Solu-Medrol, Xarelto, vitamin supplements Increase her activity as tolerated Titrate down the FiO2 as tolerated We will continue to follow I, the cosigning physician, performed a history & physical examination of the patient. Lungs sounds with crackles in the bilateral posterior bases. Maintaining O2 saturations in the 90s on 60 L and 63% FiO2 per AirVo high flow oxygen. I discussed the assessment and plan of care with my nurse practitioner, Rose Burks. I attest to the above note as dictated by her.
[2020-05-23 17:15] LABS: Glucose,Whole Blood 213 mg/dL (75-99)
--- NOTE | 2020-05-23 19:08 | XR ---
EXAMINATION TYPE: XR chest 1V DATE OF EXAM: 05/23/2020 COMPARISON: 05/20/2020. HISTORY: Follow-up shortness of breath. TECHNIQUE: Single frontal view of the chest is obtained. FINDINGS: There is slight decrease of bilateral diffuse patchy airspace opacities. No pleural effusi on, or pneumothorax seen. The cardiac silhouette size is within normal limits. No acute osseous abno rmality. Stable S-shaped scoliosis with single Arguelles linda seen. IMPRESSION: Persistent bilateral diffuse patchy airspace opacities, with interval slight decrease.
[2020-05-23 20:05] LABS: Glucose,Whole Blood 206 mg/dL (75-99)
[2020-05-24 06:53] LABS: Glucose,Whole Blood 152 mg/dL (75-99)
[2020-05-24] MEDS: methylPREDNISolone SOD SUCCI 125 MG/2 ML VIAL IV SCH ×3 (07:14→18:12)
[2020-05-24] MEDS: RIVAROXABAN 15 MG TAB PO SCH ×2 (07:14→18:13)
[2020-05-24] MEDS: PANTOPRAZOLE 40 MG TABLET PO SCH (07:14)
[2020-05-24] MEDS: INSULIN ASPART (NovoLOG) 100 UNIT/ML VIAL SQ SCH ×4 (07:15→21:15)
[2020-05-24 08:59] LABS: Basophils % (A) 0 %; Eosinophils % (A) 0 %; HCT 42.2 % (34.0-46.0); HGB 14.2 gm/dL (11.4-16.0); Lymphocytes # (A) 0.5 k/uL (1.0-4.8); Lymphocytes % (A) 4 %; MCH 29.9 pg (25.0-35.0); MCHC 33.7 g/dL (31.0-37.0); MCV 88.6 fL (80.0-100.0); Mean Platelet Volume 7.4; Monocytes # (A) 0.5 k/uL (0-1.0); Monocytes % (A) 4 %; Neutrophils # (A) 11.5 k/uL (1.3-7.7); Neutrophils % (A) 92 %; Platelet Count 116 k/uL (150-450); RBC 4.76 m/uL (3.80-5.40); RDW 14.3 % (11.5-15.5); WBC 12.5 k/uL (3.8-10.6)
[2020-05-24] MEDS: ASCORBIC ACID 500 MG TAB PO SCH (09:39)
[2020-05-24] MEDS: FAMOTIDINE 20 MG TAB PO SCH ×2 (09:39→21:15)
[2020-05-24] MEDS: CHOLECALCIFEROL 25 MCG (1000 IU) TABLET PO SCH (09:40)
[2020-05-24] MEDS: ZINC SULFATE 220 MG CAP PO SCH (09:40)
[2020-05-24 09:54] LABS: African American GFR (CKD) >90 (>60 ml/min/1.73 sqM); Anion Gap 4 mmol/L; Blood Urea Nitrogen 19 mg/dL (7-17); C Reactive Protein 5.2 mg/L (<10.0); Calcium 9.2 mg/dL (8.4-10.2); Carbon Dioxide 34 mmol/L (22-30); Chloride 95 mmol/L (98-107); Glucose 113 mg/dL (74-99); LDH 1554 U/L (313-618); Non-African American GFR(CKD) >90 (>60 ml/min/1.73 sqM); Potassium 4.1 mmol/L (3.5-5.1); Sodium 133 mmol/L (137-145)
[2020-05-24 12:12] LABS: Glucose,Whole Blood 191 mg/dL (75-99)
[2020-05-24] MEDS: MULTIVITAMINS, THERA 1 EACH TAB PO SCH (13:30)
[2020-05-24] MEDS: FOLIC ACID 1 MG TAB PO SCH (13:30)
[2020-05-24] MEDS: THIAMINE 100 MG TAB PO SCH (13:30)
--- NOTE | 2020-05-24 15:16 | P.PN ---
Subjective This is a pleasant 60 years old female with no significant past medical history presents with respiratory signs and symptoms secondary to bilateral Covid pneumonia and acute hypoxic respiratory failure found to have bilateral DVT and pulmonary embolism was also suspected, with pulmonary team on the case. He still feeling short of breath with some coughing, patient does not want into to see if actually she wants to bring stuff up. She denies abdominal pain, no abdominal pain or diarrhea. Patient still on some Medrol 60 mg and her heparin drip is as wished to Xarelto today also she is on normal sling at 50 mL per hour, continue with vitamin C, vitamin D and zinc. Patient is status post tocilizumab. 05/22/2020 Patient still on high flow and are dose of oxygen although she feels better than yesterday she is still complaining from dyspnea, and her actually her oxygen requirement increases slightly from 60 up to 65 L/m today. Other than that she is hemodynamically stable and afebrile. WBC came back to normal from 11 down to 9, LDH increased to slightly higher level at 2243 while C-reactive protein increased to 7.2 but is still within normal limits. Patient remains on Solu-Medrol 60 mg, Xarelto 15 mg twice daily which was a started yesterday. She remains on multiple vitamin cocktail for Covid and gentle hydration with normal saline at 50 mL per hour 05/23/2020 Patient is with some tachypnea, she still have coughing but she does not want any medicine for that as she wants to bring stuff up. No pain. She still needs 65 L of oxygen via nasal cannula. No change in her medication, she remains on Solu-Medrol 60 mg, Xarelto, multiple vitamins and bronchodilator 05/24/2020 This is a pleasant 60 years old female with bilateral Covid pneumonia, bilateral DVT and possible PE and respiratory failure Patient clinically looks similar to yesterday with some dyspnea while at rest but no chest pain and minimal cough. She still on high flow nasal cannula at 60 L/m of oxygen. Her labs showing mild leukocytosis of 12.5 fall she is on steroids, LDH is trending down to 1554, C-reactive protein is normal at 5.2. D-dimer is trending down to 3.4. Pulmonary service on the case and the recommend to continue same treatment as of yesterday Patient remains on Solu-Medrol 60 mg, Xarelto at 15 mg twice a day need to be switched to 20 mg daily by the end of the mouth. Also she is on vitamin C, vitamin D and zinc. Status post tocilizumab Objective - Vital Signs Vital signs: Vital Signs Temp 99.4 F 05/24/20 08:00 Pulse 87 05/24/20 08:00 Resp 18 05/24/20 04:00 BP 123/76 05/24/20 08:00 Pulse Ox 92 L 05/24/20 08:00 Intake & Output 05/23/20 05/24/20 05/24/20 18:59 06:59 18:59 Intake Total 904 500 Output Total 400 2000 Balance 504 -2000 500 Weight 123 kg Intake: Oral 904 500 Output: Urine 400 2000 Other: Voiding Method Bedside Commode Bedside Commode Bedside Commode # Voids 2 # Bowel Movements 1 - Exam GENERAL: The patient is alert and oriented x3, not in any acute distress. Well developed, well nourished. HEENT: Pupils are round and equally reacting to light. EOMI. No scleral icterus. No conjunctival pallor. Normocephalic, atraumatic. No pharyngeal erythema. No thyromegaly. CARDIOVASCULAR: S1 and S2 present. No murmurs, rubs, or gallops. -PULMONARY: Chest is clear to auscultation, no wheezing . Bilateral crepitation ABDOMEN: Soft, nontender, nondistended, normoactive bowel sounds. No palpable organomegaly. MUSCULOSKELETAL: No joint swelling or deformity. EXTREMITIES: No cyanosis, clubbing, or pedal edema. NEUROLOGICAL: Gross neurological examination did not reveal any focal deficits. SKIN: No rashes. no petechiae. - Labs CBC & Chem 7: 05/24/20 07:41 05/24/20 07:41 Labs: Abnormal Lab Results - Last 24 Hours (Table) 05/23/20 05/23/20 05/24/20 Range/Units 17:09 20:02 06:26 WBC (3.8-10.6) k/uL Plt Count (150-450) k/uL Neutrophils # (1.3-7.7) k/uL Lymphocytes # (1.0-4.8) k/uL D-Dimer (<0.60) mg/L FEU Sodium (137-145) mmol/L Chloride (98-107) mmol/L Carbon Dioxide (22-30) mmol/L BUN (7-17) mg/dL Creatinine (0.52-1.04) mg/dL Glucose (74-99) mg/dL POC Glucose (mg/dL) 213 H 206 H 152 H (75-99) mg/dL Lactate Dehydrogenase (313-618) U/L 05/24/20 05/24/20 05/24/20 Range/Units 07:41 07:41 07:41 WBC 12.5 H (3.8-10.6) k/uL Plt Count 116 L (150-450) k/uL Neutrophils # 11.5 H (1.3-7.7) k/uL Lymphocytes # 0.5 L (1.0-4.8) k/uL D-Dimer 3.43 H (<0.60) mg/L FEU Sodium 133 L (137-145) mmol/L Chloride 95 L (98-107) mmol/L Carbon Dioxide 34 H (22-30) mmol/L BUN 19 H (7-17) mg/dL Creatinine 0.41 L (0.52-1.04) mg/dL Glucose 113 H (74-99) mg/dL POC Glucose (mg/dL) (75-99) mg/dL Lactate Dehydrogenase 1554 H (313-618) U/L 05/24/20 Range/Units 11:42 WBC (3.8-10.6) k/uL Plt Count (150-450) k/uL Neutrophils # (1.3-7.7) k/uL Lymphocytes # (1.0-4.8) k/uL D-Dimer (<0.60) mg/L FEU Sodium (137-145) mmol/L Chloride (98-107) mmol/L Carbon Dioxide (22-30) mmol/L BUN (7-17) mg/dL Creatinine (0.52-1.04) mg/dL Glucose (74-99) mg/dL POC Glucose (mg/dL) 191 H (75-99) mg/dL Lactate Dehydrogenase (313-618) U/L Assessment and Plan Assessment: Bilateral: Pneumonia Bilateral DVT and possible pulmonary embolism Acute hypoxic respiratory failure secondary to above Increased inflammatory markers Plan: This is a pleasant 60 years old female presents with cough with pneumonia and DVT. Continue with anticoagulation with xarelto, continue with steroids and gentle hydration. Continue with vitamin C, vitamin D and zinc. Pulmonary team R following the case closely. Monitor her inflammatory markers Labs and medication were reviewed.. Continue same treatment. Continue with symptomatic treatment. Resume home medication. Monitor lytes and vitals. DVT and GI prophylaxis. Further recommendationsas per clinical course of the patient DVT prophylaxis: Xarelto GI Prophylaxis: Ppi PT/OT: Pending Prognosis is guarded
--- NOTE | 2020-05-24 15:40 | P.PN ---
Subjective Progress Note Date: 05/24/20 Principal diagnosis: Acute hypoxic respiratory failure secondary to acute cocaine 19 pneumonia/pneumonitis 60-year-old white female patient of Dr. Bacon with no significant medical history other than history of uterine and cervical cancer status post total hysterectomy 10 years ago, kyphoscoliosis with history of back surgery, and borderline hypertension for which the patient takes no medications, who presented to the emergency department 05-07-2020 by EMS for evaluation of worsening shortness of breath. Patient states that onset of symptoms was 2 weeks ago and started with runny nose and a sore throat, gradually her symptoms have progressed, and patient started having fevers, worsening shortness of breath and cough. She tested positive for COVID 19 a week ago on 04/29/2020 on an outpatient basis however she did not seek any medical treatment up until now. She reports some decreased oral intake, nausea, but no abdominal pain or diarrhea. Admits to smoking cigarettes, however reports no chronic lung condition. Patient denies receiving any vaccination for COVID 19. CTA chest showed no evidence of pulmonary embolism, but demonstrated moderate to severe scattered groundglass opacities, showed a positive COVID 19 PCR test, d-dimer was elevated at 3.79, and significant elevated inflammatory markers with LDH thousand 942, and CRP of 78.3. Patient is a requiring high flow oxygen per Airvo at 50 L and FiO2 of 75%, her pulse ox is 88-92%, she is having low grade fevers, but hemodynamically stable. Added on Decadron, prophylactic dose of Lovenox, and we were asked to see the patient in consultation. On today's evaluation, the patient is being seen for follow-up regarding her Covid associated pneumonia. The patient presented with significant hypoxemic respiratory failure with bilateral pulmonary infiltrates and consolidations perihilar and extending to the peripheries. The patient remains on high flow oxygen and she is currently on 6 L with an FiO2 of 90%. No new labs from today. Her d-dimer from yesterday was 3.7. LDH level was also elevated at 942 with a CRP of 78.3. She remains on Solu-Medrol 60 mg IV every 24 hours. On today's evaluation of 05/09/2020 the patient remains on 60 L of oxygen with an FiO2 of 90%. There is essentially the same setting of high flow oxygen that the patient was on since yesterday. No much of an improvement at this point in time. She remains on treatment and she is taking Solu-Medrol 60 mg IV push every 6 hours. Note that the patient has diffuse bilateral pulmonary infiltrates and this was confirmed on a chest x-ray and a computed tomography scan of the chest. Inflammatory markers including the LDH down to 1620 and the CRP is down to 24. Her renal function is stable with a creatinine of 0.4. Her d-dimer is at 19. In terms of anticoagulation, the patient is currently on 45 mg subcu every 12 hours. Her chest x-ray from today is showing stable bilateral pulmonary infiltrates. The is essentially stable and unchanged compared to yesterday. She is still requiring high flow oxygen and her current pulse ox is around 92%. I like her to sleep in different body positions. Prone positioning is obviously advised. On 05/10/2020, the patient is being seen in follow-up regarding her COVID 19 related pneumonia. The patient is still on high flow oxygen and the patient is on 60 L with an FiO2 of 90%. She is having difficulties with her breathing. She would desaturate very easily with minimal amount of activity. Her inflammatory markers remain quite elevated including the LDH of 1711 and her CRP is down to 9.6. Her d-dimer today is still elevated at 15.1 although it's slightly downtrending. In terms of therapy, the patient remains on IV Solu Medrol 60 mg every 6 hours. The patient is also on Lovenox 45 mg subcutaneous every 12 hours. The patient is on high flexion 90 L and her FiO2 was slightly weaned down to 85%. Note that the patient desaturated this morning and she was down in the 70s. We had to prone or and with prone positioning, her oxidation is improved and her current pulse ox up to the 90-91%. No chest x-ray from today. Inflammatory markers were noted. She is tolerating some diet and she is not fully meeting her caloric requirements Patient was reevaluated today on 05/11/2020, we are seeing the patient for her acute presentation of covid 19 pneumonia.patient remains on high FiO2, she is on 60 L flow v and 70% FiO2 viaia airvo, surprisingly the patient seems to be in no distress, and she seems to be comfortable. She tells me that she is feeling better today compared to how she felt upon admission.CBC today is relatively normal electrolytes are normal renal profile is normal LDH is 2017. C-reactive protein is less than 5.chest x-ray continues to show bilateral airspace infiltrates throughout both lungs compatible with Covid 19 pneumonia. Patient was reevaluated today on 05/12/2020, remains on high flow oxygen with high FiO2 of 70%, and 60 L/m flow. Patient seems to be very comfortable, she tells me that she is feeling better compared to how she felt on admission. WBC count is 7.4 hemoglobin is 13.3 electrolytes are normal. Basic metabolic profile is normal LDH is trending down and bit to 1955 and C-reactive protein is 5. Reevaluated today on 05/13/2020, patient remains on high flow oxygen, she is on 85% FiO2 and 60 L/m flow with O2 saturation of 90% at best. Surprisingly the patient continues to do well, she is very comfortable, in no distress. WBC count is 7.4 hemoglobin is normal electrolytes are normal renal profile is normal inflammatory markers are trending down however her last LDH was 1954 remains relatively high. Patient was reevaluated today on 05/14/2020, remains on high flow oxygen she is presently on 90% FiO2 and 60 L high flow. Recommended probing the patient, and she is trying to go into prone position, patient remains extremely marginal at best. ABC is relatively normal lites are normal renal profile is normal d-dimer is elevated at 30.84. This is the highest d-dimer I have seen since her a dmission. Patient is maintained on Lovenox at 45 mg subcu twice a day. I would likely recommend a CT angiogram of this patient as she may be a great set up for acute pulmonary embolism considering her elevated d-dimer and considering her Covid 19 infection and seems to be very slow to respond. Reevaluated today on 05/15/2020, patient is feeling much better today. Breathing a lot easier. And her saturations are improving. Yesterday when I saw the patient and I was concerned about her elevated d-dimer, she could not go down for a CT angiogram of the chest, hence I recommended bilateral venous Doppler, and a Doppler was positive for bilateral deep vein thrombosis. Hence I recommended that the patient goes on heparin and discontinued her subcu Lovenox. I am certain that the patient had acute pulmonary embolism along with DVT based on her symptoms yesterday although she does have underlying Covid 19 pneumonia. Today the patient is resting more comfortably, she is on Airvo, with flow rate of 60 and FiO2 of 90%, her O2 saturation is in the low 90s. Less shortness of breath according to the patient, and she clearly tells me that today is much better today for her than yesterday. CBC is relatively normal hemoglobin is 14.7. Platelets are a bit low hence I will discontinue heparin tomorrow and start the patient on Xarelto. Her PTT is 74.5. Electrolites are normal renal profile is normal. Down the line and may even consider a CT angiogram of the chest to document thromboembolic disease/pulmonary embolism. Reevaluated today on 05/16/2020, patient remains about the same. Still requiring significantly high FiO2. Patient is on a nonrebreather mask and airvo, O2 saturation is 88-90% she is on 90% FiO2 and 60 L high flow. Plus a nonrebreather mask. Surprisingly the patient tells me that she is doing okay not as symptomatic as expected considering that her O2 saturation is marginal. Yesterday, the patient was transitioned to Xarelto and she is taking the Xarelto as directed. CBC today is relatively normal hemoglobin is 14.7 platelet are 89,000. Electrolytes are normal renal profile is normal The patient is seen today 04/16/2020 in follow-up on the regular selective care unit. She is doing better today compared to yesterday. Less cough and congestion. Still requiring careful high flow oxygen at 60 L and 90% FiO2 to maintain O2 saturations in the low 90s. She is feeling a bit stronger. Chest x-ray continues to show interstitial airspace disease and mild edema slightly improved compared to previous. Blood glucose 133. She remains on IV Solu-Medrol, vitamin supplements. Anticoagulated with Xarelto. Progress note dated 05/18/2020. This is a 60-year-old female admitted with a diagnosis of acute hypoxemic respiratory failure secondary to COVID 19 pneumonia. The patient did receive TOCI. In addition, the patient has benign essential hypertension, deep venous thrombosis and possible pulmonary embolism, hypertension, chronic nicotine addiction, uterine and cervical cancer, status post hysterectomy, and hypovolemic hyponatremia. Currently, the patient is on AIRVO, at 60 L/m with an FiO2 of 80%. White count 12.5, hemoglobin 13.9, hematocrit 41.6, platelet count 80,000. Id. at 8.39. Sodium 135, potassium 4.5, chlorides 102, CO2 32, anion gap is 1, BUN is 20, creatinine 0.56. LDH is 1855. Chest x-ray shows diffuse interstitial and airspace disease. On 05 19 2020 patient seen in follow-up on selective care unit. Remains on Airvo, 60 L and FiO2 of 80%, her pulse ox is 85-93%. She is awake and alert, she states she is breathing somewhat better, still requiring high flow oxygen, and she easily desaturates with minimal exertion, still reports fatigue, but no fever or chills. No chest discomfort. This is stable, no fever or chills, no new chest x-ray, patient is status post Tocilizumab, and she continues on high- dose IV Solu-Medrol 60 mg every 6 hours, remains on oral Xarelto. No nausea vomiting diarrhea. Yesterday's labs revealed improving d-dimer and inflammatory markers. The patient is seen today 05/20/2020 in follow-up on the selective care unit. She is currently resting fairly comfortably in bed. Awake and alert in no acute distress. She had been up in the chair today for quite some time. She is still requiring AirVo high flow oxygen at 60 L and 80% FiO2 to maintain O2 saturations 90-92%. 0.9 normal saline at 50 MLS per hour. She is anticoagulated with Xarelto. Chest x-ray continues to show bilateral infiltrates. D-dimer 6.46. LDH 1966. C-reactive protein 5.9. She remains on IV Solu-Medrol, Xarelto, vitamin supplements. The patient is seen today 05/21/2020 selective care unit. She is currently sitting up in a chair at the bedside. Awake and alert in no acute distress. She is feeling a bit better today compared to yesterday. Still desaturates and gets quite short of breath with minimal exertion. She was found to have bilateral lower extremity DVTs. She is now on Xarelto. She is continued on AirVo high flow oxygen at 60 L/m and 70% FiO2 to maintain O2 saturations in the high 80s low 90s. Sodium 134. Potassium 4.1. Creatinine 0.42. She remains on IV Solu-Medrol, vitamin supplements. The patient is seen today 05/22/2020 follow-up on the selective care unit. She is currently sitting up in a chair at the bedside. Awake and alert in no acute distress. She is currently on airflow high flow oxygen at 60 L/m and down to 65% FiO2. 0.9 normal saline at 60 ML's per hour. She is feeling better today for the first time in quite some time she states. Feels like she is turning the corner. Feeling stronger. Less dyspnea on minimal exertion. White count 9.1. Hemoglobin 13.9. Sodium 133. Potassium 5.0. Creatinine 0.28. LDH 2243. C- reactive protein 7.2. Remains on vitamin supplements, IV site Medrol, Xarelto. The patient is seen today 05/23/2020 follow-up on the selective care unit. She is currently sitting up in a chair at the bedside. Awake and alert in no acute distress. She is currently on AirVo high flow oxygen at 60 L and 63% FiO2. 0.9 normal saline at 20 ML's per hour. She is complaining of some right-sided chest discomfort. Continues with a loose nonproductive cough. Chest x-ray reveals improving bilateral patchy opacities. Blood cultures reveal no growth. Remains on vitamin supplements, IV site Medrol, Xarelto. The patient is seen today 05/24/2020 in follow-up on the selective care unit. She is currently sitting up in a chair at the bedside. Awake and alert in no acute distress. She remains on AirVo high flow oxygen at 60 L and 80% FiO2. She states she is feeling stronger each day. Breathing a little easier. Still with some right-sided chest discomfort. X-ray revealed persistent bilateral diffuse patchy airspace opacities, slightly improved. No noted significant findings on the right side to explain her right-sided chest pain which is a little less than yesterday now. White count 12.5. Hemoglobin 14.2. Lym phocytes 0.5. D-dimer 3.43. Sodium 133. Creatinine 0.41. LDH 1554. C- reactive protein 5.2. Pro-calcitonin 0.05. Remains on IV Solu-Medrol, vitamin supplements, Xarelto. Objective - Vital Signs Vital signs: Vital Signs Temp 99.4 F 05/24/20 08:00 Pulse 87 05/24/20 08:00 Resp 18 05/24/20 04:00 BP 123/76 05/24/20 08:00 Pulse Ox 92 L 05/24/20 08:00 Intake & Output 05/23/20 05/24/20 05/24/20 18:59 06:59 18:59 Intake Total 904 500 Output Total 400 2000 Balance 504 -2000 500 Weight 123 kg Intake: Oral 904 500 Output: Urine 400 2000 Other: Voiding Method Bedside Commode Bedside Commode Bedside Commode # Voids 2 # Bowel Movements 1 - Labs CBC & Chem 7: 05/24/20 07:41 05/24/20 07:41 Labs: Abnormal Lab Results - Last 24 Hours (Table) 05/23/20 05/23/20 05/24/20 Range/Units 17:09 20:02 06:26 WBC (3.8-10.6) k/uL Plt Count (150-450) k/uL Neutrophils # (1.3-7.7) k/uL Lymphocytes # (1.0-4.8) k/uL D-Dimer (<0.60) mg/L FEU Sodium (137-145) mmol/L Chloride (98-107) mmol/L Carbon Dioxide (22-30) mmol/L BUN (7-17) mg/dL Creatinine (0.52-1.04) mg/dL Glucose (74-99) mg/dL POC Glucose (mg/dL) 213 H 206 H 152 H (75-99) mg/dL Lactate Dehydrogenase (313-618) U/L 05/24/20 05/24/20 05/24/20 Range/Units 07:41 07:41 07:41 WBC 12.5 H (3.8-10.6) k/uL Plt Count 116 L (150-450) k/uL Neutrophils # 11.5 H (1.3-7.7) k/uL Lymphocytes # 0.5 L (1.0-4.8) k/uL D-Dimer 3.43 H (<0.60) mg/L FEU Sodium 133 L (137-145) mmol/L Chloride 95 L (98-107) mmol/L Carbon Dioxide 34 H (22-30) mmol/L BUN 19 H (7-17) mg/dL Creatinine 0.41 L (0.52-1.04) mg/dL Glucose 113 H (74-99) mg/dL POC Glucose (mg/dL) (75-99) mg/dL Lactate Dehydrogenase 1554 H (313-618) U/L 05/24/20 Range/Units 11:42 WBC (3.8-10.6) k/uL Plt Count (150-450) k/uL Neutrophils # (1.3-7.7) k/uL Lymphocytes # (1.0-4.8) k/uL D-Dimer (<0.60) mg/L FEU Sodium (137-145) mmol/L Chloride (98-107) mmol/L Carbon Dioxide (22-30) mmol/L BUN (7-17) mg/dL Creatinine (0.52-1.04) mg/dL Glucose (74-99) mg/dL POC Glucose (mg/dL) 191 H (75-99) mg/dL Lactate Dehydrogenase (313-618) U/L
[2020-05-24 16:38] LABS: Glucose,Whole Blood 245 mg/dL (75-99)
[2020-05-24 20:13] LABS: Glucose,Whole Blood 265 mg/dL (75-99)
[2020-05-25] MEDS: methylPREDNISolone SOD SUCCI 125 MG/2 ML VIAL IV SCH ×5 (00:12→17:51)
[2020-05-25 05:53] LABS: Glucose,Whole Blood 177 mg/dL (75-99)
[2020-05-25] MEDS: PANTOPRAZOLE 40 MG TABLET PO SCH (06:32)
[2020-05-25] MEDS: RIVAROXABAN 15 MG TAB PO SCH ×2 (06:32→17:51)
[2020-05-25] MEDS: INSULIN ASPART (NovoLOG) 100 UNIT/ML VIAL SQ SCH ×4 (06:38→20:51)
[2020-05-25] MEDS: CHOLECALCIFEROL 25 MCG (1000 IU) TABLET PO SCH (09:22)
[2020-05-25] MEDS: ZINC SULFATE 220 MG CAP PO SCH (09:22)
[2020-05-25] MEDS: ASCORBIC ACID 500 MG TAB PO SCH (09:22)
[2020-05-25] MEDS: FAMOTIDINE 20 MG TAB PO SCH ×2 (09:22→20:51)
--- NOTE | 2020-05-25 11:19 | P.PN ---
Subjective Progress Note Date: 05/25/20 On 05/25/2020, the patient is being seen for a follow-up. The patient is a case of COVID 19 pneumonia and the patient was quite slow to progress. . The patient is still on high flow oxygen at 60 L with an FiO2 of 70%. Gradually improving. Chest x-ray still showing diffuse but the pulmonary infiltrates consistent with pneumonia. The patient is on long-term and to coagulation with Xarelto. The patient remains on IV Solu-Medrol and multivitamins. Procalcitonin level is low. LDH was still elevated based on the most recent review. The patient is known to have kyphoscoliosis with previous history of back surgery. The patient is known to have hypertension and the patient On a chair reading a book. He is quite comfortable at this point, high flow oxygen. Clinically, the patient is feeling slightly better. D-dimer is at 3.43, LDH is 1554 with a CRP of 5.2. Pro-calcitonin level is low at 0.05. White cell count is at 12.5. Objective - Vital Signs Vital signs: Vital Signs Temp 98.6 F 05/25/20 09:00 Pulse 96 05/25/20 09:00 Resp 20 05/25/20 09:00 BP 136/71 05/25/20 09:00 Pulse Ox 92 L 05/25/20 09:00 Intake & Output 05/24/20 05/25/20 05/25/20 18:59 06:59 18:59 Intake Total 840 550 118 Output Total 1999 Balance 840 -1450 118 Weight 90 kg Intake: Oral 840 550 118 Output: Urine 1999 Other: Voiding Method Bedside Commode Bedside Commode # Voids 2 - Exam GENERAL EXAM: Alert, pleasant, 70-year-old white female, currently on high flow oxygen per Airvo at 60 L and FiO2 of 70% with a pulse ox of 88-92% comfortable in no apparent distress. HEAD: Normocephalic/atraumatic. EYES: Normal reaction of pupils, equal size. Conjunctiva pink, sclera white. NOSE: Clear with pink turbinates. THROAT: No erythema or exudates. NECK: No masses, no JVD, no thyroid enlargement, no adenopathy. CHEST: No chest wall deformity. Symmetrical expansion. LUNGS: Equal air entry with diffuse coarse crackles throughout lung plummer CVS: Regular rate and rhythm, normal S1 and S2, no gallops, no murmurs, no rubs ABDOMEN: Soft, nontender. No hepatosplenomegaly, normal bowel sounds, no guarding or rigidity. EXTREMITIES: No clubbing, no edema, no cyanosis, 2+ pulses and upper and lower extremities. MUSCULOSKELETAL: Muscle strength and tone normal. SPINE: No scoliosis or deformity SKIN: No rashes CENTRAL NERVOUS SYSTEM: Alert and oriented -3. No focal deficits, tone is normal in all 4 extremities. PSYCHIATRIC: Alert and oriented -3. Appropriate affect. Intact judgment and insight. - Labs CBC & Chem 7: 05/24/20 07:41 05/24/20 07:41 Labs: Abnormal Lab Results - Last 24 Hours (Table) 05/24/20 05/24/20 05/24/20 Range/Units 11:42 16:37 20:11 POC Glucose (mg/dL) 191 H 245 H 265 H (75-99) mg/dL 05/25/20 Range/Units 05:51 POC Glucose (mg/dL) 177 H (75-99) mg/dL Assessment and Plan Plan: 1 Acute hypoxic respiratory failure secondary to Covid 19 pneumonia. requiring AirVo 60 L/m and 90% FiO2. Received Tocilizumab. Currently still on IV Solu- Medrol. Oxygenation is showing only limited improvement over the past few weeks and the patient is very slow to progress. The patient remains on high flow oxygen with 60 L with an FiO2 of 70%. Chest x-ray that was done on 05/23/2020 showed some limited improvement in the right support infiltrates. 2 Bilateral lower extremity DVTs, transitioned from heparin drip to Xarelto 3 Benign essential hypertension. 4 Bilateral deep vein thromboses and strongly suspect that the patient has acute pulmonary embolism. 5 Borderline hypertension currently not on any medications at home. 6 Ongoing nicotine addiction 7 History of uterine and cervical cancer status post hysterectomy 10 years ago Plan: Chest x-ray reviewed from 05/23/2020 and the patient is showing some limited improvement Unable to wean down the FiO2 further as the patient's pulse is currently ranging between 85% to 90% Continue IV Solu-Medrol, Xarelto, vitamin supplements Increase her activity as tolerated Titrate down the FiO2 as tolerated
[2020-05-25] MEDS: HYDROcodone/APAP 5-325MG 1 EACH TAB PO PRN (11:41)
[2020-05-25] MEDS: FOLIC ACID 1 MG TAB PO SCH (11:42)
[2020-05-25] MEDS: THIAMINE 100 MG TAB PO SCH (11:42)
[2020-05-25] MEDS: MULTIVITAMINS, THERA 1 EACH TAB PO SCH (11:42)
[2020-05-25 12:13] LABS: Glucose,Whole Blood 230 mg/dL (75-99)
[2020-05-25] MEDS: ACETAMINOPHEN TAB 325 MG TAB PO PRN (16:02)
[2020-05-25 16:53] LABS: Glucose,Whole Blood 273 mg/dL (75-99)
--- NOTE | 2020-05-25 19:48 | P.PN ---
Subjective This is a pleasant 60 years old female with no significant past medical history presents with respiratory signs and symptoms secondary to bilateral Covid pneumonia and acute hypoxic respiratory failure found to have bilateral DVT and pulmonary embolism was also suspected, with pulmonary team on the case. He still feeling short of breath with some coughing, patient does not want into to see if actually she wants to bring stuff up. She denies abdominal pain, no abdominal pain or diarrhea. Patient still on some Medrol 60 mg and her heparin drip is as wished to Xarelto today also she is on normal sling at 50 mL per hour, continue with vitamin C, vitamin D and zinc. Patient is status post tocilizumab. 05/22/2020 Patient still on high flow and are dose of oxygen although she feels better than yesterday she is still complaining from dyspnea, and her actually her oxygen requirement increases slightly from 60 up to 65 L/m today. Other than that she is hemodynamically stable and afebrile. WBC came back to normal from 11 down to 9, LDH increased to slightly higher level at 2243 while C-reactive protein increased to 7.2 but is still within normal limits. Patient remains on Solu-Medrol 60 mg, Xarelto 15 mg twice daily which was a started yesterday. She remains on multiple vitamin cocktail for Covid and gentle hydration with normal saline at 50 mL per hour 05/23/2020 Patient is with some tachypnea, she still have coughing but she does not want any medicine for that as she wants to bring stuff up. No pain. She still needs 65 L of oxygen via nasal cannula. No change in her medication, she remains on Solu-Medrol 60 mg, Xarelto, multiple vitamins and bronchodilator 05/24/2020 This is a pleasant 60 years old female with bilateral Covid pneumonia, bilateral DVT and possible PE and respiratory failure Patient clinically looks similar to yesterday with some dyspnea while at rest but no chest pain and minimal cough. She still on high flow nasal cannula at 60 L/m of oxygen. Her labs showing mild leukocytosis of 12.5 fall she is on steroids, LDH is trending down to 1554, C-reactive protein is normal at 5.2. D-dimer is trending down to 3.4. Pulmonary service on the case and the recommend to continue same treatment as of yesterday Patient remains on Solu-Medrol 60 mg, Xarelto at 15 mg twice a day need to be switched to 20 mg daily by the end of the mouth. Also she is on vitamin C, vitamin D and zinc. Status post tocilizumab 05/25/2020 Patient respiratory status is still the same, she still on high flow nasal cannula needing 60 L/m of oxygen to keep saturating in the low 90s. No other new complaints. Yesterday patient fell coming from the bathroom, she denies any injury stated that although there is some rash and her buttock area but she refused examination and she refused she needs anything else. Her oxygen saturation is currently 93 percent and drops with little movement for example going to the chair down to 90%. Patient is not moving a lot. Other than that she is hemodynamically stable. She was slightly elevated and continue with insulin sliding scale Patient remains on multiple vitamins, she is a status post tocizilumab, and currently she is on Solu-Medrol 60 mg. Also she is on Zoloft, 50 mg twice daily for her bilateral DVT and possible PE, Xarelto need to be switched to 20 mg daily by the end of the month of May Objective - Vital Signs Vital signs: Vital Signs Temp 98.4 F 05/25/20 11:47 Pulse 83 05/25/20 11:47 Resp 22 05/25/20 11:47 BP 138/72 05/25/20 11:47 Pulse Ox 93 L 05/25/20 11:47 Intake & Output 05/24/20 05/25/20 05/25/20 18:59 06:59 18:59 Intake Total 840 550 358 Output Total 1999 Balance 840 -1450 358 Weight 90 kg Intake: Oral 840 550 358 Output: Urine 1999 Other: Voiding Method Bedside Commode Bedside Commode # Voids 2 - Exam GENERAL: The patient is alert and oriented x3, not in any acute distress. Well developed, well nourished. HEENT: Pupils are round and equally reacting to light. EOMI. No scleral icterus. No conjunctival pallor. Normocephalic, atraumatic. No pharyngeal erythema. No thyromegaly. CARDIOVASCULAR: S1 and S2 present. No murmurs, rubs, or gallops. -PULMONARY: Chest is clear to auscultation, no wheezing . Bilateral crepitation ABDOMEN: Soft, nontender, nondistended, normoactive bowel sounds. No palpable organomegaly. MUSCULOSKELETAL: No joint swelling or deformity. EXTREMITIES: No cyanosis, clubbing, or pedal edema. NEUROLOGICAL: Gross neurological examination did not reveal any focal deficits. SKIN: No rashes. no petechiae. - Labs CBC & Chem 7: 05/24/20 07:41 05/24/20 07:41 Labs: Abnormal Lab Results - Last 24 Hours (Table) 05/24/20 05/24/20 05/25/20 Range/Units 16:37 20:11 05:51 POC Glucose (mg/dL) 245 H 265 H 177 H (75-99) mg/dL 05/25/20 Range/Units 12:05 POC Glucose (mg/dL) 230 H (75-99) mg/dL Assessment and Plan Assessment: Bilateral covid Pneumonia Bilateral DVT and possible pulmonary embolism Acute hypoxic respiratory failure secondary to above Increased inflammatory markers Plan: This is a pleasant 60 years old female presents with cough with pneumonia and DVT. Continue with anticoagulation with xarelto, continue with steroids . Discontinue IV fluidsitamin C, vitamin D and zinc. Pulmonary team R following the case closely. Monitor her inflammatory markers Labs and medication were reviewed.. Continue same treatment. Continue with symptomatic treatment. Resume home medication. Monitor lytes and vitals. DVT and GI prophylaxis. Further recommendations as per clinical course of the patient DVT prophylaxis: Xarelto GI Prophylaxis: Ppi Prognosis is guarded
[2020-05-25 20:32] LABS: Glucose,Whole Blood 271 mg/dL (75-99)
[2020-05-26 06:39] LABS: Glucose,Whole Blood 185 mg/dL (75-99)
[2020-05-26] MEDS: ACETAMINOPHEN TAB 325 MG TAB PO PRN (06:44)
[2020-05-26] MEDS: RIVAROXABAN 15 MG TAB PO SCH ×2 (06:44→17:30)
[2020-05-26] MEDS: PANTOPRAZOLE 40 MG TABLET PO SCH (06:44)
[2020-05-26] MEDS: INSULIN ASPART (NovoLOG) 100 UNIT/ML VIAL SQ SCH ×4 (06:44→20:49)
[2020-05-26] MEDS: methylPREDNISolone SOD SUCCI 125 MG/2 ML VIAL IV SCH (06:47)
[2020-05-26] MEDS: ASCORBIC ACID 500 MG TAB PO SCH (08:43)
[2020-05-26] MEDS: FAMOTIDINE 20 MG TAB PO SCH ×2 (08:43→20:49)
[2020-05-26] MEDS: CHOLECALCIFEROL 25 MCG (1000 IU) TABLET PO SCH (08:43)
[2020-05-26] MEDS: ZINC SULFATE 220 MG CAP PO SCH (08:44)
--- NOTE | 2020-05-26 11:50 | P.PN ---
Subjective Progress Note Date: 05/26/20 On 05/25/2020, the patient is being seen for a follow-up. The patient is a case of COVID 19 pneumonia and the patient was quite slow to progress. . The patient is still on high flow oxygen at 60 L with an FiO2 of 70%. Gradually improving. Chest x-ray still showing diffuse but the pulmonary infiltrates consistent with pneumonia. The patient is on long-term and to coagulation with Xarelto. The patient remains on IV Solu-Medrol and multivitamins. Procalcitonin level is low. LDH was still elevated based on the most recent review. The patient is known to have kyphoscoliosis with previous history of back surgery. The patient is known to have hypertension and the patient On a chair reading a book. He is quite comfortable at this point, high flow oxygen. Clinically, the patient is feeling slightly better. D-dimer is at 3.43, LDH is 1554 with a CRP of 5.2. Pro-calcitonin level is low at 0.05. White cell count is at 12.5. On 05/26/2020, the patient is being seen for a follow-up. She remains on a high flow oxygen with 60 L flow with an FiO2 of 55%. Note that she was on 70% yester day and she has been weaned down to 55%. Her chest x-ray was showing diffuse bilateral pulmonary infiltrates. The patient is on long-term anticoagulation with Xarelto. The patient remains on IV Solu-Medrol. She is receiving 60 mg IV push every 6 hours. In terms of her blood work, no new blood test and inflammatory markers done earlier were all noted. Clinically, the patient is stable. There has been some wean her FiO2. Objective - Vital Signs Vital signs: Vital Signs Temp 98.6 F 05/26/20 08:00 Pulse 80 05/26/20 08:00 Resp 20 05/26/20 08:00 BP 127/75 05/26/20 08:00 Pulse Ox 94 L 05/26/20 08:00 Intake & Output 05/25/20 05/26/20 05/26/20 18:59 06:59 18:59 Intake Total 848 550 Output Total 400 650 400 Balance 448 -100 -400 Weight 92.5 kg Intake: Oral 848 550 Output: Urine 400 650 400 Other: Voiding Method Bedside Commode # Voids 2 1 1 - Exam GENERAL EXAM: Alert, pleasant, 70-year-old white female, currently on high flow oxygen per Airvo at 60 L and FiO2 of 50% with a pulse ox of 88-92% comfortable in no apparent distress. HEAD: Normocephalic/atraumatic. EYES: Normal reaction of pupils, equal size. Conjunctiva pink, sclera white. NOSE: Clear with pink turbinates. THROAT: No erythema or exudates. NECK: No masses, no JVD, no thyroid enlargement, no adenopathy. CHEST: No chest wall deformity. Symmetrical expansion. LUNGS: Equal air entry with diffuse coarse crackles throughout lung plummer CVS: Regular rate and rhythm, normal S1 and S2, no gallops, no murmurs, no rubs ABDOMEN: Soft, nontender. No hepatosplenomegaly, normal bowel sounds, no guarding or rigidity. EXTREMITIES: No clubbing, no edema, no cyanosis, 2+ pulses and upper and lower extremities. MUSCULOSKELETAL: Muscle strength and tone normal. SPINE: No scoliosis or deformity SKIN: No rashes CENTRAL NERVOUS SYSTEM: Alert and oriented -3. No focal deficits, tone is normal in all 4 extremities. PSYCHIATRIC: Alert and oriented -3. Appropriate affect. Intact judgment and insight. - Labs CBC & Chem 7: 05/24/20 07:41 05/24/20 07:41 Labs: Abnormal Lab Results - Last 24 Hours (Table) 05/25/20 05/25/20 05/25/20 Range/Units 12:05 16:52 20:30 POC Glucose (mg/dL) 230 H 273 H 271 H (75-99) mg/dL 05/26/20 Range/Units 06:39 POC Glucose (mg/dL) 185 H (75-99) mg/dL Assessment and Plan Plan: 1 Acute hypoxic respiratory failure secondary to Covid 19 pneumonia. requiring AirVo 60 L/m and 50 % FiO2. Received Tocilizumab. Currently still on IV Solu- Medrol. Oxygenation is showing only limited improvement over the past few weeks and the patient is very slow to progress. The patient can be weaned down further as the patient's patient is on 97%. 2 Bilateral lower extremity DVTs, transitioned from heparin drip to Xarelto 3 Benign essential hypertension. 4 Bilateral deep vein thromboses and strongly suspect that the patient has acute pulmonary embolism. 5 Borderline hypertension currently not on any medications at home. 6 Ongoing nicotine addiction 7 History of uterine and cervical cancer status post hysterectomy 10 years ago Plan: Chest x-ray reviewed from 05/23/2020 and the patient is showing some limited improvement him a currently she is being weaned down on her FiO2 and currently she is down to 55 L and 63% FiO2 and this is the last setting that was on the bedside to maintain a saturation above 90%. The IV Solu-Medrol and put the patient on 6 mg of Decadron on a daily basis by mouth Xarelto, vitamin supplements Increase her activity as tolerated Titrate down the FiO2 as tolerated Slow clinical improvement. On examination she continues to have some crackles in lung bases.
[2020-05-26] MEDS ORDERED: FUROSEMIDE 10 MG/ML 4 ML VIAL IV STA (11:51)
[2020-05-26 12:03] LABS: Glucose,Whole Blood 189 mg/dL (75-99)
[2020-05-26] MEDS: THIAMINE 100 MG TAB PO SCH (12:35)
[2020-05-26] MEDS: MULTIVITAMINS, THERA 1 EACH TAB PO SCH (12:35)
[2020-05-26] MEDS: FOLIC ACID 1 MG TAB PO SCH (12:35)
[2020-05-26 12:57] LABS: Appearance,Urine Cloudy (Clear); Bacteria,Urine Moderate /hpf; Bilirubin,Urine Negative (Negative); Blood,Urine Negative (Negative); Color,Urine Light Yellow; Glucose,Urine (UA) Trace (Negative); Ketones,Urine Negative (Negative); Leukocyte Esterase,Urine Moderate (Negative); Mucus,Urine Rare /hpf; Nitrite,Urine Negative (Negative); PH, Urine 6.5 (5.0-8.0); Protein,Urine Negative (Negative); RBC,Urine 2 /hpf (0-5); Specific Gravity,Urine 1.009 (1.001-1.035); Squamous Epithelial Cell,Urine 1 /hpf (0-4); Urobilinogen,Urine <2.0 mg/dL (<2.0); WBC,Urine 16 /hpf (0-5)
[2020-05-26] MEDS: HYDROcodone/APAP 5-325MG 1 EACH TAB PO PRN ×2 (15:49→21:43)
[2020-05-26 16:37] LABS: Glucose,Whole Blood 288 mg/dL (75-99)
[2020-05-26 20:00] LABS: Glucose,Whole Blood 260 mg/dL (75-99)
[2020-05-27] MEDS: HYDROcodone/APAP 5-325MG 1 EACH TAB PO PRN ×2 (03:41→18:16)
[2020-05-27 06:13] LABS: Glucose,Whole Blood 154 mg/dL (75-99)
[2020-05-27] MEDS: ACETAMINOPHEN TAB 325 MG TAB PO PRN ×2 (06:46→20:40)
[2020-05-27] MEDS: RIVAROXABAN 15 MG TAB PO SCH ×2 (06:46→18:16)
[2020-05-27] MEDS: PANTOPRAZOLE 40 MG TABLET PO SCH (06:46)
[2020-05-27] MEDS: INSULIN ASPART (NovoLOG) 100 UNIT/ML VIAL SQ SCH ×4 (06:46→20:41)
--- NOTE | 2020-05-27 07:39 | XR ---
EXAMINATION TYPE: XR chest 1V portable DATE OF EXAM: 05/27/2020 CLINICAL HISTORY: Difficulty breathing and covid progress study. TECHNIQUE: Single AP portable upright view of the chest is obtained. COMPARISON: Chest x-ray from 4 days earlier and older studies. FINDINGS: Persistent bilateral multifocal increased opacities on background chronic parenchymal gutierrez ges. Underlying scoliosis with Arguelles linda surgical correction redemonstrated. Cardiac silhouette size stable and upper limits of normal. IMPRESSION: Bilateral multifocal opacities consistent with covid-19 infection are redemonstrated, alvino e interval progression or worsening in opacities in the right lung noted from most recent x-ray .
[2020-05-27 08:48] LABS: African American GFR (CKD) >90 (>60 ml/min/1.73 sqM); Anion Gap 2 mmol/L; Blood Urea Nitrogen 25 mg/dL (7-17); C Reactive Protein 7.6 mg/L (<10.0); Carbon Dioxide 37 mmol/L (22-30); Chloride 92 mmol/L (98-107); Glucose 150 mg/dL (74-99); LDH 1274 U/L (313-618); Non-African American GFR(CKD) >90 (>60 ml/min/1.73 sqM); Potassium 3.7 mmol/L (3.5-5.1); Sodium 131 mmol/L (137-145)
[2020-05-27] MEDS: FAMOTIDINE 20 MG TAB PO SCH ×2 (09:30→20:40)
[2020-05-27] MEDS: ZINC SULFATE 220 MG CAP PO SCH (09:30)
[2020-05-27] MEDS: CHOLECALCIFEROL 25 MCG (1000 IU) TABLET PO SCH (09:30)
[2020-05-27] MEDS: ASCORBIC ACID 500 MG TAB PO SCH (09:30)
[2020-05-27] MEDS: dexAMETHasone 2 MG TAB PO SCH (09:30)
[2020-05-27 12:02] LABS: Glucose,Whole Blood 234 mg/dL (75-99)
[2020-05-27 12:24] VITALS: BMI 30.4
--- NOTE | 2020-05-27 12:29 | P.PN ---
Subjective Progress Note Date: 05/27/20 On 05/25/2020, the patient is being seen for a follow-up. The patient is a case of COVID 19 pneumonia and the patient was quite slow to progress. . The patient is still on high flow oxygen at 60 L with an FiO2 of 70%. Gradually improving. Chest x-ray still showing diffuse but the pulmonary infiltrates consistent with pneumonia. The patient is on long-term and to coagulation with Xarelto. The patient remains on IV Solu-Medrol and multivitamins. Procalcitonin level is low. LDH was still elevated based on the most recent review. The patient is known to have kyphoscoliosis with previous history of back surgery. The patient is known to have hypertension and the patient On a chair reading a book. He is quite comfortable at this point, high flow oxygen. Clinically, the patient is feeling slightly better. D-dimer is at 3.43, LDH is 1554 with a CRP of 5.2. Pro-calcitonin level is low at 0.05. White cell count is at 12.5. On 05/26/2020, the patient is being seen for a follow-up. She remains on a high flow oxygen with 60 L flow with an FiO2 of 55%. Note that she was on 70% yesterday and she has been weaned down to 55%. Her chest x-ray was showing diffuse bilateral pulmonary infiltrates. The patient is on long-term anticoagulation with Xarelto. The patient remains on IV Solu-Medrol. She is receiving 60 mg IV push every 6 hours. In terms of her blood work, no new blood test and inflammatory markers done earlier were all noted. Clinically, the patient is stable. There has been some wean her FiO2. On 05/27/2020, the patient is still having some pain across the left side of the chest. Her current oxygen flow is at 15 L with an FiO2 of 80%. Her chest x-ray from today is showing stable findings. This is an underpenetrated film. The patient is currently off IV Solu-Medrol and she is on oral Decadron 6 mg by mouth daily. She is also on long-term and to coagulation with Xarelto. She is able to sit up on a chair. No fever. No chills. No nausea or vomiting or abdominal pain. Blood work from today showing normal renal function and electrolytes she does have a chronic metabolic alkalosis. The LDH level is at 1274 and the CRP level is currently at 7.6.. Objective - Vital Signs Vital signs: Vital Signs Temp 98.3 F 05/27/20 11:50 Pulse 90 05/27/20 11:50 Resp 18 05/27/20 11:50 BP 109/64 05/27/20 11:50 Pulse Ox 97 05/27/20 11:50 Intake & Output 05/26/20 05/27/20 05/27/20 18:59 06:59 18:59 Intake Total 0 118 Output Total 2100 400 Balance -2100 -400 118 Weight 91 kg Intake: Oral 0 118 Output: Urine 2100 400 Other: Voiding Method Toilet Toilet # Voids 1 0 # Bowel Movements 0 - Exam GENERAL EXAM: Alert, pleasant, 70-year-old white female, currently on high flow oxygen per Airvo at 50 L and FiO2 of 80 % with a pulse ox of 88-92% comfortable in no apparent distress. HEAD: Normocephalic/atraumatic. EYES: Normal reaction of pupils, equal size. Conjunctiva pink, sclera white. NOSE: Clear with pink turbinates. THROAT: No erythema or exudates. NECK: No masses, no JVD, no thyroid enlargement, no adenopathy. CHEST: No chest wall deformity. Symmetrical expansion. LUNGS: Equal air entry with diffuse coarse crackles throughout lung plummer CVS: Regular rate and rhythm, normal S1 and S2, no gallops, no murmurs, no rubs ABDOMEN: Soft, nontender. No hepatosplenomegaly, normal bowel sounds, no guarding or rigidity. EXTREMITIES: No clubbing, no edema, no cyanosis, 2+ pulses and upper and lower extremities. MUSCULOSKELETAL: Muscle strength and tone normal. SPINE: No scoliosis or deformity SKIN: No rashes CENTRAL NERVOUS SYSTEM: Alert and oriented -3. No focal deficits, tone is normal in all 4 extremities. PSYCHIATRIC: Alert and oriented -3. Appropriate affect. Intact judgment and insight. - Labs CBC & Chem 7: 05/24/20 07:41 05/27/20 07:52 Labs: Abnormal Lab Results - Last 24 Hours (Table) 05/26/20 05/26/20 05/26/20 Range/Units 11:00 16:35 19:54 Sodium (137-145) mmol/L Chloride (98-107) mmol/L Carbon Dioxide (22-30) mmol/L BUN (7-17) mg/dL Creatinine (0.52-1.04) mg/dL Glucose (74-99) mg/dL POC Glucose (mg/dL) 288 H 260 H (75-99) mg/dL Lactate Dehydrogenase (313-618) U/L Urine Appearance Cloudy H (Clear) Urine Glucose (UA) Trace H (Negative) Ur Leukocyte Esterase Moderate H (Negative) Urine WBC 16 H (0-5) /hpf Urine Bacteria Moderate H (None) /hpf Urine Mucus Rare H (None) /hpf 05/27/20 05/27/20 05/27/20 Range/Units 06:11 07:52 11:59 Sodium 131 L (137-145) mmol/L Chloride 92 L (98-107) mmol/L Carbon Dioxide 37 H (22-30) mmol/L BUN 25 H (7-17) mg/dL Creatinine 0.44 L (0.52-1.04) mg/dL Glucose 150 H (74-99) mg/dL POC Glucose (mg/dL) 154 H 234 H (75-99) mg/dL Lactate Dehydrogenase 1274 H (313-618) U/L Urine Appearance (Clear) Urine Glucose (UA) (Negative) Ur Leukocyte Esterase (Negative) Urine WBC (0-5) /hpf Urine Bacteria (None) /hpf Urine Mucus (None) /hpf Microbiology - Last 24 Hours (Table) 05/26/20 11:00 Urine Culture - Preliminary Urine,Voided Assessment and Plan Plan: 1 Acute hypoxic respiratory failure secondary to Covid 19 pneumonia. requiring AirVo 50 L/m and 80 % FiO2. Received Tocilizumab. Currently still on po Decadron. Oxygenation is showing only limited improvement over the past few weeks and the patient is very slow to progress. Developing and muscular skeletal chest wall pain on the right and the patient will be given lidocaine patch. 2 Bilateral lower extremity DVTs, transitioned from heparin drip to Xarelto 3 Benign essential hypertension. 4 Bilateral deep vein thromboses and strongly suspect that the patient has acute pulmonary embolism. 5 Borderline hypertension currently not on any medications at home. 6 Ongoing nicotine addiction 7 History of uterine and cervical cancer status post hysterectomy 10 years ago Plan: patient on 6 mg of Decadron on a daily basis by mouth Xarelto Lidocaine patch for musculoskeletal chest wall pain vitamin supplements Increase her activity as tolerated Titrate down the FiO2 as tolerated Slow clinical improvement. She is stable currently on 15 L with an FiO2 of 80%. Will be asked to gradually tapered off the FiO2 to maintain a saturation above 90%. Encouraged use of incentive spirometer. Lidocaine patch for the muscular skeletal chest wall pain. We'll follow.
[2020-05-27] MEDS: LIDOCAINE 5% PATCH TOPICAL SCH (13:01)
[2020-05-27] MEDS: MULTIVITAMINS, THERA 1 EACH TAB PO SCH (13:01)
[2020-05-27] MEDS: THIAMINE 100 MG TAB PO SCH (13:01)
[2020-05-27] MEDS: FOLIC ACID 1 MG TAB PO SCH (13:01)
[2020-05-27 16:53] LABS: Glucose,Whole Blood 267 mg/dL (75-99)
[2020-05-27 20:19] LABS: Glucose,Whole Blood 293 mg/dL (75-99)
--- NOTE | 2020-05-27 23:47 | P.PN ---
Subjective Progress Note Date: 05/26/20 Principal diagnosis: Acute hypoxic respiratory failure secondary to Covid pneumonia Patient is a 60-year-old female with a known history of cervical cancer status post hysterectomy, currently everyday smoker presents to ER with the complaints of worsening shortness of breath. Patient says that her symptoms started about 2 weeks ago and was tested for cold positive on 04/29/2020 as an outpatient. Patient has been having fever and chills on and off. She has been using over- the-counter medications. Patient was not any antibiotics or steroids at home. She came to ER due to worsening shortness of breath and generalized weakness and decreased oral intake and nausea for the past 3 days. No complaints of diarrhea and abdominal pain. Does have chest tightness with deep breathing. Denied any dysuria or hematuria. No headache or dizziness or lightheadedness. On admission patient was tachycardic and hypoxic with pulse ox 84% and requiring her person noncontributory. CTA chest showed demonstrative moderate to severe skater groundglass opacities throughout both lungs with interspace and wedge-shaped areas of consolidation or atelectasis. Consider Coumadin 19 pneumonia. No evidence of pulmonary embolism or acute aortic abnormality. EKG showed sinus tachycardia Chest x-ray showed diffuse bilateral infiltrates which can be compatible with atypical pneumonia. Laboratory data showed WBC 4.6, hemoglobin 14.2 and platelets 270, d-dimer 3.79 Sodium 129 potassium 3.7 chloride 94 BUN 12 and creatinine 0.50 LDH 1942, CRP 78.3, pro-calcitonin 0.2 Code 19 PCR detected. 05/08/2020 Patient is currently awake alert and oriented x3. Still having significant shortness of breath and hypoxia. Currently on high flow oxygen at 6 L with FiO2 of 90%. Patient is being continued on methylprednisolone and Lovenox twice daily. Continued on multivitamins. Pulmonary is on board. Patient has been afebrile. No nausea vomiting or diarrhea. No dysuria or hematuria. No chest pain. 05/09/2020 Patient is currently on high flow oxygen airvo 60 L with 90% FiO2. Appears to be in no distress. Awake alert and oriented. No fever no chills. No nausea vomiting or abdominal pain or diarrhea. Patient will be continued on Solu- Medrol and Lovenox twice daily. Laboratory data showed serum D-dimer level is 19.1 Sodium 136 potassium 3.7 bicarb is 31 BUN 14 and creatinine 0.48 blood sugar is 148 and CRP 24.2 and LDH 1620 05/10/2020 Patient is lying in the bed awake and alert. Still requiring high flow oxygen at 60 L FiO2 90%. She having exertional dyspnea and chest tightness. Patient is being continued on IV Solu-Medrol, Lovenox twice daily and multivitamins. Laboratory work showed D-dimer 15.1, LDH 171 on and CRP 9.6 patient has been afebrile. 05/26/2020 Patient is currently sitting in the chair comfortably. Awake alert and oriented. Still requiring high flow oxygen at 60 L Airvo and FiO2 55% which is trending down from 70% yesterday. No complaints of chest pain or worsening shortness of breath. No nausea vomiting or abdominal pain. No diarrhea. Patient is being continued Xarelto for long-term anticoagulation and is also on dexamethasone 6 mg daily. Urinalysis showed cloudy with moderate leukocyte esterase and elevated WBCs. Urine culture was ordered and patient was started on ceftriaxone. Pulmonary is on board. Current medications reviewed. Objective - Vital Signs Vital signs: Vital Signs Temp 98.8 F 05/26/20 15:50 Pulse 90 05/26/20 15:50 Resp 22 05/26/20 15:50 BP 135/74 05/26/20 15:50 Pulse Ox 90 L 05/26/20 15:50 Intake & Output 05/25/20 05/26/20 05/26/20 18:59 06:59 18:59 Intake Total 848 550 0 Output Total 575 912 5615 Balance 448 -100 -1200 Weight 92.5 kg Intake: Oral 848 550 0 Output: Urine 121 346 0488 Other: Voiding Method Bedside Commode # Voids 2 1 1 - Exam PHYSICAL EXAMINATION: Patient is lying in the bed comfortably, no acute distress, awake alert and oriented.. HEENT: Normocephalic. Neck is supple. Pupils reactive. Nostrils clear. Oral cavity is moist. Ears reveal no drainage. Neck reveals no JVD, carotid bruits, or thyromegaly. CHEST EXAMINATION: Trachea is central. Symmetrical expansion. Bilateral coarse breath sounds. No wheezing or rhonchi.. CARDIAC: Normal S1, S2 with no gallops. No murmurs ABDOMEN: Soft. Bowel sounds normal. No organomegaly. No abdominal bruits. Extremities: reveal no edema. No clubbing or cyanosis Neurologically awake, alert, oriented x3 with well-coordinated movements. No focal deficits noted Skin: No rash or skin lesions. Psychiatric: Coperative. Nonsuicidal Musculoskeletal: No joint swelling or deformity. Normal range of motion. - Labs CBC & Chem 7: 05/24/20 07:41 05/27/20 07:52 Labs: Abnormal Lab Results - Last 24 Hours (Table) 05/25/20 05/25/20 05/26/20 Range/Units 16:52 20:30 06:39 POC Glucose (mg/dL) 273 H 271 H 185 H (75-99) mg/dL Urine Appearance (Clear) Urine Glucose (UA) (Negative) Ur Leukocyte Esterase (Negative) Urine WBC (0-5) /hpf Urine Bacteria (None) /hpf Urine Mucus (None) /hpf 05/26/20 05/26/20 Range/Units 11:00 12:02 POC Glucose (mg/dL) 189 H (75-99) mg/dL Urine Appearance Cloudy H (Clear) Urine Glucose (UA) Trace H (Negative) Ur Leukocyte Esterase Moderate H (Negative) Urine WBC 16 H (0-5) /hpf Urine Bacteria Moderate H (None) /hpf Urine Mucus Rare H (None) /hpf Assessment and Plan Assessment: Acute hypoxic respiratory failure secondary to Covid 19 pneumonia. Patient tested positive on 04/29/2020. Currently requiring 60 L of FiO2 55% via Airvo Increased inflammatory markers secondary to viral pneumonia Hypovolemic hyponatremia. improved. Bilateral lower extremity DVTs. Currently on Xarelto. Elevated d-dimer level without evidence of pulmonary embolism on CTA Borderline hypertension currently not on any medications at home. Ongoing nicotine addiction History of uterine and cervical cancer status post hysterectomy 10 years ago Kyphoscoliosis history and back surgery DVT prophylaxis patient is on Lovenox. Plan: Patient will be continued on oxygen supplementation and titrate down FiO2. Continue with dexamethasone 6 mg daily and multivitamins, vitamin D and follow up closely. Monitor electrolytes and inflammatory markers. Continue with Xarelto for LE DVT Pulmonary is on board. Patient was given Tocilizumab 400 mg IV piggyback 2 doses initially. Further recommendations based on the clinical course. Prognosis is guarded. Smoking cessation has been counseled. Time with Patient: Greater than 30
--- NOTE | 2020-05-27 23:50 | P.PN ---
Subjective Progress Note Date: 05/27/20 Principal diagnosis: Acute hypoxic respiratory failure secondary to Covid pneumonia Patient is a 60-year-old female with a known history of cervical cancer status post hysterectomy, currently everyday smoker presents to ER with the complaints of worsening shortness of breath. Patient says that her symptoms started about 2 weeks ago and was tested for cold positive on 04/29/2020 as an outpatient. Patient has been having fever and chills on and off. She has been using over- the-counter medications. Patient was not any antibiotics or steroids at home. She came to ER due to worsening shortness of breath and generalized weakness and decreased oral intake and nausea for the past 3 days. No complaints of diarrhea and abdominal pain. Does have chest tightness with deep breathing. Denied any dysuria or hematuria. No headache or dizziness or lightheadedness. On admission patient was tachycardic and hypoxic with pulse ox 84% and requiring her person noncontributory. CTA chest showed demonstrative moderate to severe skater groundglass opacities throughout both lungs with interspace and wedge-shaped areas of consolidation or atelectasis. Consider Coumadin 19 pneumonia. No evidence of pulmonary embolism or acute aortic abnormality. EKG showed sinus tachycardia Chest x-ray showed diffuse bilateral infiltrates which can be compatible with atypical pneumonia. Laboratory data showed WBC 4.6, hemoglobin 14.2 and platelets 270, d-dimer 3.79 Sodium 129 potassium 3.7 chloride 94 BUN 12 and creatinine 0.50 LDH 1942, CRP 78.3, pro-calcitonin 0.2 Code 19 PCR detected. 05/08/2020 Patient is currently awake alert and oriented x3. Still having significant shortness of breath and hypoxia. Currently on high flow oxygen at 6 L with FiO2 of 90%. Patient is being continued on methylprednisolone and Lovenox twice daily. Continued on multivitamins. Pulmonary is on board. Patient has been afebrile. No nausea vomiting or diarrhea. No dysuria or hematuria. No chest pain. 05/09/2020 Patient is currently on high flow oxygen airvo 60 L with 90% FiO2. Appears to be in no distress. Awake alert and oriented. No fever no chills. No nausea vomiting or abdominal pain or diarrhea. Patient will be continued on Solu- Medrol and Lovenox twice daily. Laboratory data showed serum D-dimer level is 19.1 Sodium 136 potassium 3.7 bicarb is 31 BUN 14 and creatinine 0.48 blood sugar is 148 and CRP 24.2 and LDH 1620 05/10/2020 Patient is lying in the bed awake and alert. Still requiring high flow oxygen at 60 L FiO2 90%. She having exertional dyspnea and chest tightness. Patient is being continued on IV Solu-Medrol, Lovenox twice daily and multivitamins. Laboratory work showed D-dimer 15.1, LDH 171 on and CRP 9.6 patient has been afebrile. 05/26/2020 Patient is currently sitting in the chair comfortably. Awake alert and oriented. Still requiring high flow oxygen at 60 L Airvo and FiO2 55% which is trending down from 70% yesterday. No complaints of chest pain or worsening shortness of breath. No nausea vomiting or abdominal pain. No diarrhea. Patient is being continued Xarelto for long-term anticoagulation and is also on dexamethasone 6 mg daily. Urinalysis showed cloudy with moderate leukocyte esterase and elevated WBCs. Urine culture was ordered and patient was started on ceftriaxone. Pulmonary is on board. 05/27/2020 Patient is awake alert and oriented. No complaints of chest pain or worsening shortness of breath. Patient is on 50 L high flow at 80% FiO2 Laboratory data showed sodium 131 potassium 3.7 chloride 92 BUN 25 and cr eatinine 0.44 and LDH 1274 CRP 7.6 Chest x-ray showed bilateral multifocal opacities consistent with COVID-19 infection are redemonstrated. Some interval progression or worsening opacities in the right lung noted from most recent x-ray. Patient was given a dose of IV Lasix today. Urine culture is growing gram-negative bacilli. Continue with ceftriaxone and follow-up final culture report. Patient has been afebrile.No nausea vomiting or abdominal pain or diarrhea. No headache or dizziness or lightheadedness. Current medications reviewed. Objective - Vital Signs Vital signs: Vital Signs Temp 98.8 F 05/27/20 16:00 Pulse 94 05/27/20 16:00 Resp 18 05/27/20 16:00 BP 115/74 05/27/20 16:00 Pulse Ox 97 05/27/20 16:27 Intake & Output 05/27/20 05/27/20 05/28/20 06:59 18:59 06:59 Intake Total 354 Output Total 400 200 Balance -400 154 Weight 91 kg 91 kg Intake: Oral 354 Output: Urine 400 200 Other: Voiding Method Toilet Toilet # Voids 0 1 # Bowel Movements 0 - Exam PHYSICAL EXAMINATION: Patient is lying in the bed comfortably, no acute distress, awake alert and oriented.. HEENT: Normocephalic. Neck is supple. Pupils reactive. Nostrils clear. Oral cavity is moist. Ears reveal no drainage. Neck reveals no JVD, carotid bruits, or thyromegaly. CHEST EXAMINATION: Trachea is central. Symmetrical expansion. Bilateral coarse breath sounds. No wheezing or rhonchi.. CARDIAC: Normal S1, S2 with no gallops. No murmurs ABDOMEN: Soft. Bowel sounds normal. No organomegaly. No abdominal bruits. Extremities: reveal no edema. No clubbing or cyanosis Neurologically awake, alert, oriented x3 with well-coordinated movements. No focal deficits noted Skin: No rash or skin lesions. Psychiatric: Coperative. Nonsuicidal Musculoskeletal: No joint swelling or deformity. Normal range of motion. - Labs CBC & Chem 7: 05/24/20 07:41 05/27/20 07:52 Labs: Abnormal Lab Results - Last 24 Hours (Table) 05/27/20 05/27/20 05/27/20 Range/Units 06:11 07:52 11:59 Sodium 131 L (137-145) mmol/L Chloride 92 L (98-107) mmol/L Carbon Dioxide 37 H (22-30) mmol/L BUN 25 H (7-17) mg/dL Creatinine 0.44 L (0.52-1.04) mg/dL Glucose 150 H (74-99) mg/dL POC Glucose (mg/dL) 154 H 234 H (75-99) mg/dL Lactate Dehydrogenase 1274 H (313-618) U/L 05/27/20 Range/Units 16:51 Sodium (137-145) mmol/L Chloride (98-107) mmol/L Carbon Dioxide (22-30) mmol/L BUN (7-17) mg/dL Creatinine (0.52-1.04) mg/dL Glucose (74-99) mg/dL POC Glucose (mg/dL) 267 H (75-99) mg/dL Lactate Dehydrogenase (313-618) U/L Microbiology - Last 24 Hours (Table) 05/26/20 11:00 Urine Culture - Preliminary Urine,Voided Assessment and Plan Assessment: Acute hypoxic respiratory failure secondary to Covid 19 pneumonia. Patient tested positive on 04/29/2020. Currently requiring 60 L of FiO2 55% via Airvo Increased inflammatory markers secondary to viral pneumonia Hypovolemic hyponatremia. improved. Bilateral lower extremity DVTs. Currently on Xarelto. Elevated d-dimer level without evidence of pulmonary embolism on CTA Gram-negative bacilli urinary tract infection Borderline hypertension currently not on any medications at home. Ongoing nicotine addiction History of uterine and cervical cancer status post hysterectomy 10 years ago Kyphoscoliosis history and back surgery DVT prophylaxis patient is on Lovenox. Plan: Patient will be continued on oxygen supplementation and titrate down FiO2. Continue with dexamethasone 6 mg daily and multivitamins, vitamin D and follow up closely. Monitor electrolytes and inflammatory markers. Continue with Xarelto for LE DVT Pulmonary is on board. Patient was given Tocilizumab 400 mg IV piggyback 2 doses initially. Further recommendations based on the clinical course. Prognosis is guarded. Smoking cessation has been counseled. Time with Patient: Greater than 30
[2020-05-28] MEDS: HYDROcodone/APAP 5-325MG 1 EACH TAB PO PRN ×2 (00:19→06:47)
[2020-05-28] MEDS: ACETAMINOPHEN TAB 325 MG TAB PO PRN ×2 (03:58→16:16)
[2020-05-28 06:25] LABS: Glucose,Whole Blood 120 mg/dL (75-99)
[2020-05-28] MEDS: INSULIN ASPART (NovoLOG) 100 UNIT/ML VIAL SQ SCH ×4 (06:40→21:09)
[2020-05-28] MEDS: PANTOPRAZOLE 40 MG TABLET PO SCH (06:46)
[2020-05-28] MEDS: RIVAROXABAN 15 MG TAB PO SCH ×2 (06:46→17:17)
[2020-05-28] MEDS: ASCORBIC ACID 500 MG TAB PO SCH (08:32)
[2020-05-28] MEDS: ZINC SULFATE 220 MG CAP PO SCH (08:32)
[2020-05-28] MEDS: dexAMETHasone 2 MG TAB PO SCH (08:32)
[2020-05-28] MEDS: FAMOTIDINE 20 MG TAB PO SCH ×2 (08:33→21:09)
[2020-05-28] MEDS: CHOLECALCIFEROL 25 MCG (1000 IU) TABLET PO SCH (08:33)
[2020-05-28] MEDS: LIDOCAINE 5% PATCH TOPICAL SCH (08:33)
[2020-05-28 10:12] LABS: Basophils % (A) 0 %; Eosinophils # (A) 0.1 k/uL (0-0.7); Eosinophils % (A) 1 %; HCT 35.5 % (34.0-46.0); HGB 12.3 gm/dL (11.4-16.0); Lymphocytes # (A) 0.3 k/uL (1.0-4.8); Lymphocytes % (A) 3 %; MCH 31.4 pg (25.0-35.0); MCHC 34.7 g/dL (31.0-37.0); MCV 90.6 fL (80.0-100.0); Mean Platelet Volume 7.2; Monocytes # (A) 0.4 k/uL (0-1.0); Monocytes % (A) 4 %; Neutrophils # (A) 10.7 k/uL (1.3-7.7); Neutrophils % (A) 92 %; RBC 3.92 m/uL (3.80-5.40); RDW 14.8 % (11.5-15.5); WBC 11.6 k/uL (3.8-10.6)
[2020-05-28 10:22] LABS: Platelet Count 100 k/uL (150-450)
[2020-05-28 11:13] LABS: African American GFR (CKD) >90 (>60 ml/min/1.73 sqM); Anion Gap 3 mmol/L; Blood Urea Nitrogen 16 mg/dL (7-17); Calcium 8.6 mg/dL (8.4-10.2); Carbon Dioxide 32 mmol/L (22-30); Chloride 94 mmol/L (98-107); Glucose 226 mg/dL (74-99); Non-African American GFR(CKD) >90 (>60 ml/min/1.73 sqM); Sodium 129 mmol/L (137-145)
--- NOTE | 2020-05-28 11:58 | P.PN ---
Subjective Progress Note Date: 05/28/20 On 05/25/2020, the patient is being seen for a follow-up. The patient is a case of COVID 19 pneumonia and the patient was quite slow to progress. . The patient is still on high flow oxygen at 60 L with an FiO2 of 70%. Gradually improving. Chest x-ray still showing diffuse but the pulmonary infiltrates consistent with pneumonia. The patient is on long-term and to coagulation with Xarelto. The patient remains on IV Solu-Medrol and multivitamins. Procalcitonin level is low. LDH was still elevated based on the most recent review. The patient is known to have kyphoscoliosis with previous history of back surgery. The patient is known to have hypertension and the patient On a chair reading a book. He is quite comfortable at this point, high flow oxygen. Clinically, the patient is feeling slightly better. D-dimer is at 3.43, LDH is 1554 with a CRP of 5.2. Pro-calcitonin level is low at 0.05. White cell count is at 12.5. On 05/26/2020, the patient is being seen for a follow-up. She remains on a high flow oxygen with 60 L flow with an FiO2 of 55%. Note that she was on 70% yesterday and she has been weaned down to 55%. Her chest x-ray was showing diffuse bilateral pulmonary infiltrates. The patient is on long-term anticoagulation with Xarelto. The patient remains on IV Solu-Medrol. She is receiving 60 mg IV push every 6 hours. In terms of her blood work, no new blood test and inflammatory markers done earlier were all noted. Clinically, the patient is stable. There has been some wean her FiO2. On 05/27/2020, the patient is still having some pain across the left side of the chest. Her current oxygen flow is at 15 L with an FiO2 of 80%. Her chest x-ray from today is showing stable findings. This is an underpenetrated film. The patient is currently off IV Solu-Medrol and she is on oral Decadron 6 mg by mouth daily. She is also on long-term and to coagulation with Xarelto. She is able to sit up on a chair. No fever. No chills. No nausea or vomiting or abdominal pain. Blood work from today showing normal renal function and electrolytes she does have a chronic metabolic alkalosis. The LDH level is at 1274 and the CRP level is currently at 7.6.. 05/28/2020, the patient is on high flow oxygen and she is currently at 15 L with an FiO2 of 80%. She was having some skeletal chest wall pain on the right and the patient was given lidocaine patch. She is also on oral Decadron 6 mg by mouth daily and she is on long-term anticoagulation with Xarelto. No new complaints otherwise for now. Her current pulse ox is around 95%. I think she could be weaned down the FiO2. The rest of the labs shows sodium level of 129, renal function is stable and no recent inflammatory markers measures on this patient. Objective - Vital Signs Vital signs: Vital Signs Temp 98 F 05/28/20 08:00 Pulse 97 05/28/20 08:00 Resp 20 05/28/20 08:00 BP 119/66 05/28/20 08:00 Pulse Ox 95 05/28/20 08:00 Intake & Output 05/27/20 05/28/20 05/28/20 18:59 06:59 18:59 Intake Total 354 10 240 Output Total 200 550 Balance 154 -540 240 Weight 91 kg 85.5 kg Intake: IV 10 Invasive Line 6 10 Oral 354 240 Output: Urine 200 550 Other: Voiding Method Toilet Toilet # Voids 1 1 - Exam GENERAL EXAM: Alert, pleasant, 70-year-old white female, currently on high flow oxygen per Airvo at 50 L and FiO2 of 80 % with a pulse ox of 88-92% comfortable in no apparent distress. HEAD: Normocephalic/atraumatic. EYES: Normal reaction of pupils, equal size. Conjunctiva pink, sclera white. NOSE: Clear with pink turbinates. THROAT: No erythema or exudates. NECK: No masses, no JVD, no thyroid enlargement, no adenopathy. CHEST: No chest wall deformity. Symmetrical expansion. LUNGS: Equal air entry with diffuse coarse crackles throughout lung plummer CVS: Regular rate and rhythm, normal S1 and S2, no gallops, no murmurs, no rubs ABDOMEN: Soft, nontender. No hepatosplenomegaly, normal bowel sounds, no guarding or rigidity. EXTREMITIES: No clubbing, no edema, no cyanosis, 2+ pulses and upper and lower extremities. MUSCULOSKELETAL: Muscle strength and tone normal. SPINE: No scoliosis or deformity SKIN: No rashes CENTRAL NERVOUS SYSTEM: Alert and oriented -3. No focal deficits, tone is nor mal in all 4 extremities. PSYCHIATRIC: Alert and oriented -3. Appropriate affect. Intact judgment and insight. - Labs CBC & Chem 7: 05/28/20 09:26 05/28/20 09:26 Labs: Abnormal Lab Results - Last 24 Hours (Table) 05/27/20 05/27/20 05/27/20 Range/Units 11:59 16:51 20:18 WBC (3.8-10.6) k/uL Plt Count (150-450) k/uL Neutrophils # (1.3-7.7) k/uL Lymphocytes # (1.0-4.8) k/uL Sodium (137-145) mmol/L Chloride (98-107) mmol/L Carbon Dioxide (22-30) mmol/L Creatinine (0.52-1.04) mg/dL Glucose (74-99) mg/dL POC Glucose (mg/dL) 234 H 267 H 293 H (75-99) mg/dL 05/28/20 05/28/20 05/28/20 Range/Units 06:23 09:26 09:26 WBC 11.6 H (3.8-10.6) k/uL Plt Count 100 L (150-450) k/uL Neutrophils # 10.7 H (1.3-7.7) k/uL Lymphocytes # 0.3 L (1.0-4.8) k/uL Sodium 129 L (137-145) mmol/L Chloride 94 L (98-107) mmol/L Carbon Dioxide 32 H (22-30) mmol/L Creatinine 0.35 L (0.52-1.04) mg/dL Glucose 226 H (74-99) mg/dL POC Glucose (mg/dL) 120 H (75-99) mg/dL Microbiology - Last 24 Hours (Table) 05/26/20 11:00 Urine Culture - Preliminary Urine,Voided Gram Neg Bacilli Assessment and Plan Plan: 1 Acute hypoxic respiratory failure secondary to Covid 19 pneumonia. requiring AirVo 50 L/m and 80 % FiO2. Received Tocilizumab. Currently still on po Decadron. Oxygenation is showing only limited improvement over the past few weeks and the patient is very slow to progress. Developing and muscular skele amadeo chest wall pain on the right and the patient will be given lidocaine patch. 2 Bilateral lower extremity DVTs, transitioned from heparin drip to Xarelto 3 Benign essential hypertension. 4 Bilateral deep vein thromboses and strongly suspect that the patient has acute pulmonary embolism. 5 Borderline hypertension currently not on any medications at home. 6 Ongoing nicotine addiction 7 History of uterine and cervical cancer status post hysterectomy 10 years ago 8 hyponatremia with a sodium level of 129. Plan: patient on 6 mg of Decadron on a daily basis by mouth Xarelto for long-term anticoagulants Lidocaine patch for musculoskeletal chest wall pain vitamin supplements Increase her activity as tolerated Titrate down the FiO2 as tolerated Slow clinical improvement. She is stable currently on 50 L with an FiO2 of 80%. Anticipate some weaning of FiO2 today. Her skeletal chest wall pain is under much better control.
[2020-05-28 12:25] LABS: Glucose,Whole Blood 185 mg/dL (75-99)
[2020-05-28] MEDS: THIAMINE 100 MG TAB PO SCH (12:46)
[2020-05-28] MEDS: MULTIVITAMINS, THERA 1 EACH TAB PO SCH (12:47)
[2020-05-28] MEDS: FOLIC ACID 1 MG TAB PO SCH (12:47)
[2020-05-28] MEDS ORDERED: HYDROcodone/APAP 5-325MG 1 EACH TAB PO PRN (15:09)
[2020-05-28 17:07] LABS: Glucose,Whole Blood 283 mg/dL (75-99)
[2020-05-28 21:08] LABS: Glucose,Whole Blood 237 mg/dL (75-99)
--- NOTE | 2020-05-28 21:20 | P.PN ---
Subjective Progress Note Date: 05/28/20 Principal diagnosis: Acute hypoxic respiratory failure secondary to Covid pneumonia Patient is a 60-year-old female with a known history of cervical cancer status post hysterectomy, currently everyday smoker presents to ER with the complaints of worsening shortness of breath. Patient says that her symptoms started about 2 weeks ago and was tested for cold positive on 04/29/2020 as an outpatient. Patient has been having fever and chills on and off. She has been using over- the-counter medications. Patient was not any antibiotics or steroids at home. She came to ER due to worsening shortness of breath and generalized weakness and decreased oral intake and nausea for the past 3 days. No complaints of diarrhea and abdominal pain. Does have chest tightness with deep breathing. Denied any dysuria or hematuria. No headache or dizziness or lightheadedness. On admission patient was tachycardic and hypoxic with pulse ox 84% and requiring her person noncontributory. CTA chest showed demonstrative moderate to severe skater groundglass opacities throughout both lungs with interspace and wedge-shaped areas of consolidation or atelectasis. Consider Coumadin 19 pneumonia. No evidence of pulmonary embolism or acute aortic abnormality. EKG showed sinus tachycardia Chest x-ray showed diffuse bilateral infiltrates which can be compatible with atypical pneumonia. Laboratory data showed WBC 4.6, hemoglobin 14.2 and platelets 270, d-dimer 3.79 Sodium 129 potassium 3.7 chloride 94 BUN 12 and creatinine 0.50 LDH 1942, CRP 78.3, pro-calcitonin 0.2 Code 19 PCR detected. 05/08/2020 Patient is currently awake alert and oriented x3. Still having significant shortness of breath and hypoxia. Currently on high flow oxygen at 6 L with FiO2 of 90%. Patient is being continued on methylprednisolone and Lovenox twice daily. Continued on multivitamins. Pulmonary is on board. Patient has been afebrile. No nausea vomiting or diarrhea. No dysuria or hematuria. No chest pain. 05/09/2020 Patient is currently on high flow oxygen airvo 60 L with 90% FiO2. Appears to be in no distress. Awake alert and oriented. No fever no chills. No nausea vomiting or abdominal pain or diarrhea. Patient will be continued on Solu- Medrol and Lovenox twice daily. Laboratory data showed serum D-dimer level is 19.1 Sodium 136 potassium 3.7 bicarb is 31 BUN 14 and creatinine 0.48 blood sugar is 148 and CRP 24.2 and LDH 1620 05/10/2020 Patient is lying in the bed awake and alert. Still requiring high flow oxygen at 60 L FiO2 90%. She having exertional dyspnea and chest tightness. Patient is being continued on IV Solu-Medrol, Lovenox twice daily and multivitamins. Laboratory work showed D-dimer 15.1, LDH 171 on and CRP 9.6 patient has been afebrile. 05/26/2020 Patient is currently sitting in the chair comfortably. Awake alert and oriented. Still requiring high flow oxygen at 60 L Airvo and FiO2 55% which is trending down from 70% yesterday. No complaints of chest pain or worsening shortness of breath. No nausea vomiting or abdominal pain. No diarrhea. Patient is being continued Xarelto for long-term anticoagulation and is also on dexamethasone 6 mg daily. Urinalysis showed cloudy with moderate leukocyte esterase and elevated WBCs. Urine culture was ordered and patient was started on ceftriaxone. Pulmonary is on board. 05/27/2020 Patient is awake alert and oriented. No complaints of chest pain or worsening shortness of breath. Patient is on 50 L high flow at 80% FiO2 Laboratory data showed sodium 131 potassium 3.7 chloride 92 BUN 25 and cr eatinine 0.44 and LDH 1274 CRP 7.6 Chest x-ray showed bilateral multifocal opacities consistent with COVID-19 infection are redemonstrated. Some interval progression or worsening opacities in the right lung noted from most recent x-ray. Patient was given a dose of IV Lasix today. Urine culture is growing gram-negative bacilli. Continue with ceftriaxone and follow-up final culture report. Patient has been afebrile.No nausea vomiting or abdominal pain or diarrhea. No headache or dizziness or lightheadedness. 05/28/2020 Patient is currently high flow oxygen at 50 L and 70% FiO2. Sitting in bedside comfortably. Denies any complaints of nausea vomiting or abdominal pain. Tolerating oral diet. Patient is being continued dexamethasone and Xarelto. Currently on once vitamins. Continue to titrate down FiO2. Laboratory data showed sodium level of 129 potassium 4.0 chloride 94 bicarb is 3 2 BUN 16 and creatinine 0.73 500 GFR is greater than 90 Blood sugar is 226 calcium 8.6 Urine culture showed gram-negative bacilli and patient is being continued on ceftriaxone. Follow-up final culture report. Patient was ventilated with decreased plain water intake. Current medications reviewed. Objective - Vital Signs Vital signs: Vital Signs Temp 99.2 F 05/28/20 12:10 Pulse 90 05/28/20 12:10 Resp 20 05/28/20 12:10 BP 121/76 05/28/20 12:10 Pulse Ox 98 05/28/20 12:10 Intake & Output 05/27/20 05/28/20 05/28/20 18:59 06:59 18:59 Intake Total 354 10 960 Output Total 200 550 Balance 154 -540 960 Weight 91 kg 85.5 kg Intake: IV 10 160 0.9% NS at 50mL/hr 160 Invasive Line 6 10 Oral 354 800 Output: Urine 200 550 Other: Voiding Method Toilet Toilet # Voids 1 1 - Exam PHYSICAL EXAMINATION: Patient is lying in the bed comfortably, no acute distress, awake alert and oriented.. HEENT: Normocephalic. Neck is supple. Pupils reactive. Nostrils clear. Oral cavity is moist. Ears reveal no drainage. Neck reveals no JVD, carotid bruits, or thyromegaly. CHEST EXAMINATION: Trachea is central. Symmetrical expansion. Bilateral coarse breath sounds. No wheezing or rhonchi.. CARDIAC: Normal S1, S2 with no gallops. No murmurs ABDOMEN: Soft. Bowel sounds normal. No organomegaly. No abdominal bruits. Extremities: reveal no edema. No clubbing or cyanosis Neurologically awake, alert, oriented x3 with well-coordinated movements. No focal deficits noted Skin: No rash or skin lesions. Psychiatric: Coperative. Nonsuicidal Musculoskeletal: No joint swelling or deformity. Normal range of motion. - Labs CBC & Chem 7: 05/28/20 09:26 05/28/20 09:26 Labs: Abnormal Lab Results - Last 24 Hours (Table) 05/27/20 05/27/20 05/28/20 Range/Units 16:51 20:18 06:23 WBC (3.8-10.6) k/uL Plt Count (150-450) k/uL Neutrophils # (1.3-7.7) k/uL Lymphocytes # (1.0-4.8) k/uL Sodium (137-145) mmol/L Chloride (98-107) mmol/L Carbon Dioxide (22-30) mmol/L Creatinine (0.52-1.04) mg/dL Glucose (74-99) mg/dL POC Glucose (mg/dL) 267 H 293 H 120 H (75-99) mg/dL 05/28/20 05/28/20 05/28/20 Range/Units 09:26 09:26 12:21 WBC 11.6 H (3.8-10.6) k/uL Plt Count 100 L (150-450) k/uL Neutrophils # 10.7 H (1.3-7.7) k/uL Lymphocytes # 0.3 L (1.0-4.8) k/uL Sodium 129 L (137-145) mmol/L Chloride 94 L (98-107) mmol/L Carbon Dioxide 32 H (22-30) mmol/L Creatinine 0.35 L (0.52-1.04) mg/dL Glucose 226 H (74-99) mg/dL POC Glucose (mg/dL) 185 H (75-99) mg/dL Microbiology - Last 24 Hours (Table) 05/26/20 11:00 Urine Culture - Preliminary Urine,Voided Gram Neg Bacilli Assessment and Plan Assessment: Acute hypoxic respiratory failure secondary to Covid 19 pneumonia. Patient tested positive on 04/29/2020. Currently requiring 50 L of FiO2 70% via Airvo Increased inflammatory markers secondary to viral pneumonia hyponatremia. Likely due to increased free water intake. Bilateral lower extremity DVTs. Currently on Xarelto. Elevated d-dimer level without evidence of pulmonary embolism on CTA Gram-negative bacilli urinary tract infection Borderline hypertension currently not on any medications at home. Ongoing nicotine addiction History of uterine and cervical cancer status post hysterectomy 10 years ago Kyphoscoliosis history and back surgery DVT prophylaxis patient is on Lovenox. Plan: Patient will be continued on oxygen supplementation and titrate down FiO2. Continue with dexamethasone 6 mg daily and multivitamins, vitamin D and follow up closely. Monitor electrolytes and inflammatory markers. Continue with Xarelto for LE DVT Pulmonary is on board. Patient was given Tocilizumab 400 mg IV piggyback 2 doses initially. Further recommendations based on the clinical course. Prognosis is guarded. Smoking cessation has been counseled. Time with Patient: Greater than 30
[2020-05-29 06:33] LABS: Glucose,Whole Blood 117 mg/dL (75-99)
[2020-05-29] MEDS: INSULIN ASPART (NovoLOG) 100 UNIT/ML VIAL SQ SCH ×4 (06:41→21:02)
[2020-05-29] MEDS: RIVAROXABAN 15 MG TAB PO SCH ×2 (06:59→17:28)
[2020-05-29] MEDS: ACETAMINOPHEN TAB 325 MG TAB PO PRN (06:59)
[2020-05-29] MEDS: PANTOPRAZOLE 40 MG TABLET PO SCH (06:59)
[2020-05-29 08:39] LABS: African American GFR (CKD) >90 (>60 ml/min/1.73 sqM); Anion Gap 3 mmol/L; Blood Urea Nitrogen 13 mg/dL (7-17); Calcium 8.9 mg/dL (8.4-10.2); Carbon Dioxide 32 mmol/L (22-30); Chloride 97 mmol/L (98-107); Glucose 104 mg/dL (74-99); Non-African American GFR(CKD) >90 (>60 ml/min/1.73 sqM); Potassium 3.7 mmol/L (3.5-5.1); Sodium 132 mmol/L (137-145)
[2020-05-29] MEDS: LIDOCAINE 5% PATCH TOPICAL SCH (09:04)
[2020-05-29] MEDS: FAMOTIDINE 20 MG TAB PO SCH ×2 (09:05→21:02)
[2020-05-29] MEDS: dexAMETHasone 2 MG TAB PO SCH (09:05)
[2020-05-29] MEDS: ZINC SULFATE 220 MG CAP PO SCH (09:05)
[2020-05-29] MEDS: CHOLECALCIFEROL 25 MCG (1000 IU) TABLET PO SCH (09:05)
[2020-05-29] MEDS: ASCORBIC ACID 500 MG TAB PO SCH (09:05)
[2020-05-29 12:05] LABS: Glucose,Whole Blood 179 mg/dL (75-99)
[2020-05-29] MEDS: MULTIVITAMINS, THERA 1 EACH TAB PO SCH (12:32)
[2020-05-29] MEDS: FOLIC ACID 1 MG TAB PO SCH (12:32)
[2020-05-29] MEDS: THIAMINE 100 MG TAB PO SCH (12:32)
--- NOTE | 2020-05-29 13:07 | P.PN ---
Subjective Progress Note Date: 05/29/20 Principal diagnosis: COVID 19 Patient was reevaluated today on 05/14/2020, remains on high flow oxygen she is presently on 90% FiO2 and 60 L high flow. Recommended probing the patient, and she is trying to go into prone position, patient remains extremely marginal at best. ABC is relatively normal lites are normal renal profile is normal d-dimer is elevated at 30.84. This is the highest d-dimer I have seen since her admission. Patient is maintained on Lovenox at 45 mg subcu twice a day. I would likely recommend a CT angiogram of this patient as she may be a great set up for acute pulmonary embolism considering her elevated d-dimer and considering her Covid 19 infection and seems to be very slow to respond. Reevaluated today on 05/15/2020, patient is feeling much better today. Breathing a lot easier. And her saturations are improving. Yesterday when I saw the leisa warren and I was concerned about her elevated d-dimer, she could not go down for a CT angiogram of the chest, hence I recommended bilateral venous Doppler, and a Doppler was positive for bilateral deep vein thrombosis. Hence I recommended that the patient goes on heparin and discontinued her subcu Lovenox. I am certain that the patient had acute pulmonary embolism along with DVT based on her symptoms yesterday although she does have underlying Covid 19 pneumonia. Today the patient is resting more comfortably, she is on Airvo, with flow rate of 60 and FiO2 of 90%, her O2 saturation is in the low 90s. Less shortness of breath according to the patient, and she clearly tells me that today is much better today for her than yesterday. CBC is relatively normal hemoglobin is 14.7. Platelets are a bit low hence I will discontinue heparin tomorrow and start the patient on Xarelto. Her PTT is 74.5. Electrolites are normal renal profile is normal. Down the line and may even consider a CT angiogram of the chest to document thromboembolic disease/pulmonary embolism. Reevaluated today on 05/16/2020, patient remains about the same. Still requiring significantly high FiO2. Patient is on a nonrebreather mask and airvo, O2 saturation is 88-90% she is on 90% FiO2 and 60 L high flow. Plus a nonrebreather mask. Surprisingly the patient tells me that she is doing okay not as symptomatic as expected considering that her O2 saturation is marginal. Yesterday, the patient was transitioned to Xarelto and she is taking the Xarelto as directed. CBC today is relatively normal hemoglobin is 14.7 platelet are 89,000. Electrolytes are normal renal profile is normal The patient is seen today 04/16/2020 in follow-up on the regular selective care unit. She is doing better today compared to yesterday. Less cough and congestion. Still requiring careful high flow oxygen at 60 L and 90% FiO2 to maintain O2 saturations in the low 90s. She is feeling a bit stronger. Chest x-ray continues to show interstitial airspace disease and mild edema slightly improved compared to previous. Blood glucose 133. She remains on IV Solu- Medrol, vitamin supplements. Anticoagulated with Xarelto. Progress note dated 05/18/2020. This is a 60-year-old female admitted with a diagnosis of acute hypoxemic respiratory failure secondary to COVID 19 pneumonia. The patient did receive TOCI. In addition, the patient has benign essential hypertension, deep venous thrombosis and possible pulmonary embolism, hypertension, chronic nicotine addiction, uterine and cervical cancer, status post hysterectomy, and hypovolemic hyponatremia. Currently, the patient is on AIRVO, at 60 L/m with an FiO2 of 80%. White count 12.5, hemoglobin 13.9, hematocrit 41.6, platelet count 80,000. Id. at 8.39. Sodium 135, potassium 4.5, chlorides 102, CO2 32, anion gap is 1, BUN is 20, creatinine 0.56. LDH is 1855. Chest x-ray shows diffuse interstitial and airspace disease. On 05 19 2020 patient seen in follow-up on selective care unit. Remains on Airvo, 60 L and FiO2 of 80%, her pulse ox is 85-93%. She is awake and alert, she states she is breathing somewhat better, still requiring high flow oxygen, and she easily desaturates with minimal exertion, still reports fatigue, but no fever or chills. No chest discomfort. This is stable, no fever or chills, no new chest x-ray, patient is status post Tocilizumab, and she continues on high- dose IV Solu-Medrol 60 mg every 6 hours, remains on oral Xarelto. No nausea vomiting diarrhea. Yesterday's labs revealed improving d-dimer and inflammatory markers. On 05/29/2020 patient seen in follow-up on medical surgical floor, she remains on Airvo, and was just decreased to 45 L/m and FiO2 is at 55%, her pulse ox is 90- 95%, and patient has been slowly weaned down on oxygen, doing much better, however she still gets very anxious, desats very easily with any little exertion, no acute events overnight, chest x-ray done on 05/27/2020 showed bilateral multifocal opacities consistent with COVID-19 pneumonia. His last set inflammatory markers showed downtrending LDH, CRP is within normal limits at 7.6. Labs have been reviewed, serum sodium is improving and is up to 132 on today's labs, potassium 3.7, chloride is 97, CO2 32, urine at 13 creatinine 0.29. She remains on once daily dose of Decadron, she remains on oral anticoagulation form of Zaroxolyn. She is on Rocephin for evidence of E. coli in her urinary tract Objective - Vital Signs Vital signs: Vital Signs Temp 98.6 F 05/29/20 04:00 Pulse 81 05/29/20 04:00 Resp 18 05/29/20 04:00 BP 132/77 05/29/20 04:00 Pulse Ox 89 L 05/29/20 10:49 Intake & Output 05/28/20 05/29/20 05/29/20 18:59 06:59 18:59 Intake Total 1440 240 Output Total 2000 Balance 1440 -2000 240 Weight 85.5 kg Intake: IV 160 0.9% NS at 50mL/hr 160 Oral 1280 240 Output: Urine 2000 Other: Voiding Method Toilet # Voids 1 - Exam GENERAL EXAM: Alert, very pleasant 60-year-old white female, on Airvo, 45 L and FiO2 of 55%, with pulse ox of 85-93% comfortable in no apparent distress. HEAD: Normocephalic/atraumatic. EYES: Normal reaction of pupils, equal size. Conjunctiva pink, sclera white. NOSE: Clear with pink turbinates. THROAT: No erythema or exudates. NECK: No masses, no JVD, no thyroid enlargement, no adenopathy. CHEST: No chest wall deformity. Symmetrical expansion. LUNGS: Equal air entry with no crackles, wheeze, rhonchi or dullness. CVS: Regular rate and rhythm, normal S1 and S2, no gallops, no murmurs, no rubs ABDOMEN: Soft, nontender. No hepatosplenomegaly, normal bowel sounds, no guarding or rigidity. EXTREMITIES: No clubbing, no edema, no cyanosis, 2+ pulses and upper and lower extremities. MUSCULOSKELETAL: Muscle strength and tone normal. SPINE: No scoliosis or deformity SKIN: No rashes CENTRAL NERVOUS SYSTEM: Alert and oriented -3. No focal deficits, tone is normal in all 4 extremities. PSYCHIATRIC: Alert and oriented -3. Appropriate affect. Intact judgment and insight. - Labs CBC & Chem 7: 05/28/20 09:26 05/29/20 07:35 Labs: Abnormal Lab Results - Last 24 Hours (Table) 05/28/20 05/28/20 05/29/20 Range/Units 17:06 20:46 06:15 Sodium (137-145) mmol/L Chloride (98-107) mmol/L Carbon Dioxide (22-30) mmol/L Creatinine (0.52-1.04) mg/dL Glucose (74-99) mg/dL POC Glucose (mg/dL) 283 H 237 H 117 H (75-99) mg/dL 05/29/20 05/29/20 Range/Units 07:35 12:03 Sodium 132 L (137-145) mmol/L Chloride 97 L (98-107) mmol/L Carbon Dioxide 32 H (22-30) mmol/L Creatinine 0.29 L (0.52-1.04) mg/dL Glucose 104 H (74-99) mg/dL POC Glucose (mg/dL) 179 H (75-99) mg/dL Microbiology - Last 24 Hours (Table) 05/26/20 11:00 Urine Culture - Final Urine,Voided Escherichia coli Assessment and Plan Plan: Assessment: #1. Acute hypoxic respiratory failure related to COVID 19 pneumonia, she tested positive in an outpatient basis on 04/29/2020, and onset of symptoms was 2 weeks prior to presentation. Currently requiring high flow oxygen per Airvo at 60 L and FiO2 of 80% per Airvo #2. Increased inflammatory markers, increased d-dimer related to the above #3. Nausea, poor appetite, poor oral intake, cough, fever, shortness of breath related to acute COVID 19 pneumonia #4. Borderline hypertension history takes no medications for #5. Smoker #6. Hx of uterine and cervical cancer status post hysterectomy 10 years ago #7. History of kyphoscoliosis with history of back surgery 30 years ago #8. Hyponatremia likely hypovolemic Plan: Continue weaning FiO2 to keep O2 sat at around 90%, may switch to regular high flow nasal cannula, Is able to tolerate and sustaine adequate O2 saturations. Continue current dose Decadron, continue oral anticoagulation, follow-up chest x-ray tomorrow, follow up inflammatory markers, continue monitoring for worsening dyspnea hypoxemia. I performed a history & physical examination of the patient and discussed their management with my nurse practitioner, Gina Marsh. I reviewed the nurse practitioner's note and agree with the documented findings and plan of care. Lung sounds are positive for diffuse crackles The findings and the impression was discussed with the patient. I attest to the documentation by the nurse practitioner. Time with Patient: Less than 30
[2020-05-29 16:53] LABS: Glucose,Whole Blood 249 mg/dL (75-99)
[2020-05-29 19:59] LABS: Glucose,Whole Blood 222 mg/dL (75-99)
--- NOTE | 2020-05-29 22:18 | P.PN ---
Subjective Progress Note Date: 05/29/20 Principal diagnosis: Acute hypoxic respiratory failure secondary to Covid pneumonia Patient is a 60-year-old female with a known history of cervical cancer status post hysterectomy, currently everyday smoker presents to ER with the complaints of worsening shortness of breath. Patient says that her symptoms started about 2 weeks ago and was tested for cold positive on 04/29/2020 as an outpatient. Patient has been having fever and chills on and off. She has been using over- the-counter medications. Patient was not any antibiotics or steroids at home. She came to ER due to worsening shortness of breath and generalized weakness and decreased oral intake and nausea for the past 3 days. No complaints of diarrhea and abdominal pain. Does have chest tightness with deep breathing. Denied any dysuria or hematuria. No headache or dizziness or lightheadedness. On admission patient was tachycardic and hypoxic with pulse ox 84% and requiring her person noncontributory. CTA chest showed demonstrative moderate to severe skater groundglass opacities throughout both lungs with interspace and wedge-shaped areas of consolidation or atelectasis. Consider Coumadin 19 pneumonia. No evidence of pulmonary embolism or acute aortic abnormality. EKG showed sinus tachycardia Chest x-ray showed diffuse bilateral infiltrates which can be compatible with atypical pneumonia. Laboratory data showed WBC 4.6, hemoglobin 14.2 and platelets 270, d-dimer 3.79 Sodium 129 potassium 3.7 chloride 94 BUN 12 and creatinine 0.50 LDH 1942, CRP 78.3, pro-calcitonin 0.2 Code 19 PCR detected. 05/08/2020 Patient is currently awake alert and oriented x3. Still having significant shortness of breath and hypoxia. Currently on high flow oxygen at 6 L with FiO2 of 90%. Patient is being continued on methylprednisolone and Lovenox twice daily. Continued on multivitamins. Pulmonary is on board. Patient has been afebrile. No nausea vomiting or diarrhea. No dysuria or hematuria. No chest pain. 05/09/2020 Patient is currently on high flow oxygen airvo 60 L with 90% FiO2. Appears to be in no distress. Awake alert and oriented. No fever no chills. No nausea vomiting or abdominal pain or diarrhea. Patient will be continued on Solu- Medrol and Lovenox twice daily. Laboratory data showed serum D-dimer level is 19.1 Sodium 136 potassium 3.7 bicarb is 31 BUN 14 and creatinine 0.48 blood sugar is 148 and CRP 24.2 and LDH 1620 05/10/2020 Patient is lying in the bed awake and alert. Still requiring high flow oxygen at 60 L FiO2 90%. She having exertional dyspnea and chest tightness. Patient is being continued on IV Solu-Medrol, Lovenox twice daily and multivitamins. Laboratory work showed D-dimer 15.1, LDH 171 on and CRP 9.6 patient has been afebrile. 05/26/2020 Patient is currently sitting in the chair comfortably. Awake alert and oriented. Still requiring high flow oxygen at 60 L Airvo and FiO2 55% which is trending down from 70% yesterday. No complaints of chest pain or worsening shortness of breath. No nausea vomiting or abdominal pain. No diarrhea. Patient is being continued Xarelto for long-term anticoagulation and is also on dexamethasone 6 mg daily. Urinalysis showed cloudy with moderate leukocyte esterase and elevated WBCs. Urine culture was ordered and patient was started on ceftriaxone. Pulmonary is on board. 05/27/2020 Patient is awake alert and oriented. No complaints of chest pain or worsening shortness of breath. Patient is on 50 L high flow at 80% FiO2 Laboratory data showed sodium 131 potassium 3.7 chloride 92 BUN 25 and creatinine 0.44 and LDH 1274 CRP 7.6 Chest x-ray showed bilateral multifocal opacities consistent with COVID-19 infection are redemonstrated. Some interval progression or worsening opacities in the right lung noted from most recent x-ray. Patient was given a dose of IV Lasix today. Urine culture is growing gram-negative bacilli. Continue with ceftriaxone and follow-up final culture report. Patient has been afebrile.No nausea vomiting or abdominal pain or diarrhea. No headache or dizziness or lightheadedness. 05/28/2020 Patient is currently high flow oxygen at 50 L and 70% FiO2. Sitting in bedside comfortably. Denies any complaints of nausea vomiting or abdominal pain. Tolerating oral diet. Patient is being continued dexamethasone and Xarelto. Currently on once vitamins. Continue to titrate down FiO2. Laboratory data showed sodium level of 129 potassium 4.0 chloride 94 bicarb is 32 BUN 16 and creatinine 0.73 500 GFR is greater than 90 Blood sugar is 226 calcium 8.6 Urine culture showed gram-negative bacilli and patient is being continued on ceftriaxone. Follow-up final culture report. Patient was ventilated with decreased plain water intake. 05/29/2020 Patient is currently sitting in a chair comfortably. No complaints of chest pain or worsening shortness of breath. Oxygen requirement is trending down patient is 45 L oxygen and 55% FiO2. Laboratory data showed sodium 132 potas sium 3.7 chloride 97 bicarb is 32 BUN 13 and creatinine 0.29 calcium 8.9 Urine culture showed E. coli patient is being continued ceftriaxone. Afebrile. Hemodynamically stable. Current medications reviewed. Objective - Vital Signs Vital signs: Vital Signs Temp 98.6 F 05/29/20 04:00 Pulse 81 05/29/20 04:00 Resp 18 05/29/20 04:00 BP 132/77 05/29/20 04:00 Pulse Ox 89 L 05/29/20 10:49 Intake & Output 05/28/20 05/29/20 05/29/20 18:59 06:59 18:59 Intake Total 1440 240 Output Total 2000 Balance 1440 -2000 240 Weight 85.5 kg Intake: IV 160 0.9% NS at 50mL/hr 160 Oral 1280 240 Output: Urine 2000 Other: Voiding Method Toilet # Voids 1 - Exam PHYSICAL EXAMINATION: Patient is lying in the bed comfortably, no acute distress, awake alert and oriented.. HEENT: Normocephalic. Neck is supple. Pupils reactive. Nostrils clear. Oral cavity is moist. Ears reveal no drainage. Neck reveals no JVD, carotid bruits, or thyromegaly. CHEST EXAMINATION: Trachea is central. Symmetrical expansion. Bilateral coarse breath sounds. No wheezing or rhonchi.. CARDIAC: Normal S1, S2 with no gallops. No murmurs ABDOMEN: Soft. Bowel sounds normal. No organomegaly. No abdominal bruits. Extremities: reveal no edema. No clubbing or cyanosis Neurologically awake, alert, oriented x3 with well-coordinated movements. No focal deficits noted Skin: No rash or skin lesions. Psychiatric: Coperative. Nonsuicidal Musculoskeletal: No joint swelling or deformity. Normal range of motion. - Labs CBC & Chem 7: 05/28/20 09:26 05/29/20 07:35 Labs: Abnormal Lab Results - Last 24 Hours (Table) 05/28/20 05/28/20 05/29/20 Range/Units 17:06 20:46 06:15 Sodium (137-145) mmol/L Chloride (98-107) mmol/L Carbon Dioxide (22-30) mmol/L Creatinine (0.52-1.04) mg/dL Glucose (74-99) mg/dL POC Glucose (mg/dL) 283 H 237 H 117 H (75-99) mg/dL 05/29/20 05/29/20 Range/Units 07:35 12:03 Sodium 132 L (137-145) mmol/L Chloride 97 L (98-107) mmol/L Carbon Dioxide 32 H (22-30) mmol/L Creatinine 0.29 L (0.52-1.04) mg/dL Glucose 104 H (74-99) mg/dL POC Glucose (mg/dL) 179 H (75-99) mg/dL Microbiology - Last 24 Hours (Table) 05/26/20 11:00 Urine Culture - Final Urine,Voided Escherichia coli Assessment and Plan Assessment: Acute hypoxic respiratory failure secondary to Covid 19 pneumonia. Patient tested positive on 04/29/2020. Currently requiring 50 L of FiO2 70% via Airvo Increased inflammatory markers secondary to viral pneumonia hyponatremia. Likely due to increased free water intake. Bilateral lower extremity DVTs. Currently on Xarelto. Elevated d-dimer level without evidence of pulmonary embolism on CTA Gram-negative bacilli / E. coli urinary tract infection Borderline hypertension currently not on any medications at home. Ongoing nicotine addiction History of uterine and cervical cancer status post hysterectomy 10 years ago Kyphoscoliosis history and back surgery DVT prophylaxis patient is on Lovenox. Plan: Patient will be continued on oxygen supplementation and titrate down FiO2. Continue with dexamethasone 6 mg daily and multivitamins, vitamin D and follow up closely. Monitor electrolytes and inflammatory markers. c/w ceftriaxone. Continue with Xarelto for LE DVT Pulmonary is on board. Patient was given Tocilizumab 400 mg IV piggyback 2 doses initially. Further recommendations based on the clinical course. Prognosis is guarded. Smoking cessation has been counseled. Time with Patient: Greater than 30
[2020-05-30 06:00] LABS: Glucose,Whole Blood 142 mg/dL (75-99)
[2020-05-30] MEDS: RIVAROXABAN 15 MG TAB PO SCH ×2 (06:15→17:14)
[2020-05-30] MEDS: INSULIN ASPART (NovoLOG) 100 UNIT/ML VIAL SQ SCH ×4 (06:15→20:17)
[2020-05-30] MEDS: PANTOPRAZOLE 40 MG TABLET PO SCH (06:15)
--- NOTE | 2020-05-30 07:43 | XR ---
EXAMINATION TYPE: XR chest 1V portable DATE OF EXAM: 05/30/2020 CLINICAL HISTORY: Difficulty breathing progress study. TECHNIQUE: Single AP portable upright view of the chest is obtained. COMPARISON: Chest x-ray from 3 days earlier and older studies. FINDINGS: Persistent bilateral multifocal increased opacities on background chronic parenchymal gutierrez ges. Underlying scoliosis with Arguelles linda from attempted surgical correction redemonstrated. Card iac silhouette size stable and upper limits of normal. IMPRESSION: Bilateral multifocal opacities consistent with covid-19 infection are redemonstrated on b ackground chronic changes, no significant interval change from most recent x-ray.
[2020-05-30] MEDS: CHOLECALCIFEROL 25 MCG (1000 IU) TABLET PO SCH (09:44)
[2020-05-30] MEDS: LIDOCAINE 5% PATCH TOPICAL SCH ×2 (09:45→18:02)
[2020-05-30] MEDS: FAMOTIDINE 20 MG TAB PO SCH ×2 (09:45→20:17)
[2020-05-30] MEDS: dexAMETHasone 2 MG TAB PO SCH (09:45)
[2020-05-30] MEDS: ZINC SULFATE 220 MG CAP PO SCH (09:45)
[2020-05-30] MEDS: ASCORBIC ACID 500 MG TAB PO SCH (09:45)
[2020-05-30 10:53] LABS: Basophils % (A) 0 %; Eosinophils # (A) 0.1 k/uL (0-0.7); Eosinophils % (A) 1 %; HCT 33.2 % (34.0-46.0); HGB 11.3 gm/dL (11.4-16.0); Lymphocytes # (A) 0.4 k/uL (1.0-4.8); Lymphocytes % (A) 5 %; MCH 31.1 pg (25.0-35.0); MCHC 34.1 g/dL (31.0-37.0); MCV 91.2 fL (80.0-100.0); Mean Platelet Volume 7.5; Monocytes # (A) 0.5 k/uL (0-1.0); Monocytes % (A) 5 %; Neutrophils # (A) 7.8 k/uL (1.3-7.7); Neutrophils % (A) 88 %; Platelet Count 140 k/uL (150-450); RBC 3.64 m/uL (3.80-5.40); RDW 15.1 % (11.5-15.5); WBC 8.8 k/uL (3.8-10.6)
[2020-05-30 11:09] LABS: African American GFR (CKD) >90 (>60 ml/min/1.73 sqM); Anion Gap 5 mmol/L; Blood Urea Nitrogen 14 mg/dL (7-17); C Reactive Protein 6.4 mg/dL (<1.0); Calcium 8.8 mg/dL (8.4-10.2); Carbon Dioxide 32 mmol/L (22-30); Chloride 97 mmol/L (98-107); Glucose 207 mg/dL (74-99); LDH 794 U/L (313-618); Non-African American GFR(CKD) >90 (>60 ml/min/1.73 sqM); Potassium 3.6 mmol/L (3.5-5.1); Sodium 134 mmol/L (137-145)
[2020-05-30 11:45] LABS: Glucose,Whole Blood 161 mg/dL (75-99)
--- NOTE | 2020-05-30 12:14 | P.PN ---
Subjective Progress Note Date: 05/30/20 Patient was reevaluated today on 05/14/2020, remains on high flow oxygen she is presently on 90% FiO2 and 60 L high flow. Recommended probing the patient, and she is trying to go into prone position, patient remains extremely marginal at best. ABC is relatively normal lites are normal renal profile is normal d-dimer is elevated at 30.84. This is the highest d-dimer I have seen since her admission. Patient is maintained on Lovenox at 45 mg subcu twice a day. I would likely recommend a CT angiogram of this patient as she may be a great set up for acute pulmonary embolism considering her elevated d-dimer and considering her Covid 19 infection and seems to be very slow to respond. Reevaluated today on 05/15/2020, patient is feeling much better today. Breathing a lot easier. And her saturations are improving. Yesterday when I saw the patient and I was concerned about her elevated d-dimer, she could not go down for a CT angiogram of the chest, hence I recommended bilateral venous Doppler, and a Doppler was positive for bilateral deep vein thrombosis. Hence I recommended that the patient goes on heparin and discontinued her subcu Lovenox. I am certain that the patient had acute pulmonary embolism along with DVT based on her symptoms yesterday although she does have underlying Covid 19 pneumonia. Today the patient is resting more comfortably, she is on Airvo, with flow rate of 60 and FiO2 of 90%, her O2 saturation is in the low 90s. Less shortness of breath according to the patient, and she clearly tells me that today is much better today for her than yesterday. CBC is relatively normal hemoglobin is 14.7. Platelets are a bit low hence I will discontinue heparin tomorrow and start the patient on Xarelto. Her PTT is 74.5. Electrolites are normal renal profile is normal. Down the line and may even consider a CT angiogram of the chest to document thromboembolic disease/pulmonary embolism. Reevaluated today on 05/16/2020, patient remains about the same. Still requiring significantly high FiO2. Patient is on a nonrebreather mask and airvo, O2 saturation is 88-90% she is on 90% FiO2 and 60 L high flow. Plus a nonrebreather mask. Surprisingly the patient tells me that she is doing okay not as symptomatic as expected considering that her O2 saturation is marginal. Yesterday, the patient was transitioned to Xarelto and she is taking the Xarelto as directed. CBC today is relatively normal hemoglobin is 14.7 platelet are 89,000. Electrolytes are normal renal profile is normal The patient is seen today 04/16/2020 in follow-up on the regular selective care unit. She is doing better today compared to yesterday. Less cough and congestion. Still requiring careful high flow oxygen at 60 L and 90% FiO2 to maintain O2 saturations in the low 90s. She is feeling a bit stronger. Chest x-ray continues to show interstitial airspace disease and mild edema slightly improved compared to previous. Blood glucose 133. She remains on IV Solu- Medrol, vitamin supplements. Anticoagulated with Xarelto. Progress note dated 05/18/2020. This is a 60-year-old female admitted with a diagnosis of acute hypoxemic respiratory failure secondary to COVID 19 pneumonia. The patient did receive TOCI. In addition, the patient has benign essential hypertension, deep venous thrombosis and possible pulmonary embolism, hypertension, chronic nicotine addiction, uterine and cervical cancer, status post hysterectomy, and hypovolemic hyponatremia. Currently, the patient is on AIRVO, at 60 L/m with an FiO2 of 80%. White count 12.5, hemoglobin 13.9, hematocrit 41.6, platelet count 80,000. Id. at 8.39. Sodium 135, potassium 4.5, chlorides 102, CO2 32, anion gap is 1, BUN is 20, creatinine 0.56. LDH is 1855. Chest x-ray shows diffuse interstitial and airspace disease. On 05 19 2020 patient seen in follow-up on selective care unit. Remains on Airvo, 60 L and FiO2 of 80%, her pulse ox is 85-93%. She is awake and alert, she states she is breathing somewhat better, still requiring high flow oxygen, and she easily desaturates with minimal exertion, still reports fatigue, but no fever or chills. No chest discomfort. This is stable, no fever or chills, no new chest x-ray, patient is status post Tocilizumab, and she continues on high- dose IV Solu-Medrol 60 mg every 6 hours, remains on oral Xarelto. No nausea vomiting diarrhea. Yesterday's labs revealed improving d-dimer and inflammatory markers. On 05/29/2020 patient seen in follow-up on medical surgical floor, she remains on Airvo, and was just decreased to 45 L/m and FiO2 is at 55%, her pulse ox is 90- 95%, and patient has been slowly weaned down on oxygen, doing much better, however she still gets very anxious, desats very easily with any little exertion, no acute events overnight, chest x-ray done on 05/27/2020 showed bilateral multifocal opacities consistent with COVID-19 pneumonia. His last set inflammatory markers showed downtrending LDH, CRP is within normal limits at 7.6. Labs have been reviewed, serum sodium is improving and is up to 132 on today's labs, potassium 3.7, chloride is 97, CO2 32, urine at 13 creatinine 0.29. She remains on once daily dose of Decadron, she remains on oral anticoagulation form of Zaroxolyn. She is on Rocephin for evidence of E. coli in her urinary tract 05/30/2020, the patient has no complaints. Still on high flow at 45 L with an FiO2 of 55%. Pulse ox is improved and currently she is at 96% and we'll wean that down to 40% FiO2. No fever. No chills. Sitting up on a chair. Tolerating diet. She remains on Decadron. She is also being treated for an E. coli UTI with Rocephin. Inflammatory markers are downtrending. She is communicating. She has no new complaints. Objective - Vital Signs Vital signs: Vital Signs Temp 98.0 F 05/30/20 03:30 Pulse 97 05/30/20 03:30 Resp 22 05/30/20 03:30 BP 133/75 05/30/20 03:30 Pulse Ox 92 L 05/30/20 08:52 Intake & Output 05/29/20 05/30/20 05/30/20 18:59 06:59 18:59 Intake Total 2370 200 Output Total 1350 1200 Balance 1020 -1200 200 Weight 85 kg Intake: IV 80 0.9% NS at 50mL/hr 80 Intake, IV Titration 50 Amount cefTRIAXone 1 gm In 50 Sodium Chloride 0.9% 50 ml @ 100 mls/hr IVPB Q24H [facility] Rx#:[id number] Oral 2240 200 Output: Urine 1350 1200 Other: Voiding Method Toilet Toilet # Voids 1 # Bowel Movements 1 1 - Exam GENERAL EXAM: Alert, pleasant, 70-year-old white female, currently on high flow oxygen per Airvo at 50 L and FiO2 of 80 % with a pulse ox of 88-92% comfortable in no apparent distress. HEAD: Normocephalic/atraumatic. EYES: Normal reaction of pupils, equal size. Conjunctiva pink, sclera white. NOSE: Clear with pink turbinates. THROAT: No erythema or exudates. NECK: No masses, no JVD, no thyroid enlargement, no adenopathy. CHEST: No chest wall deformity. Symmetrical expansion. LUNGS: Equal air entry with diffuse coarse crackles throughout lung plummer CVS: Regular rate and rhythm, normal S1 and S2, no gallops, no murmurs, no rubs ABDOMEN: Soft, nontender. No hepatosplenomegaly, normal bowel sounds, no guarding or rigidity. EXTREMITIES: No clubbing, no edema, no cyanosis, 2+ pulses and upper and lower extremities. MUSCULOSKELETAL: Muscle strength and tone normal. SPINE: No scoliosis or deformity SKIN: No rashes CENTRAL NERVOUS SYSTEM: Alert and oriented -3. No focal deficits, tone is normal in all 4 extremities. PSYCHIATRIC: Alert and oriented -3. Appropriate affect. Intact judgment and insight. - Labs CBC & Chem 7: 05/30/20 09:54 05/30/20 09:54 Labs: Abnormal Lab Results - Last 24 Hours (Table) 05/29/20 05/29/20 05/30/20 Range/Units 16:52 19:57 05:59 RBC (3.80-5.40) m/uL Hgb (11.4-16.0) gm/dL Hct (34.0-46.0) % Plt Count (150-450) k/uL Neutrophils # (1.3-7.7) k/uL Lymphocytes # (1.0-4.8) k/uL D-Dimer (<0.60) mg/L FEU Sodium (137-145) mmol/L Chloride (98-107) mmol/L Carbon Dioxide (22-30) mmol/L Creatinine (0.52-1.04) mg/dL Glucose (74-99) mg/dL POC Glucose (mg/dL) 249 H 222 H 142 H (75-99) mg/dL Lactate Dehydrogenase (313-618) U/L C-Reactive Protein (<1.0) mg/dL 05/30/20 05/30/20 05/30/20 Range/Units 09:54 09:54 09:54 RBC 3.64 L (3.80-5.40) m/uL Hgb 11.3 L (11.4-16.0) gm/dL Hct 33.2 L (34.0-46.0) % Plt Count 140 L (150-450) k/uL Neutrophils # 7.8 H (1.3-7.7) k/uL Lymphocytes # 0.4 L (1.0-4.8) k/uL D-Dimer 2.15 H (<0.60) mg/L FEU Sodium 134 L (137-145) mmol/L Chloride 97 L (98-107) mmol/L Carbon Dioxide 32 H (22-30) mmol/L Creatinine 0.39 L (0.52-1.04) mg/dL Glucose 207 H (74-99) mg/dL POC Glucose (mg/dL) (75-99) mg/dL Lactate Dehydrogenase 794 H (313-618) U/L C-Reactive Protein 6.4 H (<1.0) mg/dL 05/30/20 Range/Units 11:44 RBC (3.80-5.40) m/uL Hgb (11.4-16.0) gm/dL Hct (34.0-46.0) % Plt Count (150-450) k/uL Neutrophils # (1.3-7.7) k/uL Lymphocytes # (1.0-4.8) k/uL D-Dimer (<0.60) mg/L FEU Sodium (137-145) mmol/L Chloride (98-107) mmol/L Carbon Dioxide (22-30) mmol/L Creatinine (0.52-1.04) mg/dL Glucose (74-99) mg/dL POC Glucose (mg/dL) 161 H (75-99) mg/dL Lactate Dehydrogenase (313-618) U/L C-Reactive Protein (<1.0) mg/dL Assessment and Plan Plan: 1 Acute hypoxic respiratory failure secondary to Covid 19 pneumonia. requiring AirVo 45 L/m and 40 % FiO2. Received Tocilizumab. Currently still on po Decadron. His urination is stable. No significant chest pain and the patient has improved with a lidocaine patch 2 Bilateral lower extremity DVTs, transitioned from heparin drip to Xarelto 3 Benign essential hypertension. 4 Bilateral deep vein thromboses and strongly suspect that the patient has acute pulmonary embolism. 5 Borderline hypertension currently not on any medications at home. 6 Ongoing nicotine addiction 7 History of uterine and cervical cancer status post hysterectomy 10 years ago 8 hyponatremia with a sodium level of 129. Plan: Wean the oxygen flow further as long as oxygen saturation remains above 90% on a 40% FiO2 patient on 6 mg of Decadron on a daily basis by mouth Xarelto for long-term anticoagulants Lidocaine patch for musculoskeletal chest wall pain vitamin supplements Increase her activity as tolerated Titrate down the FiO2 as tolerated Slow clinical improvement. She is stable currently on 50 L with an FiO2 of 80%. Anticipate some weaning of FiO2 today. Her skeletal chest wall pain is under much better control.
[2020-05-30] MEDS: THIAMINE 100 MG TAB PO SCH (12:40)
[2020-05-30] MEDS: FOLIC ACID 1 MG TAB PO SCH (12:40)
[2020-05-30] MEDS: MULTIVITAMINS, THERA 1 EACH TAB PO SCH (12:40)
[2020-05-30 16:47] LABS: Glucose,Whole Blood 289 mg/dL (75-99)
[2020-05-30 20:14] LABS: Glucose,Whole Blood 210 mg/dL (75-99)
[2020-05-31 06:21] LABS: Glucose,Whole Blood 123 mg/dL (75-99)
[2020-05-31] MEDS: PANTOPRAZOLE 40 MG TABLET PO SCH (06:33)
[2020-05-31] MEDS: RIVAROXABAN 15 MG TAB PO SCH ×2 (06:33→16:30)
[2020-05-31] MEDS: INSULIN ASPART (NovoLOG) 100 UNIT/ML VIAL SQ SCH ×4 (06:34→21:01)
[2020-05-31] MEDS: ASCORBIC ACID 500 MG TAB PO SCH (08:32)
[2020-05-31] MEDS: dexAMETHasone 2 MG TAB PO SCH (08:32)
[2020-05-31] MEDS: ZINC SULFATE 220 MG CAP PO SCH (08:32)
[2020-05-31] MEDS: LIDOCAINE 5% PATCH TOPICAL SCH ×2 (08:32→08:43)
[2020-05-31] MEDS: CHOLECALCIFEROL 25 MCG (1000 IU) TABLET PO SCH (08:32)
[2020-05-31] MEDS: FAMOTIDINE 20 MG TAB PO SCH ×2 (08:32→21:01)
[2020-05-31 11:54] LABS: Glucose,Whole Blood 216 mg/dL (75-99)
--- NOTE | 2020-05-31 12:22 | P.PN ---
Subjective Progress Note Date: 05/31/20 Patient was reevaluated today on 05/14/2020, remains on high flow oxygen she is presently on 90% FiO2 and 60 L high flow. Recommended probing the patient, and she is trying to go into prone position, patient remains extremely marginal at best. ABC is relatively normal lites are normal renal profile is normal d-dimer is elevated at 30.84. This is the highest d-dimer I have seen since her admission. Patient is maintained on Lovenox at 45 mg subcu twice a day. I would likely recommend a CT angiogram of this patient as she may be a great set up for acute pulmonary embolism considering her elevated d-dimer and considering her Covid 19 infection and seems to be very slow to respond. Reevaluated today on 05/15/2020, patient is feeling much better today. Breathing a lot easier. And her saturations are improving. Yesterday when I saw the patient and I was concerned about her elevated d-dimer, she could not go down for a CT angiogram of the chest, hence I recommended bilateral venous Doppler, and a Doppler was positive for bilateral deep vein thrombosis. Hence I recommended that the patient goes on heparin and discontinued her subcu Lovenox. I am certain that the patient had acute pulmonary embolism along with DVT based on her symptoms yesterday although she does have underlying Covid 19 pneumonia. Today the patient is resting more comfortably, she is on Airvo, with flow rate of 60 and FiO2 of 90%, her O2 saturation is in the low 90s. Less shortness of breath according to the patient, and she clearly tells me that today is much better today for her than yesterday. CBC is relatively normal hemoglobin is 14.7. Platelets are a bit low hence I will discontinue heparin tomorrow and start the patient on Xarelto. Her PTT is 74.5. Electrolites are normal renal profile is normal. Down the line and may even consider a CT angiogram of the chest to document thromboembolic disease/pulmonary embolism. Reevaluated today on 05/16/2020, patient remains about the same. Still requiring significantly high FiO2. Patient is on a nonrebreather mask and airvo, O2 saturation is 88-90% she is on 90% FiO2 and 60 L high flow. Plus a nonrebreather mask. Surprisingly the patient tells me that she is doing okay not as symptomatic as expected considering that her O2 saturation is marginal. Yesterday, the patient was transitioned to Xarelto and she is taking the Xarelto as directed. CBC today is relatively normal hemoglobin is 14.7 platelet are 89,000. Electrolytes are normal renal profile is normal The patient is seen today 04/16/2020 in follow-up on the regular selective care unit. She is doing better today compared to yesterday. Less cough and congestion. Still requiring careful high flow oxygen at 60 L and 90% FiO2 to maintain O2 saturations in the low 90s. She is feeling a bit stronger. Chest x-ray continues to show interstitial airspace disease and mild edema slightly improved compared to previous. Blood glucose 133. She remains on IV Solu- Medrol, vitamin supplements. Anticoagulated with Xarelto. Progress note dated 05/18/2020. This is a 60-year-old female admitted with a diagnosis of acute hypoxemic respiratory failure secondary to COVID 19 pneumonia. The patient did receive TOCI. In addition, the patient has benign essential hypertension, deep venous thrombosis and possible pulmonary embolism, hypertension, chronic nicotine addiction, uterine and cervical cancer, status post hysterectomy, and hypovolemic hyponatremia. Currently, the patient is on AIRVO, at 60 L/m with an FiO2 of 80%. White count 12.5, hemoglobin 13.9, hematocrit 41.6, platelet count 80,000. Id. at 8.39. Sodium 135, potassium 4.5, chlorides 102, CO2 32, anion gap is 1, BUN is 20, creatinine 0.56. LDH is 1855. Chest x-ray shows diffuse interstitial and airspace disease. On 05 19 2020 patient seen in follow-up on selective care unit. Remains on Airvo, 60 L and FiO2 of 80%, her pulse ox is 85-93%. She is awake and alert, she states she is breathing somewhat better, still requiring high flow oxygen, and she easily desaturates with minimal exertion, still reports fatigue, but no fever or chills. No chest discomfort. This is stable, no fever or chills, no new chest x-ray, patient is status post Tocilizumab, and she continues on high- dose IV Solu-Medrol 60 mg every 6 hours, remains on oral Xarelto. No nausea vomiting diarrhea. Yesterday's labs revealed improving d-dimer and inflammatory markers. On 05/29/2020 patient seen in follow-up on medical surgical floor, she remains on Airvo, and was just decreased to 45 L/m and FiO2 is at 55%, her pulse ox is 90- 95%, and patient has been slowly weaned down on oxygen, doing much better, however she still gets very anxious, desats very easily with any little exertion, no acute events overnight, chest x-ray done on 05/27/2020 showed bilateral multifocal opacities consistent with COVID-19 pneumonia. His last set inflammatory markers showed downtrending LDH, CRP is within normal limits at 7.6. Labs have been reviewed, serum sodium is improving and is up to 132 on today's labs, potassium 3.7, chloride is 97, CO2 32, urine at 13 creatinine 0.29. She remains on once daily dose of Decadron, she remains on oral anticoagulation form of Zaroxolyn. She is on Rocephin for evidence of E. coli in her urinary tract 05/30/2020, the patient has no complaints. Still on high flow at 45 L with an FiO2 of 55%. Pulse ox is improved and currently she is at 96% and we'll wean that down to 40% FiO2. No fever. No chills. Sitting up on a chair. Tolerating diet. She remains on Decadron. She is also being treated for an E. coli UTI with Rocephin. Inflammatory markers are downtrending. She is communicating. She has no new complaints. 05/31/2020, the patient remains on 45 L of high flow oxygen along with an FiO2 of 42%. She is comfortable. She is willing to consider weaning the oxygen flow to regular nasal cannula and this will be child today. Her current pulse ox is above 90%. She remains on Decadron. She has no specific complaints. Sitting up on a chair. He smokes. Breathing is nonlabored. No nausea or vomiting or diarrhea or abdominal pain. No other significant overnight and her night was essentially uneventful. Her blood work no abnormalities. Objective - Vital Signs Vital signs: Vital Signs Temp 98.7 F 05/31/20 08:00 Pulse 89 05/31/20 08:00 Resp 20 05/31/20 08:00 BP 132/75 05/31/20 08:00 Pulse Ox 91 L 05/31/20 09:56 Intake & Output 05/30/20 05/31/20 05/31/20 18:59 06:59 18:59 Intake Total 2560 600 250 Output Total 300 Balance 2560 300 250 Weight 84.6 kg Intake: Intake, IV Titration 50 Amount cefTRIAXone 1 gm In 50 Sodium Chloride 0.9% 50 ml @ 100 mls/hr IVPB Q24H [facility] Rx#:[id number] Oral 2510 600 250 Output: Urine 300 Other: Voiding Method Toilet # Voids 1 # Bowel Movements 1 - Exam GENERAL EXAM: Alert, pleasant, 70-year-old white female, currently on high flow oxygen per Airvo at 50 L and FiO2 of 80 % with a pulse ox of 88-92% comfortable in no apparent distress. HEAD: Normocephalic/atraumatic. EYES: Normal reaction of pupils, equal size. Conjunctiva pink, sclera white. NOSE: Clear with pink turbinates. THROAT: No erythema or exudates. NECK: No masses, no JVD, no thyroid enlargement, no adenopathy. CHEST: No chest wall deformity. Symmetrical expansion. LUNGS: Equal air entry with diffuse coarse crackles throughout lung plummer CVS: Regular rate and rhythm, normal S1 and S2, no gallops, no murmurs, no rubs ABDOMEN: Soft, nontender. No hepatosplenomegaly, normal bowel sounds, no guarding or rigidity. EXTREMITIES: No clubbing, no edema, no cyanosis, 2+ pulses and upper and lower extremities. MUSCULOSKELETAL: Muscle strength and tone normal. SPINE: No scoliosis or deformity SKIN: No rashes CENTRAL NERVOUS SYSTEM: Alert and oriented -3. No focal deficits, tone is normal in all 4 extremities. PSYCHIATRIC: Alert and oriented -3. Appropriate affect. Intact judgment and insight. - Labs CBC & Chem 7: 05/30/20 09:54 05/30/20 09:54 Labs: Abnormal Lab Results - Last 24 Hours (Table) 05/30/20 05/30/20 05/31/20 Range/Units 16:46 20:05 06:09 POC Glucose (mg/dL) 289 H 210 H 123 H (75-99) mg/dL 05/31/20 Range/Units 11:53 POC Glucose (mg/dL) 216 H (75-99) mg/dL Assessment and Plan Plan: 1 Acute hypoxic respiratory failure secondary to Covid 19 pneumonia. requiring AirVo 45 L/m and 40 % FiO2. Received Tocilizumab. Currently still on po Decadron. His urination is stable. No significant chest pain and the patient has improved with a lidocaine patch 2 Bilateral lower extremity DVTs, transitioned from heparin drip to Xarelto 3 Benign essential hypertension. 4 Bilateral deep vein thromboses and strongly suspect that the patient has acute pulmonary embolism. 5 Borderline hypertension currently not on any medications at home. 6 Ongoing nicotine addiction 7 History of uterine and cervical cancer status post hysterectomy 10 years ago 8 hyponatremia with a sodium level of 129. Plan: This patient to 15 L high flow oxygen. His oxygenation Decadron 6 mg by mouth daily on a daily basis by mouth Xarelto for long-term anticoagulants Lidocaine patch for musculoskeletal chest wall pain vitamin supplements Increase her activity as tolerated Titrate down the FiO2 as tolerated Slow clinical improvement.
[2020-05-31] MEDS: THIAMINE 100 MG TAB PO SCH (12:26)
[2020-05-31] MEDS: MULTIVITAMINS, THERA 1 EACH TAB PO SCH (12:27)
[2020-05-31] MEDS: FOLIC ACID 1 MG TAB PO SCH (12:27)
[2020-05-31 16:39] LABS: Glucose,Whole Blood 359 mg/dL (75-99)
[2020-05-31 16:51] LABS: Glucose,Whole Blood 305 mg/dL (75-99)
[2020-05-31 20:49] LABS: Glucose,Whole Blood 279 mg/dL (75-99)
[2020-06-01 06:33] LABS: Glucose,Whole Blood 94 mg/dL (75-99)
[2020-06-01] MEDS: INSULIN ASPART (NovoLOG) 100 UNIT/ML VIAL SQ SCH ×4 (06:43→21:42)
[2020-06-01] MEDS: PANTOPRAZOLE 40 MG TABLET PO SCH (06:44)
[2020-06-01] MEDS: RIVAROXABAN 15 MG TAB PO SCH ×2 (06:45→17:00)
[2020-06-01] MEDS: ZINC SULFATE 220 MG CAP PO SCH (09:22)
[2020-06-01] MEDS: CHOLECALCIFEROL 25 MCG (1000 IU) TABLET PO SCH (09:22)
[2020-06-01] MEDS: dexAMETHasone 2 MG TAB PO SCH (09:22)
[2020-06-01] MEDS: FAMOTIDINE 20 MG TAB PO SCH ×2 (09:22→21:42)
[2020-06-01] MEDS: ASCORBIC ACID 500 MG TAB PO SCH (09:23)
[2020-06-01] MEDS: LIDOCAINE 5% PATCH TOPICAL SCH (10:12)
[2020-06-01 11:45] LABS: Glucose,Whole Blood 144 mg/dL (75-99)
[2020-06-01] MEDS: FOLIC ACID 1 MG TAB PO SCH (11:51)
[2020-06-01] MEDS: MULTIVITAMINS, THERA 1 EACH TAB PO SCH (11:51)
[2020-06-01] MEDS: THIAMINE 100 MG TAB PO SCH (11:51)
--- NOTE | 2020-06-01 15:55 | P.PN ---
Subjective Progress Note Date: 06/01/20 Principal diagnosis: Acute hypoxic respiratory failure, secondary to COVID-19 pneumonia 60-year-old white female patient of Dr. Bacon with no significant medical history other than history of uterine and cervical cancer status post total hysterectomy 10 years ago, kyphoscoliosis with history of back surgery, and borderline hypertension for which the patient takes no medications, who presented to the emergency department 05-07-2020 by EMS for evaluation of worsening shortness of breath. Patient states that onset of symptoms was 2 weeks ago and started with runny nose and a sore throat, gradually her symptoms have progressed, and patient started having fevers, worsening shortness of breath and cough. She tested positive for COVID 19 a week ago on 04/29/2020 on an outpatient basis however she did not seek any medical treatment up until now. She reports some decreased oral intake, nausea, but no abdominal pain or diarrhea. Admits to smoking cigarettes, however reports no chronic lung condition. Patient denies receiving any vaccination for COVID 19. CTA chest showed no evidence of pulmonary embolism, but demonstrated moderate to severe scattered groundglass opacities, showed a positive COVID 19 PCR test, d-dimer was elevated at 3.79, and significant elevated inflammatory markers with LDH thousand 942, and CRP of 78.3. Patient is a requiring high flow oxygen per Airvo at 50 L and FiO2 of 75%, her pulse ox is 88-92%, she is having low grade fevers, but hemodynamically stable. Added on Decadron, prophylactic dose of Lovenox, and we were asked to see the patient in consultation. On today's evaluation, the patient is being seen for follow-up regarding her Covid associated pneumonia. The patient presented with significant hypoxemic respiratory failure with bilateral pulmonary infiltrates and consolidations perihilar and extending to the peripheries. The patient remains on high flow oxygen and she is currently on 6 L with an FiO2 of 90%. No new labs from today. Her d-dimer from yesterday was 3.7. LDH level was also elevated at 942 with a CRP of 78.3. She remains on Solu-Medrol 60 mg IV every 24 hours. On today's evaluation of 05/09/2020 the patient remains on 60 L of oxygen with an FiO2 of 90%. There is essentially the same setting of high flow oxygen that the patient was on since yesterday. No much of an improvement at this point in time. She remains on treatment and she is taking Solu-Medrol 60 mg IV push every 6 hours. Note that the patient has diffuse bilateral pulmonary infiltrates and this was confirmed on a chest x-ray and a computed tomography scan of the chest. Inflammatory markers including the LDH down to 1620 and the CRP is down to 24. Her renal function is stable with a creatinine of 0.4. Her d-dimer is at 19. In terms of anticoagulation, the patient is currently on 45 mg subcu every 12 hours. Her chest x-ray from today is showing stable bilateral pulmonary infiltrates. The is essentially stable and unchanged compared to yesterday. She is still requiring high flow oxygen and her current pulse ox is around 92%. I like her to sleep in different body positions. Prone positioning is obviously advised. On 05/10/2020, the patient is being seen in follow-up regarding her COVID 19 related pneumonia. The patient is still on high flow oxygen and the patient is on 60 L with an FiO2 of 90%. She is having difficulties with her breathing. She would desaturate very easily with minimal amount of activity. Her inflammatory markers remain quite elevated including the LDH of 1711 and her CRP is down to 9.6. Her d-dimer today is still elevated at 15.1 although it's slightly downtrending. In terms of therapy, the patient remains on IV Solu Medrol 60 mg every 6 hours. The patient is also on Lovenox 45 mg subcutaneous every 12 hours. The patient is on high flexion 90 L and her FiO2 was slightly weaned down to 85%. Note that the patient desaturated this morning and she was down in the 70s. We had to prone or and with prone positioning, her oxidation is improved and her current pulse ox up to the 90-91%. No chest x-ray from today. Inflammatory markers were noted. She is tolerating some diet and she is not fully meeting her caloric requirements Patient was reevaluated today on 05/11/2020, we are seeing the patient for her acute presentation of covid 19 pneumonia.patient remains on high FiO2, she is on 60 L flow v and 70% FiO2 viaia airvo, surprisingly the patient seems to be in no distress, and she seems to be comfortable. She tells me that she is feeling better today compared to how she felt upon admission.CBC today is relatively normal electrolytes are normal renal profile is normal LDH is 2017. C-reactive protein is less than 5.chest x-ray continues to show bilateral airspace infiltrates throughout both lungs compatible with Covid 19 pneumonia. Patient was reevaluated today on 05/12/2020, remains on high flow oxygen with high FiO2 of 70%, and 60 L/m flow. Patient seems to be very comfortable, she tells me that she is feeling better compared to how she felt on admission. WBC count is 7.4 hemoglobin is 13.3 electrolytes are normal. Basic metabolic profile is normal LDH is trending down and bit to 1955 and C-reactive protein is 5. Reevaluated today on 05/13/2020, patient remains on high flow oxygen, she is on 85% FiO2 and 60 L/m flow with O2 saturation of 90% at best. Surprisingly the patient continues to do well, she is very comfortable, in no distress. WBC count is 7.4 hemoglobin is normal electrolytes are normal renal profile is normal inflammatory markers are trending down however her last LDH was 1954 remains relatively high. Patient was reevaluated today on 05/14/2020, remains on high flow oxygen she is presently on 90% FiO2 and 60 L high flow. Recommended probing the patient, and she is trying to go into prone position, patient remains extremely marginal at best. ABC is relatively normal lites are normal renal profile is normal d-dimer is elevated at 30.84. This is the highest d-dimer I have seen since her admission. Patient is maintained on Lovenox at 45 mg subcu twice a day. I would likely recommend a CT angiogram of this patient as she may be a great set up for acute pulmonary embolism considering her elevated d-dimer and considering her Covid 19 infection and seems to be very slow to respond. Reevaluated today on 05/15/2020, patient is feeling much better today. Breathing a lot easier. And her saturations are improving. Yesterday when I saw the patient and I was concerned about her elevated d-dimer, she could not go down for a CT angiogram of the chest, hence I recommended bilateral venous Doppler, and a Doppler was positive for bilateral deep vein thrombosis. Hence I recommended that the patient goes on heparin and discontinued her subcu Lovenox. I am certain that the patient had acute pulmonary embolism along with DVT based on her symptoms yesterday although she does have underlying Covid 19 pneumonia. Today the patient is resting more comfortably, she is on Airvo, with flow rate of 60 and FiO2 of 90%, her O2 saturation is in the low 90s. Less shortness of breath according to the patient, and she clearly tells me that today is much better today for her than yesterday. CBC is relatively normal hemoglobin is 14.7. Platelets are a bit low hence I will discontinue heparin tomorrow and start the patient on Xarelto. Her PTT is 74.5. Electrolites are normal renal profile is normal. Down the line and may even consider a CT angiogram of the chest to document thromboembolic disease/pulmonary embolism. Reevaluated today on 05/16/2020, patient remains about the same. Still requiring significantly high FiO2. Patient is on a nonrebreather mask and airvo, O2 saturation is 88-90% she is on 90% FiO2 and 60 L high flow. Plus a nonrebreather mask. Surprisingly the patient tells me that she is doing okay not as symptomatic as expected considering that her O2 saturation is marginal. Yesterday, the patient was transitioned to Xarelto and she is taking the Xarelto as directed. CBC today is relatively normal hemoglobin is 14.7 platelet are 89,000. Electrolytes are normal renal profile is normal Progress note dated 05/18/2020. This is a 60-year-old female admitted with a diagnosis of acute hypoxemic respiratory failure secondary to COVID 19 pneumonia. The patient did receive TO CI. In addition, the patient has benign essential hypertension, deep venous thrombosis and possible pulmonary embolism, hypertension, chronic nicotine addiction, uterine and cervical cancer, status post hysterectomy, and hypovolemic hyponatremia. Currently, the patient is on AIRVO, at 60 L/m with an FiO2 of 80%. White count 12.5, hemoglobin 13.9, hematocrit 41.6, platelet count 80,000. Id. at 8.39. Sodium 135, potassium 4.5, chlorides 102, CO2 32, anion gap is 1, BUN is 20, creatinine 0.56. LDH is 1855. Chest x-ray shows diffuse interstitial and airspace disease. On 05 19 2020 patient seen in follow-up on selective care unit. Remains on Airvo, 60 L and FiO2 of 80%, her pulse ox is 85-93%. She is awake and alert, she states she is breathing somewhat better, still requiring high flow oxygen, and she easily desaturates with minimal exertion, still reports fatigue, but no fever or chills. No chest discomfort. This is stable, no fever or chills, no new chest x-ray, patient is status post Tocilizumab, and she continues on high- dose IV Solu-Medrol 60 mg every 6 hours, remains on oral Xarelto. No nausea vomiting diarrhea. Yesterday's labs revealed improving d-dimer and inflammatory markers. On 05/29/2020 patient seen in follow-up on medical surgical floor, she remains on Airvo, and was just decreased to 45 L/m and FiO2 is at 55%, her pulse ox is 90- 95%, and patient has been slowly weaned down on oxygen, doing much better, however she still gets very anxious, desats very easily with any little exertion, no acute events overnight, chest x-ray done on 05/27/2020 showed bi lateral multifocal opacities consistent with COVID-19 pneumonia. His last set inflammatory markers showed downtrending LDH, CRP is within normal limits at 7.6. Labs have been reviewed, serum sodium is improving and is up to 132 on today's labs, potassium 3.7, chloride is 97, CO2 32, urine at 13 creatinine 0.29. She remains on once daily dose of Decadron, she remains on oral anticoagulation form of Zaroxolyn. She is on Rocephin for evidence of E. coli in her urinary tract 05/30/2020, the patient has no complaints. Still on high flow at 45 L with an FiO2 of 55%. Pulse ox is improved and currently she is at 96% and we'll wean that down to 40% FiO2. No fever. No chills. Sitting up on a chair. Tolerating diet. She remains on Decadron. She is also being treated for an E. coli UTI with Rocephin. Inflammatory markers are downtrending. She is communicating. She has no new complaints. 05/31/2020, the patient remains on 45 L of high flow oxygen along with an FiO2 of 42%. She is comfortable. She is willing to consider weaning the oxygen flow to regular nasal cannula and this will be child today. Her current pulse ox is above 90%. She remains on Decadron. She has no specific complaints. Sitting up on a chair. He smokes. Breathing is nonlabored. No nausea or vomiting or diarrhea or abdominal pain. No other significant overnight and her night was essentially uneventful. Her blood work no abnormalities. Patient was reevaluated today on 06/01/2020, patient is down to 12 L high flow nasal cannula, and her O2 saturation is in the 90s. Patient is quite comfortable, not in any distress, remains on Decadron, she has no specific complaints. Remains on anticoagulation therapy for her DVT. Labs today were reviewed her d-dimer is 2.15 from few days ago. No other labs were done today. Her last LDH was 794 and C-reactive protein was 6.4. Objective - Vital Signs Vital signs: Vital Signs Temp 98.5 F 06/01/20 12:00 Pulse 92 06/01/20 14:00 Resp 22 06/01/20 14:00 BP 116/68 06/01/20 12:00 Pulse Ox 90 L 06/01/20 12:00 Intake & Output 05/31/20 06/01/20 06/01/20 18:59 06:59 18:59 Intake Total 710 960 Output Total 600 500 Balance 710 -600 460 Weight 84 kg Intake: Oral 710 960 Output: Urine 600 500 Other: Voiding Method Toilet Toilet - Exam Patient is lying in the bed comfortably, no acute distress, awake alert and oriented.. On 12 L high flow nasal cannula. HEENT: Normocephalic. Neck is supple. Pupils reactive. Nostrils clear. Oral cavity is moist. Ears reveal no drainage. Neck reveals no JVD, carotid bruits, or thyromegaly. CHEST EXAMINATION: Fine crackles at the bases, symmetrical chest expansion. CARDIAC: Normal S1, S2 with no gallops. No murmurs ABDOMEN: Soft. Bowel sounds normal. No organomegaly. No abdominal bruits. Extremities: reveal no edema. No clubbing or cyanosis Neurologically awake, alert, oriented x3 with well-coordinated movements. No focal deficits noted Skin: No rash or skin lesions. Psychiatric: Normal mood, affect, normal mental status examination. Musculoskeletal: No joint swelling or deformity. Normal range of motion. - Labs CBC & Chem 7: 05/30/20 09:54 05/30/20 09:54 Labs: Abnormal Lab Results - Last 24 Hours (Table) 05/31/20 05/31/20 05/31/20 Range/Units 16:38 16:49 20:37 POC Glucose (mg/dL) 359 H 305 H 279 H (75-99) mg/dL 06/01/20 Range/Units 11:43 POC Glucose (mg/dL) 144 H (75-99) mg/dL Assessment and Plan Assessment: Acute hypoxic respiratory failure secondary to Covid 19 pneumonia. requiring high FiO2 and high flow Hypovolemic hyponatremia, resolved. benign essential hypertension. Bilateral deep vein thromboses and strongly suspect that the patient has acute pulmonary embolism. Borderline hypertension currently not on any medications at home. Ongoing nicotine addiction History of uterine and cervical cancer status post hysterectomy 10 years ago Hyponatremia likely secondary to SIADH. recommendation: Continue xaelto continue Decadron Continue vitamin D. And vitamin C. Continue ceftriaxone. Continue Pepcid and folic acid Continue insulin. Continue present supportive care measures Continue high FiO2 and titrate accordingly. received actemra 2 doses Consider discharge planning in the next 24 hours. We'll continue to follow, prognosis remains guarded Time with Patient: Less than 30
[2020-06-01 16:45] LABS: Glucose,Whole Blood 302 mg/dL (75-99)
[2020-06-01 20:26] LABS: Glucose,Whole Blood 229 mg/dL (75-99)
--- NOTE | 2020-06-01 23:50 | P.PN ---
Subjective Progress Note Date: 05/30/20 Principal diagnosis: Acute hypoxic respiratory failure secondary to Covid pneumonia Patient is a 60-year-old female with a known history of cervical cancer status post hysterectomy, currently everyday smoker presents to ER with the complaints of worsening shortness of breath. Patient says that her symptoms started about 2 weeks ago and was tested for cold positive on 04/29/2020 as an outpatient. Patient has been having fever and chills on and off. She has been using over- the-counter medications. Patient was not any antibiotics or steroids at home. She came to ER due to worsening shortness of breath and generalized weakness and decreased oral intake and nausea for the past 3 days. No complaints of diarrhea and abdominal pain. Does have chest tightness with deep breathing. Denied any dysuria or hematuria. No headache or dizziness or lightheadedness. On admission patient was tachycardic and hypoxic with pulse ox 84% and requiring her person noncontributory. CTA chest showed demonstrative moderate to severe skater groundglass opacities throughout both lungs with interspace and wedge-shaped areas of consolidation or atelectasis. Consider Coumadin 19 pneumonia. No evidence of pulmonary embolism or acute aortic abnormality. EKG showed sinus tachycardia Chest x-ray showed diffuse bilateral infiltrates which can be compatible with atypical pneumonia. Laboratory data showed WBC 4.6, hemoglobin 14.2 and platelets 270, d-dimer 3.79 Sodium 129 potassium 3.7 chloride 94 BUN 12 and creatinine 0.50 LDH 1942, CRP 78.3, pro-calcitonin 0.2 Code 19 PCR detected. 05/08/2020 Patient is currently awake alert and oriented x3. Still having significant shortness of breath and hypoxia. Currently on high flow oxygen at 6 L with FiO2 of 90%. Patient is being continued on methylprednisolone and Lovenox twice daily. Continued on multivitamins. Pulmonary is on board. Patient has been afebrile. No nausea vomiting or diarrhea. No dysuria or hematuria. No chest pain. 05/09/2020 Patient is currently on high flow oxygen airvo 60 L with 90% FiO2. Appears to be in no distress. Awake alert and oriented. No fever no chills. No nausea vomiting or abdominal pain or diarrhea. Patient will be continued on Solu- Medrol and Lovenox twice daily. Laboratory data showed serum D-dimer level is 19.1 Sodium 136 potassium 3.7 bicarb is 31 BUN 14 and creatinine 0.48 blood sugar is 148 and CRP 24.2 and LDH 1620 05/10/2020 Patient is lying in the bed awake and alert. Still requiring high flow oxygen at 60 L FiO2 90%. She having exertional dyspnea and chest tightness. Patient is being continued on IV Solu-Medrol, Lovenox twice daily and multivitamins. Laboratory work showed D-dimer 15.1, LDH 171 on and CRP 9.6 patient has been afebrile. 05/26/2020 Patient is currently sitting in the chair comfortably. Awake alert and oriented. Still requiring high flow oxygen at 60 L Airvo and FiO2 55% which is trending down from 70% yesterday. No complaints of chest pain or worsening shortness of breath. No nausea vomiting or abdominal pain. No diarrhea. Patient is being continued Xarelto for long-term anticoagulation and is also on dexamethasone 6 mg daily. Urinalysis showed cloudy with moderate leukocyte esterase and elevated WBCs. Urine culture was ordered and patient was started on ceftriaxone. Pulmonary is on board. 05/27/2020 Patient is awake alert and oriented. No complaints of chest pain or worsening shortness of breath. Patient is on 50 L high flow at 80% FiO2 Laboratory data showed sodium 131 potassium 3.7 chloride 92 BUN 25 and creatinine 0.44 and LDH 1274 CRP 7.6 Chest x-ray showed bilateral multifocal opacities consistent with COVID-19 infection are redemonstrated. Some interval progression or worsening opacities in the right lung noted from most recent x-ray. Patient was given a dose of IV Lasix today. Urine culture is growing gram-negative bacilli. Continue with ceftriaxone and follow-up final culture report. Patient has been afebrile.No nausea vomiting or abdominal pain or diarrhea. No headache or dizziness or lightheadedness. 05/28/2020 Patient is currently high flow oxygen at 50 L and 70% FiO2. Sitting in bedside comfortably. Denies any complaints of nausea vomiting or abdominal pain. Tolerating oral diet. Patient is being continued dexamethasone and Xarelto. Currently on once vitamins. Continue to titrate down FiO2. Laboratory data showed sodium level of 129 potassium 4.0 chloride 94 bicarb is 32 BUN 16 and creatinine 0.73 500 GFR is greater than 90 Blood sugar is 226 calcium 8.6 Urine culture showed gram-negative bacilli and patient is being continued on ceftriaxone. Follow-up final culture report. Patient was ventilated with decreased plain water intake. 05/29/2020 Patient is currently sitting in a chair comfortably. No complaints of chest pain or worsening shortness of breath. Oxygen requirement is trending down patient is 45 L oxygen and 55% FiO2. Laboratory data showed sodium 132 potas sium 3.7 chloride 97 bicarb is 32 BUN 13 and creatinine 0.29 calcium 8.9 Urine culture showed E. coli patient is being continued ceftriaxone. Afebrile. Hemodynamically stable. 05/30/2020 Patient is currently sitting in the chair comfortably. Awake at 1x3. Requiring high flow at 45 L and FiO2 55%. Breathing status is improving. No complaints of chest pain or shortness of breath. Inflammatory markers are trending down. Patient is being continued antibiotics for E. coli urinary tract infection. Pulmonary is on board. Current medications reviewed. Objective - Vital Signs Vital signs: Vital Signs Temp 98.0 F 05/30/20 03:30 Pulse 97 05/30/20 03:30 Resp 22 05/30/20 03:30 BP 133/75 05/30/20 03:30 Pulse Ox 96 05/30/20 16:06 Intake & Output 05/29/20 05/30/20 05/30/20 18:59 06:59 18:59 Intake Total 2370 550 Output Total 1350 1200 Balance 1020 -1200 550 Weight 85 kg Intake: IV 80 0.9% NS at 50mL/hr 80 Intake, IV Titration 50 Amount cefTRIAXone 1 gm In 50 Sodium Chloride 0.9% 50 ml @ 100 mls/hr IVPB Q24H [facility] Rx#:[id number] Oral 2240 550 Output: Urine 1350 1200 Other: Voiding Method Toilet Toilet # Voids 1 # Bowel Movements 1 1 - Exam PHYSICAL EXAMINATION: Patient is lying in the bed comfortably, no acute distress, awake alert and oriented.. HEENT: Normocephalic. Neck is supple. Pupils reactive. Nostrils clear. Oral cavity is moist. Ears reveal no drainage. Neck reveals no JVD, carotid bruits, or thyromegaly. CHEST EXAMINATION: Trachea is central. Symmetrical expansion. Bilateral coarse breath sounds. No wheezing or rhonchi.. CARDIAC: Normal S1, S2 with no gallops. No murmurs ABDOMEN: Soft. Bowel sounds normal. No organomegaly. No abdominal bruits. Extremities: reveal no edema. No clubbing or cyanosis Neurologically awake, alert, oriented x3 with well-coordinated movements. No focal deficits noted Skin: No rash or skin lesions. Psychiatric: Coperative. Nonsuicidal Musculoskeletal: No joint swelling or deformity. Normal range of motion. - Labs CBC & Chem 7: 05/30/20 09:54 05/30/20 09:54 Labs: Abnormal Lab Results - Last 24 Hours (Table) 05/29/20 05/29/20 05/30/20 Range/Units 16:52 19:57 05:59 RBC (3.80-5.40) m/uL Hgb (11.4-16.0) gm/dL Hct (34.0-46.0) % Plt Count (150-450) k/uL Neutrophils # (1.3-7.7) k/uL Lymphocytes # (1.0-4.8) k/uL D-Dimer (<0.60) mg/L FEU Sodium (137-145) mmol/L Chloride (98-107) mmol/L Carbon Dioxide (22-30) mmol/L Creatinine (0.52-1.04) mg/dL Glucose (74-99) mg/dL POC Glucose (mg/dL) 249 H 222 H 142 H (75-99) mg/dL Lactate Dehydrogenase (313-618) U/L C-Reactive Protein (<1.0) mg/dL 05/30/20 05/30/20 05/30/20 Range/Units 09:54 09:54 09:54 RBC 3.64 L (3.80-5.40) m/uL Hgb 11.3 L (11.4-16.0) gm/dL Hct 33.2 L (34.0-46.0) % Plt Count 140 L (150-450) k/uL Neutrophils # 7.8 H (1.3-7.7) k/uL Lymphocytes # 0.4 L (1.0-4.8) k/uL D-Dimer 2.15 H (<0.60) mg/L FEU Sodium 134 L (137-145) mmol/L Chloride 97 L (98-107) mmol/L Carbon Dioxide 32 H (22-30) mmol/L Creatinine 0.39 L (0.52-1.04) mg/dL Glucose 207 H (74-99) mg/dL POC Glucose (mg/dL) (75-99) mg/dL Lactate Dehydrogenase 794 H (313-618) U/L C-Reactive Protein 6.4 H (<1.0) mg/dL 05/30/20 05/30/20 Range/Units 11:44 16:46 RBC (3.80-5.40) m/uL Hgb (11.4-16.0) gm/dL Hct (34.0-46.0) % Plt Count (150-450) k/uL Neutrophils # (1.3-7.7) k/uL Lymphocytes # (1.0-4.8) k/uL D-Dimer (<0.60) mg/L FEU Sodium (137-145) mmol/L Chloride (98-107) mmol/L Carbon Dioxide (22-30) mmol/L Creatinine (0.52-1.04) mg/dL Glucose (74-99) mg/dL POC Glucose (mg/dL) 161 H 289 H (75-99) mg/dL Lactate Dehydrogenase (313-618) U/L C-Reactive Protein (<1.0) mg/dL Assessment and Plan Assessment: Acute hypoxic respiratory failure secondary to Covid 19 pneumonia. Patient tested positive on 04/29/2020. Currently requiring 45 L of FiO2 55% via Airvo Increased inflammatory markers secondary to viral pneumonia hyponatremia. Likely due to increased free water intake. Bilateral lower extremity DVTs. Currently on Xarelto. Elevated d-dimer level without evidence of pulmonary embolism on CTA Gram-negative bacilli / E. coli urinary tract infection Borderline hypertension currently not on any medications at home. Ongoing nicotine addiction History of uterine and cervical cancer status post hysterectomy 10 years ago Kyphoscoliosis history and back surgery DVT prophylaxis patient is on Lovenox. Plan: Patient will be continued on oxygen supplementation and titrate down FiO2. Continue with dexamethasone 6 mg daily and multivitamins, vitamin D and follow up closely. Monitor electrolytes and inflammatory markers. c/w ceftriaxone. Continue with Xarelto for LE DVT Pulmonary is on board. Patient was given Tocilizumab 400 mg IV piggyback 2 doses initially. Further recommendations based on the clinical course. Prognosis is guarded. Smoking cessation has been counseled. Time with Patient: Greater than 30
--- NOTE | 2020-06-01 23:51 | P.PN ---
Subjective Progress Note Date: 05/31/20 Principal diagnosis: Acute hypoxic respiratory failure secondary to Covid pneumonia Patient is a 60-year-old female with a known history of cervical cancer status post hysterectomy, currently everyday smoker presents to ER with the complaints of worsening shortness of breath. Patient says that her symptoms started about 2 weeks ago and was tested for cold positive on 04/29/2020 as an outpatient. Patient has been having fever and chills on and off. She has been using over- the-counter medications. Patient was not any antibiotics or steroids at home. She came to ER due to worsening shortness of breath and generalized weakness and decreased oral intake and nausea for the past 3 days. No complaints of diarrhea and abdominal pain. Does have chest tightness with deep breathing. Denied any dysuria or hematuria. No headache or dizziness or lightheadedness. On admission patient was tachycardic and hypoxic with pulse ox 84% and requiring her person noncontributory. CTA chest showed demonstrative moderate to severe skater groundglass opacities throughout both lungs with interspace and wedge-shaped areas of consolidation or atelectasis. Consider Coumadin 19 pneumonia. No evidence of pulmonary embolism or acute aortic abnormality. EKG showed sinus tachycardia Chest x-ray showed diffuse bilateral infiltrates which can be compatible with atypical pneumonia. Laboratory data showed WBC 4.6, hemoglobin 14.2 and platelets 270, d-dimer 3.79 Sodium 129 potassium 3.7 chloride 94 BUN 12 and creatinine 0.50 LDH 1942, CRP 78.3, pro-calcitonin 0.2 Code 19 PCR detected. 05/08/2020 Patient is currently awake alert and oriented x3. Still having significant shortness of breath and hypoxia. Currently on high flow oxygen at 6 L with FiO2 of 90%. Patient is being continued on methylprednisolone and Lovenox twice daily. Continued on multivitamins. Pulmonary is on board. Patient has been afebrile. No nausea vomiting or diarrhea. No dysuria or hematuria. No chest pain. 05/09/2020 Patient is currently on high flow oxygen airvo 60 L with 90% FiO2. Appears to be in no distress. Awake alert and oriented. No fever no chills. No nausea vomiting or abdominal pain or diarrhea. Patient will be continued on Solu- Medrol and Lovenox twice daily. Laboratory data showed serum D-dimer level is 19.1 Sodium 136 potassium 3.7 bicarb is 31 BUN 14 and creatinine 0.48 blood sugar is 148 and CRP 24.2 and LDH 1620 05/10/2020 Patient is lying in the bed awake and alert. Still requiring high flow oxygen at 60 L FiO2 90%. She having exertional dyspnea and chest tightness. Patient is being continued on IV Solu-Medrol, Lovenox twice daily and multivitamins. Laboratory work showed D-dimer 15.1, LDH 171 on and CRP 9.6 patient has been afebrile. 05/26/2020 Patient is currently sitting in the chair comfortably. Awake alert and oriented. Still requiring high flow oxygen at 60 L Airvo and FiO2 55% which is trending down from 70% yesterday. No complaints of chest pain or worsening shortness of breath. No nausea vomiting or abdominal pain. No diarrhea. Patient is being continued Xarelto for long-term anticoagulation and is also on dexamethasone 6 mg daily. Urinalysis showed cloudy with moderate leukocyte esterase and elevated WBCs. Urine culture was ordered and patient was started on ceftriaxone. Pulmonary is on board. 05/27/2020 Patient is awake alert and oriented. No complaints of chest pain or worsening shortness of breath. Patient is on 50 L high flow at 80% FiO2 Laboratory data showed sodium 131 potassium 3.7 chloride 92 BUN 25 and creatinine 0.44 and LDH 1274 CRP 7.6 Chest x-ray showed bilateral multifocal opacities consistent with COVID-19 infection are redemonstrated. Some interval progression or worsening opacities in the right lung noted from most recent x-ray. Patient was given a dose of IV Lasix today. Urine culture is growing gram-negative bacilli. Continue with ceftriaxone and follow-up final culture report. Patient has been afebrile.No nausea vomiting or abdominal pain or diarrhea. No headache or dizziness or lightheadedness. 05/28/2020 Patient is currently high flow oxygen at 50 L and 70% FiO2. Sitting in bedside comfortably. Denies any complaints of nausea vomiting or abdominal pain. Tolerating oral diet. Patient is being continued dexamethasone and Xarelto. Currently on once vitamins. Continue to titrate down FiO2. Laboratory data showed sodium level of 129 potassium 4.0 chloride 94 bicarb is 32 BUN 16 and creatinine 0.73 500 GFR is greater than 90 Blood sugar is 226 calcium 8.6 Urine culture showed gram-negative bacilli and patient is being continued on ceftriaxone. Follow-up final culture report. Patient was ventilated with decreased plain water intake. 05/29/2020 Patient is currently sitting in a chair comfortably. No complaints of chest pain or worsening shortness of breath. Oxygen requirement is trending down patient is 45 L oxygen and 55% FiO2. Laboratory data showed sodium 132 potas sium 3.7 chloride 97 bicarb is 32 BUN 13 and creatinine 0.29 calcium 8.9 Urine culture showed E. coli patient is being continued ceftriaxone. Afebrile. Hemodynamically stable. 05/30/2020 Patient is currently sitting in the chair comfortably. Awake at 1x3. Requiring high flow at 45 L and FiO2 55%. Breathing status is improving. No complaints of chest pain or shortness of breath. Inflammatory markers are trending down. Patient is being continued antibiotics for E. coli urinary tract infection. Pulmonary is on board. 05/31/2020 Patients breathing status is improving slowly. Awake alert and oriented times 3. Able to sit in the chair. No complaints of chest pain. Pulse ox is 90%. Patient will be continued dexamethasone and anticoagulation. Inflammatory markers are trending down. No nausea vomiting or abdominal pain or diarrhea. Tolerating oral diet. Current medications reviewed. Objective - Vital Signs Vital signs: Vital Signs Temp 98.7 F 05/31/20 08:00 Pulse 84 05/31/20 12:00 Resp 20 05/31/20 15:02 BP 129/82 05/31/20 12:00 Pulse Ox 94 L 05/31/20 15:19 Intake & Output 05/30/20 05/31/20 05/31/20 18:59 06:59 18:59 Intake Total 2560 600 450 Output Total 300 Balance 2560 300 450 Weight 84.6 kg Intake: Intake, IV Titration 50 Amount cefTRIAXone 1 gm In 50 Sodium Chloride 0.9% 50 ml @ 100 mls/hr IVPB Q24H [facility] Rx#:[id number] Oral 2510 600 450 Output: Urine 300 Other: Voiding Method Toilet # Voids 1 # Bowel Movements 1 - Exam PHYSICAL EXAMINATION: Patient is lying in the bed comfortably, no acute distress, awake alert and oriented.. HEENT: Normocephalic. Neck is supple. Pupils reactive. Nostrils clear. Oral cavity is moist. Ears reveal no drainage. Neck reveals no JVD, carotid bruits, or thyromegaly. CHEST EXAMINATION: Trachea is central. Symmetrical expansion. Bilateral coarse breath sounds. No wheezing or rhonchi.. CARDIAC: Normal S1, S2 with no gallops. No murmurs ABDOMEN: Soft. Bowel sounds normal. No organomegaly. No abdominal bruits. Extremities: reveal no edema. No clubbing or cyanosis Neurologically awake, alert, oriented x3 with well-coordinated movements. No focal deficits noted Skin: No rash or skin lesions. Psychiatric: Coperative. Nonsuicidal Musculoskeletal: No joint swelling or deformity. Normal range of motion. - Labs CBC & Chem 7: 05/30/20 09:54 05/30/20 09:54 Labs: Abnormal Lab Results - Last 24 Hours (Table) 05/30/20 05/30/20 05/31/20 Range/Units 16:46 20:05 06:09 POC Glucose (mg/dL) 289 H 210 H 123 H (75-99) mg/dL 05/31/20 Range/Units 11:53 POC Glucose (mg/dL) 216 H (75-99) mg/dL Assessment and Plan Assessment: Acute hypoxic respiratory failure secondary to Covid 19 pneumonia. Patient tested positive on 04/29/2020. Currently requiring 42 L of FiO2 55% via Airvo Increased inflammatory markers secondary to viral pneumonia hyponatremia. Likely due to increased free water intake. Bilateral lower extremity DVTs. Currently on Xarelto. Elevated d-dimer level without evidence of pulmonary embolism on CTA Gram-negative bacilli / E. coli urinary tract infection Borderline hypertension currently not on any medications at home. Ongoing nicotine addiction History of uterine and cervical cancer status post hysterectomy 10 years ago Kyphoscoliosis history and back surgery DVT prophylaxis patient is on Lovenox. Plan: Patient will be continued on oxygen supplementation and titrate down FiO2. Continue with dexamethasone 6 mg daily and multivitamins, vitamin D and follow up closely. Monitor electrolytes and inflammatory markers. c/w ceftriaxone. Continue with Xarelto for LE DVT Pulmonary is on board. Patient was given Tocilizumab 400 mg IV piggyback 2 doses initially. Further recommendations based on the clinical course. Prognosis is guarded. Smoking cessation has been counseled. Time with Patient: Greater than 30
--- NOTE | 2020-06-01 23:54 | P.PN ---
Subjective Progress Note Date: 06/01/20 Principal diagnosis: Acute hypoxic respiratory failure secondary to Covid pneumonia Patient is a 60-year-old female with a known history of cervical cancer status post hysterectomy, currently everyday smoker presents to ER with the complaints of worsening shortness of breath. Patient says that her symptoms started about 2 weeks ago and was tested for cold positive on 04/29/2020 as an outpatient. Patient has been having fever and chills on and off. She has been using over- the-counter medications. Patient was not any antibiotics or steroids at home. She came to ER due to worsening shortness of breath and generalized weakness and decreased oral intake and nausea for the past 3 days. No complaints of diarrhea and abdominal pain. Does have chest tightness with deep breathing. Denied any dysuria or hematuria. No headache or dizziness or lightheadedness. On admission patient was tachycardic and hypoxic with pulse ox 84% and requiring her person noncontributory. CTA chest showed demonstrative moderate to severe skater groundglass opacities throughout both lungs with interspace and wedge-shaped areas of consolidation or atelectasis. Consider Coumadin 19 pneumonia. No evidence of pulmonary embolism or acute aortic abnormality. EKG showed sinus tachycardia Chest x-ray showed diffuse bilateral infiltrates which can be compatible with atypical pneumonia. Laboratory data showed WBC 4.6, hemoglobin 14.2 and platelets 270, d-dimer 3.79 Sodium 129 potassium 3.7 chloride 94 BUN 12 and creatinine 0.50 LDH 1942, CRP 78.3, pro-calcitonin 0.2 Code 19 PCR detected. 05/08/2020 Patient is currently awake alert and oriented x3. Still having significant shortness of breath and hypoxia. Currently on high flow oxygen at 6 L with FiO2 of 90%. Patient is being continued on methylprednisolone and Lovenox twice daily. Continued on multivitamins. Pulmonary is on board. Patient has been afebrile. No nausea vomiting or diarrhea. No dysuria or hematuria. No chest pain. 05/09/2020 Patient is currently on high flow oxygen airvo 60 L with 90% FiO2. Appears to be in no distress. Awake alert and oriented. No fever no chills. No nausea vomiting or abdominal pain or diarrhea. Patient will be continued on Solu- Medrol and Lovenox twice daily. Laboratory data showed serum D-dimer level is 19.1 Sodium 136 potassium 3.7 bicarb is 31 BUN 14 and creatinine 0.48 blood sugar is 148 and CRP 24.2 and LDH 1620 05/10/2020 Patient is lying in the bed awake and alert. Still requiring high flow oxygen at 60 L FiO2 90%. She having exertional dyspnea and chest tightness. Patient is being continued on IV Solu-Medrol, Lovenox twice daily and multivitamins. Laboratory work showed D-dimer 15.1, LDH 171 on and CRP 9.6 patient has been afebrile. 05/26/2020 Patient is currently sitting in the chair comfortably. Awake alert and oriented. Still requiring high flow oxygen at 60 L Airvo and FiO2 55% which is trending down from 70% yesterday. No complaints of chest pain or worsening shortness of breath. No nausea vomiting or abdominal pain. No diarrhea. Patient is being continued Xarelto for long-term anticoagulation and is also on dexamethasone 6 mg daily. Urinalysis showed cloudy with moderate leukocyte esterase and elevated WBCs. Urine culture was ordered and patient was started on ceftriaxone. Pulmonary is on board. 05/27/2020 Patient is awake alert and oriented. No complaints of chest pain or worsening shortness of breath. Patient is on 50 L high flow at 80% FiO2 Laboratory data showed sodium 131 potassium 3.7 chloride 92 BUN 25 and creatinine 0.44 and LDH 1274 CRP 7.6 Chest x-ray showed bilateral multifocal opacities consistent with COVID-19 infection are redemonstrated. Some interval progression or worsening opacities in the right lung noted from most recent x-ray. Patient was given a dose of IV Lasix today. Urine culture is growing gram-negative bacilli. Continue with ceftriaxone and follow-up final culture report. Patient has been afebrile.No nausea vomiting or abdominal pain or diarrhea. No headache or dizziness or lightheadedness. 05/28/2020 Patient is currently high flow oxygen at 50 L and 70% FiO2. Sitting in bedside comfortably. Denies any complaints of nausea vomiting or abdominal pain. Tolerating oral diet. Patient is being continued dexamethasone and Xarelto. Currently on once vitamins. Continue to titrate down FiO2. Laboratory data showed sodium level of 129 potassium 4.0 chloride 94 bicarb is 32 BUN 16 and creatinine 0.73 500 GFR is greater than 90 Blood sugar is 226 calcium 8.6 Urine culture showed gram-negative bacilli and patient is being continued on ceftriaxone. Follow-up final culture report. Patient was ventilated with decreased plain water intake. 05/29/2020 Patient is currently sitting in a chair comfortably. No complaints of chest pain or worsening shortness of breath. Oxygen requirement is trending down patient is 45 L oxygen and 55% FiO2. Laboratory data showed sodium 132 potas sium 3.7 chloride 97 bicarb is 32 BUN 13 and creatinine 0.29 calcium 8.9 Urine culture showed E. coli patient is being continued ceftriaxone. Afebrile. Hemodynamically stable. 05/30/2020 Patient is currently sitting in the chair comfortably. Awake at 1x3. Requiring high flow at 45 L and FiO2 55%. Breathing status is improving. No complaints of chest pain or shortness of breath. Inflammatory markers are trending down. Patient is being continued antibiotics for E. coli urinary tract infection. Pulmonary is on board. 05/31/2020 Patients breathing status is improving slowly. Awake alert and oriented times 3. Able to sit in the chair. No complaints of chest pain. Pulse ox is 90%. Patient will be continued dexamethasone and anticoagulation. Inflammatory markers are trending down. No nausea vomiting or abdominal pain or diarrhea. Tolerating oral diet. 06/01/2020 Patient is currently resting in the bed comfortably. Awake alert Lewis x3. Able to ambulate to the bathroom. Currently tolerating high flow oxygen. Breathing status is improving slowly. No complaints of chest pain. No nausea vomiting abdominal pain. No fever no chills.. Pulmonary is on board. Current medications reviewed. Objective - Vital Signs Vital signs: Vital Signs Temp 98.8 F 06/01/20 16:00 Pulse 92 06/01/20 16:00 Resp 22 06/01/20 16:00 BP 134/68 06/01/20 16:00 Pulse Ox 95 06/01/20 18:48 Intake & Output 06/01/20 06/01/20 06/02/20 06:59 18:59 06:59 Intake Total 960 Output Total 600 500 Balance -600 460 Weight 84 kg Intake: Oral 960 Output: Urine 600 500 Other: Voiding Method Toilet Toilet # Voids 2 # Bowel Movements 2 - Exam PHYSICAL EXAMINATION: Patient is lying in the bed comfortably, no acute distress, awake alert and oriented.. HEENT: Normocephalic. Neck is supple. Pupils reactive. Nostrils clear. Oral cavity is moist. Ears reveal no drainage. Neck reveals no JVD, carotid bruits, or thyromegaly. CHEST EXAMINATION: Trachea is central. Symmetrical expansion. Bilateral coarse breath sounds. No wheezing or rhonchi.. CARDIAC: Normal S1, S2 with no gallops. No murmurs ABDOMEN: Soft. Bowel sounds normal. No organomegaly. No abdominal bruits. Extremities: reveal no edema. No clubbing or cyanosis Neurologically awake, alert, oriented x3 with well-coordinated movements. No focal deficits noted Skin: No rash or skin lesions. Psychiatric: Coperative. Nonsuicidal Musculoskeletal: No joint swelling or deformity. Normal range of motion. - Labs CBC & Chem 7: 05/30/20 09:54 05/30/20 09:54 Labs: Abnormal Lab Results - Last 24 Hours (Table) 06/01/20 06/01/20 06/01/20 Range/Units 11:43 16:43 20:18 POC Glucose (mg/dL) 144 H 302 H 229 H (75-99) mg/dL Assessment and Plan Assessment: Acute hypoxic respiratory failure secondary to Covid 19 pneumonia. Patient tested positive on 04/29/2020. Currently requiring 12L NC Increased inflammatory markers secondary to viral pneumonia hyponatremia. Likely due to increased free water intake. Bilateral lower extremity DVTs. Currently on Xarelto. Elevated d-dimer level without evidence of pulmonary embolism on CTA Gram-negative bacilli / E. coli urinary tract infection Borderline hypertension currently not on any medications at home. Ongoing nicotine addiction History of uterine and cervical cancer status post hysterectomy 10 years ago Kyphoscoliosis history and back surgery DVT prophylaxis patient is on Lovenox. Plan: Patient will be continued on oxygen supplementation and titrate down FiO2. Continue with dexamethasone 6 mg daily and multivitamins, vitamin D and follow up closely. Monitor electrolytes and inflammatory markers. c/w ceftriaxone. Continue with Xarelto for LE DVT Pulmonary is on board. Patient was given Tocilizumab 400 mg IV piggyback 2 doses initially. Further recommendations based on the clinical course. Prognosis is guarded. Smoking cessation has been counseled. Time with Patient: Greater than 30
[2020-06-02 05:45] LABS: Glucose,Whole Blood 114 mg/dL (75-99)
[2020-06-02] MEDS: INSULIN ASPART (NovoLOG) 100 UNIT/ML VIAL SQ SCH ×4 (05:52→21:36)
[2020-06-02] MEDS: PANTOPRAZOLE 40 MG TABLET PO SCH (06:38)
[2020-06-02] MEDS: RIVAROXABAN 15 MG TAB PO SCH ×2 (06:38→17:20)
[2020-06-02] MEDS: CHOLECALCIFEROL 25 MCG (1000 IU) TABLET PO SCH (09:00)
[2020-06-02] MEDS: ASCORBIC ACID 500 MG TAB PO SCH (09:00)
[2020-06-02] MEDS: FAMOTIDINE 20 MG TAB PO SCH ×2 (09:00→21:36)
[2020-06-02] MEDS: ZINC SULFATE 220 MG CAP PO SCH (09:00)
[2020-06-02] MEDS: dexAMETHasone 2 MG TAB PO SCH (09:00)
[2020-06-02 10:11] LABS: African American GFR (CKD) >90 (>60 ml/min/1.73 sqM); Anion Gap 7 mmol/L; Blood Urea Nitrogen 13 mg/dL (7-17); C Reactive Protein 1.4 mg/dL (<1.0); Calcium 9.5 mg/dL (8.4-10.2); Carbon Dioxide 30 mmol/L (22-30); Chloride 98 mmol/L (98-107); Glucose 151 mg/dL (74-99); LDH 742 U/L (313-618); Non-African American GFR(CKD) >90 (>60 ml/min/1.73 sqM); Potassium 3.9 mmol/L (3.5-5.1); Sodium 135 mmol/L (137-145)
[2020-06-02 10:13] LABS: Basophils % (A) 0 %; Eosinophils # (A) 0.1 k/uL (0-0.7); Eosinophils % (A) 1 %; HCT 38.2 % (34.0-46.0); HGB 12.9 gm/dL (11.4-16.0); Lymphocytes # (A) 0.6 k/uL (1.0-4.8); Lymphocytes % (A) 9 %; MCH 31.4 pg (25.0-35.0); MCHC 33.9 g/dL (31.0-37.0); MCV 92.6 fL (80.0-100.0); Mean Platelet Volume 7.5; Monocytes # (A) 0.3 k/uL (0-1.0); Monocytes % (A) 5 %; Neutrophils % (A) 83 %; Platelet Count 162 k/uL (150-450); RBC 4.12 m/uL (3.80-5.40); RDW 15.7 % (11.5-15.5); WBC 6.1 k/uL (3.8-10.6)
[2020-06-02] MEDS: LIDOCAINE 5% PATCH TOPICAL SCH (11:44)
[2020-06-02 11:56] LABS: Glucose,Whole Blood 111 mg/dL (75-99)
[2020-06-02] MEDS: MULTIVITAMINS, THERA 1 EACH TAB PO SCH (11:59)
[2020-06-02] MEDS: FOLIC ACID 1 MG TAB PO SCH (11:59)
[2020-06-02] MEDS: THIAMINE 100 MG TAB PO SCH (11:59)
[2020-06-02 16:48] LABS: Glucose,Whole Blood 300 mg/dL (75-99)
--- NOTE | 2020-06-02 17:18 | P.PN ---
Subjective Progress Note Date: 06/02/20 Principal diagnosis: Acute hypoxic respiratory failure, secondary to COVID-19 pneumonia 60-year-old white female patient of Dr. Bacon with no significant medical history other than history of uterine and cervical cancer status post total hysterectomy 10 years ago, kyphoscoliosis with history of back surgery, and borderline hypertension for which the patient takes no medications, who presented to the emergency department 05-07-2020 by EMS for evaluation of worsening shortness of breath. Patient states that onset of symptoms was 2 weeks ago and started with runny nose and a sore throat, gradually her symptoms have progressed, and patient started having fevers, worsening shortness of breath and cough. She tested positive for COVID 19 a week ago on 04/29/2020 on an outpatient basis however she did not seek any medical treatment up until now. She reports some decreased oral intake, nausea, but no abdominal pain or diarrhea. Admits to smoking cigarettes, however reports no chronic lung condition. Patient denies receiving any vaccination for COVID 19. CTA chest showed no evidence of pulmonary embolism, but demonstrated moderate to severe scattered groundglass opacities, showed a positive COVID 19 PCR test, d-dimer was elevated at 3.79, and significant elevated inflammatory markers with LDH thousand 942, and CRP of 78.3. Patient is a requiring high flow oxygen per Airvo at 50 L and FiO2 of 75%, her pulse ox is 88-92%, she is having low grade fevers, but hemodynamically stable. Added on Decadron, prophylactic dose of Lovenox, and we were asked to see the patient in consultation. On today's evaluation, the patient is being seen for follow-up regarding her Covid associated pneumonia. The patient presented with significant hypoxemic respiratory failure with bilateral pulmonary infiltrates and consolidations perihilar and extending to the peripheries. The patient remains on high flow oxygen and she is currently on 6 L with an FiO2 of 90%. No new labs from today. Her d-dimer from yesterday was 3.7. LDH level was also elevated at 942 with a CRP of 78.3. She remains on Solu-Medrol 60 mg IV every 24 hours. On today's evaluation of 05/09/2020 the patient remains on 60 L of oxygen with an FiO2 of 90%. There is essentially the same setting of high flow oxygen that the patient was on since yesterday. No much of an improvement at this point in time. She remains on treatment and she is taking Solu-Medrol 60 mg IV push every 6 hours. Note that the patient has diffuse bilateral pulmonary infiltrates and this was confirmed on a chest x-ray and a computed tomography scan of the chest. Inflammatory markers including the LDH down to 1620 and the CRP is down to 24. Her renal function is stable with a creatinine of 0.4. Her d-dimer is at 19. In terms of anticoagulation, the patient is currently on 45 mg subcu every 12 hours. Her chest x-ray from today is showing stable bilateral pulmonary infiltrates. The is essentially stable and unchanged compared to yesterday. She is still requiring high flow oxygen and her current pulse ox is around 92%. I like her to sleep in different body positions. Prone positioning is obviously advised. On 05/10/2020, the patient is being seen in follow-up regarding her COVID 19 related pneumonia. The patient is still on high flow oxygen and the patient is on 60 L with an FiO2 of 90%. She is having difficulties with her breathing. She would desaturate very easily with minimal amount of activity. Her inflammatory markers remain quite elevated including the LDH of 1711 and her CRP is down to 9.6. Her d-dimer today is still elevated at 15.1 although it's slightly downtrending. In terms of therapy, the patient remains on IV Solu Medrol 60 mg every 6 hours. The patient is also on Lovenox 45 mg subcutaneous every 12 hours. The patient is on high flexion 90 L and her FiO2 was slightly weaned down to 85%. Note that the patient desaturated this morning and she was down in the 70s. We had to prone or and with prone positioning, her oxidation is improved and her current pulse ox up to the 90-91%. No chest x-ray from today. Inflammatory markers were noted. She is tolerating some diet and she is not fully meeting her caloric requirements Patient was reevaluated today on 05/11/2020, we are seeing the patient for her acute presentation of covid 19 pneumonia.patient remains on high FiO2, she is on 60 L flow v and 70% FiO2 viaia airvo, surprisingly the patient seems to be in no distress, and she seems to be comfortable. She tells me that she is feeling better today compared to how she felt upon admission.CBC today is relatively normal electrolytes are normal renal profile is normal LDH is 2017. C-reactive protein is less than 5.chest x-ray continues to show bilateral airspace infiltrates throughout both lungs compatible with Covid 19 pneumonia. Patient was reevaluated today on 05/12/2020, remains on high flow oxygen with high FiO2 of 70%, and 60 L/m flow. Patient seems to be very comfortable, she tells me that she is feeling better compared to how she felt on admission. WBC count is 7.4 hemoglobin is 13.3 electrolytes are normal. Basic metabolic profile is normal LDH is trending down and bit to 1955 and C-reactive protein is 5. Reevaluated today on 05/13/2020, patient remains on high flow oxygen, she is on 85% FiO2 and 60 L/m flow with O2 saturation of 90% at best. Surprisingly the patient continues to do well, she is very comfortable, in no distress. WBC count is 7.4 hemoglobin is normal electrolytes are normal renal profile is normal inflammatory markers are trending down however her last LDH was 1954 remains relatively high. Patient was reevaluated today on 05/14/2020, remains on high flow oxygen she is presently on 90% FiO2 and 60 L high flow. Recommended probing the patient, and she is trying to go into prone position, patient remains extremely marginal at best. ABC is relatively normal lites are normal renal profile is normal d-dimer is elevated at 30.84. This is the highest d-dimer I have seen since her admission. Patient is maintained on Lovenox at 45 mg subcu twice a day. I would likely recommend a CT angiogram of this patient as she may be a great set up for acute pulmonary embolism considering her elevated d-dimer and considering her Covid 19 infection and seems to be very slow to respond. Reevaluated today on 05/15/2020, patient is feeling much better today. Breathing a lot easier. And her saturations are improving. Yesterday when I saw the patient and I was concerned about her elevated d-dimer, she could not go down for a CT angiogram of the chest, hence I recommended bilateral venous Doppler, and a Doppler was positive for bilateral deep vein thrombosis. Hence I recommended that the patient goes on heparin and discontinued her subcu Lovenox. I am certain that the patient had acute pulmonary embolism along with DVT based on her symptoms yesterday although she does have underlying Covid 19 pneumonia. Today the patient is resting more comfortably, she is on Airvo, with flow rate of 60 and FiO2 of 90%, her O2 saturation is in the low 90s. Less shortness of breath according to the patient, and she clearly tells me that today is much better today for her than yesterday. CBC is relatively normal hemoglobin is 14.7. Platelets are a bit low hence I will discontinue heparin tomorrow and start the patient on Xarelto. Her PTT is 74.5. Electrolites are normal renal profile is normal. Down the line and may even consider a CT angiogram of the chest to document thromboembolic disease/pulmonary embolism. Reevaluated today on 05/16/2020, patient remains about the same. Still requiring significantly high FiO2. Patient is on a nonrebreather mask and airvo, O2 saturation is 88-90% she is on 90% FiO2 and 60 L high flow. Plus a nonrebreather mask. Surprisingly the patient tells me that she is doing okay not as symptomatic as expected considering that her O2 saturation is marginal. Yesterday, the patient was transitioned to Xarelto and she is taking the Xarelto as directed. CBC today is relatively normal hemoglobin is 14.7 platelet are 89,000. Electrolytes are normal renal profile is normal Progress note dated 05/18/2020. This is a 60-year-old female admitted with a diagnosis of acute hypoxemic respiratory failure secondary to COVID 19 pneumonia. The patient did receive TO CI. In addition, the patient has benign essential hypertension, deep venous thrombosis and possible pulmonary embolism, hypertension, chronic nicotine addiction, uterine and cervical cancer, status post hysterectomy, and hypovolemic hyponatremia. Currently, the patient is on AIRVO, at 60 L/m with an FiO2 of 80%. White count 12.5, hemoglobin 13.9, hematocrit 41.6, platelet count 80,000. Id. at 8.39. Sodium 135, potassium 4.5, chlorides 102, CO2 32, anion gap is 1, BUN is 20, creatinine 0.56. LDH is 1855. Chest x-ray shows diffuse interstitial and airspace disease. On 05 19 2020 patient seen in follow-up on selective care unit. Remains on Airvo, 60 L and FiO2 of 80%, her pulse ox is 85-93%. She is awake and alert, she states she is breathing somewhat better, still requiring high flow oxygen, and she easily desaturates with minimal exertion, still reports fatigue, but no fever or chills. No chest discomfort. This is stable, no fever or chills, no new chest x-ray, patient is status post Tocilizumab, and she continues on high- dose IV Solu-Medrol 60 mg every 6 hours, remains on oral Xarelto. No nausea vomiting diarrhea. Yesterday's labs revealed improving d-dimer and inflammatory markers. On 05/29/2020 patient seen in follow-up on medical surgical floor, she remains on Airvo, and was just decreased to 45 L/m and FiO2 is at 55%, her pulse ox is 90- 95%, and patient has been slowly weaned down on oxygen, doing much better, however she still gets very anxious, desats very easily with any little exertion, no acute events overnight, chest x-ray done on 05/27/2020 showed bi lateral multifocal opacities consistent with COVID-19 pneumonia. His last set inflammatory markers showed downtrending LDH, CRP is within normal limits at 7.6. Labs have been reviewed, serum sodium is improving and is up to 132 on today's labs, potassium 3.7, chloride is 97, CO2 32, urine at 13 creatinine 0.29. She remains on once daily dose of Decadron, she remains on oral anticoagulation form of Zaroxolyn. She is on Rocephin for evidence of E. coli in her urinary tract 05/30/2020, the patient has no complaints. Still on high flow at 45 L with an FiO2 of 55%. Pulse ox is improved and currently she is at 96% and we'll wean that down to 40% FiO2. No fever. No chills. Sitting up on a chair. Tolerating diet. She remains on Decadron. She is also being treated for an E. coli UTI with Rocephin. Inflammatory markers are downtrending. She is communicating. She has no new complaints. 05/31/2020, the patient remains on 45 L of high flow oxygen along with an FiO2 of 42%. She is comfortable. She is willing to consider weaning the oxygen flow to regular nasal cannula and this will be child today. Her current pulse ox is above 90%. She remains on Decadron. She has no specific complaints. Sitting up on a chair. He smokes. Breathing is nonlabored. No nausea or vomiting or diarrhea or abdominal pain. No other significant overnight and her night was essentially uneventful. Her blood work no abnormalities. Patient was reevaluated today on 06/01/2020, patient is down to 12 L high flow nasal cannula, and her O2 saturation is in the 90s. Patient is quite comfortable, not in any distress, remains on Decadron, she has no specific complaints. Remains on anticoagulation therapy for her DVT. Labs today were reviewed her d-dimer is 2.15 from few days ago. No other labs were done today. Her last LDH was 794 and C-reactive protein was 6.4. Reevaluated today on 06/02/2020, patient is feeling better today, breathing easier, she is down to 6 L high flow nasal cannula, and her O2 saturation remains in the 90s. I tapered down her oxygen down to 5 L, and I plan to consider discharging the patient home tomorrow if she continues to tolerate and do well with 5 L of nasal cannula or less. Her C-reactive protein today is 1.4, LDH is 742. Electrolytes are normal renal profile is normal and d-dimer is 5.35 Objective - Vital Signs Vital signs: Vital Signs Temp 97.9 F 06/02/20 12:00 Pulse 82 06/02/20 14:00 Resp 18 06/02/20 14:00 BP 119/69 06/02/20 12:00 Pulse Ox 97 06/02/20 17:04 Intake & Output 06/01/20 06/02/20 06/02/20 18:59 06:59 18:59 Intake Total 960 1360 Output Total 087 420 6740 Balance 460 -550 210 Weight 84.5 kg Intake: Oral 960 1360 Output: Urine 994 736 3617 Other: Voiding Method Toilet Toilet Toilet # Voids 2 0 0 # Bowel Movements 2 - Exam Patient is lying in the bed comfortably, no acute distress, awake alert and oriented.. On 6 L nasal cannula.. HEENT: Normocephalic. Neck is supple. Pupils reactive. Nostrils clear. Oral cavity is moist. Ears reveal no drainage. Neck reveals no JVD, carotid bruits, or thyromegaly. CHEST EXAMINATION: Fine crackles at the bases, symmetrical chest expansion. CARDIAC: Normal S1, S2 with no gallops. No murmurs ABDOMEN: Soft. Bowel sounds normal. No organomegaly. No abdominal bruits. Extremities: reveal no edema. No clubbing or cyanosis Neurologically awake, alert, oriented x3 with well-coordinated movements. No focal deficits noted Skin: No rash or skin lesions. Psychiatric: Normal mood, affect, normal mental status examination. Musculoskeletal: No joint swelling or deformity. Normal range of motion. - Labs CBC & Chem 7: 06/02/20 09:02 06/02/20 09:02 Labs: Abnormal Lab Results - Last 24 Hours (Table) 06/01/20 06/02/20 06/02/20 Range/Units 20:18 05:44 09:02 RDW 15.7 H (11.5-15.5) % Lymphocytes # 0.6 L (1.0-4.8) k/uL D-Dimer (<0.60) mg/L FEU Sodium (137-145) mmol/L Creatinine (0.52-1.04) mg/dL Glucose (74-99) mg/dL POC Glucose (mg/dL) 229 H 114 H (75-99) mg/dL Lactate Dehydrogenase (313-618) U/L C-Reactive Protein (<1.0) mg/dL 06/02/20 06/02/20 06/02/20 Range/Units 09:02 09:02 11:55 RDW (11.5-15.5) % Lymphocytes # (1.0-4.8) k/uL D-Dimer 5.35 H (<0.60) mg/L FEU Sodium 135 L (137-145) mmol/L Creatinine 0.41 L (0.52-1.04) mg/dL Glucose 151 H (74-99) mg/dL POC Glucose (mg/dL) 111 H (75-99) mg/dL Lactate Dehydrogenase 742 H (313-618) U/L C-Reactive Protein 1.4 H (<1.0) mg/dL 06/02/20 Range/Units 16:47 RDW (11.5-15.5) % Lymphocytes # (1.0-4.8) k/uL D-Dimer (<0.60) mg/L FEU Sodium (137-145) mmol/L Creatinine (0.52-1.04) mg/dL Glucose (74-99) mg/dL POC Glucose (mg/dL) 300 H (75-99) mg/dL Lactate Dehydrogenase (313-618) U/L C-Reactive Protein (<1.0) mg/dL Assessment and Plan Assessment: Acute hypoxic respiratory failure secondary to Covid 19 pneumonia. FiO2 has been titrated down to 6 L nasal cannula. Hypovolemic hyponatremia, resolved. benign essential hypertension. Bilateral deep vein thromboses and strongly suspect that the patient has acute pulmonary embolism. Borderline hypertension currently not on any medications at home. Ongoing nicotine addiction History of uterine and cervical cancer status post hysterectomy 10 years ago Hyponatremia likely secondary to SIADH. recommendation: Continue xaelto continue Decadron Continue vitamin D. And vitamin C. Continue insulin. Continue present supportive care measures received actemra Consider discharge planning in the next 24 hours. However she will need home oxygen at least 4 or 5 L/m. We'll continue to follow Time with Patient: Less than 30
[2020-06-02 20:25] LABS: Glucose,Whole Blood 208 mg/dL (75-99)
[2020-06-03 06:28] LABS: Glucose,Whole Blood 104 mg/dL (75-99)
[2020-06-03] MEDS: INSULIN ASPART (NovoLOG) 100 UNIT/ML VIAL SQ SCH ×2 (06:35→12:28)
[2020-06-03] MEDS: PANTOPRAZOLE 40 MG TABLET PO SCH (06:36)
[2020-06-03] MEDS: RIVAROXABAN 15 MG TAB PO SCH (06:37)
[2020-06-03] MEDS: ASCORBIC ACID 500 MG TAB PO SCH (08:40)
[2020-06-03] MEDS: dexAMETHasone 2 MG TAB PO SCH (08:40)
[2020-06-03] MEDS: FAMOTIDINE 20 MG TAB PO SCH (08:41)
[2020-06-03] MEDS: CHOLECALCIFEROL 25 MCG (1000 IU) TABLET PO SCH (08:41)
[2020-06-03] MEDS: LIDOCAINE 5% PATCH TOPICAL SCH ×2 (08:41→08:46)
[2020-06-03] MEDS: ZINC SULFATE 220 MG CAP PO SCH (08:41)
[2020-06-03 09:38] VITALS: RESP 20
[2020-06-03 12:10] LABS: Glucose,Whole Blood 184 mg/dL (75-99)
[2020-06-03 12:13] VITALS: BP 121/79; PULSE 89; TEMP 98.3
[2020-06-03] MEDS: FOLIC ACID 1 MG TAB PO SCH (12:28)
[2020-06-03] MEDS: THIAMINE 100 MG TAB PO SCH (12:28)
[2020-06-03] MEDS: MULTIVITAMINS, THERA 1 EACH TAB PO SCH (12:28)
--- NOTE | 2020-06-03 17:38 | P.PN ---
Subjective Progress Note Date: 06/03/20 Principal diagnosis: Acute hypoxic respiratory failure, secondary to COVID-19 pneumonia 60-year-old white female patient of Dr. Bacon with no significant medical history other than history of uterine and cervical cancer status post total hysterectomy 10 years ago, kyphoscoliosis with history of back surgery, and borderline hypertension for which the patient takes no medications, who presented to the emergency department 05-07-2020 by EMS for evaluation of worsening shortness of breath. Patient states that onset of symptoms was 2 weeks ago and started with runny nose and a sore throat, gradually her symptoms have progressed, and patient started having fevers, worsening shortness of breath and cough. She tested positive for COVID 19 a week ago on 04/29/2020 on an outpatient basis however she did not seek any medical treatment up until now. She reports some decreased oral intake, nausea, but no abdominal pain or diarrhea. Admits to smoking cigarettes, however reports no chronic lung condition. Patient denies receiving any vaccination for COVID 19. CTA chest showed no evidence of pulmonary embolism, but demonstrated moderate to severe scattered groundglass opacities, showed a positive COVID 19 PCR test, d-dimer was elevated at 3.79, and significant elevated inflammatory markers with LDH thousand 942, and CRP of 78.3. Patient is a requiring high flow oxygen per Airvo at 50 L and FiO2 of 75%, her pulse ox is 88-92%, she is having low grade fevers, but hemodynamically stable. Added on Decadron, prophylactic dose of Lovenox, and we were asked to see the patient in consultation. On today's evaluation, the patient is being seen for follow-up regarding her Covid associated pneumonia. The patient presented with significant hypoxemic respiratory failure with bilateral pulmonary infiltrates and consolidations perihilar and extending to the peripheries. The patient remains on high flow oxygen and she is currently on 6 L with an FiO2 of 90%. No new labs from today. Her d-dimer from yesterday was 3.7. LDH level was also elevated at 942 with a CRP of 78.3. She remains on Solu-Medrol 60 mg IV every 24 hours. On today's evaluation of 05/09/2020 the patient remains on 60 L of oxygen with an FiO2 of 90%. There is essentially the same setting of high flow oxygen that the patient was on since yesterday. No much of an improvement at this point in time. She remains on treatment and she is taking Solu-Medrol 60 mg IV push every 6 hours. Note that the patient has diffuse bilateral pulmonary infiltrates and this was confirmed on a chest x-ray and a computed tomography scan of the chest. Inflammatory markers including the LDH down to 1620 and the CRP is down to 24. Her renal function is stable with a creatinine of 0.4. Her d-dimer is at 19. In terms of anticoagulation, the patient is currently on 45 mg subcu every 12 hours. Her chest x-ray from today is showing stable bilateral pulmonary infiltrates. The is essentially stable and unchanged compared to yesterday. She is still requiring high flow oxygen and her current pulse ox is around 92%. I like her to sleep in different body positions. Prone positioning is obviously advised. On 05/10/2020, the patient is being seen in follow-up regarding her COVID 19 related pneumonia. The patient is still on high flow oxygen and the patient is on 60 L with an FiO2 of 90%. She is having difficulties with her breathing. She would desaturate very easily with minimal amount of activity. Her inflammatory markers remain quite elevated including the LDH of 1711 and her CRP is down to 9.6. Her d-dimer today is still elevated at 15.1 although it's slightly downtrending. In terms of therapy, the patient remains on IV Solu Medrol 60 mg every 6 hours. The patient is also on Lovenox 45 mg subcutaneous every 12 hours. The patient is on high flexion 90 L and her FiO2 was slightly weaned down to 85%. Note that the patient desaturated this morning and she was down in the 70s. We had to prone or and with prone positioning, her oxidation is improved and her current pulse ox up to the 90-91%. No chest x-ray from today. Inflammatory markers were noted. She is tolerating some diet and she is not fully meeting her caloric requirements Patient was reevaluated today on 05/11/2020, we are seeing the patient for her acute presentation of covid 19 pneumonia.patient remains on high FiO2, she is on 60 L flow v and 70% FiO2 viaia airvo, surprisingly the patient seems to be in no distress, and she seems to be comfortable. She tells me that she is feeling better today compared to how she felt upon admission.CBC today is relatively normal electrolytes are normal renal profile is normal LDH is 2017. C-reactive protein is less than 5.chest x-ray continues to show bilateral airspace infiltrates throughout both lungs compatible with Covid 19 pneumonia. Patient was reevaluated today on 05/12/2020, remains on high flow oxygen with high FiO2 of 70%, and 60 L/m flow. Patient seems to be very comfortable, she tells me that she is feeling better compared to how she felt on admission. WBC count is 7.4 hemoglobin is 13.3 electrolytes are normal. Basic metabolic profile is normal LDH is trending down and bit to 1955 and C-reactive protein is 5. Reevaluated today on 05/13/2020, patient remains on high flow oxygen, she is on 85% FiO2 and 60 L/m flow with O2 saturation of 90% at best. Surprisingly the patient continues to do well, she is very comfortable, in no distress. WBC count is 7.4 hemoglobin is normal electrolytes are normal renal profile is normal inflammatory markers are trending down however her last LDH was 1954 remains relatively high. Patient was reevaluated today on 05/14/2020, remains on high flow oxygen she is presently on 90% FiO2 and 60 L high flow. Recommended probing the patient, and she is trying to go into prone position, patient remains extremely marginal at best. ABC is relatively normal lites are normal renal profile is normal d-dimer is elevated at 30.84. This is the highest d-dimer I have seen since her admission. Patient is maintained on Lovenox at 45 mg subcu twice a day. I would likely recommend a CT angiogram of this patient as she may be a great set up for acute pulmonary embolism considering her elevated d-dimer and considering her Covid 19 infection and seems to be very slow to respond. Reevaluated today on 05/15/2020, patient is feeling much better today. Breathing a lot easier. And her saturations are improving. Yesterday when I saw the patient and I was concerned about her elevated d-dimer, she could not go down for a CT angiogram of the chest, hence I recommended bilateral venous Doppler, and a Doppler was positive for bilateral deep vein thrombosis. Hence I recommended that the patient goes on heparin and discontinued her subcu Lovenox. I am certain that the patient had acute pulmonary embolism along with DVT based on her symptoms yesterday although she does have underlying Covid 19 pneumonia. Today the patient is resting more comfortably, she is on Airvo, with flow rate of 60 and FiO2 of 90%, her O2 saturation is in the low 90s. Less shortness of breath according to the patient, and she clearly tells me that today is much better today for her than yesterday. CBC is relatively normal hemoglobin is 14.7. Platelets are a bit low hence I will discontinue heparin tomorrow and start the patient on Xarelto. Her PTT is 74.5. Electrolites are normal renal profile is normal. Down the line and may even consider a CT angiogram of the chest to document thromboembolic disease/pulmonary embolism. Reevaluated today on 05/16/2020, patient remains about the same. Still requiring significantly high FiO2. Patient is on a nonrebreather mask and airvo, O2 saturation is 88-90% she is on 90% FiO2 and 60 L high flow. Plus a nonrebreather mask. Surprisingly the patient tells me that she is doing okay not as symptomatic as expected considering that her O2 saturation is marginal. Yesterday, the patient was transitioned to Xarelto and she is taking the Xarelto as directed. CBC today is relatively normal hemoglobin is 14.7 platelet are 89,000. Electrolytes are normal renal profile is normal Progress note dated 05/18/2020. This is a 60-year-old female admitted with a diagnosis of acute hypoxemic respiratory failure secondary to COVID 19 pneumonia. The patient did receive TO CI. In addition, the patient has benign essential hypertension, deep venous thrombosis and possible pulmonary embolism, hypertension, chronic nicotine addiction, uterine and cervical cancer, status post hysterectomy, and hypovolemic hyponatremia. Currently, the patient is on AIRVO, at 60 L/m with an FiO2 of 80%. White count 12.5, hemoglobin 13.9, hematocrit 41.6, platelet count 80,000. Id. at 8.39. Sodium 135, potassium 4.5, chlorides 102, CO2 32, anion gap is 1, BUN is 20, creatinine 0.56. LDH is 1855. Chest x-ray shows diffuse interstitial and airspace disease. On 05 19 2020 patient seen in follow-up on selective care unit. Remains on Airvo, 60 L and FiO2 of 80%, her pulse ox is 85-93%. She is awake and alert, she states she is breathing somewhat better, still requiring high flow oxygen, and she easily desaturates with minimal exertion, still reports fatigue, but no fever or chills. No chest discomfort. This is stable, no fever or chills, no new chest x-ray, patient is status post Tocilizumab, and she continues on high- dose IV Solu-Medrol 60 mg every 6 hours, remains on oral Xarelto. No nausea vomiting diarrhea. Yesterday's labs revealed improving d-dimer and inflammatory markers. On 05/29/2020 patient seen in follow-up on medical surgical floor, she remains on Airvo, and was just decreased to 45 L/m and FiO2 is at 55%, her pulse ox is 90- 95%, and patient has been slowly weaned down on oxygen, doing much better, however she still gets very anxious, desats very easily with any little exertion, no acute events overnight, chest x-ray done on 05/27/2020 showed bi lateral multifocal opacities consistent with COVID-19 pneumonia. His last set inflammatory markers showed downtrending LDH, CRP is within normal limits at 7.6. Labs have been reviewed, serum sodium is improving and is up to 132 on today's labs, potassium 3.7, chloride is 97, CO2 32, urine at 13 creatinine 0.29. She remains on once daily dose of Decadron, she remains on oral anticoagulation form of Zaroxolyn. She is on Rocephin for evidence of E. coli in her urinary tract 05/30/2020, the patient has no complaints. Still on high flow at 45 L with an FiO2 of 55%. Pulse ox is improved and currently she is at 96% and we'll wean that down to 40% FiO2. No fever. No chills. Sitting up on a chair. Tolerating diet. She remains on Decadron. She is also being treated for an E. coli UTI with Rocephin. Inflammatory markers are downtrending. She is communicating. She has no new complaints. 05/31/2020, the patient remains on 45 L of high flow oxygen along with an FiO2 of 42%. She is comfortable. She is willing to consider weaning the oxygen flow to regular nasal cannula and this will be child today. Her current pulse ox is above 90%. She remains on Decadron. She has no specific complaints. Sitting up on a chair. He smokes. Breathing is nonlabored. No nausea or vomiting or diarrhea or abdominal pain. No other significant overnight and her night was essentially uneventful. Her blood work no abnormalities. Patient was reevaluated today on 06/01/2020, patient is down to 12 L high flow nasal cannula, and her O2 saturation is in the 90s. Patient is quite comfortable, not in any distress, remains on Decadron, she has no specific complaints. Remains on anticoagulation therapy for her DVT. Labs today were reviewed her d-dimer is 2.15 from few days ago. No other labs were done today. Her last LDH was 794 and C-reactive protein was 6.4. Reevaluated today on 06/02/2020, patient is feeling better today, breathing easier, she is down to 6 L high flow nasal cannula, and her O2 saturation remains in the 90s. I tapered down her oxygen down to 5 L, and I plan to consider discharging the patient home tomorrow if she continues to tolerate and do well with 5 L of nasal cannula or less. Her C-reactive protein today is 1.4, LDH is 742. Electrolytes are normal renal profile is normal and d-dimer is 5.35 Reevaluated today on 06/03/2020, patient is feeling much better, breathing a lot easier, she is down to 5 L nasal cannula, and she is doing great. I have rec ommended that the patient could go home today. And she is cleared from my perspective. Objective - Vital Signs Vital signs: Vital Signs Temp 98.3 F 06/03/20 12:12 Pulse 89 06/03/20 12:12 Resp 20 06/03/20 12:12 BP 121/79 06/03/20 12:12 Pulse Ox 89 L 06/03/20 12:12 Intake & Output 06/02/20 06/03/20 06/03/20 18:59 06:59 18:59 Intake Total 1360 480 240 Output Total 1150 400 Balance 210 480 -160 Weight 84 kg Intake: Oral 1360 480 240 Output: Urine 1150 400 Other: Voiding Method Toilet Bedside Commode # Voids 0 1 # Bowel Movements 0 - Exam Patient is lying in the bed comfortably, no acute distress, awake alert and oriented..ON 5 L nasal cannula HEENT: Normocephalic. Neck is supple. Pupils reactive. Nostrils clear. Oral cavity is moist. Ears reveal no drainage. Neck reveals no JVD, carotid bruits, or thyromegaly. CHEST EXAMINATION: Fine crackles at the bases, symmetrical chest expansion. CARDIAC: Normal S1, S2 with no gallops. No murmurs ABDOMEN: Soft. Bowel sounds normal. No organomegaly. No abdominal bruits. Extremities: reveal no edema. No clubbing or cyanosis Neurologically awake, alert, oriented x3 with well-coordinated movements. No focal deficits noted Skin: No rash or skin lesions. Psychiatric: Normal mood, affect, normal mental status examination. Musculoskeletal: No joint swelling or deformity. Normal range of motion. - Labs CBC & Chem 7: 06/02/20 09:02 06/02/20 09:02 Labs: Abnormal Lab Results - Last 24 Hours (Table) 06/02/20 06/03/20 06/03/20 Range/Units 20:23 06:24 12:06 POC Glucose (mg/dL) 208 H 104 H 184 H (75-99) mg/dL Assessment and Plan Assessment: Acute hypoxic respiratory failure secondary to Covid 19 pneumonia. Patient is now on 5 L nasal cannula. Hypovolemic hyponatremia, resolved. benign essential hypertension. Bilateral deep vein thromboses and strongly suspect that the patient has acute pulmonary embolism. Borderline hypertension currently not on any medications at home. Ongoing nicotine addiction History of uterine and cervical cancer status post hysterectomy 10 years ago Hyponatremia likely secondary to SIADH. recommendation: Continue xaRelto continue Decadron Continue vitamin D. And vitamin C. Continue insulin. Continue present supportive care measures received actemra Clear to be discharged home today on the COVID-19 cocktail, and Xarelto and oxygen. Follow up on outpatient basis. Time with Patient: Less than 30
--- NOTE | 2020-06-22 01:09 | P.PN ---
Subjective Progress Note Date: 06/02/20 Principal diagnosis: Acute hypoxic respiratory failure secondary to Covid pneumonia Patient is a 60-year-old female with a known history of cervical cancer status post hysterectomy, currently everyday smoker presents to ER with the complaints of worsening shortness of breath. Patient says that her symptoms started about 2 weeks ago and was tested for cold positive on 04/29/2020 as an outpatient. Patient has been having fever and chills on and off. She has been using over- the-counter medications. Patient was not any antibiotics or steroids at home. She came to ER due to worsening shortness of breath and generalized weakness and decreased oral intake and nausea for the past 3 days. No complaints of diarrhea and abdominal pain. Does have chest tightness with deep breathing. Denied any dysuria or hematuria. No headache or dizziness or lightheadedness. On admission patient was tachycardic and hypoxic with pulse ox 84% and requiring her person noncontributory. CTA chest showed demonstrative moderate to severe skater groundglass opacities throughout both lungs with interspace and wedge-shaped areas of consolidation or atelectasis. Consider Coumadin 19 pneumonia. No evidence of pulmonary embolism or acute aortic abnormality. EKG showed sinus tachycardia Chest x-ray showed diffuse bilateral infiltrates which can be compatible with atypical pneumonia. Laboratory data showed WBC 4.6, hemoglobin 14.2 and platelets 270, d-dimer 3.79 Sodium 129 potassium 3.7 chloride 94 BUN 12 and creatinine 0.50 LDH 1942, CRP 78.3, pro-calcitonin 0.2 Code 19 PCR detected. 05/08/2020 Patient is currently awake alert and oriented x3. Still having significant shortness of breath and hypoxia. Currently on high flow oxygen at 6 L with FiO2 of 90%. Patient is being continued on methylprednisolone and Lovenox twice daily. Continued on multivitamins. Pulmonary is on board. Patient has been afebrile. No nausea vomiting or diarrhea. No dysuria or hematuria. No chest pain. 05/09/2020 Patient is currently on high flow oxygen airvo 60 L with 90% FiO2. Appears to be in no distress. Awake alert and oriented. No fever no chills. No nausea vomiting or abdominal pain or diarrhea. Patient will be continued on Solu- Medrol and Lovenox twice daily. Laboratory data showed serum D-dimer level is 19.1 Sodium 136 potassium 3.7 bicarb is 31 BUN 14 and creatinine 0.48 blood sugar is 148 and CRP 24.2 and LDH 1620 05/10/2020 Patient is lying in the bed awake and alert. Still requiring high flow oxygen at 60 L FiO2 90%. She having exertional dyspnea and chest tightness. Patient is being continued on IV Solu-Medrol, Lovenox twice daily and multivitamins. Laboratory work showed D-dimer 15.1, LDH 171 on and CRP 9.6 patient has been afebrile. 05/26/2020 Patient is currently sitting in the chair comfortably. Awake alert and oriented. Still requiring high flow oxygen at 60 L Airvo and FiO2 55% which is trending down from 70% yesterday. No complaints of chest pain or worsening shortness of breath. No nausea vomiting or abdominal pain. No diarrhea. Patient is being continued Xarelto for long-term anticoagulation and is also on dexamethasone 6 mg daily. Urinalysis showed cloudy with moderate leukocyte esterase and elevated WBCs. Urine culture was ordered and patient was started on ceftriaxone. Pulmonary is on board. 05/27/2020 Patient is awake alert and oriented. No complaints of chest pain or worsening shortness of breath. Patient is on 50 L high flow at 80% FiO2 Laboratory data showed sodium 131 potassium 3.7 chloride 92 BUN 25 and creatinine 0.44 and LDH 1274 CRP 7.6 Chest x-ray showed bilateral multifocal opacities consistent with COVID-19 infection are redemonstrated. Some interval progression or worsening opacities in the right lung noted from most recent x-ray. Patient was given a dose of IV Lasix today. Urine culture is growing gram-negative bacilli. Continue with ceftriaxone and follow-up final culture report. Patient has been afebrile.No nausea vomiting or abdominal pain or diarrhea. No headache or dizziness or lightheadedness. 05/28/2020 Patient is currently high flow oxygen at 50 L and 70% FiO2. Sitting in bedside comfortably. Denies any complaints of nausea vomiting or abdominal pain. Tolerating oral diet. Patient is being continued dexamethasone and Xarelto. Currently on once vitamins. Continue to titrate down FiO2. Laboratory data showed sodium level of 129 potassium 4.0 chloride 94 bicarb is 32 BUN 16 and creatinine 0.73 500 GFR is greater than 90 Blood sugar is 226 calcium 8.6 Urine culture showed gram-negative bacilli and patient is being continued on ceftriaxone. Follow-up final culture report. Patient was ventilated with decreased plain water intake. 05/29/2020 Patient is currently sitting in a chair comfortably. No complaints of chest pain or worsening shortness of breath. Oxygen requirement is trending down patient is 45 L oxygen and 55% FiO2. Laboratory data showed sodium 132 potas sium 3.7 chloride 97 bicarb is 32 BUN 13 and creatinine 0.29 calcium 8.9 Urine culture showed E. coli patient is being continued ceftriaxone. Afebrile. Hemodynamically stable. 05/30/2020 Patient is currently sitting in the chair comfortably. Awake at 1x3. Requiring high flow at 45 L and FiO2 55%. Breathing status is improving. No complaints of chest pain or shortness of breath. Inflammatory markers are trending down. Patient is being continued antibiotics for E. coli urinary tract infection. Pulmonary is on board. 05/31/2020 Patients breathing status is improving slowly. Awake alert and oriented times 3. Able to sit in the chair. No complaints of chest pain. Pulse ox is 90%. Patient will be continued dexamethasone and anticoagulation. Inflammatory markers are trending down. No nausea vomiting or abdominal pain or diarrhea. Tolerating oral diet. 06/01/2020 Patient is currently resting in the bed comfortably. Awake alert [place] x3. Able to ambulate to the bathroom. Currently tolerating high flow oxygen. Breathing status is improving slowly. No complaints of chest pain. No nausea vomiting abdominal pain. No fever no chills.. Pulmonary is on board. 06/02/2020 Patient is feeling better today. Currently requiring 6 L oxygen via nasal cannula and saturating at 90%. Continue to taper down oxygen. However is laboratory data showed CRP 1.4 and LDH 742. D-dimer is 535. Patient is being continued dexamethasone, Xarelto and multivitamins. Pulmonary is on board. Anticipate discharge with improvement in oxygenation. Current medications reviewed. Objective - Vital Signs Vital signs: Vital Signs Temp 98.7 F 06/02/20 16:00 Pulse 90 06/02/20 16:00 Resp 18 06/02/20 16:00 BP 123/72 06/02/20 16:00 Pulse Ox 97 06/02/20 17:04 Intake & Output 04/20/21 04/20/21 04/21/21 06:59 18:59 06:59 Intake Total 1360 240 Output Total 550 1150 Balance -550 210 240 Weight 84.5 kg Intake: Oral 1360 240 Output: Urine 550 1150 Other: Voiding Method Toilet Toilet # Voids 0 0 - Exam PHYSICAL EXAMINATION: Patient is lying in the bed comfortably, no acute distress, awake alert and oriented.. HEENT: Normocephalic. Neck is supple. Pupils reactive. Nostrils clear. Oral cavity is moist. Ears reveal no drainage. Neck reveals no JVD, carotid bruits, or thyromegaly. CHEST EXAMINATION: Trachea is central. Symmetrical expansion. Bilateral coarse breath sounds. No wheezing or rhonchi.. CARDIAC: Normal S1, S2 with no gallops. No murmurs ABDOMEN: Soft. Bowel sounds normal. No organomegaly. No abdominal bruits. Extremities: reveal no edema. No clubbing or cyanosis Neurologically awake, alert, oriented x3 with well-coordinated movements. No focal deficits noted Skin: No rash or skin lesions. Psychiatric: Coperative. Nonsuicidal Musculoskeletal: No joint swelling or deformity. Normal range of motion. - Labs CBC & Chem 7: 06/02/20 09:02 06/02/20 09:02 Labs: Abnormal Lab Results - Last 24 Hours (Table) 06/02/20 06/02/20 06/02/20 Range/Units 05:44 09:02 09:02 RDW 15.7 H (11.5-15.5) % Lymphocytes # 0.6 L (1.0-4.8) k/uL D-Dimer (<0.60) mg/L FEU Sodium 135 L (137-145) mmol/L Creatinine 0.41 L (0.52-1.04) mg/dL Glucose 151 H (74-99) mg/dL POC Glucose (mg/dL) 114 H (75-99) mg/dL Lactate Dehydrogenase 742 H (313-618) U/L C-Reactive Protein 1.4 H (<1.0) mg/dL 06/02/20 06/02/20 06/02/20 Range/Units 09:02 11:55 16:47 RDW (11.5-15.5) % Lymphocytes # (1.0-4.8) k/uL D-Dimer 5.35 H (<0.60) mg/L FEU Sodium (137-145) mmol/L Creatinine (0.52-1.04) mg/dL Glucose (74-99) mg/dL POC Glucose (mg/dL) 111 H 300 H (75-99) mg/dL Lactate Dehydrogenase (313-618) U/L C-Reactive Protein (<1.0) mg/dL 06/02/20 Range/Units 20:23 RDW (11.5-15.5) % Lymphocytes # (1.0-4.8) k/uL D-Dimer (<0.60) mg/L FEU Sodium (137-145) mmol/L Creatinine (0.52-1.04) mg/dL Glucose (74-99) mg/dL POC Glucose (mg/dL) 208 H (75-99) mg/dL Lactate Dehydrogenase (313-618) U/L C-Reactive Protein (<1.0) mg/dL Assessment and Plan Assessment: Acute hypoxic respiratory failure secondary to Covid 19 pneumonia. Patient tested positive on 04/29/2020. Currently requiring 12L-->6L NC Increased inflammatory markers secondary to viral pneumonia hyponatremia. Likely due to increased free water intake. Bilateral lower extremity DVTs. Currently on Xarelto. Elevated d-dimer level without evidence of pulmonary embolism on CTA Gram-negative bacilli / E. coli urinary tract infection Borderline hypertension currently not on any medications at home. Ongoing nicotine addiction History of uterine and cervical cancer status post hysterectomy 10 years ago Kyphoscoliosis history and back surgery DVT prophylaxis patient is on Lovenox. Plan: Patient will be continued on oxygen supplementation and titrate down FiO2. Continue with dexamethasone 6 mg daily and multivitamins, vitamin D and follow up closely. Monitor electrolytes and inflammatory markers. c/w ceftriaxone. Continue with Xarelto for LE DVT Pulmonary is on board. Patient was given Tocilizumab 400 mg IV piggyback 2 doses initially. Further recommendations based on the clinical course. Prognosis is guarded. Smoking cessation has been counseled. Time with Patient: Greater than 30
--- NOTE | 2020-06-22 01:13 | P.DS ---
Providers Date of admission: 05/07/20 05:34 Expected date of discharge: 06/03/20 Attending physician: José Luis Rubin MD Consults: 05/07/20 03:19 Consult Physician Routine Consulting Provider: Osiris Wetzel Consult Reason/Comments: COVID; Hypoxia Do you want consulting provider notified?: Yes Primary care physician: Ratna Bacon Hospital Course: Discharge diagnosis Acute hypoxic respiratory failure secondary to Covid 19 pneumonia. Patient tested positive on 04/29/2020. Currently requiring 12L-->6L-->5L NC Increased inflammatory markers secondary to viral pneumonia hyponatremia. Likely due to increased free water intake. Bilateral lower extremity DVTs. Currently on Xarelto. Elevated d-dimer level without evidence of pulmonary embolism on CTA Gram-negative bacilli / E. coli urinary tract infection Borderline hypertension currently not on any medications at home. Ongoing nicotine addiction History of uterine and cervical cancer status post hysterectomy 10 years ago Kyphoscoliosis history and back surgery DVT prophylaxis patient is on Lovenox. Hospital course Patient is a 60-year-old female with a known history of cervical cancer status post hysterectomy, currently everyday smoker presents to ER with the complaints of worsening shortness of breath. Patient says that her symptoms started about 2 weeks ago and was tested for cold positive on 04/29/2020 as an outpatient. Patient has been having fever and chills on and off. She has been using [id number] medications. Patient was not any antibiotics or steroids at home. She came to ER due to worsening shortness of breath and generalized weakness and decreased oral intake and nausea for the past 3 days. No complaints of diarrhea and abdominal pain. Does have chest tightness with deep breathing. Denied any dysuria or hematuria. No headache or dizziness or lightheadedness. On admission patient was tachycardic and hypoxic with pulse ox 84% and requiring her person noncontributory. CTA chest showed demonstrative moderate to severe skater groundglass opacities throughout both lungs with interspace and wedge-shaped areas of consolidation or atelectasis. Consider Coumadin 19 pneumonia. No evidence of pulmonary embolism or acute aortic abnormality. EKG showed sinus tachycardia Chest x-ray showed diffuse bilateral infiltrates which can be compatible with atypical pneumonia. Laboratory data showed WBC 4.6, hemoglobin 14.2 and platelets 270, d-dimer 3.79 Sodium 129 potassium 3.7 chloride 94 BUN 12 and creatinine 0.50 LDH 1942, CRP 78.3, pro-calcitonin 0.2 Code 19 PCR detected. 05/08/2020 Patient is currently awake alert and oriented x3. Still having significant shortness of breath and hypoxia. Currently on high flow oxygen at 6 L with FiO2 of 90%. Patient is being continued on methylprednisolone and Lovenox twice daily. Continued on multivitamins. Pulmonary is on board. Patient has been afebrile. No nausea vomiting or diarrhea. No dysuria or hematuria. No chest pain. 05/09/2020 Patient is currently on high flow oxygen airvo 60 L with 90% FiO2. Appears to be in no distress. Awake alert and oriented. No fever no chills. No nausea vomiting or abdominal pain or diarrhea. Patient will be continued on Solu- Medrol and Lovenox twice daily. Laboratory data showed serum D-dimer level is 19.1 Sodium 136 potassium 3.7 bicarb is 31 BUN 14 and creatinine 0.48 blood sugar is 148 and CRP 24.2 and LDH 1620 05/10/2020 Patient is lying in the bed awake and alert. Still requiring high flow oxygen at 60 L FiO2 90%. She having exertional dyspnea and chest tightness. Patient is being continued on IV Solu-Medrol, Lovenox twice daily and multivitamins. Laboratory work showed D-dimer 15.1, LDH 171 on and CRP 9.6 patient has been afebrile. 05/26/2020 Patient is currently sitting in the chair comfortably. Awake alert and oriented. Still requiring high flow oxygen at 60 L Airvo and FiO2 55% which is trending down from 70% yesterday. No complaints of chest pain or worsening shortness of breath. No nausea vomiting or abdominal pain. No diarrhea. Patient is being continued Xarelto for long-term anticoagulation and is also on dexamethasone 6 mg daily. Urinalysis showed cloudy with moderate leukocyte esterase and elevated WBCs. Urine culture was ordered and patient was started on ceftriaxone. Pulmonary is on board. 05/27/2020 Patient is awake alert and oriented. No complaints of chest pain or worsening shortness of breath. Patient is on 50 L high flow at 80% FiO2 Laboratory data showed sodium 131 potassium 3.7 chloride 92 BUN 25 and creatinine 0.44 and LDH 1274 CRP 7.6 Chest x-ray showed bilateral multifocal opacities consistent with COVID-19 infection are redemonstrated. Some interval progression or worsening opacities in the right lung noted from most recent x-ray. Patient was given a dose of IV Lasix today. Urine culture is growing gram-negative bacilli. Continue with ceftriaxone and follow-up final culture report. Patient has been afebrile.No nausea vomiting or abdominal pain or diarrhea. No headache or dizziness or lightheadedness. 05/28/2020 Patient is currently high flow oxygen at 50 L and 70% FiO2. Sitting in bedside comfortably. Denies any complaints of nausea vomiting or abdominal pain. Tolerating oral diet. Patient is being continued dexamethasone and Xarelto. Currently on once vitamins. Continue to titrate down FiO2. Laboratory data showed sodium level of 129 potassium 4.0 chloride 94 bicarb is 32 BUN 16 and creatinine 0.73 500 GFR is greater than 90 Blood sugar is 226 calcium 8.6 Urine culture showed gram-negative bacilli and patient is being continued on ceftriaxone. Follow-up final culture report. Patient was ventilated with decreased plain water intake. 05/29/2020 Patient is currently sitting in a chair comfortably. No complaints of chest pain or worsening shortness of breath. Oxygen requirement is trending down patient is 45 L oxygen and 55% FiO2. Laboratory data showed sodium 132 potassium 3.7 chloride 97 bicarb is 32 BUN 13 and creatinine 0.29 calcium 8.9 Urine culture showed E. coli patient is being continued ceftriaxone. Afebrile. Hemodynamically stable. 05/30/2020 Patient is currently sitting in the chair comfortably. Awake at 1x3. Requiring high flow at 45 L and FiO2 55%. Breathing status is improving. No complaints of chest pain or shortness of breath. Inflammatory markers are trending down. Patient is being continued antibiotics for E. coli urinary tract infection. Pulmonary is on board. 05/31/2020 Patients breathing status is improving slowly. Awake alert and oriented times 3. Able to sit in the chair. No complaints of chest pain. Pulse ox is 90%. Patient will be continued dexamethasone and anticoagulation. Inflammatory markers are trending down. No nausea vomiting or abdominal pain or diarrhea. Tolerating oral diet. 06/01/2020 Patient is currently resting in the bed comfortably. Awake alert [place] x3. Able to ambulate to the bathroom. Currently tolerating high flow oxygen. Breathing status is improving slowly. No complaints of chest pain. No nausea vomiting abdominal pain. No fever no chills.. Pulmonary is on board. 06/02/2020 Patient is feeling better today. Currently requiring 6 L oxygen via nasal cannula and saturating at 90%. Continue to taper down oxygen. However is laboratory data showed CRP 1.4 and LDH 742. D-dimer is 535. Patient is being continued dexamethasone, Xarelto and multivitamins. Pulmonary is on board. Anticipate discharge with improvement in oxygenation. 06/03/2020 Patient is awake alert and oriented x3. Feeling much better. No complaints of chest pain or worsening shortness of breath. Currently on 5 L oxygen via nasal cannula. Patient is being discharged home. Cleared from pulmonary standpoint. No other acute overnight issues. Home oxygen is being arranged. PHYSICAL EXAMINATION: Patient is lying in the bed comfortably, no acute distress, awake alert and oriented.. HEENT: Normocephalic. Neck is supple. Pupils reactive. Nostrils clear. Oral cavity is moist. Ears reveal no drainage. Neck reveals no JVD, carotid bruits, or thyromegaly. CHEST EXAMINATION: Trachea is central. Symmetrical expansion. Bilateral improved breath sounds. No wheezing or rhonchi.. CARDIAC: Normal S1, S2 with no gallops. No murmurs ABDOMEN: Soft. Bowel sounds normal. No organomegaly. No abdominal bruits. Extremities: reveal no edema. No clubbing or cyanosis Neurologically awake, alert, oriented x3 with well-coordinated movements. No focal deficits noted Skin: No rash or skin lesions. Psychiatric: Coperative. Nonsuicidal Musculoskeletal: No joint swelling or deformity. Normal range of motion. Vital Signs Temp 98.3 F 06/03/20 12:12 Pulse 89 06/03/20 12:12 Resp 20 06/03/20 12:12 BP 121/79 06/03/20 12:12 Pulse Ox 89 L 06/03/20 12:12 Intake & Output 06/02/20 06/03/20 06/03/20 18:59 06:59 18:59 Intake Total 1360 480 240 Output Total 1150 400 Balance 210 480 -160 Weight 84 kg Intake: Oral 1360 480 240 Output: Urine 1150 400 Other: Voiding Method Toilet Bedside Commode # Voids 0 1 # Bowel Movements 0 Time taken greater than 35 minutes in patient care out of which more than 50% was spent on counseling and coordination of care. Patient Condition at Discharge: Serious Plan - Discharge Summary Discharge Rx Participant: No New Discharge Prescriptions: New dexAMETHasone ORAL [Hexadrol] 6 mg PO DAILY 3 Days #3 tab Pantoprazole [Protonix] 40 mg PO AC-BRKFST #30 tablet. Rivaroxaban [Xarelto] 15 mg PO BID-W/MEALS #60 tab Discharge Medication List Pantoprazole [Protonix] 40 mg PO AC-BRKFST #30 tablet. 06/03/20 [Rx] Rivaroxaban [Xarelto] 15 mg PO BID-W/MEALS #60 tab 06/03/20 [Rx] dexAMETHasone ORAL [Hexadrol] 6 mg PO DAILY 3 Days #3 tab 06/03/20 [Rx] Follow up Appointment(s)/Referral(s): [facility] [NON-STAFF] - (Supplied Home O2) Ratan Bacon MD [Primary Care Provider] - 06/08/20 1:00 pm ([facility], office will call monday to explain how it works) Osiris Wetzel MD [STAFF PHYSICIAN] - 07/03/20 2:30 pm (with ISHA NAVARRO) Patient Instructions/Handouts: Coronavirus Disease 2019 (COVID-19) Discharge Disposition: HOME WITH HOME HEALTH SERVICES
== END 2020-06-03 16:25 | disposition home health service (06) | DRG 177 ==
LOC: EC 01:40 → 3SCARD 05:34
PROVIDERS: ADMIT Internal Medicine; ATTEND Internal Medicine
PROC: 5A0955A Assistance with Respiratory Ventilation, Greater than 96 Consecutive Hours, High Flow/Velocity Cannula (ICD-10-PCS; principal; 2020-05-07)
PROC: XW033H5 Introduction of Tocilizumab into Peripheral Vein, Percutaneous Approach, New Technology Group 5 (ICD-10-PCS; 2020-05-07)
PROC: 3E0333Z Introduction of Anti-inflammatory into Peripheral Vein, Percutaneous Approach (ICD-10-PCS; 2020-05-07)
DX: U07.1 COVID-19 (principal); J12.82 Pneumonia due to coronavirus disease 2019; J96.01 Acute respiratory failure with hypoxia; I26.99 Other pulmonary embolism without acute cor pulmonale; J98.11 Atelectasis; E87.3 Alkalosis; N39.0 Urinary tract infection, site not specified; E22.2 Syndrome of inappropriate secretion of antidiuretic hormone; I82.403 Acute embolism and thrombosis of unspecified deep veins of lower extremity, bilateral; I82.463 Acute embolism and thrombosis of calf muscular vein, bilateral; E86.1 Hypovolemia; W18.30XA Fall on same level, unspecified, initial encounter; Y92.230 Patient room in hospital as the place of occurrence of the external cause; R21 Rash and other nonspecific skin eruption; B96.20 Unspecified Escherichia coli [E. coli] as the cause of diseases classified elsewhere; I10 Essential (primary) hypertension; M41.9 Scoliosis, unspecified; F17.210 Nicotine dependence, cigarettes, uncomplicated; Z71.6 Tobacco abuse counseling; Z90.710 Acquired absence of both cervix and uterus; Z98.890 Other specified postprocedural states; Z85.41 Personal history of malignant neoplasm of cervix uteri; Z85.42 Personal history of malignant neoplasm of other parts of uterus; Z82.49 Family history of ischemic heart disease and other diseases of the circulatory system; Z83.3 Family history of diabetes mellitus; R19.7 Diarrhea, unspecified; Z79.01 Long term (current) use of anticoagulants; R07.89 Other chest pain
CPT/HCPCS: 36410; 36415; 71045; 71275; 76937; 80048; 80053; 81001; 82728; 83605; 83615; 83735; 84145; 85025; 85379; 85610; 85730; 86140; 87040; 87077; 87086; 87186; 87635; 93005; 93970; 94760; 94762; 96361; 96374; 99285

== ENCOUNTER → 2020-09-18 | Outpatient (CLI) | payer BC ==
--- NOTE | 2020-09-18 15:56 | US ---
EXAMINATION TYPE: US venous doppler duplex LE DATE OF EXAM: 09/18/2020 11:08 AM COMPARISON: US CLINICAL HISTORY: I82.409 Deep vein thrombosis. Follow up and patient stated is on Xarelto; no new sy mptoms. SIDE PERFORMED: bilateral TECHNIQUE: The lower extremity deep venous system is examined utilizing real time linear array sonog marlin with graded compression, doppler sonography and color-flow sonography. VESSELS IMAGED: Common Femoral Vein Deep Femoral Vein Greater Saphenous Vein * Femoral Vein Popliteal Vein Small Saphenous Vein * Proximal Calf Veins (* superficial vessels) Right Leg: Negative for DVT Left Leg: Negative for DVT IMPRESSION: 1. Bilateral lower extremity ultrasound negative for deep venous thrombosis.
== END | disposition home or self-care (01) ==
LOC: RADUSWWP 10:24
PROVIDERS: ATTEND Internal Medicine
DX: I82.409 Acute embolism and thrombosis of unspecified deep veins of unspecified lower extremity (principal)
CPT/HCPCS: 93970

== ENCOUNTER 2020-10-15 03:50 | Inpatient (IN) | payer BC ==
[2020-10-15] MEDS ORDERED: KETOROLAC 15 MG/ML 1 ML VIAL IVP STA (04:09)
[2020-10-15] MEDS ORDERED: ONDANSETRON 4 MG/2 ML VIAL IVP STA (04:09)
[2020-10-15] MEDS ORDERED: MORPHINE SULFATE 4 MG/ML SYRINGE IV STA (04:09)
[2020-10-15] MEDS ORDERED: SODIUM CHLORIDE 0.9% 1,000 ML IV STA (04:09)
--- NOTE | 2020-10-15 04:13 | ED ---
Abdominal Pain HPI - General Source: patient, RN notes reviewed, old records reviewed Mode of arrival: ambulatory Limitations: no limitations - History of Present Illness MD Complaint: abdominal pain, other (Right upper quadrant abdominal pain) -: days(s) Location: RUQ Radiation: epigastric Migration to: R flank Severity: moderate Severity scale (1-10): 7 Quality: sharp Improves With: nothing Worsens With: nothing Context: other (none) Associated Symptoms: nausea Treatments Prior to Arrival: other (none) <Duc Bynum - Last Filed: 10/15/20 04:25> <Duc Tolbert - Last Filed: 10/15/20 09:44> - General Chief Complaint: Abdominal Pain Stated Complaint: ABD Pain Time Seen by Provider: 10/15/20 03:52 - History of Present Illness Initial Comments: This is a 60-year-old female to the ER for evaluation. Patient presents today for evaluation of abdominal pain patient causes her gallbladder pain. She's been doing this for this for a few years and has not seen a surgeon. She has had an outpatient ultrasound does show that she has gallstones. She does watch her diet. Closely (Duc Bynum) - Related Data Previous Rx's Medication Instructions Recorded Pantoprazole [Protonix] 40 mg PO AC-LIU #30 tablet. 06/03/20 Rivaroxaban [Xarelto] 15 mg PO BID-W/MEALS #60 tab 06/03/20 dexAMETHasone ORAL [Hexadrol] 6 mg PO DAILY 3 Days #3 tab 06/03/20 Allergies Allergy/AdvReac Type Severity Reaction Status Date / Time No Known Allergies Allergy Verified 10/15/20 03:56 Review of Systems ROS Other: All systems not noted in ROS Statement are negative. <Duc Bynum - Last Filed: 10/15/20 04:25> ROS Other: All systems not noted in ROS Statement are negative. <Duc Tolbert - Last Filed: 10/15/20 09:44> ROS Statement: Those systems with pertinent positive or pertinent negative responses have been documented in the HPI. Past Medical History Past Medical History: No Reported History Additional Past Medical History / Comment(s): Pt tested covid + on 04/25/20 at [facility] on [address]. 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 History of Any Multi-Drug Resistant Organisms: None Reported Past Surgical History: Back Surgery, Hysterectomy Additional Past Surgical History / Comment(s): D&C/leep colposcopy, upper back linda, lower back bone graft (taken from hip), colonoscopy, wisdom teeth extraction. Past Anesthesia/Blood Transfusion Reactions: No Reported Reaction Additional Past Anesthesia/Blood Transfusion Reaction / Comment(s): Pt recieved blood transfusion with back surgery. Past Psychological History: No Psychological Hx Reported Smoking Status: Former smoker Past Alcohol Use History: None Reported Past Drug Use History: None Reported - Past Family History Father Family Medical History: Diabetes Mellitus, Hypertension, Renal Disease Additional Family Medical History / Comment(s): Father is . Mother Family Medical History: AFIB, Diabetes Mellitus, Hypertension <Duc Bynum - Last Filed: 10/15/20 04:25> General Exam Limitations: no limitations General appearance: alert, in no apparent distress Head exam: Present: atraumatic, normocephalic, normal inspection Eye exam: Present: normal appearance, PERRL, EOMI. Absent: scleral icterus, conjunctival injection, periorbital swelling ENT exam: Present: normal exam, mucous membranes moist Neck exam: Present: normal inspection. Absent: tenderness, meningismus, lymphadenopathy Respiratory exam: Present: normal lung sounds bilaterally. Absent: respiratory distress, wheezes, rales, rhonchi, stridor Cardiovascular Exam: Present: regular rate, normal rhythm, normal heart sounds. Absent: systolic murmur, diastolic murmur, rubs, gallop, clicks GI/Abdominal exam: Present: soft, normal bowel sounds. Absent: distended, tenderness, guarding, rebound, rigid Extremities exam: Present: normal inspection, full ROM, normal capillary refill. Absent: tenderness, pedal edema, joint swelling, calf tenderness Back exam: Present: normal inspection Neurological exam: Present: alert, oriented X3, CN II-XII intact Psychiatric exam: Present: normal affect, normal mood Skin exam: Present: warm, dry, intact, normal color. Absent: rash <Duc Bynum - Last Filed: 10/15/20 04:25> Course Vital Signs 10/15/20 10/15/20 10/15/20 03:52 05:05 07:00 Temperature 98.5 F 97.7 F Pulse Rate 75 88 79 Respiratory 18 16 18 Rate Blood Pressure 124/71 130/75 114/85 O2 Sat by Pulse 95 99 96 Oximetry Medical Decision Making - Lab Data Result diagrams: 10/15/20 04:11 10/15/20 04:11 <Duc Tolbert - Last Filed: 10/15/20 09:44> - Medical Decision Making Ultrasound shows gallstones and a thickened gallbladder. No obvious stone in the common bile duct. I spoke with Dr. short. Dr. Rivera agreed that he would be on consult this case. I spoke with [facility] hospitalist and they agreed to admit the patient minute the patient wrote admitting orders. I started Zosyn on the patient. (Duc Tolbert) - Lab Data Lab Results 10/15/20 10/15/20 Range/Units 04:11 04:11 WBC 5.3 (3.8-10.6) k/uL RBC 4.97 (3.80-5.40) m/uL Hgb 14.0 (11.4-16.0) gm/dL Hct 42.3 (34.0-46.0) % MCV 85.0 (80.0-100.0) fL MCH 28.2 (25.0-35.0) pg MCHC 33.2 (31.0-37.0) g/dL RDW 14.0 (11.5-15.5) % Plt Count 216 (150-450) k/uL MPV 6.5 Neutrophils % 72 % Lymphocytes % 21 % Monocytes % 4 % Eosinophils % 1 % Basophils % 0 % Neutrophils # 3.8 (1.3-7.7) k/uL Lymphocytes # 1.1 (1.0-4.8) k/uL Monocytes # 0.2 (0-1.0) k/uL Eosinophils # 0.1 (0-0.7) k/uL Basophils # 0.0 (0-0.2) k/uL Sodium 139 (137-145) mmol/L Potassium 3.6 (3.5-5.1) mmol/L Chloride 105 (98-107) mmol/L Carbon Dioxide 27 (22-30) mmol/L Anion Gap 7 mmol/L BUN 13 (7-17) mg/dL Creatinine 0.62 (0.52-1.04) mg/dL Est GFR (CKD-EPI)AfAm >90 (>60 ml/min/1.73 sqM) Est GFR (CKD-EPI)NonAf >90 (>60 ml/min/1.73 sqM) Glucose 168 H (74-99) mg/dL Calcium 9.8 (8.4-10.2) mg/dL Total Bilirubin 1.0 (0.2-1.3) mg/dL AST 573 H (14-36) U/L ALT 237 H (4-34) U/L Alkaline Phosphatase 166 H (38-126) U/L Total Protein 6.7 (6.3-8.2) g/dL Albumin 4.2 (3.5-5.0) g/dL Amylase 107 (30-110) U/L Lipase 3862 H (23-300) U/L Disposition <Duc Bynum - Last Filed: 10/15/20 04:25> Time of Disposition: 09:44 <Duc Tolbert - Last Filed: 10/15/20 09:44> Clinical Impression: Gallstone pancreatitis Disposition: ADMITTED IP TO THIS HOSP Referrals: Ratna Bacon MD [Primary Care Provider] - 1-2 days
[2020-10-15 04:32] LABS: Basophils % (A) 0 %; Eosinophils # (A) 0.1 k/uL (0-0.7); Eosinophils % (A) 1 %; HCT 42.3 % (34.0-46.0); Lymphocytes # (A) 1.1 k/uL (1.0-4.8); Lymphocytes % (A) 21 %; MCH 28.2 pg (25.0-35.0); MCHC 33.2 g/dL (31.0-37.0); Mean Platelet Volume 6.5; Monocytes # (A) 0.2 k/uL (0-1.0); Monocytes % (A) 4 %; Neutrophils # (A) 3.8 k/uL (1.3-7.7); Neutrophils % (A) 72 %; Platelet Count 216 k/uL (150-450); RBC 4.97 m/uL (3.80-5.40); WBC 5.3 k/uL (3.8-10.6)
[2020-10-15 04:41] LABS: ALT 237 U/L (4-34); AST 573 U/L (14-36); African American GFR (CKD) >90 (>60 ml/min/1.73 sqM); Albumin 4.2 g/dL (3.5-5.0); Alkaline Phosphatase 166 U/L (38-126); Amylase 107 U/L (30-110); Anion Gap 7 mmol/L; Blood Urea Nitrogen 13 mg/dL (7-17); Calcium 9.8 mg/dL (8.4-10.2); Carbon Dioxide 27 mmol/L (22-30); Chloride 105 mmol/L (98-107); Glucose 168 mg/dL (74-99); Non-African American GFR(CKD) >90 (>60 ml/min/1.73 sqM); Potassium 3.6 mmol/L (3.5-5.1); Sodium 139 mmol/L (137-145); Total Protein 6.7 g/dL (6.3-8.2)
[2020-10-15] MEDS ORDERED: AMPICILLIN-SULBACTAM 3 GM in SODIUM CHLORIDE 0.9% 100 ML IVPB STA (05:33)
[2020-10-15 07:09] LABS: Lipase 3862 U/L (23-300)
--- NOTE | 2020-10-15 08:08 | US ---
EXAMINATION TYPE: US gallbladder DATE OF EXAM: 10/15/2020 COMPARISON: US abdomen 04-22-2020. CLINICAL HISTORY: pain. RUQ pain EXAM MEASUREMENTS: Liver Length: 15.4 cm Gallbladder Wall: 0.5 cm Right Kidney: 10.5 x 6.3 x 5.4 cm Pancreas: Tail obscured by overlying bowel gas. Echogenic in appearance. Liver: Slightly heterogeneous Gallbladder: Stone redemonstrated with adjacent sludge and/or small stones. Thickened wall redemons trated. Evidence for sonographic Levine's sign: neg CBD: Obscured by overlying bowel gas Right Kidney: No hydronephrosis or masses seen IMPRESSION: Similar findings to prior ultrasound. Prominent shadowing gallstone and adjacent small st ones and/or sludge with abnormal gallbladder wall thickening. No new fluid or positive sonographic Mu rphy's sign. Acute cholecystitis cannot be excluded however given symptoms of right upper quadrant pa in. Consider HIDA scan evaluation.
[2020-10-15] MEDS ORDERED: SODIUM CHLORIDE 0.9% 1,000 ML IV ONE (09:44)
[2020-10-15] MEDS ORDERED: PIPERACILLIN-TAZOBACTAM 3.375 GM in SODIUM CHLORIDE 0.9% 100 ML IVPB STA (09:45)
[2020-10-15] MEDS ORDERED: HYDROmorphone 0.5 MG/0.5 ML SYRINGE IVP PRN (09:45)
--- NOTE | 2020-10-15 13:41 | P.GSCN ---
<Rufina Rios - Last Filed: 10/15/20 13:34> History of Present Illness Consult date: 10/15/20 History of present illness: CHIEF COMPLAINT: Epigastric abdominal pain HISTORY OF PRESENT ILLNESS: This is a 60-year-old female with history of Covid in April and at that time developed DVT in bilateral legs and is on Xarelto. Her last dose of Xarelto was yesterday. She also has a history of hysterectomy. Patient presents to the hospital with complaints of epigastric abdominal pain that started around midnight. Patient has a known history of gallstones. She reports that she's been doing with gallbladder attacks for about 5-6 years. And in April she was initially going to see a surgeon regarding this however she developed Covid. Patient's reports that the pain last night became very severe and lasted over an hour therefore she presented to the hospital. The pain has now resolved. She did complain of nausea no vomiting. She had been feeling very bloated as well. She admits to having chills and sweats. No fever. She has been having loose stools. Gallbladder ultrasound shows similar findings to prior ultrasound. Prominent shadowing gallstone and adjacent small stones and /or sludge with abnormal gallbladder wall thickening. No new fluid or positive Levine sign. Acute cholecystitis cannot be excluded given symptoms of right upper quadrant pain. Patient also had significant elevated LFTs and lipase of 3862. Patient moves to the hospital for gallstone pancreatitis. Surgical consult was requested. She is on IV fluids and is currently nothing by mouth. PAST MEDICAL HISTORY: See list. PAST SURGICAL HISTORY: See list. MEDICATIONS: See list. ALLERGIES: See list. SOCIAL HISTORY: No illicit drug use. REVIEW OF SYSTEMS: CONSTITUTIONAL: Denies fever or chills. HEENT: Denies blurred vision, vision changes, or eye pain. Denies hemoptysis CARDIOVASCULAR: Denies chest pain or pressure. RESPIRATORY: No shortness of breath. GASTROINTESTINAL: See HPI for pertinent findings HEMATOLOGIC: Denies bleeding disorders. GENITOURINARY: Denies any blood in urine or increased urinary frequency. SKIN: Denies pruitis. Denies rash. PHYSICAL EXAM: VITAL SIGNS: Reviewed GENERAL: Well-developed in no acute distress. HEENT: No sclera icterus. Extraocular movements grossly intact. Moist buccal mucosa. Head is atraumatic, normocephalic. No nasal drainage. ABDOMEN: Soft. Nondistended. Nontender NEUROLOGIC: Alert and oriented. Cranial nerves II through XII grossly intact. LABORATORY DATA: WBC 5.3 hemoglobin 14 platelets 216 sodium 139 potassium 3.6 creatinine 0.62 glucose 168 total bili 1.0 AST 573 ALT 237 alk phos 166 amylase 107 lipase 3862 IMAGING: Ultrasound as stated above ASSESSMENT: 1. Gallstone pancreatitis PLAN: -Further recommendations forthcoming per Surgeon -Keep patient nothing by mouth -Continue IV fluids -Continue antibiotics -Continue pain medication as needed -Repeat LFTs and lipase in a.m. -Continue to hold Xarelto Thank you for this consultation Physician Production Supervisor note has been reviewed by physician. Signing provider agrees with the documented findings, assessment, and plan of care. Past Medical History Past Medical History: No Reported History Additional Past Medical History / Comment(s): Pt tested covid + on 04/25/20 at [facility] on [place]. 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 History of Any Multi-Drug Resistant Organisms: None Reported Past Surgical History: Back Surgery, Hysterectomy Additional Past Surgical History / Comment(s): D&C/leep colposcopy, upper back linda, lower back bone graft (taken from hip), colonoscopy, wisdom teeth extraction. Past Anesthesia/Blood Transfusion Reactions: No Reported Reaction Additional Past Anesthesia/Blood Transfusion Reaction / Comm: Pt recieved blood transfusion with back surgery. Past Psychological History: No Psychological Hx Reported Additional Psychological History / Comment(s): Pt resides with her spouse who also has covid. Pt is independent. Smoking Status: Former smoker Past Alcohol Use History: None Reported Additional Past Alcohol Use History / Comment(s): Pt started smoking in 1976 and was a ppd smoker but has decreased to a pack lasting 10 days. Past Drug Use History: None Reported - Past Family History Father Family Medical History: Diabetes Mellitus, Hypertension, Renal Disease Additional Family Medical History / Comment(s): Father is . Mother Family Medical History: AFIB, Diabetes Mellitus, Hypertension Medications and Allergies Home Medications Medication Instructions Recorded Confirmed Type Pantoprazole [Protonix] 40 mg PO ROBIN-BRKFST #30 tablet. 06/03/20 10/15/20 Rx Rivaroxaban [Xarelto] 15 mg PO QAGilmar 10/15/20 10/15/20 History Allergies Allergy/AdvReac Type Severity Reaction Status Date / Time No Known Allergies Allergy Verified 10/15/20 10:04 Surgical - Exam Vital Signs Temp Pulse Resp BP Pulse Ox 98.5 F 75 18 124/71 95 10/15/20 03:52 10/15/20 03:52 10/15/20 03:52 10/15/20 03:52 10/15/20 03:52 Results - Labs 10/15/20 04:11 10/15/20 04:11 Abnormal Lab Results - Last 24 Hours (Table) 10/15/20 Range/Units 04:11 Glucose 168 H (74-99) mg/dL AST 573 H (14-36) U/L ALT 237 H (4-34) U/L Alkaline Phosphatase 166 H (38-126) U/L Lipase 3862 H (23-300) U/L Diabetes panel 10/15/20 Range/Units 04:11 Sodium 139 (137-145) mmol/L Potassium 3.6 (3.5-5.1) mmol/L Chloride 105 (98-107) mmol/L Carbon Dioxide 27 (22-30) mmol/L BUN 13 (7-17) mg/dL Creatinine 0.62 (0.52-1.04) mg/dL Glucose 168 H (74-99) mg/dL Calcium 9.8 (8.4-10.2) mg/dL AST 573 H (14-36) U/L ALT 237 H (4-34) U/L Alkaline Phosphatase 166 H (38-126) U/L Total Protein 6.7 (6.3-8.2) g/dL Albumin 4.2 (3.5-5.0) g/dL Calcium panel 10/15/20 Range/Units 04:11 Calcium 9.8 (8.4-10.2) mg/dL Albumin 4.2 (3.5-5.0) g/dL Pituitary panel 10/15/20 Range/Units 04:11 Sodium 139 (137-145) mmol/L Potassium 3.6 (3.5-5.1) mmol/L Chloride 105 (98-107) mmol/L Carbon Dioxide 27 (22-30) mmol/L BUN 13 (7-17) mg/dL Creatinine 0.62 (0.52-1.04) mg/dL Glucose 168 H (74-99) mg/dL Calcium 9.8 (8.4-10.2) mg/dL Adrenal panel 10/15/20 Range/Units 04:11 Sodium 139 (137-145) mmol/L Potassium 3.6 (3.5-5.1) mmol/L Chloride 105 (98-107) mmol/L Carbon Dioxide 27 (22-30) mmol/L BUN 13 (7-17) mg/dL Creatinine 0.62 (0.52-1.04) mg/dL Glucose 168 H (74-99) mg/dL Calcium 9.8 (8.4-10.2) mg/dL Total Bilirubin 1.0 (0.2-1.3) mg/dL AST 573 H (14-36) U/L ALT 237 H (4-34) U/L Alkaline Phosphatase 166 H (38-126) U/L Total Protein 6.7 (6.3-8.2) g/dL Albumin 4.2 (3.5-5.0) g/dL <Marito Rivera - Last Filed: 10/15/20 15:24> History of Present Illness History of present illness: As above. Patient with intermittent episodes of right upper quadrant pain. Usually episodes last for 30 minutes or so. Usually she has 2-3 episodes per year. This episode started last night and lasted several hours. Labs suggest gallstone pancreatitis. Agree with plans for clear liquids. Recheck labs tomorrow. Surgical - Exam Vital Signs Temp Pulse Resp BP Pulse Ox 98.5 F 75 18 124/71 95 10/15/20 03:52 10/15/20 03:52 10/15/20 03:52 10/15/20 03:52 10/15/20 03:52 Results - Labs 10/15/20 04:11 10/15/20 04:11 Abnormal Lab Results - Last 24 Hours (Table) 10/15/20 Range/Units 04:11 Glucose 168 H (74-99) mg/dL AST 573 H (14-36) U/L ALT 237 H (4-34) U/L Alkaline Phosphatase 166 H (38-126) U/L Lipase 3862 H (23-300) U/L Diabetes panel 10/15/20 Range/Units 04:11 Sodium 139 (137-145) mmol/L Potassium 3.6 (3.5-5.1) mmol/L Chloride 105 (98-107) mmol/L Carbon Dioxide 27 (22-30) mmol/L BUN 13 (7-17) mg/dL Creatinine 0.62 (0.52-1.04) mg/dL Glucose 168 H (74-99) mg/dL Calcium 9.8 (8.4-10.2) mg/dL AST 573 H (14-36) U/L ALT 237 H (4-34) U/L Alkaline Phosphatase 166 H (38-126) U/L Total Protein 6.7 (6.3-8.2) g/dL Albumin 4.2 (3.5-5.0) g/dL Calcium panel 10/15/20 Range/Units 04:11 Calcium 9.8 (8.4-10.2) mg/dL Albumin 4.2 (3.5-5.0) g/dL Pituitary panel 10/15/20 Range/Units 04:11 Sodium 139 (137-145) mmol/L Potassium 3.6 (3.5-5.1) mmol/L Chloride 105 (98-107) mmol/L Carbon Dioxide 27 (22-30) mmol/L BUN 13 (7-17) mg/dL Creatinine 0.62 (0.52-1.04) mg/dL Glucose 168 H (74-99) mg/dL Calcium 9.8 (8.4-10.2) mg/dL Adrenal panel 10/15/20 Range/Units 04:11 Sodium 139 (137-145) mmol/L Potassium 3.6 (3.5-5.1) mmol/L Chloride 105 (98-107) mmol/L Carbon Dioxide 27 (22-30) mmol/L BUN 13 (7-17) mg/dL Creatinine 0.62 (0.52-1.04) mg/dL Glucose 168 H (74-99) mg/dL Calcium 9.8 (8.4-10.2) mg/dL Total Bilirubin 1.0 (0.2-1.3) mg/dL AST 573 H (14-36) U/L ALT 237 H (4-34) U/L Alkaline Phosphatase 166 H (38-126) U/L Total Protein 6.7 (6.3-8.2) g/dL Albumin 4.2 (3.5-5.0) g/dL
[2020-10-15] MEDS: HEPARIN SODIUM,PORCINE/PF 5,000 UNIT/0.5 ML SYRINGE SQ SCH (15:54)
[2020-10-15] MEDS: PIPERACILLIN-TAZOBACTAM 3.375 GM in SODIUM CHLORIDE 0.9% 100 ML IVPB SCH (17:57)
--- NOTE | 2020-10-15 23:46 | P.HPIM ---
History of Present Illness H&P Date: 10/15/20 Patient is a 60-year-old female with a known history of cholelithiasis, previously was smoking and COVID-19 infection May 02, 2020, DVT due to COVID, borderline hypertension, kyphoscoliosis and cervical/uterine cancer with surgery and history of back surgery presents to ER with complaints of abdominal pain. Patient states that she woke up in the middle night yesterday due to right upper quadrant abdominal pain. Patient does have history of gallstones. Pain is also present in the epigastric region moving to right upper quadrant and also across both sides of the upper abdomen. Associated nausea. No episodes of vomiting. Patient felt very bloated. Does have chills and cold sweats. Denies any chest pain or shortness of breath. Ultrasound of the gallbladder showed similar findings to prior ultrasound. Prominent shadowing gallstone and adjacent small stones and are slightly with abnormal gallbladder wall thickening. No new fluid or positive sonographic Levine sign. Acute cholecystitis cannot be excluded however given symptoms of right upper quadrant pain. Consider HIDA scan evaluation. Laboratory data showed WBC 5.3 hemoglobin 14.0 platelets 216 BUN 39 creatinine 0.62 AST 573 ALT 237, alk phos 166. Lipase 3862. Review of Systems Constitutional: Patient denies any fever or chills . No generalized weakness or weight loss. Abdomen: Patient does have abdominal pain ever since it nausea. Positive diarrhea.. Cardiovascular: Patient denies any chest pain or short of breath no palpitations. Respiratory: patient denied any cough or sputum production. No shortness of breath Neurologic: Patient denied any numbness or tingling headache. Musculoskeletal: Patient denies any complaints of joint swelling or deformity. Skin: Negative Psychiatric: Negative Endocrine: No heat or cold intolerance. No recent weight gain. Genitourinary: No dysuria or hematuria. All other 14 point ROS negative except the above Constitutional: Reports as per HPI Past Medical History Past Medical History: No Reported History Additional Past Medical History / Comment(s): Pt tested covid + on 04/25/20 at [facility] on [address]. 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 History of Any Multi-Drug Resistant Organisms: None Reported Past Surgical History: Back Surgery, Hysterectomy Additional Past Surgical History / Comment(s): D&C/leep colposcopy, upper back linda, lower back bone graft (taken from hip), colonoscopy, wisdom teeth extraction. Past Anesthesia/Blood Transfusion Reactions: No Reported Reaction Additional Past Anesthesia/Blood Transfusion Reaction / Comment(s): Pt recieved blood transfusion with back surgery. Past Psychological History: No Psychological Hx Reported Additional Psychological History / Comment(s): Pt resides with her spouse who also has covid. Pt is independent. Smoking Status: Former smoker Past Alcohol Use History: None Reported Additional Past Alcohol Use History / Comment(s): Pt started smoking in 1976 and was a ppd smoker but has decreased to a pack lasting 10 days. Past Drug Use History: None Reported - Past Family History Father Family Medical History: Diabetes Mellitus, Hypertension, Renal Disease Additional Family Medical History / Comment(s): Father is . Mother Family Medical History: AFIB, Diabetes Mellitus, Hypertension Medications and Allergies Home Medications Medication Instructions Recorded Confirmed Type Pantoprazole [Protonix] 40 mg PO AC-BRKFST #30 tablet. 06/03/20 10/15/20 Rx Rivaroxaban [Xarelto] 15 mg PO QAM 10/15/20 10/15/20 History Allergies Allergy/AdvReac Type Severity Reaction Status Date / Time No Known Allergies Allergy Verified 10/15/20 10:04 Physical Exam Vitals: Vital Signs Temp Pulse Resp BP Pulse Ox 10/15/20 10:50 98 F 82 18 113/68 96 10/15/20 10:04 98 F 82 18 113/68 96 10/15/20 07:00 79 18 114/85 96 10/15/20 05:05 97.7 F 88 16 130/75 99 10/15/20 03:52 98.5 F 75 18 124/71 95 Intake and Output 10/14/20 10/15/20 10/15/20 22:59 06:59 14:59 Other: Weight 95.254 kg 93.9 kg PHYSICAL EXAMINATION: Patient is lying in the bed comfortably, no acute distress, awake alert and oriented.. HEENT: Normocephalic. Neck is supple. Pupils reactive. Nostrils clear. Oral cavity is moist. Neck reveals no JVD, carotid bruits, or thyromegaly. CHEST EXAMINATION: Trachea is central. Symmetrical expansion. Lung plummer clear to auscultation and percussion. CARDIAC: Normal S1, S2 with no gallops. No murmurs ABDOMEN: Soft. Bowel sounds normal. No organomegaly. No abdominal bruits. Mild right upper quadrant tenderness. No guarding or rigidity. Extremities: reveal no edema. No clubbing or cyanosis Neurologically awake, alert, oriented x3 with well-coordinated movements. No focal deficits noted Skin: No rash or skin lesions. Psychiatric: Coperative. Nonsuicidal Musculoskeletal: No joint swelling or deformity. Normal range of motion. Results CBC & Chem 7: 10/15/20 04:11 10/15/20 04:11 Labs: Abnormal Lab Results - Last 24 Hours (Table) 10/15/20 Range/Units 04:11 Glucose 168 H (74-99) mg/dL AST 573 H (14-36) U/L ALT 237 H (4-34) U/L Alkaline Phosphatase 166 H (38-126) U/L Lipase 3862 H (23-300) U/L Thrombosis Risk Factor Assmnt - DVT/VTE Prophylaxis DVT/VTE Prophylaxis: Pharmacologic Prophylaxis ordered - Choose All That Apply Any of the Below Risk Factors Present?: Yes Each Factor Represents 1 point: Age 41-60 years, Obesity (BMI >25) Other Risk Factors: Yes Each Risk Factor Represents 3 Points: History of DVT/PE Other congenital or acquired thrombophilia - If yes, enter type in comment: No Thrombosis Risk Factor Assessment Total Risk Factor Score: 5 Thrombosis Risk Factor Assessment Level: High Risk Assessment and Plan Assessment: Acute gallstone pancreatitis. History of COVID-19 infection in April 2020 and developed DVT bilateral lower extremities. History of gallstones. Borderline hypertension. Kyphoscoliosis Cervical/uterine cancer status post surgery History of back surgery Previous history of smoking DVT prophylaxis with heparin subcu Plan: Patient will be current on IV hydration and empiric antibiotics in the form of Zosyn. Continue with pain management. General surgery was consulted. Nothing by mouth. Patient will be continued on home medications on hold Xarelto at this time for possible surgical intervention. Continue to follow closely. Abdominal pain is controlled with medications at this time.
[2020-10-16] MEDS: HEPARIN SODIUM,PORCINE/PF 5,000 UNIT/0.5 ML SYRINGE SQ SCH ×3 (00:11→18:38)
[2020-10-16] MEDS: PIPERACILLIN-TAZOBACTAM 3.375 GM in SODIUM CHLORIDE 0.9% 100 ML IVPB SCH ×3 (01:33→18:53)
[2020-10-16] MEDS: PANTOPRAZOLE 40 MG TABLET PO SCH (06:20)
[2020-10-16 07:38] LABS: HGB 12.4 gm/dL (11.4-16.0); MCH 29.6 pg (25.0-35.0); MCHC 34.3 g/dL (31.0-37.0); MCV 86.3 fL (80.0-100.0); Mean Platelet Volume 6.9; Platelet Count 185 k/uL (150-450); RBC 4.18 m/uL (3.80-5.40); RDW 14.2 % (11.5-15.5); WBC 2.1 k/uL (3.8-10.6)
[2020-10-16 07:59] LABS: ALT 540 U/L (4-34); AST 419 U/L (14-36); African American GFR (CKD) >90 (>60 ml/min/1.73 sqM); Albumin 2.8 g/dL (3.5-5.0); Alkaline Phosphatase 147 U/L (38-126); Anion Gap 5 mmol/L; Blood Urea Nitrogen 5 mg/dL (7-17); Calcium 8.3 mg/dL (8.4-10.2); Carbon Dioxide 22 mmol/L (22-30); Chloride 116 mmol/L (98-107); Glucose 91 mg/dL (74-99); Lipase 89 U/L (23-300); Non-African American GFR(CKD) >90 (>60 ml/min/1.73 sqM); Potassium 3.5 mmol/L (3.5-5.1); Sodium 143 mmol/L (137-145); Total Bilirubin 2.3 mg/dL (0.2-1.3); Total Protein 5.1 g/dL (6.3-8.2)
[2020-10-16 09:37] LABS: Basophils # (M) 0.02 k/uL (0-0.2); Eosinophils # (M) 0.11 k/uL (0-0.7); Lymphocytes # (M) 0.86 k/uL (1.0-4.8); Monocytes # (M) 0.13 k/uL (0-1.0); Neutrophils # (M) 0.99 k/uL (1.3-7.7); Neutrophils % (M) 47 %; Nucleated Red Blood Cells 0 /100 WBC (0-0); Total Cells Counted 100
[2020-10-16] MEDS ORDERED: POTASSIUM CHLORIDE ER 20 MEQ TAB.ER PO STA (11:04)
--- NOTE | 2020-10-16 11:07 | P.PN ---
<Rufina Rios - Last Filed: 10/16/20 11:01> Subjective Progress Note Date: 10/16/20 CHIEF COMPLAINT: Epigastric abdominal pain HISTORY OF PRESENT ILLNESS: Patient reports improvement in her abdominal pain. She only has pain on physical exam. Otherwise patient reports no abdominal pain. She is tolerating the clear liquid diet. She denies any nausea or vomiting. Afebrile. WBC is 2.1 hemoglobin 12.4 sodium 143 potassium 3.5 creatinine 0.61 total bilirubin is up at 2.3 AST 419 ALT 540 alk phos 147 lipase has normalized at 89 PHYSICAL EXAM: VITAL SIGNS: Reviewed. GENERAL: Well-developed in no acute distress. HEENT: No sclera icterus. Extraocular movements grossly intact. Moist buccal mucosa. Head is atraumatic, normocephalic. ABDOMEN: Soft. Nondistended. Epigastric and right upper quadrant tenderness with palpation NEUROLOGIC: Alert and oriented. Cranial nerves II through XII grossly intact. ASSESSMENT: 1. Gallstone pancreatitis PLAN: -Advance diet to full liquids -MRCP ordered -Hypokalemia. we'll give 1 dose of potassium 20 mEq -Continue to monitor LFTs -Further recommendations forthcoming per Surgeon Physician Control Panel Builder note has been reviewed by physician. Signing provider agrees with the documented findings, assessment, and plan of care. Objective - Vital Signs Vital signs: Vital Signs Temp 98.1 F 10/16/20 08:19 Pulse 62 10/16/20 08:19 Resp 12 10/16/20 08:19 BP 145/78 10/16/20 08:19 Pulse Ox 98 10/16/20 08:19 Intake & Output 10/15/20 10/16/20 10/16/20 18:59 06:59 18:59 Intake Total 300 600 Output Total 1250 Balance 300 -650 Weight 93.9 kg Intake: Oral 300 600 Output: Urine 1250 Other: Voiding Method Toilet Toilet # Voids 1 - Labs CBC & Chem 7: 10/16/20 06:58 10/16/20 06:58 Labs: Abnormal Lab Results - Last 24 Hours (Table) 10/16/20 10/16/20 Range/Units 06:58 06:58 WBC 2.1 L (3.8-10.6) k/uL Neutrophils # (Manual) 0.99 L (1.3-7.7) k/uL Lymphocytes # (Manual) 0.86 L (1.0-4.8) k/uL Chloride 116 H (98-107) mmol/L BUN 5 L (7-17) mg/dL Calcium 8.3 L (8.4-10.2) mg/dL Total Bilirubin 2.3 H (0.2-1.3) mg/dL AST 419 H (14-36) U/L ALT 540 H (4-34) U/L Alkaline Phosphatase 147 H (38-126) U/L Total Protein 5.1 L (6.3-8.2) g/dL Albumin 2.8 L (3.5-5.0) g/dL <Marito Rivera - Last Filed: 10/16/20 14:23> Subjective As above. Patient with persistent darker gold-colored urine. Her pain has improved however. Labs show improvement and lipase however liver enzymes without significant improvements. Agree with plans for MRCP at this time. May require GI consult next week or possibly even transfer if choledocholithiasis is identified. Objective - Vital Signs Vital signs: Vital Signs Temp 97.9 F 10/16/20 14:13 Pulse 58 L 10/16/20 14:13 Resp 15 10/16/20 14:13 BP 124/79 10/16/20 14:13 Pulse Ox 97 10/16/20 14:13 Intake & Output 10/15/20 10/16/20 10/16/20 18:59 06:59 18:59 Intake Total 300 600 Output Total 1250 Balance 300 -650 Weight 93.9 kg Intake: Oral 300 600 Output: Urine 1250 Other: Voiding Method Toilet Toilet # Voids 1 - Labs CBC & Chem 7: 10/16/20 06:58 10/16/20 06:58 Labs: Abnormal Lab Results - Last 24 Hours (Table) 10/16/20 10/16/20 Range/Units 06:58 06:58 WBC 2.1 L (3.8-10.6) k/uL Neutrophils # (Manual) 0.99 L (1.3-7.7) k/uL Lymphocytes # (Manual) 0.86 L (1.0-4.8) k/uL Chloride 116 H (98-107) mmol/L BUN 5 L (7-17) mg/dL Calcium 8.3 L (8.4-10.2) mg/dL Total Bilirubin 2.3 H (0.2-1.3) mg/dL AST 419 H (14-36) U/L ALT 540 H (4-34) U/L Alkaline Phosphatase 147 H (38-126) U/L Total Protein 5.1 L (6.3-8.2) g/dL Albumin 2.8 L (3.5-5.0) g/dL
--- NOTE | 2020-10-16 15:35 | P.PN ---
Subjective Progress Note Date: 10/16/20 Principal diagnosis: Acute gallstone pancreatitis Patient is a 60-year-old female with a known history of cholelithiasis, previously was smoking and COVID-19 infection May 02, 2020, DVT due to COVID, borderline hypertension, kyphoscoliosis and cervical/uterine cancer with surgery and history of back surgery presents to ER with complaints of abdominal pain. Patient states that she woke up in the middle night yesterday due to right upper quadrant abdominal pain. Patient does have history of gallstones. Pain is also present in the epigastric region moving to right upper quadrant and also across both sides of the upper abdomen. Associated nausea. No episodes of vomiting. Patient felt very bloated. Does have chills and cold sweats. Denies any chest pain or shortness of breath. Ultrasound of the gallbladder showed similar findings to prior ultrasound. Prominent shadowing gallstone and adjacent small stones and are slightly with abnormal gallbladder wall thickening. No new fluid or positive sonographic Levine sign. Acute cholecystitis cannot be excluded however given symptoms of right upper quadrant pain. Consider HIDA scan evaluation. Laboratory data showed WBC 5.3 hemoglobin 14.0 platelets 216 BUN 39 creatinine 0.62 AST 573 ALT 237, alk phos 166. Lipase 3862. 10/16/2020 Patient is currently resting in the bed comfortable. Denied any compressive a bdominal pain. No fever no chills. No nausea vomiting. Patient was started on liquid diet and is tolerating well. Laboratory data WBC 2.1, hemoglobin 12.4 and platelets 185 Sodium 143 potassium 3.5 chloride 116, AST 2419 ALT 540 and alk phos 147 and lipase level came down to 89 today. MRCP was ordered. General surgery is on board. Current medications reviewed. Objective - Vital Signs Vital signs: Vital Signs Temp 97.9 F 10/16/20 14:13 Pulse 58 L 10/16/20 14:13 Resp 15 10/16/20 14:13 BP 124/79 10/16/20 14:13 Pulse Ox 97 10/16/20 14:13 Intake & Output 10/15/20 10/16/20 10/16/20 18:59 06:59 18:59 Intake Total 300 600 Output Total 1250 Balance 300 -650 Weight 93.9 kg Intake: Oral 300 600 Output: Urine 1250 Other: Voiding Method Toilet Toilet # Voids 1 2 - Exam PHYSICAL EXAMINATION: Patient is lying in the bed comfortably, no acute distress, awake alert and oriented.. HEENT: Normocephalic. Neck is supple. Pupils reactive. Nostrils clear. Oral cavity is moist. Neck reveals no JVD, carotid bruits, or thyromegaly. CHEST EXAMINATION: Trachea is central. Symmetrical expansion. Lung plummer clear to auscultation and percussion. CARDIAC: Normal S1, S2 with no gallops. No murmurs ABDOMEN: Soft. Bowel sounds normal. No organomegaly. No abdominal bruits. Extremities: reveal no edema. No clubbing or cyanosis Neurologically awake, alert, oriented x3 with well-coordinated movements. No focal deficits noted Skin: No rash or skin lesions. Psychiatric: Coperative. Nonsuicidal Musculoskeletal: No joint swelling or deformity. Normal range of motion. - Labs CBC & Chem 7: 10/16/20 06:58 10/16/20 06:58 Labs: Abnormal Lab Results - Last 24 Hours (Table) 10/16/20 10/16/20 Range/Units 06:58 06:58 WBC 2.1 L (3.8-10.6) k/uL Neutrophils # (Manual) 0.99 L (1.3-7.7) k/uL Lymphocytes # (Manual) 0.86 L (1.0-4.8) k/uL Chloride 116 H (98-107) mmol/L BUN 5 L (7-17) mg/dL Calcium 8.3 L (8.4-10.2) mg/dL Total Bilirubin 2.3 H (0.2-1.3) mg/dL AST 419 H (14-36) U/L ALT 540 H (4-34) U/L Alkaline Phosphatase 147 H (38-126) U/L Total Protein 5.1 L (6.3-8.2) g/dL Albumin 2.8 L (3.5-5.0) g/dL Assessment and Plan Assessment: Acute gallstone pancreatitis. Possible choledocholithiasis History of COVID-19 infection in April 2020 and developed DVT bilateral lower extremities. History of gallstones. Borderline hypertension. Kyphoscoliosis Cervical/uterine cancer status post surgery History of back surgery Previous history of smoking DVT prophylaxis with heparin subcu Plan: Patient will be current on IV hydration and empiric antibiotics in the form of Zosyn. Continue with pain management. General surgery is on board. Abdominal pain is much improved now. Started on liquid diet and advance as tolerated. MRCP was ordered.. Patient will be continued on home medications on hold Xarelto at this time for possible surgical intervention. Continue to follow closely. Abdominal pain is controlled with medications at this time.
--- NOTE | 2020-10-16 19:09 | MR ---
EXAMINATION TYPE: MR MRCP DATE OF EXAM: 10/16/2020 COMPARISON: None HISTORY: Epigastric abdominal pain, elevated LFTs, gallstone. Multiplanar multiecho imaging of the abdomen without contrast. There are MRCP images. Liver has normal size and contour. There is no focal liver defect. Spleen is intact. There is thoraci c dextroscoliosis and lumbar levo rotoscoliosis. There is no evidence of pancreatic mass. There is so me fatty infiltration of the pancreas. There is no evidence of adrenal mass. Kidneys have normal size . There is no hydronephrosis. There is no retroperitoneal adenopathy. There is no ascites. Intrahepatic bile ducts appear normal. Common bile duct appears normal. I see no filling defect. Comm on bile duct measures 4 mm maximum dimension. There is no evidence of a stricture. The pancreatic moni t appears normal. There is no sign of pleural effusion. I see no bony destructive process. Gallbladder has normal size. There is a single 2.3 cm diameter gallstone. There is no gallbladder wal l thickening. IMPRESSION: Large solitary gallstone. No dilated ducts. Normal pancreas. Scoliotic deformity.
[2020-10-17] MEDS: HEPARIN SODIUM,PORCINE/PF 5,000 UNIT/0.5 ML SYRINGE SQ SCH ×3 (00:08→16:58)
[2020-10-17] MEDS: PIPERACILLIN-TAZOBACTAM 3.375 GM in SODIUM CHLORIDE 0.9% 100 ML IVPB SCH ×3 (02:01→17:43)
[2020-10-17] MEDS: PANTOPRAZOLE 40 MG TABLET PO SCH (05:47)
[2020-10-17 09:25] LABS: ALT 335 U/L (4-34); AST 132 U/L (14-36); African American GFR (CKD) >90 (>60 ml/min/1.73 sqM); Albumin 2.6 g/dL (3.5-5.0); Alkaline Phosphatase 139 U/L (38-126); Anion Gap 5 mmol/L; Blood Urea Nitrogen 3 mg/dL (7-17); Calcium 7.7 mg/dL (8.4-10.2); Carbon Dioxide 20 mmol/L (22-30); Chloride 116 mmol/L (98-107); Glucose 68 mg/dL (74-99); Non-African American GFR(CKD) >90 (>60 ml/min/1.73 sqM); Potassium 3.3 mmol/L (3.5-5.1); Sodium 141 mmol/L (137-145); Total Protein 4.7 g/dL (6.3-8.2)
--- NOTE | 2020-10-17 15:19 | P.PN ---
Subjective Progress Note Date: 10/17/20 CHIEF COMPLAINT: Gallstone pancreatitis HISTORY OF PRESENT ILLNESS: The patient is a 60-year-old female presents with gallstone pancreatitis. She is sitting up in the chair. She reports feeling better than the day she was admitted. "It feels like bruising," as she refers to her epigastric abdominal discomfort, but overall better. ROS: No reports of nausea and vomiting. No fevers or chills. No new chest pain. No productive sputum PHYSICAL EXAM: VITAL SIGNS: Reviewed CONSTITUTIONAL: Well developed and in no acute distress. EYES: Conjuctivae without sclera icterus. Extraocular movements grossly intact. HEAD, EARS, NOSE, THROAT: Moist buccal mucosa. Head is atraumatic, normocephalic. Hears conversational speech. No nasal drainage. NECK: No gross thyroidomegaly. No jugular venous distention. RESPIRATORY: Non-labored respirations and equal bilateral excursions. CARDIOVASCULAR: Palpable 2+ radial pulses. Regular rate. Regular rhythm. ABDOMEN: No peritonitis. MUSCULOSKELETAL: No gross deformity of the lower extremities noted. No clubbing. No cyanosis. SKIN: Good skin turgor. Well perfused. NEUROLOGIC: Cranial nerves II through XII grossly intact. No focal or lateral izing signs. PSYCH: Appropriate affect. Alert and oriented to person, place and time. CLINICAL LABS: White blood cell count normal initially 5.3 down to 2.1 with leukopenia. Total bilirubin down 2.3-1.0. LFTs improving. Lipase down over 3800 down to 69 STUDIES: MRCP independent reviewed demonstrating no dilation of common bile duct or signs of common bile duct stone. This is my independent interpretation. RADIOLOGY: MRCP report reviewed confirming no, bile duct stones. Large 2.3 cm g allstone identified. ASSESSMENT: 1. Acute gallstone pancreatitis PLAN: 1. Clear liquid diet may advance to low fat diet. 2. Low-fat diet education. 3. Possible outpatient cholecystectomy reviewed and discussed with patient. 4. Clear from surgical standpoint for discharge when medically stable Objective - Vital Signs Vital signs: Vital Signs Temp 97.4 F L 10/17/20 07:45 Pulse 61 10/17/20 07:45 Resp 18 10/17/20 07:54 BP 133/86 10/17/20 07:45 Pulse Ox 96 10/17/20 07:45 Intake & Output 10/16/20 10/17/20 10/17/20 18:59 06:59 18:59 Intake Total 0 400 Output Total 2850 825 Balance 0 -2450 -825 Intake: Oral 0 400 Output: Urine 2850 825 Other: Voiding Method Toilet Toilet # Voids 2 - Labs CBC & Chem 7: 10/16/20 06:58 10/17/20 07:54 Labs: Abnormal Lab Results - Last 24 Hours (Table) 10/17/20 Range/Units 07:54 Potassium 3.3 L (3.5-5.1) mmol/L Chloride 116 H (98-107) mmol/L Carbon Dioxide 20 L (22-30) mmol/L BUN 3 L (7-17) mg/dL Creatinine 0.49 L (0.52-1.04) mg/dL Glucose 68 L (74-99) mg/dL Calcium 7.7 L (8.4-10.2) mg/dL AST 132 H (14-36) U/L ALT 335 H (4-34) U/L Alkaline Phosphatase 139 H (38-126) U/L Total Protein 4.7 L (6.3-8.2) g/dL Albumin 2.6 L (3.5-5.0) g/dL Assessment and Plan (1) Gallstone pancreatitis Current Visit: Yes Status: Acute Code(s): K85.10 - BILIARY ACUTE PANCREATI TIS WITHOUT NECROSIS OR INFECTION SNOMED Code(s): 08820977
--- NOTE | 2020-10-18 00:09 | P.PN ---
Subjective Progress Note Date: 10/17/20 Principal diagnosis: Acute gallstone pancreatitis Patient is a 60-year-old female with a known history of cholelithiasis, previously was smoking and COVID-19 infection May 02, 2020, DVT due to COVID, borderline hypertension, kyphoscoliosis and cervical/uterine cancer with surgery and history of back surgery presents to ER with complaints of abdominal pain. Patient states that she woke up in the middle night yesterday due to right upper quadrant abdominal pain. Patient does have history of gallstones. Pain is also present in the epigastric region moving to right upper quadrant and also across both sides of the upper abdomen. Associated nausea. No episodes of vomiting. Patient felt very bloated. Does have chills and cold sweats. Denies any chest pain or shortness of breath. Ultrasound of the gallbladder showed similar findings to prior ultrasound. Prominent shadowing gallstone and adjacent small stones and are slightly with abnormal gallbladder wall thickening. No new fluid or positive sonographic Levine sign. Acute cholecystitis cannot be excluded however given symptoms of right upper quadrant pain. Consider HIDA scan evaluation. Laboratory data showed WBC 5.3 hemoglobin 14.0 platelets 216 BUN 39 creatinine 0.62 AST 573 ALT 237, alk phos 166. Lipase 3862. 10/16/2020 Patient is currently resting in the bed comfortable. Denied any compressive a bdominal pain. No fever no chills. No nausea vomiting. Patient was started on liquid diet and is tolerating well. Laboratory data WBC 2.1, hemoglobin 12.4 and platelets 185 Sodium 143 potassium 3.5 chloride 116, AST 2419 ALT 540 and alk phos 147 and lipase level came down to 89 today. MRCP was ordered. General surgery is on board. 10/17/2020 Patient is currently sitting Monday. Tolerating oral diet. No complaints of abdominal pain. No nausea vomiting abdominal pain or diarrhea. During his abdominal down. Anticipate discharge in 24 hours with improvement in liver enzymes patient has been afebrile. Continued on IV Zosyn. General surgery is on board. MRCP showed large solitary gallstone. No dilated ducts. Normal pancreas. Scoliotic deformity. Current medications reviewed. Objective - Vital Signs Vital signs: Vital Signs Temp 97.9 F 10/17/20 20:00 Pulse 97 10/17/20 20:00 Resp 18 09/04/21 20:00 BP 143/85 10/17/20 20:00 Pulse Ox 97 10/17/20 20:00 Intake & Output 10/17/20 10/17/20 10/18/20 06:59 18:59 06:59 Intake Total 400 800 Output Total 2850 825 Balance -2450 -25 Intake: Oral 400 800 Output: Urine 2850 825 Other: Voiding Method Toilet # Voids 1 # Bowel Movements 1 - Exam PHYSICAL EXAMINATION: Patient is lying in the bed comfortably, no acute distress, awake alert and oriented.. HEENT: Normocephalic. Neck is supple. Pupils reactive. Nostrils clear. Oral cavity is moist. Neck reveals no JVD, carotid bruits, or thyromegaly. CHEST EXAMINATION: Trachea is central. Symmetrical expansion. Lung plummer clear to auscultation and percussion. CARDIAC: Normal S1, S2 with no gallops. No murmurs ABDOMEN: Soft. Bowel sounds normal. No organomegaly. No abdominal bruits. Extremities: reveal no edema. No clubbing or cyanosis Neurologically awake, alert, oriented x3 with well-coordinated movements. No focal deficits noted Skin: No rash or skin lesions. Psychiatric: Coperative. Nonsuicidal Musculoskeletal: No joint swelling or deformity. Normal range of motion. - Labs CBC & Chem 7: 10/16/20 06:58 10/17/20 07:54 Labs: Abnormal Lab Results - Last 24 Hours (Table) 10/17/20 Range/Units 07:54 Potassium 3.3 L (3.5-5.1) mmol/L Chloride 116 H (98-107) mmol/L Carbon Dioxide 20 L (22-30) mmol/L BUN 3 L (7-17) mg/dL Creatinine 0.49 L (0.52-1.04) mg/dL Glucose 68 L (74-99) mg/dL Calcium 7.7 L (8.4-10.2) mg/dL AST 132 H (14-36) U/L ALT 335 H (4-34) U/L Alkaline Phosphatase 139 H (38-126) U/L Total Protein 4.7 L (6.3-8.2) g/dL Albumin 2.6 L (3.5-5.0) g/dL Assessment and Plan Assessment: Acute gallstone pancreatitis. Possible choledocholithiasis History of COVID-19 infection in April 2020 and developed DVT bilateral lower extremities. History of gallstones. Borderline hypertension. Kyphoscoliosis Cervical/uterine cancer status post surgery History of back surgery Previous history of smoking DVT prophylaxis with heparin subcu Plan: Patient will be current on IV hydration and empiric antibiotics in the form of Zosyn. Continue with pain management. General surgery is on board. Abdominal pain is much improved now. Started on liquid diet and advance as tolerated. MRCP showed large solitary gallstone. No dilated ducts. Normal pancreas. Scoliotic deformity. Patient will be continued on home medications on hold Xarelto at this time for possible surgical intervention. Continue to follow closely. Abdominal pain is controlled with medications at this time.
[2020-10-18] MEDS: HEPARIN SODIUM,PORCINE/PF 5,000 UNIT/0.5 ML SYRINGE SQ SCH ×2 (00:35→09:09)
[2020-10-18 01:11] VITALS: RESP 16
[2020-10-18] MEDS: PIPERACILLIN-TAZOBACTAM 3.375 GM in SODIUM CHLORIDE 0.9% 100 ML IVPB SCH ×2 (02:01→09:09)
[2020-10-18 05:17] LABS: Basophils # (A) 0.1 k/uL (0-0.2); Basophils % (A) 1 %; Eosinophils # (A) 0.1 k/uL (0-0.7); Eosinophils % (A) 2 %; HCT 38.4 % (34.0-46.0); HGB 13.3 gm/dL (11.4-16.0); Lymphocytes # (A) 1.3 k/uL (1.0-4.8); Lymphocytes % (A) 35 %; MCH 29.3 pg (25.0-35.0); MCHC 34.6 g/dL (31.0-37.0); MCV 84.8 fL (80.0-100.0); Mean Platelet Volume 6.7; Monocytes # (A) 0.2 k/uL (0-1.0); Monocytes % (A) 6 %; Neutrophils % (A) 52 %; Platelet Count 203 k/uL (150-450); RBC 4.53 m/uL (3.80-5.40); RDW 14.2 % (11.5-15.5); WBC 3.8 k/uL (3.8-10.6)
[2020-10-18 05:42] LABS: ALT 299 U/L (4-34); AST 82 U/L (14-36); African American GFR (CKD) >90 (>60 ml/min/1.73 sqM); Albumin 3.3 g/dL (3.5-5.0); Alkaline Phosphatase 156 U/L (38-126); Anion Gap 6 mmol/L; Blood Urea Nitrogen 4 mg/dL (7-17); Calcium 9.4 mg/dL (8.4-10.2); Carbon Dioxide 22 mmol/L (22-30); Chloride 111 mmol/L (98-107); Glucose 87 mg/dL (74-99); Non-African American GFR(CKD) >90 (>60 ml/min/1.73 sqM); Potassium 3.7 mmol/L (3.5-5.1); Sodium 139 mmol/L (137-145); Total Bilirubin 1.1 mg/dL (0.2-1.3); Total Protein 5.5 g/dL (6.3-8.2)
[2020-10-18] MEDS: PANTOPRAZOLE 40 MG TABLET PO SCH (06:55)
[2020-10-18 08:43] VITALS: BP 148/89; PULSE 70; TEMP 98.5
--- NOTE | 2020-10-18 12:18 | P.PN ---
Subjective Progress Note Date: 10/18/20 CHIEF COMPLAINT: Gallstone pancreatitis HISTORY OF PRESENT ILLNESS: The patient is a 60-year-old female presents with gallstone pancreatitis. She is sitting up ay bedside. Her epigastric abdominal pain is resolving. She is tolerating diet. ROS: No reports of nausea and vomiting. No fevers or chills. No new chest pain. No productive sputum PHYSICAL EXAM: VITAL SIGNS: Reviewed CONSTITUTIONAL: Well developed and in no acute distress. EYES: Conjuctivae without sclera icterus. Extraocular movements grossly intact. HEAD, EARS, NOSE, THROAT: Moist buccal mucosa. Head is atraumatic, normoce phalic. Hears conversational speech. No nasal drainage. NECK: No gross thyroidomegaly. No jugular venous distention. RESPIRATORY: Non-labored respirations and equal bilateral excursions. CARDIOVASCULAR: Palpable 2+ radial pulses. Regular rate. Regular rhythm. ABDOMEN: No peritonitis. MUSCULOSKELETAL: No gross deformity of the lower extremities noted. No clubbing. No cyanosis. SKIN: Good skin turgor. Well perfused. NEUROLOGIC: Cranial nerves II through XII grossly intact. No focal or lateralizing signs. PSYCH: Appropriate affect. Alert and oriented to person, place and time. CLINICAL LABS: White blood cell count normal. Total bilirubin normal. LFTs improving with downward trend. ASSESSMENT: 1. Acute gallstone pancreatitis PLAN: 1. Low-fat diet upon discharge 2. Clear from surgical standpoint for discharge when medically stable 3. Follow up instructions reviewed. Objective - Vital Signs Vital signs: Vital Signs Temp 98.5 F 10/18/20 08:10 Pulse 70 10/18/20 08:10 Resp 16 10/18/20 10:05 BP 148/89 10/18/20 08:10 Pulse Ox 96 10/18/20 08:10 Intake & Output 10/17/20 10/18/20 10/18/20 18:59 06:59 18:59 Intake Total 800 240 Output Total 825 600 Balance -25 240 -600 Intake: Oral 800 240 Output: Urine 825 600 Other: # Voids 1 2 2 # Bowel Movements 1 - Labs CBC & Chem 7: 10/18/20 04:54 10/18/20 04:54 Labs: Abnormal Lab Results - Last 24 Hours (Table) 10/18/20 Range/Units 04:54 Chloride 111 H (98-107) mmol/L BUN 4 L (7-17) mg/dL AST 82 H (14-36) U/L ALT 299 H (4-34) U/L Alkaline Phosphatase 156 H (38-126) U/L Total Protein 5.5 L (6.3-8.2) g/dL Albumin 3.3 L (3.5-5.0) g/dL Assessment and Plan (1) Gallstone pancreatitis Current Visit: Yes Status: Acute Code(s): K85.10 - BILIARY ACUTE PA NCREATITIS WITHOUT NECROSIS OR INFECTION SNOMED Code(s): 21393632
== END 2020-10-18 14:18 | disposition home or self-care (01) | DRG 440 ==
LOC: EC 03:50 → 6PED 09:44
PROVIDERS: ADMIT Hospitalist; ATTEND Hospitalist
DX: K85.10 Biliary acute pancreatitis without necrosis or infection (principal); R03.0 Elevated blood-pressure reading, without diagnosis of hypertension; R74.01 Elevation of levels of liver transaminase levels; E87.6 Hypokalemia; L92.0 Granuloma annulare; K80.20 Calculus of gallbladder without cholecystitis without obstruction; M41.9 Scoliosis, unspecified; Z79.01 Long term (current) use of anticoagulants; Z85.42 Personal history of malignant neoplasm of other parts of uterus; Z87.891 Personal history of nicotine dependence; Z86.718 Personal history of other venous thrombosis and embolism; Z90.710 Acquired absence of both cervix and uterus; Z86.19 Personal history of other infectious and parasitic diseases
CPT/HCPCS: 36415; 74181; 76705; 80053; 82150; 83690; 85025; 96361; 96365; 96375; 99285

== ENCOUNTER 2020-11-02 10:43 | Day surgery (SDC) | payer BC ==
[2020-10-29 16:19] VITALS: BMI 30.4
[~2020-11-02 10:43] MED LIST: ACETAMINOPHEN TAB 500 MG TAB PO PRN; DEXAMETHASONE SOD PHOSPHATE 4 MG/ML 1 ML VIAL IV ONE; HEPARIN SODIUM,PORCINE/PF 5,000 UNIT/0.5 ML SYRINGE SQ PRN; HYDROmorphone 0.5 MG/0.5 ML SYRINGE IVP PRN; MIDAZOLAM 2 MG/2 ML VIAL IV PRN; ONDANSETRON 4 MG/2 ML VIAL IVP ONE; SCOPOLAMINE 1.5MG/72HR PATCH TRANSDERM ONE
[2020-11-02] MEDS: LACTATED RINGERS 1,000 ML IV SCH ×2 (11:20→11:39)
[2020-11-02] MEDS ORDERED: GLYCOPYRROLATE 0.2 MG/ML 2 ML VIAL ONE (11:36)
[2020-11-02] MEDS ORDERED: ROCURONIUM 10 MG/ML (5 ML VIAL) IV ONE (11:36)
[2020-11-02] MEDS ORDERED: NEOSTIGMINE 1 MG/ML 10 ML VIAL ONE (11:36)
[2020-11-02] MEDS ORDERED: fentaNYL (PF) 50 MCG/ML 2 ML AMP ONE (11:36)
[2020-11-02] MEDS ORDERED: PROPOFOL 10 MG/ML 20 ML VIAL IV ONE (11:36)
[2020-11-02] MEDS ORDERED: MIDAZOLAM 2 MG/2 ML VIAL ONE (11:36)
[2020-11-02] MEDS ORDERED: LIDOCAINE 1% INJ 10MG/ML (20 ML MDV) ONE (11:36)
[2020-11-02] MEDS ORDERED: SUCCINYLCHOLINE CHLORIDE 100 MG/5 ML SYR IV ONE (11:36)
[2020-11-02] MEDS ORDERED: BUPIVACAINE (PF) 0.5% 30 ML VIAL SQ ONE (12:08)
[2020-11-02] MEDS ORDERED: KETOROLAC 15 MG/ML 1 ML VIAL ONE (13:11)
[2020-11-02 13:13] VITALS: RESP 16; TEMP 97.1
--- NOTE | 2020-11-02 13:13 | P.OP ---
Date of Procedure: 11/02/20 Procedure(s) Performed: PREOPERATIVE DIAGNOSIS: Chronic cholecystitis, gallstone pancreatitis POSTOPERATIVE DIAGNOSIS: Same PROCEDURE: Laparoscopic cholecystectomy SURGEON: Nicole EBL: 30 mL ANESTHESIA: Gen. COMPLICATIONS: None OPERATIVE PROCEDURE: The patient was brought and placed on the operating room table in the supine position. The patient was placed under general anesthesia at that time. The abdomen was prepped and draped in the usual sterile fashion. A small vertical infraumbilical incision was made. The fascia was grasped with the Chela forceps. The fascia was retracted anteriorly. The Veress needle was advanced into the peritoneal cavity. The saline drop test was normal. Insufflation took place up to 15 mmHg. A 5 mm optical trocar was advanced and the peritoneal cavity. 2 additional 5 mm trochars were placed in the right upper quadrant under direct visualization. A 12 mm trocar was advanced into the epigastric incision site. The gallbladder was retracted superiorly and laterally. The peritoneum overlying the infundibulum was bluntly dissected. The patient's cystic duct was visualized. The junction between the cystic duct common and hepatic duct was identified. The critical view of safety was achieved after blunt dissection. The cystic duct was then divided after placement of 3 12 mm clips on the patient's side and one on the specimen side. The cystic artery was identified and clipped as well. A small vessel was seen along the gallbladder fossa and clipped as well. The gallbladder was then removed from the liver bed using electrocautery. The gallbladder was then removed from the epigastric trocar site with an Endo Catch bag. The gallbladder fossa was irrigated with saline. There was no evidence of any bleeding or biliary drainage seen. The fascia at the 12 millimeter site was closed using a Elan-Ovidio 0 Vicryl stitch. In closing the fascia with a Elan-Ovidio a small area of bleeding was seen coming from the muscle. An additional [id number] suture was placed with control of that bleeding. The trochars were then removed. The skin at all 4 sites was closed using a 4-0 Monocryl stitch. Skin glue was utilized on the incision sites. At the end of this procedure the sponge and needle counts were correct. DISPOSITION: Stable to the recovery room
[2020-11-02] MEDS ORDERED: ACETAMINOPHEN TAB 325 MG TAB PO SCH (13:15)
[2020-11-02] MEDS ORDERED: LACTATED RINGERS 1,000 ML IV ONE ×2 (14:03)
[2020-11-02] MEDS ORDERED: traMADol 50 MG TAB ONE (14:08)
[2020-11-02] MEDS ORDERED: traMADol 50 MG TAB PO ONE (14:13)
[2020-11-02 14:27] VITALS: BP 128/83; PULSE 87
[2020-11-02] MEDS ORDERED: IBUPROFEN 600 MG TAB PO SCH (16:15)
== END 2020-11-02 15:05 | disposition home or self-care (01) ==
LOC: OR 10:43
PROVIDERS: ATTEND Surgery
DX: K85.10 Biliary acute pancreatitis without necrosis or infection (principal); K80.10 Calculus of gallbladder with chronic cholecystitis without obstruction; E78.5 Hyperlipidemia, unspecified; K21.9 Gastro-esophageal reflux disease without esophagitis; Z79.891 Long term (current) use of opiate analgesic; Z86.73 Personal history of transient ischemic attack (TIA), and cerebral infarction without residual deficits
CPT/HCPCS: 47562; 88304; J2250; J1100; J2710; J0690; J2405; J2001; J3010; J1885; J0330; J2704; J1170; J1644